=== PATIENT | male | born 1940 | race Caucasian/White ===

== ENCOUNTER 2016-05-06 10:35 | Outpatient (RCR) | payer MEDICARE ==
[~2016-05-06 10:35] MED LIST: AMIO400T5 PO; AMLO5TAB2 PO; ASP81TEC PO; ATOR40TA PO; DCS100C PO; DOXA1TAB PO; FURO40TA4 PO; FURO80TA PO; FURO80TA3 PO; GABA-488 PO; GLIM2TAB PO; HYDR-3456 PO; HYDR118S10 PO; JANUVIA PO; KCL20TCR PO; LINA5TAB PO; LIPO-FLAVONOID PO; LISI20TA PO; LISI40TA PO; LISINOPRIL; METFORMIN; MTF500T PO; MTL2.5T PO; MTP25TSR PO; MULT-1029 PO; NAPR-243 PO; POTA20TA15 PO; SITA100T PO; SMV20T PO; WARF-48 PO; WARF10TA4 PO; WARF4TAB PO; ZLP10T PO
[2016-05-06 11:02] LABS: INR 3.5 (0.8-1.4); PROTHROMBIN TIME PATIENT 35.4 SEC (12.2-14.7)
== END 2016-08-04 | disposition home or self-care (01) ==
LOC: LAB 10:35
PROVIDERS: ATTEND Family Medicine
DX: I48.91 Unspecified atrial fibrillation (principal)
CPT/HCPCS: 36415; 85610

== ENCOUNTER 2016-10-26 08:50 | Outpatient (RCR) | payer MEDICARE ==
[2016-10-23 10:36] LABS: INR 4.8 (0.8-1.4)
[2016-10-23 10:40] LABS: PROTHROMBIN TIME PATIENT 45.3 SEC (12.2-14.7)
[2016-10-26 09:17] LABS: INR 1.8 (0.8-1.4); PROTHROMBIN TIME PATIENT 20.6 SEC (12.2-14.7)
[2016-11-02 11:01] LABS: INR 2.6 (0.8-1.4); PROTHROMBIN TIME PATIENT 27.3 SEC (12.2-14.7)
== END 2017-01-21 | disposition home or self-care (01) ==
LOC: LAB 08:50
PROVIDERS: ATTEND Family Medicine
DX: I48.91 Unspecified atrial fibrillation (principal)
CPT/HCPCS: 36415; 85610

== ENCOUNTER 2017-05-04 07:46 | Outpatient (RCR) | payer MEDICARE ==
[2017-04-21 09:47] LABS: INR 3.9 (0.8-1.4); PROTHROMBIN TIME PATIENT 37.9 SEC (12.2-14.7)
[2017-04-23 08:12] LABS: INR 2.4 (0.8-1.4); PROTHROMBIN TIME PATIENT 25.9 SEC (12.2-14.7)
[2017-04-26 08:06] LABS: INR 1.8 (0.8-1.4); PROTHROMBIN TIME PATIENT 20.5 SEC (12.2-14.7)
[2017-05-04 08:10] LABS: INR 2.6 (0.8-1.4); PROTHROMBIN TIME PATIENT 27.9 SEC (12.2-14.7)
== END 2017-07-20 | disposition home or self-care (01) ==
LOC: LAB 07:46
PROVIDERS: ATTEND Family Medicine
DX: I48.91 Unspecified atrial fibrillation (principal)
CPT/HCPCS: 36415; 85610

== ENCOUNTER 2017-10-07 18:50 | Inpatient (IN) | payer MEDICARE ==
[~2017-10-07] VITALS: Ht 189.2 cm; Wt 93.3 kg
--- OUTSIDE RECORDS SUMMARY | 2017-10-07 18:57 | XMS REPORT | Continuity of Care Document ---
Author Author [facility] Organization [facility] Address Unknown Phone Unavailable Allergies Active Description Code Type Severity Reaction Onset Reported/Identified Relationship to Patient Clinical Status Yes No Known Drug Allergies [id number] Drug Allergy Unknown N/A 11/16/2012 Medications There is no data. Problems Date Dx Coded Attending Type Code Diagnosis Diagnosed By 02/15/2014 JARRED DAVIS DO Ot 427.31 ATRIAL FIBRILLATION 02/15/2014 JARRED DAVIS DO Ot 550.90 UNILAT INGUINAL HERNIA 02/15/2014 JARRED DAVIS DO Ot 553.1 UMBILICAL HERNIA 02/15/2014 JARRED DAVIS DO Ot V58.61 ANTICOAGULANTS,LT,CURRENT USE 05/22/2015 JARRED DAVIS DO Ot 550.90 05/22/2015 JARRED DAVIS DO Ot 553.3 05/22/2015 JARRED DAVIS DO Ot V72.63 05/22/2015 JARRDE DAVIS DO Ot V72.81 05/22/2015 JARRED DAIVS DO Ot V74.8 05/24/2015 ELMER STEEL DO Ot I25.10 06/24/2015 SHERLY PERDOMO, JUAN Willoughby Ot E11.9 TYPE 2 DIABETES MELLITUS WITHOUT COMPLIC 06/24/2015 SHERLY PERDOMO, JUAN Willoughby Ot K22.2 ESOPHAGEAL OBSTRUCTION 06/24/2015 JUAN DUBOIS MD Ot K63.5 POLYP OF COLON 06/24/2015 SHERLY PERDOMO, JUAN Willoughby Ot Z12.11 ENCOUNTER FOR SCREENING FOR MALIGNANT NE 07/02/2015 ELMER STEEL DO Ot I25.10 08/20/2015 ELMER STEEL DO Ot I25.10 ATHSCL HEART DISEASE OF [place] CORONARY 05/06/2016 JARRED DAVIS DO Ot 550.90 UNILAT INGUINAL HERNIA 05/06/2016 JARRED DAVIS DO Ot 553.3 DIAPHRAGMATIC HERNIA 05/06/2016 JARRED DAVIS DO Ot V72.63 PRE-PROCEDURAL LABORATORY EXAMINATION 05/06/2016 JARRED DAVIS DO Ot V72.81 [id number] CARDIOVASCULAR 05/06/2016 JARRED DAVIS DO Ot V74.8 SCREEN-BACTERIAL DIS NEC 05/06/2016 SHERLY PERDOMO, JUAN Willoughby Ot Z01.818 ENCOUNTER FOR OTHER PREPROCEDURAL EXAMIN 05/06/2016 ELMER STEEL DO Ot I25.10 ATHSCL HEART DISEASE OF [place] CORONARY 05/07/2016 DAMIÁN ARAIZA, ELMER Bright Ot I48.91 UNSPECIFIED ATRIAL FIBRILLATION 06/02/2016 [facility] Bright Ot I48.91 UNSPECIFIED ATRIAL FIBRILLATION 06/05/2016 Ot I73.9 PERIPHERAL VASCULAR DISEASE, UNSPECIFIED 06/05/2016 Ot I73.9 PERIPHERAL VASCULAR DISEASE, UNSPECIFIED 06/09/2016 Ot E11.9 TYPE 2 DIABETES MELLITUS WITHOUT COMPLIC 06/09/2016 Ot I99.8 OTHER DISORDER OF CIRCULATORY SYSTEM 06/09/2016 Ot M79.672 PAIN IN LEFT FOOT 06/17/2016 Ot E11.9 TYPE 2 DIABETES MELLITUS WITHOUT COMPLIC 06/17/2016 Ot I99.8 OTHER DISORDER OF CIRCULATORY SYSTEM 06/17/2016 Ot M79.672 PAIN IN LEFT FOOT 08/04/2016 DMAIÁN ARAIZA, ELMER Bright Ot I48.91 UNSPECIFIED ATRIAL FIBRILLATION 10/23/2016 LARRYLENDER DO, ELMER Bright Ot I48.91 UNSPECIFIED ATRIAL FIBRILLATION 10/26/2016 LARRYLENDER DO, ELMER Bright Ot I48.91 UNSPECIFIED ATRIAL FIBRILLATION 10/26/2016 LARRYLENDER DO, ELMER Bright Ot I48.91 UNSPECIFIED ATRIAL FIBRILLATION 12/01/2016 LARRYLENDER DO, ELMER Bright Ot I48.91 UNSPECIFIED ATRIAL FIBRILLATION 01/21/2017 GELLENDER DO, ELMER Bright Ot I48.91 UNSPECIFIED ATRIAL FIBRILLATION 01/22/2017 LARRYLENDER , ELMER Bright Ot I48.91 UNSPECIFIED ATRIAL FIBRILLATION 04/21/2017 JARRED DAVIS DO Ot 550.90 UNILAT INGUINAL HERNIA 04/21/2017 JARRED DAVIS DO Ot 553.3 DIAPHRAGMATIC HERNIA 04/21/2017 JARRED DAVIS DO Ot V72.63 PRE-PROCEDURAL LABORATORY EXAMINATION 04/21/2017 JARRED DAVIS DO Ot V72.81 [id number] CARDIOVASCULAR 04/21/2017 JARRED DAVIS DO Ot V74.8 SCREEN-BACTERIAL DIS NEC 04/21/2017 SHERLY PERDOMO, JUAN Willoughby Ot Z01.818 ENCOUNTER FOR OTHER PREPROCEDURAL EXAMIN 04/21/2017 DAMIÁN ARAIZA ELMER Bright Ot I25.10 ATHSCL HEART DISEASE OF [place] CORONARY 04/21/2017 Ot E11.9 TYPE 2 DIABETES MELLITUS WITHOUT COMPLIC 04/21/2017 Ot I99.8 OTHER DISORDER OF CIRCULATORY SYSTEM 04/21/2017 Ot M79.672 PAIN IN LEFT FOOT 04/21/2017 DAMIÁN ARAIZA ELMER Bright Ot I48.91 UNSPECIFIED ATRIAL FIBRILLATION 06/01/2017 LARRYJUDITHHECTOR ELMER Bright Ot I48.91 UNSPECIFIED ATRIAL FIBRILLATION 07/20/2017 DAMIÁN ARAIZA, ELMER Bright Ot I48.91 UNSPECIFIED ATRIAL FIBRILLATION 07/21/2017 DAMIÁN ARAIZA ELMER Bright Ot I48.91 UNSPECIFIED ATRIAL FIBRILLATION Procedures There is no data. Results Test Result Range PT panel in platelet poor plasma by coagulation assay - 05/06/16 10:42 Prothrombin time (PT) in platelet poor plasma by coagulation assay 35.4 s 12.2-14.7 INR in platelet poor plasma or blood by coagulation assay 3.5 0.8-1.4 PT panel in platelet poor plasma by coagulation assay - 10/23/16 10:14 Prothrombin time (PT) in platelet poor plasma by coagulation assay 45.3 s 12.2-14.7 INR in platelet poor plasma or blood by coagulation assay 4.8 0.8-1.4 PT panel in platelet poor plasma by coagulation assay - 10/26/16 08:56 Prothrombin time (PT) in platelet poor plasma by coagulation assay 20.6 s 12.2-14.7 INR in platelet poor plasma or blood by coagulation assay 1.8 0.8-1.4 PT panel in platelet poor plasma by coagulation assay - 11/02/16 10:41 Prothrombin time (PT) in platelet poor plasma by coagulation assay 27.3 s 12.2-14.7 INR in platelet poor plasma or blood by coagulation assay 2.6 0.8-1.4 PT panel in platelet poor plasma by coagulation assay - 04/21/17 09:23 Prothrombin time (PT) in platelet poor plasma by coagulation assay 37.9 s 12.2-14.7 INR in platelet poor plasma or blood by coagulation assay 3.9 0.8-1.4 PT panel in platelet poor plasma by coagulation assay - 04/23/17 07:55 Prothrombin time (PT) in platelet poor plasma by coagulation assay 25.9 s 12.2-14.7 INR in platelet poor plasma or blood by coagulation assay 2.4 0.8-1.4 PT panel in platelet poor plasma by coagulation assay - 04/26/17 07:45 Prothrombin time (PT) in platelet poor plasma by coagulation assay 20.5 s 12.2-14.7 INR in platelet poor plasma or blood by coagulation assay 1.8 0.8-1.4 PT panel in platelet poor plasma by coagulation assay - 05/04/17 07:50 Prothrombin time (PT) in platelet poor plasma by coagulation assay 27.9 s 12.2-14.7 INR in platelet poor plasma or blood by coagulation assay 2.6 0.8-1.4 Encounters ACCT No. Visit Date/Time Discharge Status Pt. Type Provider Facility Loc./Unit Complaint [id number] 07/21/2017 00:25:00 07/21/2017 23:59:59 CLS Preadmit DAMIÁN ARAIZA ELMER Deangelo [facility] LAB A FIB [id number] 05/04/2017 07:46:00 07/20/2017 00:01:00 DIS Outpatient DAMIÁN ARAIZA ELMER Deangelo [facility] LAB A FIB [id number] 01/22/2017 00:10:00 01/22/2017 23:59:59 CLS Preadmit ELMER STEEL DO [facility] LAB ATRIAL FIBRILLATION [id number] 10/26/2016 08:50:00 01/21/2017 00:01:00 DIS Outpatient ELMER STEEL DO [facility] LAB ATRIAL FIBRILLATION [id number] 05/06/2016 10:35:00 08/04/2016 00:01:00 DIS Outpatient ELMER STEEL DO [facility] LAB ATRIAL FIBRILLATION [id number] 08/21/2015 00:07:00 08/21/2015 23:59:59 CLS Preadmit ELMER STEEL DO [facility] LAB HEART SURGERY [id number] 05/22/2015 10:13:00 08/20/2015 00:01:00 DIS Outpatient ELMER STEEL DO [facility] LAB HEART SURGERY [id number] 06/24/2015 14:38:00 06/24/2015 18:35:00 DIS Outpatient JUAN DUBOIS MD [facility] SCREENING [id number] 06/20/2015 05:44:00 06/20/2015 23:59:59 CLS Outpatient JUAN DUBOIS MD [facility] PREOP SCREENING [id number] 02/15/2014 08:55:00 02/15/2014 17:30:00 DIS Outpatient JARRED DAVIS DO [facility] INGUINAL AND UMBILICAL HERNIAS [id number] 02/12/2014 08:38:00 02/12/2014 23:59:59 CLS Outpatient JARRED DAVIS DO [facility] PREOP RIGHT INGUINAL AND UMBILICAL HERNIAS [id number] 02/03/2014 15:13:00 02/03/2014 15:35:00 DIS Emergency [id number] 10/23/2013 09:47:00 01/16/2014 00:01:00 DIS Outpatient [id number] 01/03/2014 10:08:00 01/03/2014 23:59:59 CLS Outpatient [id number] 12/13/2013 12:54:00 12/13/2013 23:59:59 CLS Outpatient [id number] 12/07/2013 06:03:00 12/07/2013 10:42:00 DIS Outpatient [id number] 11/30/2013 09:20:00 11/30/2013 23:59:59 CLS Outpatient [id number] 04/27/2013 10:08:00 07/20/2013 00:01:00 DIS Outpatient [id number] 04/11/2013 09:54:00 04/21/2013 10:47:00 DIS Outpatient [id number] 04/17/2013 13:16:00 04/17/2013 23:59:59 CLS Outpatient [id number] 04/07/2013 10:13:00 04/07/2013 23:59:59 CLS Outpatient [id number] 04/04/2013 09:47:00 04/04/2013 23:59:59 CLS Outpatient [id number] 12/10/2012 16:30:00 12/16/2012 11:40:00 DIS Inpatient [id number] 11/16/2012 15:02:00 11/19/2012 13:20:00 DIS Inpatient [id number] 11/16/2012 11:02:00 11/16/2012 23:59:59 CLS Outpatient [id number] 06/05/2016 10:11:00 Document Registration
[2017-10-07] MEDS ORDERED: FUROSEMIDE 40 MG/4 ML INJ (LASIX) IV STA (19:04)
--- NOTE | 2017-10-07 19:14 | ED Respiratory ---
General Chief Complaint: Respiratory Problems Stated Complaint: CP,SOB Source: patient (IS VERY VAGUE AND LIMITED HISTORIAN), family (DAUGHTER, SON) History of Present Illness Date Seen by Provider: Oct 07, 2017 Time Seen by Provider: 18:51 Initial Comments PT ARRIVES VIA POV FROM HOME WITH DAUGHTER AND SON C/O SHORTNESS OF BREATH--CANNOT STATE HOW LONG--"COUPLE OF DAYS" BUT FAMILY REPORTS THAT HE HAS BEEN USING HIS 'S OXYGEN FOR THE LAST WEEK-- PT HAS NEVER NEEDED HOME O2. THEY REPORT O2 SATS 76-78% ON ROOM AIR ON HOME PULSE OX PT ALSO C/O GENERALIZED SWELLING--ABDOMEN, LEGS/FEET AND ARMS/HANDS--BEGAN SAME TIME SHORTNESS OF BREATH CHEST FEELS A LITTLE TIGHT TO BREATHE HAS HAD SLIGHT COUGH NO FEVER PT HAS HISTORY OF CHF, CAD/[place] WITH CABG, AND ATRIAL FIBRILLATION PT STATES DR. STEEL DECREASED HIS DOSE OF DIURETIC RECENTLY DUE TO "KIDNEY PROBLEMS" --AGAIN IS NOT SURE HOW LONG AGO THIS WAS DONE. HAD BLOOD IN URINE 3 WEEKS AGO. HAS NOT ATTEMPTED TO SEE OR DR. DEVINE FOR THESE CURRENT PROBLEMS FAMILY STATES THAT LAST NIGHT HE WAS "WEAK AND PALE" WHEN THEY SAW HIM, BUT STATE THEY WERE NOT AWARE OF ANY OF THE ABOVE PROBLEMS UNTIL TONIGHT. 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 DEVINE Allergies and Home Medications Allergies Coded Allergies: No Known Drug Allergies (Unverified , 11/16/12) Home Medications Aspirin 81 Mg Tabec, 81 MG PO DAILY, (Reported) Atorvastatin Calcium 40 Mg Tablet, 40 MG PO HS, (Reported) Furosemide 80 Mg Tablet, 80 MG PO BID, (Reported) Gabapentin 300 Mg Capsule, 300 MG PO HS, (Reported) Glimepiride 2 Mg Tablet, 2 MG PO DAILY, (Reported) Linagliptin 5 Mg Tablet, 5 MG PO DAILY, (Reported) Lisinopril 40 Mg Tablet, 40 MG PO DAILY, (Reported) Metolazone 2.5 Mg Tab, 2.5 MG PO DAILY, (Reported) TAKE 20 MINUTES BEFORE AM LASIX Multivit-Min/FA/Lycopene/Lut 1 Each Tablet, 1 EACH PO DAILY, (Reported) Potassium Chloride 20 Meq Tab.prt.sr, 20 MEQ PO TID, (Reported) Warfarin Sodium 5 Mg Tablet, 10 MG PO HS, (Reported) TAKE 2 (5MG) TABS Patient Home Medication List Home Medication List Reviewed: Yes Review of Systems Constitutional: No chills, No diaphoresis, No dizziness, No fever; malaise, weakness Respiratory: see HPI, cough, dyspnea on exertion, orthopnea, short of breath Cardiovascular: see HPI, chest pain, edema, Hx of Intervention; No syncope; vascular heart diseas Gastrointestinal: see HPI, other (ABDOMEN SWOLLEN) Genitourinary: see HPI Musculoskeletal: see HPI Skin: no symptoms reported Psychiatric/Neurological: No Symptoms Reported; Denies Headache Hematologic/Lymphatic: No Symptoms Reported Immunological/Allergic: no symptoms reported Past Nahtdls-Znajxo-Ehqfxj Hx Patient Social History Alcohol Use: Denies Use Recreational Drug Use: No Smoking Status: Former Smoker Type Used: Cigarettes Former Smoker, Quit: Jun 21, 1977 2nd Hand Smoke Exposure: No Recent Foreign Travel: No Contact w/Someone Who Travel: No Recent Hopitalizations: No Physical Abuse: No Sexual Abuse: No Mistreated: No Fear: No Immunizations Up To Date Tetanus Booster (TDap): Unknown Date of Pneumonia Vaccine: May 11, 2013 Date of Influenza Vaccine: Mar 14, 2015 Past Medical History Surgeries: Yes (BACK FUSION, LEFT LEG FX; CARDIAC CATHS; CABG-4 VESSEL; LESION ON HAND REMOVED; HERNIA REPAIRS-UMBILICAL AND RIGHT INGUINAL; EGD/ COLONOSCOPIES/ POLYPECTOMIES) Abdominal, Cardiac, CABG, Orthopedic Respiratory: No Cardiac: Yes (CABG, CHF) Atrial Fibrillation, Chronic Edema/Swelling, Coronary Artery Disease, Heart Attack, High Cholesterol, Hypertension, Irregular Heartbeat Neurological: No Reproductive Disorders: No Genitourinary: Yes ("kidney issues") Gastrointestinal: Yes Polyps Musculoskeletal: Yes (USE CANE) Arthritis, Chronic Back Pain Endocrine: Yes Diabetes, Non-Insulin dep HEENT: Yes Hearing Impairment: Hard of Hearing Cancer: No Psychosocial: No Nursing Suicide Risk Score: 0 Integumentary: No Blood Disorders: No (TAKES COUMADIN) Physical Exam Vital Signs Vital Signs - First Documented 10/07/17 18:50 Pulse 93 Resp 29 B/P (MAP) 159/94 (115) Pulse Ox 97 O2 Delivery Nasal Cannula O2 Flow Rate 3.00 FiO2 100 Capillary Refill : General Appearance: WD/WN, mild distress (DYSPNEIC) HEENT: other (HARD OF HEARING) Neck: non-tender, full range of motion, supple Respiratory: respiratory distress (MILD), accessory muscle use, rales, wheezing Cardiovascular: JVD (MILD), systolic murmur (4-5/6 AT LOWER LEFT CHEST), irregularly irregular Gastrointestinal: non tender, no organomegaly, distended Extremities: normal range of motion, non-tender, no calf tenderness, normal capillary refill, pedal edema (2-3+ BILATERALLY, CHRONIC VENOUS STASIS CHANGES LEFT >> RIGHT) 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, no motor/sensory deficits, alert, normal mood/affect, oriented x 3 Skin: normal color, warm/dry Progress/Results/Core Measures Suspected Sepsis SIRS Temperature: Pulse: Respiratory Rate: Laboratory Tests 10/07/17 19:10: White Blood Count 14.2H Blood Pressure / Mean: Laboratory Tests 10/07/17 19:10: Creatinine 1.63H, INR Comment 4.4H, Platelet Count 294, Total Bilirubin 1.0 Results/Orders Lab Results Laboratory Tests Test 10/07/17 19:10 10/07/17 19:27 10/07/17 19:58 Range/Units White Blood Count 14.2 H 4.3-11.0 10^3/uL Red Blood Count 4.50 4.35-5.85 10^6/uL Hemoglobin 10.5 L 13.3-17.7 G/DL Hematocrit 33 L 40-54 % Mean Corpuscular Volume 74 L 80-99 FL Mean Corpuscular Hemoglobin 23 L 25-34 PG Mean Corpuscular Hemoglobin Concent 32 32-36 G/DL Red Cell Distribution Width 19.3 H 10.0-14.5 % Platelet Count 294 130-400 10^3/uL Mean Platelet Volume 10.3 7.4-10.4 FL Neutrophils (%) (Auto) 82 H 42-75 % Lymphocytes (%) (Auto) 5 L 12-44 % Monocytes (%) (Auto) 10 0-12 % Eosinophils (%) (Auto) 3 0-10 % Basophils (%) (Auto) 0 0-10 % Neutrophils # (Auto) 11.6 H 1.8-7.8 X 10^3 Lymphocytes # (Auto) 0.8 L 1.0-4.0 X 10^3 Monocytes # (Auto) 1.4 H 0.0-1.0 X 10^3 Eosinophils # (Auto) 0.4 H 0.0-0.3 10^3/uL Basophils # (Auto) 0.1 0.0-0.1 10^3/uL Neutrophils % (Manual) 88 % Lymphocytes % (Manual) 4 % Monocytes % (Manual) 5 % Eosinophils % (Manual) 1 % Basophils % (Manual) 0 % Band Neutrophils 2 % Hypochromasia SLIGHT Poikilocytosis SLIGHT Anisocytosis SLIGHT Microcytosis MODERATE Prothrombin Time 41.4 H 12.2-14.7 SEC INR Comment 4.4 H 0.8-1.4 Activated Partial Thromboplast Time 52 H 24-35 SEC Sodium Level 141 135-145 MMOL/L Potassium Level 4.2 3.6-5.0 MMOL/L Chloride Level 104 98-107 MMOL/L Carbon Dioxide Level 30 21-32 MMOL/L Anion Gap 7 5-14 MMOL/L Blood Urea Nitrogen 36 H 7-18 MG/DL Creatinine 1.63 H 0.60-1.30 MG/DL Estimat Glomerular Filtration Rate 41 BUN/Creatinine Ratio 22 Glucose Level 294 H 70-105 MG/DL Calcium Level 8.6 8.5-10.1 MG/DL Magnesium Level 2.1 1.8-2.4 MG/DL Total Bilirubin 1.0 0.1-1.0 MG/DL Aspartate Amino Transf (AST/SGOT) 20 5-34 U/L Alanine Aminotransferase (ALT/SGPT) 22 0-55 U/L Alkaline Phosphatase 103 40-136 U/L Troponin I < 0.30 <0.30 NG/ML B-Type Natriuretic Peptide 1038.0 H <100.0 PG/ML Total Protein 6.3 L 6.4-8.2 GM/DL Albumin 3.5 3.2-4.5 GM/DL TSH Harrell Testing 0.63 0.35-4.94 UIU/ML Blood Gas Puncture Site LEFT RADIAL Blood Gas Patient Temperature 98.7 Arterial Blood pH 7.40 7.37-7.43 Arterial Blood Partial Pressure CO2 47 H 35-45 MMHG Arterial Blood Partial Pressure O2 80 79-93 MMHG Arterial Blood HCO3 28 H 23-27 MMOL/L Arterial Blood Total CO2 29.7 21.0-31.0 MMOL/L Arterial Blood Oxygen Saturation 97 94-100 % Arterial Blood Base Excess 3.8 H -2.5-2.5 MMOL/L Alex Test POSITIVE Blood Gas Ventilator Setting NO Blood Gas Inspired Oxygen 3L Urine Color YELLOW Urine Clarity CLEAR Urine pH 6 5-9 Urine Specific [place] 1.015 L 1.016-1.022 Urine Protein 3+ H NEGATIVE Urine Glucose (UA) 1+ H NEGATIVE Urine Ketones NEGATIVE NEGATIVE Urine Nitrite NEGATIVE NEGATIVE Urine Bilirubin NEGATIVE NEGATIVE Urine Urobilinogen NORMAL NORMAL MG/DL Urine Leukocyte Esterase NEGATIVE NEGATIVE Urine RBC (Auto) 1+ H NEGATIVE Urine RBC 0-2 /HPF Urine WBC NONE /HPF Urine Crystals NONE /LPF Urine Bacteria NONE /HPF Urine Casts NONE /LPF Urine Mucus NEGATIVE /LPF Urine Culture Indicated NO My Orders Orders - CELINA ROJAS DO Saline Lock/Iv-Start (10/07/17 19:04) Ekg Tracing (10/07/17:) O2 (10/07/17:04) Monitor-Rhythm Ecg Trace Only (10/07/17:04) Arterial Blood Gas (10/07/17:04) BNP (10/07/17:04) Cbc With Automated Diff (10/07/17:) Comprehensive Metabolic Panel (10/07/17:) Magnesium (10/07/17 19:04) Protime With Inr (10/07/17:) Partial Thromboplastin Time (10/07/17:) Thyroid Analyzer (10/07/17:) Troponin I (10/07/17:) Ua Culture If Indicated (10/07/17 19:04) Chest 1 View, Ap/Pa Only (10/07/17 19:04) Furosemide Injection (Lasix Injection) (10/07/17 19:04) Nitroglycerin Ointment (Nitrobid Ointme (10/07/17 19:30) Arterial Blood Gas (10/07/17 19:28) Manual Differential (10/07/17 19:10) Ekg Tracing (10/07/17 20:25) Medications Given in ED Current Medications Medications Dose Ordered Sig/Jenn Route Start Time Stop Time Status Last Admin Dose Admin Nitroglycerin 1 inch ONCE ONCE TOP 10/07/17 19:30 10/07/17 19:31 DC 10/07/17 19:32 1 INCH Vital Signs/I&O 4/19/18 4/19/18 18:50 18:50 Pulse 93 Resp 29 B/P (MAP) 159/94 (115) Pulse Ox 97 97 O2 Delivery Nasal Cannula O2 Flow Rate 3.00 3.00 FiO2 100 Capillary Refill : Progress Note : Progress Note INITIAL O2 SATS 82-83% ON ROOM AIR ON ARRIVAL, QUICKLY UP TO 96% ON 3L/NC PT GIVEN LASIX + NITROPASTE WITH IMPROVEMENT IN DYSPNEA AND BLOOD PRESSURE DOWN , AND PT FEELING MUCH BETTER PT VOIDED X 2 AFTER LASIX ECG Initial ECG Impression Date: Oct 07, 2017 Initial ECG Impression Time: 19:11 Initial ECG Rate: 76 Initial ECG Rhythm: A Fib/Flutter (POSSIBLE ST DEPRESSION LATERALLY, LIMITED STUDY DUE TO PT MOTION/BREATHING) EKG : EKG Time: 20:23 Rate: 74 Rhythm: A Fib/Flutter Diagnostic Imaging Comments CXR--CARDIOMEGALY WITHOUT PULMONARY VASCULAR HTN--PER RADIOLOGIST REPORT @ 1947 Reviewed: Reviewed by Me Departure Communication (Admissions) 2001--SPOKE WITH DR. STEEL, ACCEPTS PT FOR ADMIT. WOULD LIKE CARDIOLOGY CONSULTED 2015--SPOKE WITH DR. RODRIGUEZ, HE ADVISES TO HAVE DR. DEVINE CONSULTED IN AM. Impression Primary Impression: CHF (congestive heart failure) Additional Impressions: Hypoxia Chronic atrial fibrillation HTN (hypertension) HEART MURMUR--NEW DX NIDDM HX OF [place]/CABG Chronic renal insufficiency Disposition: ADMITTED INPATIENT Condition: Improved Admissions Decision to Admit Reason: Admit from ER (General) Decision to Admit/Date: Oct 07, 2017 Time/Decision to Admit Time: 20:00 Departure-Patient Inst. Referrals: ELMER STEEL DO (PCP/Family) Primary Care Physician CELINA ROJAS DO Oct 07, 2017 19:14
[2017-10-07 19:20] LABS: BASOPHILS # (AUTO) 0.1 10^3/uL (0.0-0.1); BASOPHILS % (AUTO) 0 % (0-10); EOSINOPHILS # (AUTO) 0.4 10^3/uL (0.0-0.3); EOSINOPHILS % (AUTO) 3 % (0-10); HEMATOCRIT 33 % (40-54); HEMOGLOBIN 10.5 G/DL (13.3-17.7); LYMPHOCYTES # (AUTO) 0.8 X 10^3 (1.0-4.0); LYMPHOCYTES % (AUTO) 5 % (12-44); MEAN CORPUSCULAR HEMOGLOBIN 23 PG (25-34); MEAN CORPUSCULAR HGB CONC 32 G/DL (32-36); MEAN CORPUSCULAR VOLUME 74 FL (80-99); MEAN PLATELET VOLUME 10.3 FL (7.4-10.4); MONOCYTES # (AUTO) 1.4 X 10^3 (0.0-1.0); MONOCYTES % (AUTO) 10 % (0-12); NEUTROPHILS # (AUTO) 11.6 X 10^3 (1.8-7.8); NEUTROPHILS % (AUTO) 82 % (42-75); PLATELET COUNT 294 10^3/uL (130-400); RED CELL DISTRIBUTION WIDTH 19.3 % (10.0-14.5); WHITE BLOOD COUNT 14.2 10^3/uL (4.3-11.0)
[2017-10-07] MEDS ORDERED: NITROGLYCERIN 2% OINT 1 GM UNIT DOSE PACKET TOP ONE (19:30)
[2017-10-07 19:34] LABS: ABG BASE EXCESS 3.8 MMOL/L (-2.5-2.5); ABG OXYGEN SATURATION 97 % (94-100); ABG PCO2 47 MMHG (35-45); ABG PO2 80 MMHG (79-93); ABG TCO2 29.7 MMOL/L (21.0-31.0)
[2017-10-07 19:36] LABS: INSPIRED O2 3L
[2017-10-07 19:37] LABS: PATIENT TEMP 98.7; VENTILATOR NO
[2017-10-07 19:39] LABS: INR 4.4 (0.8-1.4); PROTHROMBIN TIME PATIENT 41.4 SEC (12.2-14.7)
[2017-10-07 19:41] LABS: ALLENS TEST POSITIVE
[2017-10-07 19:43] LABS: ALANINE AMINOTRANSFERASE 22 U/L (0-55); ALBUMIN 3.5 GM/DL (3.2-4.5); ALKALINE PHOSPHATASE 103 U/L (40-136); BUN/CREATININE RATIO 22; CALCIUM 8.6 MG/DL (8.5-10.1); CARBON DIOXIDE 30 MMOL/L (21-32); CHLORIDE 104 MMOL/L (98-107); CREATININE SERUM 1.63 MG/DL (0.60-1.30); GFR ESTIMATED 41; GLUCOSE 294 MG/DL (70-105); MAGNESIUM 2.1 MG/DL (1.8-2.4); POTASSIUM 4.2 MMOL/L (3.6-5.0); SODIUM 141 MMOL/L (135-145); TOTAL PROTEIN 6.3 GM/DL (6.4-8.2)
--- NOTE | 2017-10-07 19:44 | Diagnostic Imaging Report ---
INDICATION: Chest pain. EXAMINATION: Portable chest at 7:21 p.m. FINDINGS: There are postop changes from CABG surgery. Heart is mildly enlarged. Pulmonary vascularity is normal. Lungs are clear. IMPRESSION: Cardiomegaly without evidence of pulmonary venous hypertension. Dictated by: Dictated on workstation # [id number]
[2017-10-07 19:52] LABS: ANISOCYTOSIS SLIGHT; BAND NEUTROPHILS 2 %; BASOPHILS % (MANUAL) 0 %; EOSINOPHILS % (MANUAL) 1 %; HYPOCHROMASIA SLIGHT; LYMPHOCYTES % (MANUAL) 4 %; MICROCYTOSIS MODERATE; MONOCYTES % (MANUAL) 5 %; NEUTROPHILS % (MANUAL) 88 %; POIKILOCYTOSIS SLIGHT
[2017-10-07 20:02] LABS: TSH (THYROID ANALYZER) 0.63 UIU/ML (0.35-4.94)
[2017-10-07 20:05] LABS: BILIRUBIN,URINE NEGATIVE (NEGATIVE); CLARITY,URINE CLEAR; COLOR,URINE YELLOW; GLUCOSE, URINE (UA) 1+ (NEGATIVE); KETONES,URINE NEGATIVE (NEGATIVE); LEUKOCYTE ESTERASE ,URINE NEGATIVE (NEGATIVE); NITRITE,URINE NEGATIVE (NEGATIVE); PH,URINE 6 (5-9); PROTEIN,URINE 3+ (NEGATIVE); UROBILINOGEN,URINE NORMAL (NORMAL)
[2017-10-07 20:15] LABS: RBC,URINE 0-2 /HPF
--- OUTSIDE RECORDS SUMMARY | 2017-10-07 20:31 | XMS REPORT | Continuity of Care Document ---
Author Author [facility] Organization [facility] Address Unknown Phone Unavailable Allergies Active Description Code Type Severity Reaction Onset Reported/Identified Relationship to Patient Clinical Status Yes No Known Drug Allergies [id number] Drug Allergy Unknown N/A 11/16/2012 Medications There is no data. Problems Date Dx Coded Attending Type Code Diagnosis Diagnosed By 02/15/2014 JARRED DAVIS DO Ot 427.31 ATRIAL FIBRILLATION 02/15/2014 JARRED DAVIS DO Ot 550.90 UNILAT INGUINAL HERNIA 02/15/2014 JARRED DAVIS DO Ot 553.1 UMBILICAL HERNIA 02/15/2014 JARRED DAVIS DO Ot V58.61 ANTICOAGULANTS,LT,CURRENT USE 05/22/2015 JARRED DAVIS DO Ot 550.90 05/22/2015 JARRDE DAVIS DO Ot 553.3 05/22/2015 JARRED DAVIS DO Ot V72.63 05/22/2015 JARRED DAVIS DO Ot V72.81 05/22/2015 JARRED DAVIS DO Ot V74.8 05/24/2015 ELMER STEEL DO [...] DO Ot I25.10 ATHSCL HEART DISEASE [place] CORONARY 05/06/2016 JARRED DAVIS DO Ot 550.90 UNILAT INGUINAL HERNIA 05/06/2016 JARRED DAVIS DO Ot 553.3 DIAPHRAGMATIC HERNIA 05/06/2016 JARRED DAVIS DO Ot V72.63 PRE-PROCEDURAL LABORATORY EXAMINATION 05/06/2016 JARRED DAVIS DO Ot V72.81 CZWM-[id number] CARDIOVASCULAR 05/06/2016 JARRED DAVIS DO Ot V74.8 SCREEN-BACTERIAL DIS NEC 05/06/2016 SHERLY PERDOMO, JUAN Willoughby Ot Z01.818 ENCOUNTER FOR OTHER PREPROCEDURAL EXAMIN 05/06/2016 ELMER STEEL DO Ot I25.10 ATHSCL HEART DISEASE [place] CORONARY 05/07/2016 DAMIÁN ARAIZA, ELMER Bright Ot I48.91 UNSPECIFIED ATRIAL FIBRILLATION 06/02/2016 [facility] EL[facility] Bright Ot I48.91 UNSPECIFIED [...] Ot M79.672 PAIN IN LEFT FOOT 08/04/2016 DAMIÁN ARAIZA, ELMER Bright Ot I48.91 UNSPECIFIED [...] EXAMINATION 04/21/2017 JARRED DAVIS DO Ot V72.81 NABT-[id number] CARDIOVASCULAR 04/21/2017 JARRED DAVIS DO Ot V74.8 SCREEN-BACTERIAL DIS NEC 04/21/2017 SHERLY PERDOMO, JUAN Willoughby Ot Z01.818 ENCOUNTER FOR OTHER PREPROCEDURAL EXAMIN 04/21/2017 DAMIÁN ARAIZA ELMER Bright Ot I25.10 ATHSCL HEART DISEASE OF [place] CORONARY 04/21/2017 Ot E11.9 TYPE 2 DIABETES [...] or blood by coagulation assay 2.6 0.8-1.4 Complete blood count (CBC) with automated white blood cell (WBC) differential - 10/07/17 19:10 Blood leukocytes automated count (number/volume) 14.2 10*3/uL 4.3-11.0 Blood erythrocytes automated count (number/volume) 4.50 10*6/uL 4.35-5.85 Venous blood hemoglobin measurement (mass/volume) 10.5 g/dL 13.3-17.7 Blood hematocrit (volume fraction) 33 % 40-54 Automated erythrocyte mean corpuscular volume 74 [foz_us] 80-99 Automated erythrocyte mean corpuscular hemoglobin (mass per erythrocyte) 23 pg 25-34 Automated erythrocyte mean corpuscular hemoglobin concentration measurement ( mass/volume) 32 g/dL 32-36 Automated erythrocyte distribution width ratio 19.3 % 10.0-14.5 Automated blood platelet count (count/volume) 294 10*3/uL 130-400 Automated blood platelet mean volume measurement 10.3 [foz_us] 7.4-10.4 Automated blood neutrophils/100 leukocytes 82 % 42-75 Automated blood lymphocytes/100 leukocytes 5 % 12-44 Blood monocytes/100 leukocytes 10 % 0-12 Automated blood eosinophils/100 leukocytes 3 % 0-10 Automated blood basophils/100 leukocytes 0 % 0-10 Blood neutrophils automated count (number/volume) 11.6 10*3 1.8-7.8 Blood lymphocytes automated count (number/volume) 0.8 10*3 1.0-4.0 Blood monocytes automated count (number/volume) 1.4 10*3 0.0-1.0 Automated eosinophil count 0.4 10*3/uL 0.0-0.3 Automated blood basophil count (count/volume) 0.1 10*3/uL 0.0-0.1 Comprehensive metabolic panel - 10/07/17 19:10 Serum or plasma sodium measurement (moles/volume) 141 mmol/L 135-145 Serum or plasma potassium measurement (moles/volume) 4.2 mmol/L 3.6-5.0 Serum or plasma chloride measurement (moles/volume) 104 mmol/L 98-107 Carbon dioxide 30 mmol/L 21-32 Serum or plasma anion gap determination (moles/volume) 7 mmol/L 5-14 Serum or plasma urea nitrogen measurement (mass/volume) 36 mg/dL 7-18 Serum or plasma creatinine measurement (mass/volume) 1.63 mg/dL 0.60-1.30 Serum or plasma urea nitrogen/creatinine mass ratio 22 NRG Serum or plasma creatinine measurement with calculation of estimated glomerular filtration rate 41 NRG Serum or plasma glucose measurement (mass/volume) 294 mg/dL 70-105 Serum or plasma calcium measurement (mass/volume) 8.6 mg/dL 8.5-10.1 Serum or plasma total bilirubin measurement (mass/volume) 1.0 mg/dL 0.1-1.0 Serum or plasma alkaline phosphatase measurement (enzymatic activity/volume) 103 U/L 40-136 Serum or plasma aspartate aminotransferase measurement (enzymatic activity/ volume) 20 U/L 5-34 Serum or plasma alanine aminotransferase measurement (enzymatic activity/volume ) 22 U/L 0-55 Serum or plasma protein measurement (mass/volume) 6.3 g/dL 6.4-8.2 Serum or plasma albumin measurement (mass/volume) 3.5 g/dL 3.2-4.5 Magnesium - 10/07/17 19:10 Magnesium 2.1 mg/dL 1.8-2.4 PT panel in platelet poor plasma by coagulation assay - 10/07/17 19:10 Prothrombin time (PT) in platelet poor plasma by coagulation assay 41.4 s 12.2-14.7 INR in platelet poor plasma or blood by coagulation assay 4.4 0.8-1.4 Activated partial thromboplastin time (aPTT) in platelet poor plasma bycoagulation assay - 10/07/17 19:10 Activated partial thromboplastin time (aPTT) in platelet poor plasma bycoagulation assay 52 s 24-35 Serum or plasma lithium measurement (moles/volume) - 10/07/17 19:10 BNP level 1038.0 pg/mL <100.0 Blood manual differential performed detection - 10/07/17 19:10 Blood monocytes/100 leukocytes 5 % NRG Manual blood segmented neutrophils/100 leukocytes 88 % NRG Blood band neutrophils/100 leukocytes 2 % NRG Manual blood lymphocytes/100 leukocytes 4 % NRG Manual eosinophils/100 leukocytes in nose 1 % NRG Manual blood basophils/100 leukocytes 0 % NRG Blood anisocytosis detection by light microscopy SLIGHT NRG Blood poikilocytosis detection by light microscopy SLIGHT NRG Blood hypochromia detection by light microscopy SLIGHT NRG Blood microcytes detection by light microscopy MODERATE NRG Serum or plasma troponin i.cardiac measurement (mass/volume) - 10/07/17 19:10 Serum or plasma troponin i.cardiac measurement (mass/volume) < ng/ mL <0.30 Serum or plasma thyrotropin measurement by detection limit <=0.05 miu/l (units/ volume) - 10/07/17 19:10 Serum or plasma thyrotropin measurement by detection limit <=0.05 miu/l (units/ volume) 0.63 u[iU]/mL 0.35-4.94 Arterial blood gas measurement - 10/07/17 19:27 Blood pCO2 47 mm[Hg] 35-45 Blood pO2 80 mm[Hg] 79-93 Arterial blood bicarbonate measurement (moles/volume) 28 mmol/L 23-27 Arterial blood base excess by calculation 3.8 mmol/L -2.5 -2.5 Arterial blood oxygen saturation measurement 97 % 94-100 * Inhaled oxygen flow rate 3L NRG Arterial blood pH measurement with patient temperature correction 7.40 7.37-7.43 Arterial blood carbon dioxide, total measurement (moles/volume) 29.7 mmol/L 21.0-31.0 Body site LEFT RADIAL NRG Assessment of wrist artery patency prior to arterial puncture POSITIVE NRG Setting of ventilation mode NO NRG Measurement of body temperature 98.7 NRG Complete urinalysis with reflex to culture - 10/07/17 19:58 Urine color determination YELLOW NRG Urine clarity determination CLEAR NRG Urine pH measurement by test strip 6 5-9 Specific gravity of urine by test strip 1.015 1.016- 1.022 Urine protein assay by test strip, semi-quantitative 3+ NEGATIVE Urine glucose detection by automated test strip 1+ NEGATIVE Erythrocytes detection in urine sediment by light microscopy 1+ NEGATIVE Urine ketones detection by automated test strip NEGATIVE NEGATIVE Urine nitrite detection by test strip NEGATIVE NEGATIVE Urine total bilirubin detection by test strip NEGATIVE NEGATIVE Urine urobilinogen measurement by automated test strip (mass/volume) NORMAL NORMAL Urine leukocyte esterase detection by dipstick NEGATIVE NEGATIVE Automated urine sediment erythrocyte count by microscopy (number/high power field) [HPF] NRG Automated urine sediment leukocyte count by microscopy (number/high power field ) NONE NRG Bacteria detection in urine sediment by light microscopy NONE NRG Crystals detection in urine sediment by light microscopy NONE NRG Casts detection in urine sediment by light microscopy NONE NRG Mucus detection in urine sediment by light microscopy NEGATIVE NRG Complete urinalysis with reflex to culture NO NRG Encounters ACCT No. Visit Date/Time Discharge Status Pt. Type Provider Facility Loc./Unit Complaint [id number] 07/21/2017 00:25:00 07/21/2017 23:59:59 CLS Preadmit ELMER STEEL DO [facility] LAB A FIB [id number] 05/04/2017 07:46:00 07/20/2017 00:01:00 DIS Outpatient ELMER STEEL DO [facility] LAB A FIB [id number] 01/22/2017 00:10:00 01/22/2017 23:59:59 CLS Preadmit ELMER STEEL DO [facility] LAB ATRIAL FIBRILLATION [id number] 10/26/2016 08:50:00 01/21/2017 00:01:00 DIS Outpatient ELMER STEEL DO [facility] LAB ATRIAL FIBRILLATION [id number] 05/06/2016 10:35:00 08/04/2016 00:01:00 DIS Outpatient EVERETTJUAQUIN ELMER ARAIZA [facility] LAB ATRIAL FIBRILLATION [id number] 08/21/2015 00:07:00 08/21/2015 23:59:59 CLS Preadmit GELELMER BERG DO [facility] LAB HEART SURGERY [id number] 05/22/2015 10:13:00 08/20/2015 00:01:00 DIS Outpatient ELMER STEEL DO [facility] LAB HEART SURGERY [id number] 06/24/2015 14:38:00 06/24/2015 18:35:00 DIS Outpatient JUAN DUBOIS MD [facility] SCREENING [id number] 06/20/2015 05:44:00 06/20/2015 23:59:59 CLS Outpatient JUAN DUBOIS MD [facility] PREOP SCREENING [id number] 02/15/2014 08:55:00 02/15/2014 17:30:00 DIS Outpatient JARRED DAVIS DO [facility] INGUINAL AND UMBILICAL HERNIAS [id number] 02/12/2014 08:38:00 02/12/2014 23:59:59 CLS Outpatient JARRED DAVIS DO [facility] PREOP RIGHT INGUINAL AND UMBILICAL HERNIAS [id number] 02/03/2014 15:13:00 02/03/2014 15:35:00 DIS Emergency [id number] 10/23/2013 09:47:00 01/16/2014 00:01:00 DIS Outpatient [id number] 01/03/2014 10:08:00 01/03/2014 23:59:59 CLS Outpatient [id number] 12/13/2013 12:54:00 12/13/2013 23:59:59 CLS Outpatient [id number] 12/07/2013 06:03:00 12/07/2013 10:42:00 DIS Outpatient [id number] 11/30/2013 09:20:00 11/30/2013 23:59:59 CLS Outpatient [id number] 04/27/2013 10:08:00 07/20/2013 00:01:00 DIS Outpatient [id number] 04/11/2013 09:54:00 04/21/2013 10:47:00 DIS Outpatient [id number] 04/17/2013 13:16:00 04/17/2013 23:59:59 CLS Outpatient [id number] 04/07/2013 10:13:00 04/07/2013 23:59:59 CLS Outpatient [id number] 04/04/2013 09:47:00 04/04/2013 23:59:59 CLS Outpatient [id number] 12/10/2012 16:30:00 12/16/2012 11:40:00 DIS Inpatient [id number] 11/16/2012 15:02:00 11/19/2012 13:20:00 DIS Inpatient [id number] 11/16/2012 11:02:00 11/16/2012 23:59:59 CLS Outpatient [id number] 10/07/2017 19:30:00 Document Registration [id number] 06/05/2016 10:11:00 Document Registration
[2017-10-07 22:30] VITALS: BP 158/79
[2017-10-07 22:45] VITALS: BP 159/90
[2017-10-07 23:00] VITALS: BP 162/99
[2017-10-07] MEDS ORDERED: morphine INJ 4 MG/ML 1 ML (VIAL/SYRINGE) IV PRN (23:00)
[2017-10-07] MEDS: inSUlin ASPART (NovoLOG) 1 UNIT/0.01 ML (CHARGE PER UNIT) SC SCH (23:08)
[2017-10-08] VITALS (14 sets, daily range): BP systolic 127–162; BP diastolic 8–112
[2017-10-08 04:18] LABS: BASOPHILS # (AUTO) 0.1 10^3/uL (0.0-0.1); BASOPHILS % (AUTO) 1 % (0-10); EOSINOPHILS # (AUTO) 0.5 10^3/uL (0.0-0.3); EOSINOPHILS % (AUTO) 4 % (0-10); HEMATOCRIT 32 % (40-54); HEMOGLOBIN 9.9 G/DL (13.3-17.7); LYMPHOCYTES # (AUTO) 1.4 X 10^3 (1.0-4.0); LYMPHOCYTES % (AUTO) 13 % (12-44); MEAN CORPUSCULAR HEMOGLOBIN 23 PG (25-34); MEAN CORPUSCULAR HGB CONC 31 G/DL (32-36); MEAN CORPUSCULAR VOLUME 77 FL (80-99); MEAN PLATELET VOLUME 11.5 FL (7.4-10.4); MONOCYTES # (AUTO) 1.2 X 10^3 (0.0-1.0); MONOCYTES % (AUTO) 11 % (0-12); NEUTROPHILS # (AUTO) 7.7 X 10^3 (1.8-7.8); NEUTROPHILS % (AUTO) 71 % (42-75); PLATELET COUNT 297 10^3/uL (130-400); RED BLOOD COUNT 4.23 10^6/uL (4.35-5.85); RED CELL DISTRIBUTION WIDTH 19.5 % (10.0-14.5); WHITE BLOOD COUNT 10.8 10^3/uL (4.3-11.0)
[2017-10-08 04:31] LABS: INR 4.5 (0.8-1.4); PROTHROMBIN TIME PATIENT 42.2 SEC (12.2-14.7)
[2017-10-08] MEDS: NITROGLYCERIN 2% OINT 1 GM UNIT DOSE PACKET TOP SCH ×4 (04:38→22:02)
[2017-10-08 04:41] LABS: ALBUMIN 3.3 GM/DL (3.2-4.5); BILIRUBIN,TOTAL 0.9 MG/DL (0.1-1.0); CALCIUM 8.5 MG/DL (8.5-10.1); CREATININE SERUM 1.49 MG/DL (0.60-1.30); POTASSIUM 3.8 MMOL/L (3.6-5.0); TOTAL PROTEIN 5.7 GM/DL (6.4-8.2)
[2017-10-08 04:50] LABS: MYOGLOBIN SERUM 108.1 NG/ML (10.0-92.0)
[2017-10-08] MEDS: inSUlin ASPART (NovoLOG) 1 UNIT/0.01 ML (CHARGE PER UNIT) SC SCH ×4 (05:10→22:02)
[2017-10-08] MEDS ORDERED: FUROSEMIDE 40 MG/4 ML INJ (LASIX) IV SCH (06:00)
--- NOTE | 2017-10-08 07:36 | History & Physicial ---
History of Present Illness History of Present Illness Reason for visit/HPI Patient came out to the emergency room by vehicle. Patient has been short of breath and using 's oxygen at night. Patient pulse ox at home is 75/80. Patient yesterday had tightness in his chest Patient recently swelling of his feet. Patient recently had renal insufficiency had a reduction in his diuretic. Patient has a previous history of congestive heart failure, cardiac disease. Myocardial infarction with CABG, and atrial fibrillation. Previous surgeries back surgery, open heart, legs, both sides for hernia Date of Admission Oct 07, 2017 at 20:27 Time Seen by Provider: 07:20 I consulted on this patient on 10/08/17 07:30 Attending Physician Kenn Steel DO Admitting Physician Kenn Steel DO Consult Allergies and Home Medications Allergies Coded Allergies: No Known Drug Allergies (Unverified , 11/16/12) Home Medications Aspirin 81 Mg Tabec, 81 MG PO DAILY, (Reported) Atorvastatin Calcium 40 Mg Tablet, 40 MG PO HS, (Reported) Furosemide 80 Mg Tablet, 80 MG PO BID, (Reported) Gabapentin 300 Mg Capsule, 300 MG PO HS, (Reported) Glimepiride 2 Mg Tablet, 2 MG PO DAILY, (Reported) Linagliptin 5 Mg Tablet, 5 MG PO DAILY, (Reported) Lisinopril 40 Mg Tablet, 40 MG PO DAILY, (Reported) Metolazone 2.5 Mg Tab, 2.5 MG PO DAILY, (Reported) TAKE 20 MINUTES BEFORE AM LASIX Multivit-Min/FA/Lycopene/Lut 1 Each Tablet, 1 EACH PO DAILY, (Reported) Potassium Chloride 20 Meq Tab.prt.sr, 20 MEQ PO TID, (Reported) Warfarin Sodium 5 Mg Tablet, 10 MG PO HS, (Reported) TAKE 2 (5MG) TABS Patient Home Medication List Home Medication List Reviewed: No Past Dydgmdq-Orejmn-Ckssya Hx Patient Social History Marrital Status: Employed/Student: unemployed Alcohol Use: Denies Use Recreational Drug Use: No Smoking Status: Former Smoker Former Smoker, Quit: Jun 21, 1977 Type Used: Cigarettes 2nd Hand Smoke Exposure: No Physical Abuse Screen: No Sexual Abuse: No Recent Foreign Travel: No Contact w/other who traveled: No Recent Hopitalizations: No Recent Infectious Disease Expo: No Immunizations Up To Date Tetanus Booster (TDap): Unknown Date of Pneumonia Vaccine: May 11, 2015 Date of Influenza Vaccine: Mar 14, 2015 Seasonal Allergies Seasonal Allergies: No Surgeries Yes Abdominal, Cardiac, CABG, Orthopedic Respiratory No Cardiovascular Yes (CABG, CHF) Atrial Fibrillation, Chronic Edema/Swelling, Coronary Artery Disease, Heart Attack, High Cholesterol, Hypertension, Irregular Heartbeat Neurological No Reproductive System Hx Reproductive Disorders: No Genitourinary Yes ("kidney issues") Gastrointestinal Yes Polyps Musculoskeletal Yes (USE CANE) Arthritis, Chronic Back Pain Endocrine History of Endocrine Disorders: Yes Endocrine Disorders: Diabetes, Non-Insulin dep Are Your Blood Sugars Over 250: No HEENT History of HEENT Disorders: Yes Hearing Impairment: Hard of Hearing Cancer No Psychosocial History of Psychiatric Problem: No Integumentary History of Skin or Integumenta: No Blood Transfusions History of Blood Disorders: No (TAKES COUMADIN) Family Medical History Family Hx: Patient reports no known family medical history. Constitutional: no symptoms reported EENTM: no symptoms reported Respiratory: short of breath Cardiovascular: Hx of Intervention, other (Chest tightness) Gastrointestinal: no symptoms reported Genitourinary: no symptoms reported Physical Exam Vital Signs Vital Signs - First Documented 10/07/17 18:50 Pulse 93 Resp 29 B/P (MAP) 159/94 (115) Pulse Ox 97 O2 Delivery Nasal Cannula O2 Flow Rate 3.00 FiO2 100 Capillary Refill : Less Than 3 Seconds General Appearance: No Apparent Distress, WD/WN Eyes: Bilateral Eye Normal Inspection HEENT: Normal ENT Inspection Neck: Full Range of Motion, Normal Inspection Respiratory: No Accessory Muscle Use, No Respiratory Distress, Decreased Breath Sounds Cardiovascular: Irregularly Irregular Gastrointestinal: Non Tender Assessment/Plan Assessment and Plan Congestive heart failure. Hypertension history. Chronic atrial fibrillation. Renal insufficiency. Chest tightness. Diabetes mellitus. Admission Diagnosis Admission Status: Inpatient Order (span 2 midnights) Reason for Inpatient Admission: Congestive heart failure. Hypoxia. BNP over thousand. Short of breath. Chest tightness Clinical Quality Measures DVT/VTE Risk/Contraindication: Risk Factor Score Per Nursin RFS Level Per Nursing on Admit: 4+=Very High KENN STEEL DO Oct 08, 2017 07:36
--- NOTE | 2017-10-08 08:34 | Diagnostic Imaging Report ---
INDICATION: Congestive heart failure. COMPARISON: 10/07/2017. FINDINGS: Stable low lung volumes. Increased in bilateral perihilar and basilar hazy opacities. Central vascular congestion is persistent. Unchanged marked cardiomegaly. No enlarging pleural effusions. No pneumothorax. IMPRESSION: Worsening pulmonary edema. Dictated by: Dictated on workstation # [id number]
--- NOTE | 2017-10-08 09:41 | Consultation-Cardiology ---
HPI-Cardiology Cardiology Consultation: Date of Consultation 10/08/17 Time Seen by Provider: 09:30 Date of Admission 10/07/17 Attending Physician Kenn Luis DO Admitting Physician Kenn Luis DO Consulting Physician DAMON DEVINE MD, MA, FACP, FACC, FSCAI, CCDS HPI: Chief Complaint: CC: Shortness of breath 77 yo man with CAD treated with CABG in 2012, presents with increasing shortness of breath and bilat leg swelling Denies cp or palp or syncope Notes gen malaise and tiredness Review of Systems-Cardiology Review of Systems Constitutional: As described under HPI Eyes: No vision change Ears/Nose/Throat: No ear discharge, No nasal drainage, No recent hearing loss Respiratory: As described under HPI Cardiovascular: As described under HPI Gastrointestinal: No constipation, No diarrhea, No nausea, No vomiting Genitourinary: No dysuria, No hematuria, No urine frequency changes Musculoskeletal: No back pain, No joint pain Skin: No rash, No ulcerations Psychiatric/Neurological: No seizure, No focal weakness, No syncope Hematologic: No bleeding abnormalities FHT-[place] Hx Patient Social History Marrital Status: Employed/Student: unemployed Alcohol Use: Denies Use Recreational Drug Use: No Smoking Status: Former Smoker Type Used: Cigarettes 2nd Hand Smoke Exposure: No Recent Foreign Travel: No Recent Infectious Disease Expo: No Hospitalization with Isolation: Denies Physical Abuse Screen: No Sexual Abuse: No Immunizations Up To Date Tetanus Booster (TDap): Unknown Date of Pneumonia Vaccine: May 11, 2015 Date of Influenza Vaccine: Mar 14, 2015 Past Medical History PMH As described under Assessment. Family Medical History Family History: Patient reports no known family medical history. Allergies and Home Medications Allergies Coded Allergies: No Known Drug Allergies (Unverified , 11/16/12) Home Medications Aspirin 81 Mg Tabec, 81 MG PO DAILY, (Reported) Atorvastatin Calcium 40 Mg Tablet, 40 MG PO HS, (Reported) Furosemide 80 Mg Tablet, 80 MG PO BID, (Reported) Gabapentin 300 Mg Capsule, 300 MG PO HS, (Reported) Glimepiride 2 Mg Tablet, 2 MG PO DAILY, (Reported) Linagliptin 5 Mg Tablet, 5 MG PO DAILY, (Reported) Lisinopril 40 Mg Tablet, 40 MG PO DAILY, (Reported) Metolazone 2.5 Mg Tab, 2.5 MG PO DAILY, (Reported) TAKE 20 MINUTES BEFORE AM LASIX Multivit-Min/FA/Lycopene/Lut 1 Each Tablet, 1 EACH PO DAILY, (Reported) Potassium Chloride 20 Meq Tab.prt.sr, 20 MEQ PO TID, (Reported) Warfarin Sodium 5 Mg Tablet, 10 MG PO HS, (Reported) TAKE 2 (5MG) TABS Patient Home Medication List Home Medication List Reviewed: Yes Physical Exam-Cardiology Physical Exam Vital Signs/I&O 10/07/17 10/07/17 10/07/17 10/07/17 21:40 22:00 22:26 22:30 Pulse 81 68 Resp 20 B/P (MAP) 158/79 (105) Pulse Ox 98 97 O2 Delivery Nasal Cannula Room Air Nasal Cannula O2 Flow Rate 3.00 3.00 3.00 10/07/17 10/07/17 10/07/17 10/08/17 22:34 22:45 23:00 00:00 Pulse 66 76 71 74 Resp 12 13 13 26 B/P (MAP) 169/76 159/90 (113) 162/99 (120) 136/70 (92) Pulse Ox 98 97 98 98 O2 Delivery Nasal Cannula Nasal Cannula Nasal Cannula O2 Flow Rate 3.00 3.00 3.00 10/08/17 10/08/17 10/08/17 10/08/17 00:00 01:00 01:00 02:00 Pulse 71 66 68 Resp 14 24 B/P (MAP) 130/59 (82) 127/65 (85) Pulse Ox 98 95 94 O2 Delivery Nasal Cannula Nasal Cannula Nasal Cannula O2 Flow Rate 3.00 3.00 3.00 10/08/17 10/08/17 10/08/17 10/08/17 03:00 04:00 04:00 04:00 Temp 98.1 Pulse 68 76 Resp 23 20 B/P (MAP) 136/81 (99) 155/78 (103) Pulse Ox 98 96 98 O2 Delivery Nasal Cannula Nasal Cannula Nasal Cannula O2 Flow Rate 3.00 3.00 3.00 10/08/17 10/08/17 10/08/17 10/08/17 05:00 06:00 07:00 07:00 Pulse 72 67 62 62 Resp 18 27 20 B/P (MAP) 139/70 (93) 148/83 (104) 143/84 (103) Pulse Ox 94 95 97 O2 Delivery Nasal Cannula Nasal Cannula Nasal Cannula O2 Flow Rate 3.00 3.00 3.00 10/08/17 10/08/17 10/08/17 08:00 08:06 09:00 Pulse 74 72 Resp 22 18 B/P (MAP) 132/75 (94) 146/112 (123) Pulse Ox 97 97 O2 Delivery Nasal Cannula Nasal Cannula Nasal Cannula O2 Flow Rate 3.00 2.00 3.00 Capillary Refill : Less Than 3 Seconds Constitutional: AAO x 3, well-developed, well-nourished HEENT: EOMI, hearing is well preserved; No xanthelasmas are seen Neck: carotid pulses are 2 + bilaterally, with good upstrokes Respiratory: No accessory muscle use; other (Bilat basal crackles, more the R side) Cardiovascular: irregularly irregular, S1 and S2, gallop/S3, systolic murmur ( soft JAMES at card base) Gastrointestinal: No tender; soft; No guarding, No rebound; audible bowel sounds Extremities: No clubbing, No cyanosis; significant edema (2-3+ bilat leg edema) Neurologic/Psychiatric: oriented x 3, grossly intact, power is 5/5 both on sides Skin: No rash on exposed areas, No ulcerations on exposed areas Data Review Labs Laboratory Tests 10/07/17 19:10: White Blood Count 14.2H, Red Blood Count 4.50, Hemoglobin 10.5L, Hematocrit 33L , Mean Corpuscular Volume 74L, Mean Corpuscular Hemoglobin 23L, Mean Corpuscular Hemoglobin Concent 32, Red Cell Distribution Width 19.3H, Platelet Count 294, Mean Platelet Volume 10.3, Neutrophils (%) (Auto) 82H, Lymphocytes (% ) (Auto) 5L, Monocytes (%) (Auto) 10, Eosinophils (%) (Auto) 3, Basophils (%) ( Auto) 0, Neutrophils # (Auto) 11.6H, Lymphocytes # (Auto) 0.8L, Monocytes # ( Auto) 1.4H, Eosinophils # (Auto) 0.4H, Basophils # (Auto) 0.1, Neutrophils % ( Manual) 88, Lymphocytes % (Manual) 4, Monocytes % (Manual) 5, Eosinophils % ( Manual) 1, Basophils % (Manual) 0, Band Neutrophils 2, Hypochromasia SLIGHT, Poikilocytosis SLIGHT, Anisocytosis SLIGHT, Microcytosis MODERATE, Prothrombin Time 41.4H, INR Comment 4.4H, Activated Partial Thromboplast Time 52H, Sodium Level 141, Potassium Level 4.2, Chloride Level 104, Carbon Dioxide Level 30, Anion Gap 7, Blood Urea Nitrogen 36H, Creatinine 1.63H, Estimat Glomerular Filtration Rate 41, BUN/Creatinine Ratio 22, Glucose Level 294H, Calcium Level 8.6, Magnesium Level 2.1, Total Bilirubin 1.0, Aspartate Amino Transf (AST/SGOT ) 20, Alanine Aminotransferase (ALT/SGPT) 22, Alkaline Phosphatase 103, Troponin I < 0.30, B-Type Natriuretic Peptide 1038.0H, Total Protein 6.3L, Albumin 3.5, TSH [place] Testing 0.63 10/07/17 19:27: Blood Gas Puncture Site LEFT RADIAL, Blood Gas Patient Temperature 98.7, Arterial Blood pH 7.40, Arterial Blood Partial Pressure CO2 47H, Arterial Blood Partial Pressure O2 80, Arterial Blood HCO3 28H, Arterial Blood Total CO2 29.7, Arterial Blood Oxygen Saturation 97, Arterial Blood Base Excess 3.8H, Alex Test POSITIVE, Blood Gas Ventilator Setting NO, Blood Gas Inspired Oxygen 3L 10/07/17 19:58: Urine Color YELLOW, Urine Clarity CLEAR, Urine pH 6, Urine Specific [place] 1.015L, Urine Protein 3+H, Urine Glucose (UA) 1+H, Urine Ketones NEGATIVE, Urine Nitrite NEGATIVE, Urine Bilirubin NEGATIVE, Urine Urobilinogen NORMAL, Urine Leukocyte Esterase NEGATIVE, Urine RBC (Auto) 1+H, Urine RBC 0-2, Urine WBC NONE, Urine Crystals NONE, Urine Bacteria NONE, Urine Casts NONE, Urine Mucus NEGATIVE, Urine Culture Indicated NO 10/07/17 22:41: Glucometer 227H 10/08/17 01:20: Troponin I < 0.30 10/08/17 03:20: White Blood Count 10.8, Red Blood Count 4.23L, Hemoglobin 9.9L, Hematocrit 32L, Mean Corpuscular Volume 77L, Mean Corpuscular Hemoglobin 23L, Mean Corpuscular Hemoglobin Concent 31L, Red Cell Distribution Width 19.5H, Platelet Count 297, Mean Platelet Volume 11.5H, Neutrophils (%) (Auto) 71, Lymphocytes (%) (Auto) 13 , Monocytes (%) (Auto) 11, Eosinophils (%) (Auto) 4, Basophils (%) (Auto) 1, Neutrophils # (Auto) 7.7, Lymphocytes # (Auto) 1.4, Monocytes # (Auto) 1.2H, Eosinophils # (Auto) 0.5H, Basophils # (Auto) 0.1, Prothrombin Time 42.2H, INR Comment 4.5H, Activated Partial Thromboplast Time 61H, Sodium Level 144, Potassium Level 3.8, Chloride Level 106, Carbon Dioxide Level 28, Anion Gap 10, Blood Urea Nitrogen 32H, Creatinine 1.49H, Estimat Glomerular Filtration Rate 46 , BUN/Creatinine Ratio 21, Glucose Level 70, Calcium Level 8.5, Total Bilirubin 0.9, Aspartate Amino Transf (AST/SGOT) 19, Alanine Aminotransferase (ALT/SGPT) 19, Alkaline Phosphatase 94, Myoglobin 108.1H, B-Type Natriuretic Peptide 978.7H , Total Protein 5.7L, Albumin 3.3, Triglycerides Level 67, Cholesterol Level 91 , LDL Cholesterol Direct 50, VLDL Cholesterol 13, HDL Cholesterol 31L 10/08/17 07:23: Troponin I < 0.30 Laboratory Tests 10/07/17 19:10 10/08/17 03:20 A/P-Cardiology Assessment/Admission Diagnosis Acute on chronic diastolic congestive heart failure Hypertension, not well controlled Coronary artery disease with a history of coronary artery bypass surgery consisting of left internal mammary arterial graft to the left interior descending and saphenous vein graft to ramus intermedius, diagonal and posterior descending on 11/22/[address] Almonte at [facility] in [place], [place]. 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 History of mild to moderate elevation left ventricular end-diastolic pressure at the time of cardiac catheterization of November 2012, prior to coronary artery bypass surgery. Moderate pulmonary hypertension on echocardiography of 11/17/2012. This was probably related to diastolic dysfunction of the left ventricle due to coronary artery disease. Chronic obstructive pulmonary disease, likely due to prior tobacco use. He quit smoking in 1977. Hypertension. Chronic persistent atrial fibrillation Chronic warfarin anticoagulation for stroke prophylaxis (being managed by Dr. Luis), currently INR is supra-therapeutic Chronic paresthesias, mild, of feet likely due to diabetic neuropathy. Discussion and Recomendations * Treat decomp CHF with diuretics * Treat bp with amlodipine for now * Vent rate is self-controlled, indicating AV federico disease. Doesn't appear to be a good candidate for beta-itzel * Aspirin because of CAD * Continue warfarin as directed by INR (currently need to hold because of supratherapeutic INR) * Echo to eval LV function and valve status * If LV systolic function impaired, then consider ENEDINA-inhib/ARB * Monitor labs closely * Dr Carlisle covering card svce over the weekend Clinical Quality Measures DVT/VTE Risk/Contraindication: Risk Factor Score Per Nursin RFS Level Per Nursing on Admit: 4+=Very High Contraindications-Pharm: Other *list below* DAMON DEVINE MD FACP FAC CCDS Oct 08, 2017 09:41
[2017-10-08] MEDS ORDERED: METO2.5T PO (09:44)
[2017-10-08] MEDS ORDERED: POTA20TA15 PO (09:44)
[2017-10-08] MEDS ORDERED: ATOR40TA70 PO (09:44)
[2017-10-08] MEDS ORDERED: FURO80TA3 PO (09:44)
[2017-10-08] MEDS ORDERED: ASPI-983 PO (09:44)
[2017-10-08] MEDS: ASPIRIN E.C. 325 MG (ECOTRIN) TABLET PO SCH (09:53)
[2017-10-08] MEDS ORDERED: amLODIPine 5 MG (NORVASC) TAB PO NR (10:15)
[2017-10-08] MEDS: FUROSEMIDE 40 MG/4 ML INJ (LASIX) IVP SCH ×2 (11:17→16:24)
[2017-10-08] MEDS: KCL 20 MEQ TAB (K-DUR) PO SCH ×2 (11:24→16:29)
--- NOTE | 2017-10-08 13:15 | Physician Query Clarification ---
PQ-Intro New Diagnosis Admission/Discharge Admission Date: Oct 07, 2017 at 20:27 Discharge Date: The medical record reflects the following clinical scenario: History/Risk Factors: Acute on chronic diastolic congestive heart failure COPD Clinical Findings: ED/Triage:Hypoxia, Shortness of air at rest, shortness of air with exertion, Labored breathing, Tachypnea, Resp 29, Pulse 93, 02 sats 82% on room air on admission. Blood gases: PH 7.40, pC02 47, P02 80, HC03 28, base excess 3.8 . Treatment: 3L O2 nasal cannula, IV Lasix and Nitropaste. Question: What condition best reflects the above clinical scenario? Please document below. 1. Acute Respiratory Failure. 2. Hypoxia with respiratory distress. 3. Other, with explanation of the clinical findings. 4. Clinically undetermined, no explanation for the clinical findings. PHYSICIAN RESPONSE What condition reflects above: 2 In responding to this query, please exercise your independent professional judgment. The purpose of this communication is to more accurately reflect the complexity of your patients condition. The fact that a question is asked does not imply that any particular answer is desired or expected. Thank you for your timely response to this clarification. Requestors name: Ansley Blank [facility] Phone # ext [phone] or [phone] THIS PHYSICIAN QUERY FORM IS A PERMANENT PART OF THE MEDICAL RECORD ANSLEY BLANK Oct 08, 2017 13:15 ELMER STEEL DO Oct 11, 2017 07:11
[2017-10-09] VITALS: BP 166/78
[2017-10-09 03:38] LABS: BASOPHILS # (AUTO) 0.1 10^3/uL (0.0-0.1); BASOPHILS % (AUTO) 0 % (0-10); EOSINOPHILS # (AUTO) 0.4 10^3/uL (0.0-0.3); EOSINOPHILS % (AUTO) 4 % (0-10); HEMATOCRIT 33 % (40-54); HEMOGLOBIN 10.2 G/DL (13.3-17.7); LYMPHOCYTES # (AUTO) 0.8 X 10^3 (1.0-4.0); LYMPHOCYTES % (AUTO) 7 % (12-44); MEAN CORPUSCULAR HEMOGLOBIN 23 PG (25-34); MEAN CORPUSCULAR HGB CONC 31 G/DL (32-36); MEAN CORPUSCULAR VOLUME 75 FL (80-99); MEAN PLATELET VOLUME 11.2 FL (7.4-10.4); MONOCYTES # (AUTO) 1.3 X 10^3 (0.0-1.0); MONOCYTES % (AUTO) 12 % (0-12); NEUTROPHILS # (AUTO) 8.7 X 10^3 (1.8-7.8); NEUTROPHILS % (AUTO) 77 % (42-75); PLATELET COUNT 307 10^3/uL (130-400); RED CELL DISTRIBUTION WIDTH 19.1 % (10.0-14.5); WHITE BLOOD COUNT 11.3 10^3/uL (4.3-11.0)
[2017-10-09 03:49] LABS: INR 2.8 (0.8-1.4); PROTHROMBIN TIME PATIENT 29.4 SEC (12.2-14.7)
[2017-10-09 03:59] LABS: CALCIUM 8.8 MG/DL (8.5-10.1); CREATININE SERUM 1.3 MG/DL (0.60-1.30); MAGNESIUM 2.2 MG/DL (1.8-2.4); POTASSIUM 3.4 MMOL/L (3.6-5.0)
[2017-10-09 04:00] VITALS: BP 165/69
[2017-10-09] MEDS: NITROGLYCERIN 2% OINT 1 GM UNIT DOSE PACKET TOP SCH ×4 (04:28→22:21)
[2017-10-09] MEDS: inSUlin ASPART (NovoLOG) 1 UNIT/0.01 ML (CHARGE PER UNIT) SC SCH ×4 (05:29→21:01)
[2017-10-09] MEDS: FUROSEMIDE 40 MG/4 ML INJ (LASIX) IVP SCH ×2 (06:11→17:13)
[2017-10-09] MEDS: KCL 20 MEQ TAB (K-DUR) PO SCH ×2 (06:11→17:13)
[2017-10-09 08:10] VITALS: BP 167/89
[2017-10-09] MEDS: ASPIRIN E.C. 325 MG (ECOTRIN) TABLET PO SCH (08:28)
[2017-10-09] MEDS: amLODIPine 5 MG (NORVASC) TAB PO SCH (08:28)
[2017-10-09 12:00] VITALS: BP 170/70
--- NOTE | 2017-10-09 12:21 | Progress Note-Hospitalist ---
Subjective HPI/CC On Admission Date Seen by Provider: Oct 09, 2017 Time Seen by Provider: 11:30 Subjective/Events-last exam Patient is feeling much better and wants to be transferred to the floor or go home Considering he still has lower extremity edema and crackles in his lung exam I have told him that today discharged to home is not an option Cardiology will be following him Reviewed cardiology note and noted that the severe aortic valve regurgitation will be managed likely with the replacement Will place patient on telemetry and told him to ambulate in the halls The only pain he has is neuropathy type pain in his lower leg and feet Check meds and labs Check echocardiogram revealing ejection fraction of 50% Wants a hot shower Review of Systems General: Malaise Pulmonary: Dyspnea Cardiovascular: Edema Neurological: Weakness, Numbness Objective Exam Vital Signs Vital Signs Date Time Temp Pulse Resp B/P (MAP) Pulse Ox O2 Delivery O2 Flow Rate FiO2 10/09/17 12:00 93 Nasal Cannula 2.00 10/09/17 12:00 99.4 71 20 170/70 (103) 10/07/17 18:50 100 Capillary Refill : Less Than 3 Seconds General Appearance: No Apparent Distress, WD/WN Respiratory: Crackles, Decreased Breath Sounds Cardiovascular: Irregularly Irregular Neurologic/Psychiatric: Alert, Oriented x3 Results/Procedures Lab Laboratory Tests 10/09/17 03:00 Patient resulted labs reviewed. Assessment/Plan Assessment and Plan Assess & Plan/Chief Complaint Assessment: Acute on chronic diastolic heart failure Severe aortic valve regurgitation in need of replacement Severe lower extremity edema improved on Lasix Chronic atrial fibrillation Neuropathic foot pain Plan: Lasix Move to 4th floor Telemetry Home meds Clinical Quality Measures DVT/VTE Risk/Contraindication: Risk Factor Score Per Nursin RFS Level Per Nursing on Admit: 4+=Very High Contraindications-Pharm: Other *list below* ARCENIO FUENTES DO Oct 09, 2017 12:21
--- NOTE | 2017-10-09 13:55 | Cardiology Progress Note ---
Cardiology SOAP Progress Note Subjective: Improved shortness of breath. Objective: I&O/Vital Signs 10/09/17 10/09/17 10/09/17 10/09/17 03:00 04:00 04:00 06:00 Temp 98.6 98.5 Pulse 88 78 Resp 18 18 B/P (MAP) 165/69 (101) Pulse Ox 87 94 94 O2 Delivery Room Air Nasal Cannula Nasal Cannula Nasal Cannula O2 Flow Rate 2.00 2.00 2.00 10/09/17 10/09/17 10/09/17 10/09/17 07:00 08:10 08:10 08:10 Temp 98.6 Pulse 92 71 Resp 16 B/P (MAP) 167/89 (115) Pulse Ox 93 93 93 O2 Delivery Nasal Cannula Nasal Cannula Nasal Cannula O2 Flow Rate 2.00 2.00 2.00 10/09/17 10/09/17 12:00 12:00 Temp 99.4 Pulse 71 Resp 20 B/P (MAP) 170/70 (103) Pulse Ox 95 93 O2 Delivery Nasal Cannula Nasal Cannula O2 Flow Rate 2.00 2.00 10/09/17 00:00 Intake Total 1220 ml Output Total 3150 ml Balance -1930 ml Weight (Pounds): 216 Weight (Ounces): 1.0 Weight (Calculated Kilograms): [id number] Constitutional: AAO x 3, well-developed, well-nourished Respiratory: No accessory muscle use, No respiratory distress, No chest tender , No chest expansion is symmetric; chest is bilaterally symmetric; No lungs clear to percussion; lungs clear to auscultation; No crackles, No rhonchi, No rales, No stridor, No wheezing, No pleural rub; other (Bilat basal crackles, more the R side) Cardiovascular: No regular rate-rhythm; irregularly irregular; No extra beats, No parasternal heave is noted, No JVD, No edema, No bradycardia, No tachycardia , No point of maximal impulse, No cardiac thrills are palpable; S1 and S2, gallop/S3; No gallop/S4, No diastolic murmur; systolic murmur (soft JAMES at card base); No friction rub, No click, No other Gastrointestional: No tender; soft; No round, No distended, No pulsatile mass, No organomegaly, No guarding, No rebound, No tenderness, No hernia, No mass; audible bowel sounds; No abnormal bowel sounds, No abdominal bruits, No spleenomegaly, No other Extremities: No normal range of motion, No non-tender, No normal inspection, No pedal edema, No calf tenderness, No normal capillary refill, No pelvis stable , No calf tenderness, No inflammation, No pedal edema, No slow capillary refill , No swelling, No other, No abrasion, No clubbing, No cyanosis, No ecchymosis, No laceration, No no lower extremity edema bilateral; significant edema (2-3+ bilat leg edema); No tenderness, No wound Neurologic/Psychiatric: no motor/sensory deficits, alert, normal mood/affect, oriented x 3, grossly intact, power is 5/5 both on sides Skin: No normal color, No warm/dry, No cyanosis, No cool, No diaphoresis, No damp, No ecchymosis, No jaundice, No mottled, No pallor, No rash, No tattoos/ piercings, No ulcerations, No rash on exposed areas, No ulcerations on exposed areas, No other Results/Procedures: Labs Laboratory Tests 10/08/17 15:11: Glucometer 151H 10/08/17 21:27: Glucometer 297H 10/09/17 03:00: White Blood Count 11.3H, Red Blood Count 4.40, Hemoglobin 10.2L, Hematocrit 33L , Mean Corpuscular Volume 75L, Mean Corpuscular Hemoglobin 23L, Mean Corpuscular Hemoglobin Concent 31L, Red Cell Distribution Width 19.1H, Platelet Count 307, Mean Platelet Volume 11.2H, Neutrophils (%) (Auto) 77H, Lymphocytes ( %) (Auto) 7L, Monocytes (%) (Auto) 12, Eosinophils (%) (Auto) 4, Basophils (%) ( Auto) 0, Neutrophils # (Auto) 8.7H, Lymphocytes # (Auto) 0.8L, Monocytes # (Auto ) 1.3H, Eosinophils # (Auto) 0.4H, Basophils # (Auto) 0.1, Prothrombin Time 29.4H, INR Comment 2.8H, Sodium Level 146H, Potassium Level 3.4L, Chloride Level 104, Carbon Dioxide Level 31, Anion Gap 11, Blood Urea Nitrogen 28H, Creatinine 1.30, Estimat Glomerular Filtration Rate 54, BUN/Creatinine Ratio 22 , Glucose Level 98, Calcium Level 8.8, Magnesium Level 2.2 10/09/17 10:59: Glucometer 213H A/P: Assessment/Dx: Acute on chronic diastolic congestive heart failure, hypertension, CAD, severe mitral regurgitation, moderate to severe aortic regurgitation, persistent atrial fibrillation Plan: Acute on chronic systolic/diastolic congestive heart failure : Most recent ejection fraction 45-50 percent. Improving with Lasix. Hypertension, better controlled today. Coronary artery disease with a history of coronary artery bypass surgery consisting of left internal mammary arterial graft to the left interior descending and saphenous vein graft to ramus intermedius, diagonal and posterior descending on 11/22/[address] Almonte at [facility] in [place], [place]. 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 History of mild to moderate elevation left ventricular end-diastolic pressure at the time of cardiac catheterization of November 2012, prior to coronary artery bypass surgery. Moderate pulmonary hypertension on echocardiography of 11/17/2012. This was probably related to diastolic dysfunction of the left ventricle due to coronary artery disease. Chronic obstructive pulmonary disease, likely due to prior tobacco use. He quit smoking in 1977. Hypertension. Chronic persistent atrial fibrillation Chronic warfarin anticoagulation for stroke prophylaxis (being managed by Dr. Luis), currently INR is supra-therapeutic Chronic paresthesias, mild, of feet likely due to diabetic neuropathy. Echocardiogram showed mildly reduce LV systolic function with severe mitral regurgitation and moderate to severe aortic regurgitation. I discussed at length with the patient about his wishes since he may require redo surgery. The patient is very hesitant. He also may be higher risk for redo surgery considering that he has previous bypass as well. He may be a candidate for percutaneous mitral valve replacement. If we are able to get him off oxygen or to reduce his oxygen requirements significantly so that he can go home, the discussion for percutaneous versus redo surgery can be done as an outpatient with Dr. Daniel. However if the patient continues to be in significant refractory congestive heart failure then the decision may need to be made during this hospitalization. Thank you for your consultation. Please call me if you have any questions. Amy Carlisle MD, FACP, FACC, FSCAI, FHRS, CCDS Interventional Cardiology Cardiac Electrophysiology Vascular Medicine and Endovascular Interventions Case CARLISLE MD Oct 09, 2017 1:55 pm
[2017-10-09 16:28] VITALS: BP 158/78
[2017-10-09] MEDS: GABAPENTIN 300 MG (NEURONTIN) CAP PO SCH (19:57)
[2017-10-09 20:00] VITALS: BP 149/81
[2017-10-10] VITALS: BP 136/68
[2017-10-10 04:00] VITALS: BP 136/63
[2017-10-10] MEDS: NITROGLYCERIN 2% OINT 1 GM UNIT DOSE PACKET TOP SCH ×4 (04:40→22:18)
[2017-10-10 04:49] LABS: BASOPHILS % (AUTO) 0 % (0-10); EOSINOPHILS # (AUTO) 0.4 10^3/uL (0.0-0.3); EOSINOPHILS % (AUTO) 3 % (0-10); HEMATOCRIT 30 % (40-54); HEMOGLOBIN 9.4 G/DL (13.3-17.7); LYMPHOCYTES # (AUTO) 0.9 X 10^3 (1.0-4.0); LYMPHOCYTES % (AUTO) 8 % (12-44); MEAN CORPUSCULAR HEMOGLOBIN 23 PG (25-34); MEAN CORPUSCULAR HGB CONC 31 G/DL (32-36); MEAN CORPUSCULAR VOLUME 75 FL (80-99); MONOCYTES # (AUTO) 1.4 X 10^3 (0.0-1.0); MONOCYTES % (AUTO) 13 % (0-12); NEUTROPHILS % (AUTO) 75 % (42-75); PLATELET COUNT 287 10^3/uL (130-400); RED BLOOD COUNT 4.06 10^6/uL (4.35-5.85); WHITE BLOOD COUNT 10.7 10^3/uL (4.3-11.0)
[2017-10-10 05:06] LABS: INR 1.8 (0.8-1.4); PROTHROMBIN TIME PATIENT 21.2 SEC (12.2-14.7)
[2017-10-10 05:13] LABS: CALCIUM 8.6 MG/DL (8.5-10.1); CREATININE SERUM 1.28 MG/DL (0.60-1.30); MAGNESIUM 2.2 MG/DL (1.8-2.4); POTASSIUM 3.6 MMOL/L (3.6-5.0)
[2017-10-10] MEDS: inSUlin ASPART (NovoLOG) 1 UNIT/0.01 ML (CHARGE PER UNIT) SC SCH ×4 (05:22→20:45)
[2017-10-10] MEDS: FUROSEMIDE 40 MG/4 ML INJ (LASIX) IVP SCH ×2 (06:30→17:49)
[2017-10-10] MEDS: KCL 20 MEQ TAB (K-DUR) PO SCH ×2 (06:30→17:51)
[2017-10-10 08:00] VITALS: BP 130/70
[2017-10-10] MEDS: ASPIRIN E.C. 81 MG (ECOTRIN) TAB PO SCH (08:28)
[2017-10-10] MEDS: amLODIPine 5 MG (NORVASC) TAB PO SCH (08:28)
[2017-10-10] MEDS ORDERED: LACTULOSE SYRUP 10GM/15ML (ENULOSE) 30ML UDC PO PRN (11:15)
[2017-10-10] MEDS: DOCUSATE SODIUM 100 MG (COLACE) CAP PO SCH ×2 (11:41→19:47)
[2017-10-10] MEDS ORDERED: AMLO5TAB2 PO (11:49)
--- NOTE | 2017-10-10 11:52 | Discharge Summary-Hospitalist ---
Diagnosis/Chief Complaint Date of Admission Oct 07, 2017 at 20:27 Date of Discharge Discharge Date: Oct 10, 2017 Discharge Diagnosis Assessment: Acute on chronic diastolic heart failure Severe aortic valve regurgitation in need of replacement Severe lower extremity edema improved on Lasix Chronic atrial fibrillation Neuropathic foot pain Plan: Lasix Move to 4th floor Telemetry Home meds (1) CHF (congestive heart failure) Status: Acute (2) Chronic atrial fibrillation Status: Chronic (3) HTN (hypertension) Status: Chronic (4) Chronic renal insufficiency Status: Chronic (5) Hypoxia Status: Resolved Discharge Summary Discharge Physical Exam Allergies: Coded Allergies: No Known Drug Allergies (Unverified , 11/16/12) Vitals & I&Os Vital Signs Date Time Temp Pulse Resp B/P (MAP) Pulse Ox O2 Delivery O2 Flow Rate FiO2 10/10/17 08:00 98.7 83 16 130/70 (90) 92 Nasal Cannula 2.00 10/07/17 18:50 100 General Appearance: Alert, Oriented X3, Cooperative Respiratory: Clear to Auscultation, Normal Air Movement Cardiovascular: Normal S1, Normal S2, Other (Irr Irr) Neuro: Normal Gait, Normal Speech, Strength at 5/5 X4 Ext Psych/Mental Status: Mental Status NL, Mood NL Hospital Course Hospital course: Patient had an uneventful hospital course he was admitted for acute congestive heart failure that was evaluated by cardiology be acute on chronic diastolic heart failure so Lasix was given which had good results with diuresis and resolution of hypoxia. He does use oxygen at home at night and when necessary already. Overall he improved he really wanted to go home cardiology was updated all medications were reviewed creatinine was stable at 1.2 so amlodipine was added of 5 mg daily to treat the hypertension that was the cause of the diastolic heart failure and patient overall improved and was agreeable for discharge as long as approved by cardiology. He will have close follow-up with primary care provider and cardiology. Labs (last 24 hrs) Laboratory Tests 10/09/17 16:07: Glucometer 194H 10/09/17 20:51: Glucometer 178H 10/10/17 04:35: White Blood Count 10.7, Red Blood Count 4.06L, Hemoglobin 9.4L, Hematocrit 30L, Mean Corpuscular Volume 75L, Mean Corpuscular Hemoglobin 23L, Mean Corpuscular Hemoglobin Concent 31L, Red Cell Distribution Width 19.0H, Platelet Count 287, Mean Platelet Volume 11.0H, Neutrophils (%) (Auto) 75, Lymphocytes (%) (Auto) 8L , Monocytes (%) (Auto) 13H, Eosinophils (%) (Auto) 3, Basophils (%) (Auto) 0, Neutrophils # (Auto) 8.0H, Lymphocytes # (Auto) 0.9L, Monocytes # (Auto) 1.4H, Eosinophils # (Auto) 0.4H, Basophils # (Auto) 0.0, Prothrombin Time 21.2H, INR Comment 1.8H, Sodium Level 141, Potassium Level 3.6, Chloride Level 102, Carbon Dioxide Level 29, Anion Gap 10, Blood Urea Nitrogen 23H, Creatinine 1.28, Estimat Glomerular Filtration Rate 55, BUN/Creatinine Ratio 18, Glucose Level 153H, Calcium Level 8.6, Magnesium Level 2.2 10/10/17 10:42: Glucometer 197H Patient resulted labs reviewed. Pending Labs Laboratory Tests 10/10/17 04:35: White Blood Count 10.7, Red Blood Count 4.06, Hemoglobin 9.4, Hematocrit 30, Mean Corpuscular Volume 75, Mean Corpuscular Hemoglobin 23, Mean Corpuscular Hemoglobin Concent 31, Red Cell Distribution Width 19.0, Platelet Count 287, Mean Platelet Volume 11.0, Neutrophils (%) (Auto) 75, Lymphocytes (%) (Auto) 8, Monocytes (%) (Auto) 13, Eosinophils (%) (Auto) 3, Basophils (%) (Auto) 0, Neutrophils # (Auto) 8.0, Lymphocytes # (Auto) 0.9, Monocytes # (Auto) 1.4, Eosinophils # (Auto) 0.4, Basophils # (Auto) 0.0, Prothrombin Time 21.2, INR Comment 1.8, Sodium Level 141, Potassium Level 3.6, Chloride Level 102, Carbon Dioxide Level 29, Anion Gap 10, Blood Urea Nitrogen 23, Creatinine 1.28, Estimat Glomerular Filtration Rate 55, BUN/Creatinine Ratio 18, Glucose Level 153, Calcium Level 8.6, Magnesium Level 2.2 10/10/17 10:42: Glucometer 197 Discussion & Recommendations Discharge Planning: <30 minutes discharge planning Discharge Home Medications: Active Scripts Active Amlodipine Besylate 5 Mg Tablet 5 Mg PO DAILY Reported Atorvastatin Calcium 40 Mg Tablet 40 Mg PO DAILY Furosemide 80 Mg Tablet 80 Mg PO BID Potassium Chloride 20 Meq Tab.er.prt 20 Meq PO BID Aspirin EC (Aspirin) 81 Mg Tablet.dr 81 Mg PO DAILY Glimepiride 2 Mg Tablet 2 Mg PO DAILY Gabapentin 300 Mg Capsule 300 Mg PO HS Centrum Silver Tablet (Multivit-Min/FA/Lycopene/Lut) 1 Each Tablet 1 Tab PO DAILY Lisinopril 40 Mg Tablet 20 Mg PO DAILY TAKES 1/2 (40MG) TABLET Warfarin Sodium 5 Mg Tablet 10 Mg PO HS TAKE 2 (5MG) TABS Instructions to patient/family Please see electronic discharge instructions given to patient. Clinical Quality Measures DVT/VTE Risk/Contraindication: Risk Factor Score Per Nursin RFS Level Per Nursing on Admit: 4+=Very High Contraindications-Pharm: Other *list below* Problem Qualifiers (1) CHF (congestive heart failure): Heart failure type: diastolic Heart failure chronicity: acute on chronic Qualified Codes: I50.33 - Acute on chronic diastolic (congestive) heart failure (2) HTN (hypertension): Hypertension type: essential hypertension Qualified Codes: I10 - Essential ( primary) hypertension (3) Chronic renal insufficiency: Chronic kidney disease stage: stage 3 (moderate) Qualified Codes: N18.3 - Chronic kidney disease, stage 3 (moderate) ARCENIO FUENTES DO Oct 10, 2017 11:52
[2017-10-10 12:00] VITALS: BP 152/72
[2017-10-10] MEDS ORDERED: FUROSEMIDE 40 MG/4 ML INJ (LASIX) IVP NR (14:19)
--- NOTE | 2017-10-10 14:49 | Cardiology Progress Note ---
Cardiology SOAP Progress Note Subjective: Mild shortness of breath. Still on 2-3 L of oxygen. Objective: I&O/Vital Signs 10/10/17 10/10/17 10/10/17 10/10/17 04:00 07:00 08:00 09:00 Temp 97.6 98.7 Pulse 73 73 83 Resp 22 16 B/P (MAP) 136/63 (87) 130/70 (90) Pulse Ox 93 92 O2 Delivery Nasal Cannula Nasal Cannula Nasal Cannula O2 Flow Rate 2.00 2.00 2.00 10/10/17 10/10/17 12:00 13:00 Temp 98.2 Pulse 72 66 Resp 16 B/P (MAP) 152/72 (98) Pulse Ox 100 O2 Delivery Nasal Cannula O2 Flow Rate 2.00 10/10/17 00:00 Intake Total 680 ml Output Total 2075 ml Balance -1395 ml Weight (Pounds): 213 Weight (Ounces): 2.3 Weight (Calculated Kilograms): 96.789767 Constitutional: AAO x 3, well-developed, well-nourished Respiratory: No accessory muscle use, No respiratory distress, No chest tender , No chest expansion is symmetric; chest is bilaterally symmetric; No lungs clear to percussion; lungs clear to auscultation; No crackles, No rhonchi, No rales, No stridor, No wheezing, No pleural rub; other (Bilat basal crackles, more the R side) Cardiovascular: No regular rate-rhythm; irregularly irregular; No extra beats, No parasternal heave is noted, No JVD, No edema, No bradycardia, No tachycardia , No point of maximal impulse, No cardiac thrills are palpable; S1 and S2, gallop/S3; No gallop/S4, No diastolic murmur; systolic murmur (soft JAMES at card base); No friction rub, No click, No other Gastrointestional: No tender; soft; No round, No distended, No pulsatile mass, No organomegaly, No guarding, No rebound, No tenderness, No hernia, No mass; audible bowel sounds; No abnormal bowel sounds, No abdominal bruits, No spleenomegaly, No other Extremities: No normal range of motion, No non-tender, No normal inspection, No pedal edema, No calf tenderness, No normal capillary refill, No pelvis stable , No calf tenderness, No inflammation, No pedal edema, No slow capillary refill , No swelling, No other, No abrasion, No clubbing, No cyanosis, No ecchymosis, No laceration, No no lower extremity edema bilateral; significant edema (2-3+ bilat leg edema); No tenderness, No wound Neurologic/Psychiatric: no motor/sensory deficits, alert, normal mood/affect, oriented x 3, grossly intact, power is 5/5 both on sides Skin: No normal color, No warm/dry, No cyanosis, No cool, No diaphoresis, No damp, No ecchymosis, No jaundice, No mottled, No pallor, No rash, No tattoos/ piercings, No ulcerations, No rash on exposed areas, No ulcerations on exposed areas, No other Results/Procedures: Labs Laboratory Tests 10/09/17 16:07: Glucometer 194H 10/09/17 20:51: Glucometer 178H 10/10/17 04:35: White Blood Count 10.7, Red Blood Count 4.06L, Hemoglobin 9.4L, Hematocrit 30L, Mean Corpuscular Volume 75L, Mean Corpuscular Hemoglobin 23L, Mean Corpuscular Hemoglobin Concent 31L, Red Cell Distribution Width 19.0H, Platelet Count 287, Mean Platelet Volume 11.0H, Neutrophils (%) (Auto) 75, Lymphocytes (%) (Auto) 8L , Monocytes (%) (Auto) 13H, Eosinophils (%) (Auto) 3, Basophils (%) (Auto) 0, Neutrophils # (Auto) 8.0H, Lymphocytes # (Auto) 0.9L, Monocytes # (Auto) 1.4H, Eosinophils # (Auto) 0.4H, Basophils # (Auto) 0.0, Prothrombin Time 21.2H, INR Comment 1.8H, Sodium Level 141, Potassium Level 3.6, Chloride Level 102, Carbon Dioxide Level 29, Anion Gap 10, Blood Urea Nitrogen 23H, Creatinine 1.28, Estimat Glomerular Filtration Rate 55, BUN/Creatinine Ratio 18, Glucose Level 153H, Calcium Level 8.6, Magnesium Level 2.2 10/10/17 10:42: Glucometer 197H A/P: Assessment/Dx: Acute on chronic systolic/diastolic congestive heart failure, hypertension, CAD, severe mitral regurgitation, moderate to severe aortic regurgitation, persistent atrial fibrillation Plan: Acute on chronic systolic/diastolic congestive heart failure : Most recent ejection fraction 45-50 percent. Improving with Lasix. Still on oxygen. Still complaining of mild shortness of breath. We will give an extra dose of Lasix 80 mg IV. Echocardiogram showed mildly reduce LV systolic function with severe mitral regurgitation and moderate to severe aortic regurgitation. I discussed at length with the patient and family about his wishes since he may require redo surgery. The patient is very hesitant. He also may be higher risk for redo surgery considering that he has previous bypass as well. He may be a candidate for percutaneous mitral valve replacement. If we are able to get him off oxygen or to reduce his oxygen requirements significantly so that he can go home , the discussion for percutaneous versus redo surgery can be done as an outpatient with Dr. Daniel. However if the patient continues to be in significant refractory congestive heart failure then the decision may need to be made during this hospitalization. Hypertension, better controlled today. Coronary artery disease with a history of coronary artery bypass surgery consisting of left internal mammary arterial graft to the left interior descending and saphenous vein graft to ramus intermedius, diagonal and posterior descending on 11/22/[address] Almonte at [facility] in [place], [place]. 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 History of mild to moderate elevation left ventricular end-diastolic pressure at the time of cardiac catheterization of November 2012, prior to coronary artery bypass surgery. Moderate pulmonary hypertension on echocardiography of 11/17/2012. This was probably related to diastolic dysfunction of the left ventricle due to coronary artery disease. Chronic obstructive pulmonary disease, likely due to prior tobacco use. He quit smoking in 1977. Hypertension. Chronic persistent atrial fibrillation Chronic warfarin anticoagulation for stroke prophylaxis (being managed by Dr. Luis), currently INR is supra-therapeutic Chronic paresthesias, mild, of feet likely due to diabetic neuropathy. Thank you for your consultation. Please call me if you have any questions. Amy Carlisle MD, FACP, FACC, FSCAI, FHRS, CCDS Interventional Cardiology Cardiac Electrophysiology Vascular Medicine and Endovascular Interventions Case CARLISLE MD Oct 10, 2017 2:49 pm
[2017-10-10 15:51] VITALS: BP 138/69
[2017-10-10 19:38] VITALS: BP 126/66
[2017-10-10] MEDS: GABAPENTIN 300 MG (NEURONTIN) CAP PO SCH (19:47)
[2017-10-11] VITALS: BP 128/77
[2017-10-11 04:00] VITALS: BP 127/64
[2017-10-11] MEDS: NITROGLYCERIN 2% OINT 1 GM UNIT DOSE PACKET TOP SCH ×4 (04:13→21:00)
[2017-10-11] MEDS: inSUlin ASPART (NovoLOG) 1 UNIT/0.01 ML (CHARGE PER UNIT) SC SCH ×4 (05:34→20:48)
[2017-10-11 06:02] LABS: BASOPHILS # (AUTO) 0.1 10^3/uL (0.0-0.1); BASOPHILS % (AUTO) 1 % (0-10); EOSINOPHILS # (AUTO) 0.6 10^3/uL (0.0-0.3); EOSINOPHILS % (AUTO) 6 % (0-10); HEMATOCRIT 31 % (40-54); HEMOGLOBIN 9.2 G/DL (13.3-17.7); LYMPHOCYTES # (AUTO) 1.1 X 10^3 (1.0-4.0); LYMPHOCYTES % (AUTO) 11 % (12-44); MEAN CORPUSCULAR HEMOGLOBIN 23 PG (25-34); MEAN CORPUSCULAR HGB CONC 30 G/DL (32-36); MEAN CORPUSCULAR VOLUME 76 FL (80-99); MEAN PLATELET VOLUME 11.2 FL (7.4-10.4); MONOCYTES # (AUTO) 1.3 X 10^3 (0.0-1.0); MONOCYTES % (AUTO) 13 % (0-12); NEUTROPHILS # (AUTO) 6.6 X 10^3 (1.8-7.8); NEUTROPHILS % (AUTO) 69 % (42-75); PLATELET COUNT 266 10^3/uL (130-400); RED BLOOD COUNT 4.05 10^6/uL (4.35-5.85); RED CELL DISTRIBUTION WIDTH 18.8 % (10.0-14.5); WHITE BLOOD COUNT 9.6 10^3/uL (4.3-11.0)
[2017-10-11 06:11] LABS: INR 1.5 (0.8-1.4); PROTHROMBIN TIME PATIENT 17.9 SEC (12.2-14.7)
[2017-10-11] MEDS: FUROSEMIDE 40 MG/4 ML INJ (LASIX) IVP SCH ×2 (06:20→17:00)
[2017-10-11] MEDS: KCL 20 MEQ TAB (K-DUR) PO SCH ×2 (06:20→17:00)
[2017-10-11 06:22] LABS: CALCIUM 8.5 MG/DL (8.5-10.1); CREATININE SERUM 1.34 MG/DL (0.60-1.30); MAGNESIUM 2.3 MG/DL (1.8-2.4); POTASSIUM 3.7 MMOL/L (3.6-5.0)
--- NOTE | 2017-10-11 07:59 | Progress Note-Cardiology ---
Cardiology SOAP Progress Note Subjective: Shortness of breath and swelling improved, but not resolved No cp or palp or syncope Objective: I&O/Vital Signs 10/10/17 10/11/17 10/11/17 10/11/17 20:00 00:00 01:00 04:00 Temp 99.0 98.2 Pulse 66 74 77 Resp 18 20 B/P (MAP) 128/77 (94) 127/64 (85) Pulse Ox 97 95 O2 Delivery Nasal Cannula Nasal Cannula Nasal Cannula O2 Flow Rate 2.00 2.00 2.00 10/11/17 07:00 Pulse 82 10/11/17 00:00 Intake Total 1440 ml Output Total 2000 ml Balance -560 ml Weight (Pounds): 212 Weight (Ounces): 0.0 Weight (Calculated Kilograms): 96.529066 Constitutional: AAO x 3, well-developed, well-nourished Respiratory: No accessory muscle use; chest is bilaterally symmetric, other ( Bilat basal crackles, more the R side) Cardiovascular: irregularly irregular, S1 and S2, gallop/S3, systolic murmur (2 -3/6 MSM over precordium) Gastrointestional: soft; No guarding, No rebound; audible bowel sounds Extremities: significant edema (1+ bilat leg edema) Neurologic/Psychiatric: no motor/sensory deficits, alert, normal mood/affect, oriented x 3, grossly intact, power is 5/5 both on sides Skin: No rash on exposed areas, No ulcerations on exposed areas Results/Procedures: Labs Laboratory Tests 10/10/17 10:42: Glucometer 197H 10/10/17 16:35: Glucometer 186H 10/10/17 20:40: Glucometer 233H 10/11/17 05:30: White Blood Count 9.6, Red Blood Count 4.05L, Hemoglobin 9.2L, Hematocrit 31L, Mean Corpuscular Volume 76L, Mean Corpuscular Hemoglobin 23L, Mean Corpuscular Hemoglobin Concent 30L, Red Cell Distribution Width 18.8H, Platelet Count 266, Mean Platelet Volume 11.2H, Neutrophils (%) (Auto) 69, Lymphocytes (%) (Auto) 11L, Monocytes (%) (Auto) 13H, Eosinophils (%) (Auto) 6, Basophils (%) (Auto) 1 , Neutrophils # (Auto) 6.6, Lymphocytes # (Auto) 1.1, Monocytes # (Auto) 1.3H, Eosinophils # (Auto) 0.6H, Basophils # (Auto) 0.1, Prothrombin Time 17.9H, INR Comment 1.5H, Sodium Level 142, Potassium Level 3.7, Chloride Level 102, Carbon Dioxide Level 31, Anion Gap 9, Blood Urea Nitrogen 25H, Creatinine 1.34H, Estimat Glomerular Filtration Rate 52, BUN/Creatinine Ratio 19, Glucose Level 107H, Calcium Level 8.5, Magnesium Level 2.3 10/11/17 05:33: Glucometer 107 Laboratory Tests 10/10/17 04:35 10/11/17 05:30 A/P: Assessment: Acute systolic and diastolic congestive heart failure (LVEF 45-50%; PASP 65 mmHg , on echo of 10/08/17)) Valvular heart disease consisting of severe MR and mod to severe AI on echo of Hypertension Coronary artery disease with a history of coronary artery bypass surgery consisting of left internal mammary arterial graft to the left interior descending and saphenous vein graft to ramus intermedius, diagonal and posterior descending on 11/22/[address] Almonte at [facility] in [place], [place]. 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 History of mild to moderate elevation left ventricular end-diastolic pressure at the time of cardiac catheterization of November 2012, prior to coronary artery bypass surgery. Moderate pulmonary hypertension on echocardiography of 11/17/2012. This was probably related to diastolic dysfunction of the left ventricle due to coronary artery disease. Chronic obstructive pulmonary disease, likely due to prior tobacco use. He quit smoking in 1977. Hypertension. Chronic persistent atrial fibrillation with self-controlled vent response Chronic warfarin anticoagulation for stroke prophylaxis (being managed by Dr. Luis), currently INR is sub-therapeutic Chronic paresthesias, mild, of feet likely due to diabetic neuropathy. Plan: * Treat decomp CHF with diuretics * Vent rate is self-controlled, indicating AV federico disease. 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 PCI to mitral valve can be considered if heart failure is stabilized. I discussed this issue with him today. He wishes to stay with conservative therapy only for now * Monitor labs closely DAMON DEVINE MD FACP FAC CCDS Oct 11, 2017 07:59
--- NOTE | 2017-10-11 08:08 | Progress Note (SOAP) ---
Subjective Time Seen by Provider: 08:05 Subjective/Events-last exam Patient on oxygen mouth. Patient was not on oxygen before at home. Patient feeling better. Patient has severe aortic stenosis. Patient may need surgery. Patient still has swelling of feet. CHF. Chronic atrial fibrillation. Hypertension. Chronic renal insufficiency better. Hypoxia. Patient put back on Coumadin Objective Exam Vital Signs Date Time Temp Pulse Resp B/P (MAP) Pulse Ox O2 Delivery O2 Flow Rate FiO2 10/11/17 07:00 82 10/11/17 04:00 98.2 77 20 127/64 (85) 95 Nasal Cannula 2.00 10/11/17 01:00 74 10/11/17 00:00 99.0 66 18 128/77 (94) 97 Nasal Cannula 2.00 10/10/17 20:00 Nasal Cannula 2.00 10/10/17 19:38 98.3 70 16 126/66 (86) 98 Nasal Cannula 2.00 10/10/17 19:00 65 10/10/17 15:51 99.1 76 16 138/69 (92) 97 Nasal Cannula 2.00 10/10/17 13:00 66 10/10/17 12:00 98.2 72 16 152/72 (98) 100 Nasal Cannula 2.00 10/10/17 09:00 Nasal Cannula 2.00 I & O 10/11/17 07:00 Intake Total 1840 ml Output Total 2500 ml Balance -660 ml Capillary Refill : Less Than 3 SecondsLess Than 3 Seconds General Appearance: No Apparent Distress, WD/WN HEENT: Normal ENT Inspection Neck: Full Range of Motion, Normal Inspection Respiratory: No Accessory Muscle Use, No Respiratory Distress Cardiovascular: No Murmur Gastrointestinal: non tender, soft Results Lab Laboratory Tests 10/10/17 10:42: Glucometer 197H 10/10/17 16:35: Glucometer 186H 10/10/17 20:40: Glucometer 233H 10/11/17 05:30: White Blood Count 9.6, Red Blood Count 4.05L, Hemoglobin 9.2L, Hematocrit 31L, Mean Corpuscular Volume 76L, Mean Corpuscular Hemoglobin 23L, Mean Corpuscular Hemoglobin Concent 30L, Red Cell Distribution Width 18.8H, Platelet Count 266, Mean Platelet Volume 11.2H, Neutrophils (%) (Auto) 69, Lymphocytes (%) (Auto) 11L, Monocytes (%) (Auto) 13H, Eosinophils (%) (Auto) 6, Basophils (%) (Auto) 1 , Neutrophils # (Auto) 6.6, Lymphocytes # (Auto) 1.1, Monocytes # (Auto) 1.3H, Eosinophils # (Auto) 0.6H, Basophils # (Auto) 0.1, Prothrombin Time 17.9H, INR Comment 1.5H, Sodium Level 142, Potassium Level 3.7, Chloride Level 102, Carbon Dioxide Level 31, Anion Gap 9, Blood Urea Nitrogen 25H, Creatinine 1.34H, Estimat Glomerular Filtration Rate 52, BUN/Creatinine Ratio 19, Glucose Level 107H, Calcium Level 8.5, Magnesium Level 2.3 10/11/17 05:33: Glucometer 107 Assessment/Plan Assessment/Plan Assess & Plan/Chief Complaint Congestive heart failure. Chronic atrial fibrillation. Hypertension. Renal insufficiency improved. Hypoxia. Severe aortic stenosis Clinical Quality Measures Admission Status Admission Dx Congestive heart failure. Hypertension history. Chronic atrial fibrillation. Renal insufficiency. Chest tightness. Diabetes mellitus. DVT/VTE Risk/Contraindication: Risk Factor Score Per Nursin RFS Level Per Nursing on Admit: 4+=Very High Contraindications-Pharm: Other *list below* ELMER STEEL DO Oct 11, 2017 08:08
[2017-10-11 08:30] VITALS: BP 163/75
[2017-10-11] MEDS: DOCUSATE SODIUM 100 MG (COLACE) CAP PO SCH ×2 (08:33→20:47)
[2017-10-11] MEDS: ASPIRIN E.C. 81 MG (ECOTRIN) TAB PO SCH (08:33)
[2017-10-11] MEDS: amLODIPine 5 MG (NORVASC) TAB PO SCH (08:33)
--- NOTE | 2017-10-11 09:23 | Physical Therapy Evaluation ---
PT Evaluation-General Medical Diagnosis Admission Date Oct 07, 2017 at 20:27 Medical Diagnosis: CHF, HTN, chronic A-fib Onset Date: Oct 07, 2017 Therapy Diagnosis Therapy Diagnosis: debility Height/Weight Height (Feet): 6 Height (Inches): 2.50 Weight (Pounds): 212 Weight (Ounces): 0.0 Precautions Precautions/Isolations: Fall Prevention, Standard Precautions Weight Bear Status Right Lower Extremity: Right Full Weight Bearing Left Lower Extremity: Left Full Weight Bearing Referral Physician: Fredy Reason for Referral: Evaluation/Treatment Medical History Pertinent Medical History: CABG, CAD, DM, Heart Failure, HTN, ND Current History ED secondary to CP and SOB and total body edema Reviewed History: Yes Social History Home: Single Level Current Living Status: Spouse Prior/Core FIM Prior Level of Function Functional Bent[place] Measure 0=Not Assessed/NA 4=Minimal Assistance 1=Total Assistance 5=Supervision or Setup 2=Maximal Assistance 6=Modified Bent[place] 3=Moderate Assistance 7=Complete [place] Bed Mobility: 6 Transfers (B,C,W/C) (FIM): 6 Gait: 6 uses cane for mobility PT Evaluation-Current Subjective Patient agrees to PT. Pain Numeric Pain Scale: 0-No Pain Location: No Pain Reported Objective Patient Orientation: Normal For Age Problem Solving: Fair Attachments: Oxygen (2-3L) ROM/Strength ROM Lower Extremities bilateral Le WNL Strength Lower Extremities 4+/5 grossly bilaterally Integumentary/Posture Integumentary refer to nursing notes Bowel Incontinence: No Bladder Incontinence: No Posture slight trunk flexed posture Neuromuscular (Tone, Coordination, Reflexes) grossly intact with all Sensory Vision: Wears Glasses Hearing: Impaired Sensation Right Lower Extremit: Impaired Sensation Left Lower Extremity: Impaired Transfers Functional Bent[place] Measure 0=Not Assessed/NA 4=Minimal Assistance 1=Total Assistance 5=Supervision or Setup 2=Maximal Assistance 6=Modified [place] 3=Moderate Assistance 7=Complete [place] Transfers (B, C, W/C) (FIM): 6 Scootin Rollin Supine to/from Sit: 6 Sit to/from Stand: 6 Gait Mode of Locomotion: Walk Anticipated Mode of Locomotion: Walk Gait (FIM): 6 Distance (FIM): 3=150 ft Distance: >550' Gait Level of Assist: 6 Gait Assistive Device: FWW Comments/Gait Description FWW for distances with steady gait sequence Balance Sitting Static: Normal Sitting Dynamic: Normal Standing Static: Normal Standing Dynamic: Normal Assessment/Needs 77 y.o. male, will benefit from short term skilled PT to address functional strength and mobility to improve current LOF and to safely return to home at maximum LOF. Rehab Potential: Fair PT Short Term Goals Short Term Goals Time Frame: Oct 15, 2017 Transfers (B,C,W/C) (FIM): 6 Gait (FIM): 6 Distance (FIM): 3=150 ft Gait Assistive Device: FWW, Cane Single Point PT Plan Treatment/Plan Treatment Plan: Continue Plan of Care Treatment Plan: Education, Functional Activity Bibi, Functional Strength, Gait , Safety, Therapeutic Exercise Treatment Duration: Oct 15, 2017 Frequency: 5 times per week Estimated Hrs Per Day: .25 hour per day Patient and/or Family Agrees t: Yes Time/GCodes Time In: 855 Time Out: 912 Total Billed Treatment Time: 17 Total Billed Treatment 1 visit EVModC 17 min G Codes Necessary: No ANJANA DUGGAN PT Oct 11, 2017 09:23
[2017-10-11 12:41] VITALS: BP 117/65
[2017-10-11 15:25] VITALS: BP 120/58
[2017-10-11 20:15] VITALS: BP 167/74
[2017-10-11] MEDS: warFARin 10 MG (COUMADIN) TAB PO SCH (20:47)
[2017-10-11] MEDS: GABAPENTIN 300 MG (NEURONTIN) CAP PO SCH (20:47)
[2017-10-12] VITALS: BP 170/76
[2017-10-12 04:00] VITALS: BP 143/69
[2017-10-12] MEDS: NITROGLYCERIN 2% OINT 1 GM UNIT DOSE PACKET TOP SCH (04:14)
[2017-10-12 05:57] LABS: BASOPHILS % (AUTO) 1 % (0-10); EOSINOPHILS # (AUTO) 0.6 10^3/uL (0.0-0.3); EOSINOPHILS % (AUTO) 8 % (0-10); HEMATOCRIT 31 % (40-54); HEMOGLOBIN 9.1 G/DL (13.3-17.7); LYMPHOCYTES # (AUTO) 0.9 X 10^3 (1.0-4.0); LYMPHOCYTES % (AUTO) 11 % (12-44); MEAN CORPUSCULAR HEMOGLOBIN 23 PG (25-34); MEAN CORPUSCULAR HGB CONC 30 G/DL (32-36); MEAN CORPUSCULAR VOLUME 77 FL (80-99); MEAN PLATELET VOLUME 11.4 FL (7.4-10.4); MONOCYTES # (AUTO) 0.9 X 10^3 (0.0-1.0); MONOCYTES % (AUTO) 11 % (0-12); NEUTROPHILS # (AUTO) 5.7 X 10^3 (1.8-7.8); NEUTROPHILS % (AUTO) 69 % (42-75); PLATELET COUNT 274 10^3/uL (130-400); RED BLOOD COUNT 3.96 10^6/uL (4.35-5.85); RED CELL DISTRIBUTION WIDTH 18.7 % (10.0-14.5); WHITE BLOOD COUNT 8.1 10^3/uL (4.3-11.0)
[2017-10-12 06:08] LABS: INR 1.4 (0.8-1.4); PROTHROMBIN TIME PATIENT 16.7 SEC (12.2-14.7)
[2017-10-12] MEDS: inSUlin ASPART (NovoLOG) 1 UNIT/0.01 ML (CHARGE PER UNIT) SC SCH ×4 (06:09→21:51)
[2017-10-12 06:16] LABS: CALCIUM 8.7 MG/DL (8.5-10.1); CREATININE SERUM 1.26 MG/DL (0.60-1.30); MAGNESIUM 2.3 MG/DL (1.8-2.4); POTASSIUM 3.7 MMOL/L (3.6-5.0)
[2017-10-12] MEDS: FUROSEMIDE 40 MG/4 ML INJ (LASIX) IVP SCH (06:19)
[2017-10-12] MEDS: KCL 20 MEQ TAB (K-DUR) PO SCH (06:19)
--- NOTE | 2017-10-12 07:40 | Progress Note (SOAP) ---
Subjective Time Seen by Provider: 07:25 Subjective/Events-last exam Patient states she's feeling better. Right leg is more swollen and left leg and by the ankle has some redness. She states he's breathing better Objective Exam Vital Signs Date Time Temp Pulse Resp B/P (MAP) Pulse Ox O2 Delivery O2 Flow Rate FiO2 10/12/17 04:00 99.0 65 20 143/69 (93) 94 Nasal Cannula 4.00 10/12/17 01:00 62 10/12/17 00:00 98.1 64 21 170/76 (107) 97 Nasal Cannula 4.00 10/11/17 21:00 Nasal Cannula 3.00 10/11/17 20:15 98.1 67 18 167/74 (105) 98 Nasal Cannula 4.00 10/11/17 19:00 71 10/11/17 15:25 97.4 63 18 120/58 (78) 99 Nasal Cannula 4.00 10/11/17 13:00 72 10/11/17 12:41 97.9 68 18 117/65 (82) 94 Nasal Cannula 4.00 10/11/17 09:16 90 Nasal Cannula 3.00 10/11/17 08:30 96.8 82 20 163/75 (104) 96 Nasal Cannula 2.50 10/11/17 08:00 Nasal Cannula 2.00 I & O 10/12/17 07:00 Intake Total 1420 ml Output Total 2125 ml Balance -705 ml Capillary Refill : Less Than 3 SecondsLess Than 3 Seconds General Appearance: No Apparent Distress, WD/WN HEENT: Normal ENT Inspection Neck: Full Range of Motion, Normal Inspection Respiratory: Chest Non Tender, No Accessory Muscle Use, No Respiratory Distress Cardiovascular: Regular Rate, Rhythm Extremity: Swelling, Other (Swelling of right leg and some redness around ankle medial) Results Lab Laboratory Tests 10/11/17 11:08: Glucometer 186H 10/11/17 15:37: Glucometer 266H 10/11/17 20:17: Glucometer 233H 10/12/17 05:11: Glucometer 110 10/12/17 05:20: White Blood Count 8.1, Red Blood Count 3.96L, Hemoglobin 9.1L, Hematocrit 31L, Mean Corpuscular Volume 77L, Mean Corpuscular Hemoglobin 23L, Mean Corpuscular Hemoglobin Concent 30L, Red Cell Distribution Width 18.7H, Platelet Count 274, Mean Platelet Volume 11.4H, Neutrophils (%) (Auto) 69, Lymphocytes (%) (Auto) 11L, Monocytes (%) (Auto) 11, Eosinophils (%) (Auto) 8, Basophils (%) (Auto) 1, Neutrophils # (Auto) 5.7, Lymphocytes # (Auto) 0.9L, Monocytes # (Auto) 0.9, Eosinophils # (Auto) 0.6H, Basophils # (Auto) 0.0, Prothrombin Time 16.7H, INR Comment 1.4, Sodium Level 143, Potassium Level 3.7, Chloride Level 102, Carbon Dioxide Level 29, Anion Gap 12, Blood Urea Nitrogen 25H, Creatinine 1.26, Estimat Glomerular Filtration Rate 56, BUN/Creatinine Ratio 20, Glucose Level 110H, Calcium Level 8.7, Magnesium Level 2.3 Assessment/Plan Assessment/Plan Assess & Plan/Chief Complaint Congestive heart failure. Chronic atrial fibrillation. Hypertension. Renal insufficiency improved. Hypoxia. . . 10/12/17. Swelling of the right leg more than the left leg. Congestive heart failure. Chronic atrial fibrillation. Renal insufficiency better. Has some redness to right ankle Clinical Quality Measures Admission Status Admission Dx Congestive heart failure. Hypertension history. Chronic atrial fibrillation. Renal insufficiency. Chest tightness. Diabetes mellitus. DVT/VTE Risk/Contraindication: Risk Factor Score Per Nursin RFS Level Per Nursing on Admit: 4+=Very High Contraindications-Pharm: Other *list below* ELMER STEEL DO Oct 12, 2017 07:40
[2017-10-12 08:00] VITALS: BP 163/76
[2017-10-12] MEDS: amLODIPine 5 MG (NORVASC) TAB PO SCH (08:39)
[2017-10-12] MEDS: DOCUSATE SODIUM 100 MG (COLACE) CAP PO SCH ×2 (08:39→20:22)
[2017-10-12] MEDS: ASPIRIN E.C. 81 MG (ECOTRIN) TAB PO SCH (08:40)
--- NOTE | 2017-10-12 08:41 | Diagnostic Imaging Report ---
Indication: Congestive heart failure. Comparison: 10/08/2017. Findings: Cardiomegaly is unchanged in magnitude and configuration. However there has been marked improvements in pulmonary edema and central vascular congestion with no evidence for pleural fluid on followup and no pneumothorax or adverse change. Sternal wires midline. Impression: 1. Redemonstration of cardiomegaly however remaining sequelae of failure showed a substantial improvement from the study of 10/08 with no pleural fluid, pneumothorax or adverse change. Dictated by: Dictated on workstation # [id number]
[2017-10-12] MEDS ORDERED: cefTRIAXone INJECTION 1,000 MG in NS (IVPB) 100 ML IV SCH (09:00)
--- NOTE | 2017-10-12 09:06 | Diagnostic Imaging Report ---
PROCEDURE: US right lower extremity venous. TECHNIQUE: Multiple real-time grayscale images were obtained over the right lower extremity in various projections. Additional duplex Doppler and color Doppler images were also obtained. INDICATION: Right foot swelling. FINDINGS: The right common femoral, superficial femoral and popliteal veins demonstrate normal response to compression, augmentation, and Valsalva. There are no right lower extremity fluid collections or masses. IMPRESSION: No evidence of deep vein thrombosis in the right lower extremity. Dictated by: Dictated on workstation # [id number]
[2017-10-12] MEDS: ENOXAPARIN 100 MG/1 ML (LOVENOX) SYR SC SCH ×2 (09:37→20:23)
--- NOTE | 2017-10-12 10:26 | Progress Note-Cardiology ---
Cardiology SOAP Progress Note Subjective: Sitting up in a chair at the bedside. C/O right leg swelling. No c/o CP. Feels SOB is better. No c/o palpitations, syncope or near syncope. Objective: I&O/Vital Signs 10/12/17 10/12/17 10/12/17 10/12/17 00:00 01:00 04:00 07:00 Temp 98.1 99.0 Pulse 64 62 65 77 Resp 21 20 B/P (MAP) 170/76 (107) 143/69 (93) Pulse Ox 97 94 O2 Delivery Nasal Cannula Nasal Cannula O2 Flow Rate 4.00 4.00 10/12/17 10/12/17 08:00 08:15 Temp 97.5 Pulse 76 Resp 18 B/P (MAP) 163/76 (105) Pulse Ox 100 O2 Delivery Nasal Cannula Nasal Cannula O2 Flow Rate 2.50 3.00 10/12/17 00:00 Intake Total 1200 ml Output Total 1825 ml Balance -625 ml Weight (Pounds): 210 Weight (Ounces): 0.0 Weight (Calculated Kilograms): 95.903981 Constitutional: AAO x 3, well-developed, well-nourished Respiratory: No accessory muscle use; chest is bilaterally symmetric, other ( Bilat basal crackles, more the R side) Cardiovascular: irregularly irregular, S1 and S2, gallop/S3, systolic murmur (2 -3/6 MSM over precordium) Gastrointestional: soft, audible bowel sounds Extremities: significant edema (Pitting RLE edema with redness and warmth; LLE edema mild ) Neurologic/Psychiatric: grossly intact Skin: No rash on exposed areas, No ulcerations on exposed areas Results/Procedures: Labs Laboratory Tests 10/11/17 15:37: Glucometer 266H 10/11/17 20:17: Glucometer 233H 10/12/17 05:11: Glucometer 110 10/12/17 05:20: White Blood Count 8.1, Red Blood Count 3.96L, Hemoglobin 9.1L, Hematocrit 31L, Mean Corpuscular Volume 77L, Mean Corpuscular Hemoglobin 23L, Mean Corpuscular Hemoglobin Concent 30L, Red Cell Distribution Width 18.7H, Platelet Count 274, Mean Platelet Volume 11.4H, Neutrophils (%) (Auto) 69, Lymphocytes (%) (Auto) 11L, Monocytes (%) (Auto) 11, Eosinophils (%) (Auto) 8, Basophils (%) (Auto) 1, Neutrophils # (Auto) 5.7, Lymphocytes # (Auto) 0.9L, Monocytes # (Auto) 0.9, Eosinophils # (Auto) 0.6H, Basophils # (Auto) 0.0, Prothrombin Time 16.7H, INR Comment 1.4, Sodium Level 143, Potassium Level 3.7, Chloride Level 102, Carbon Dioxide Level 29, Anion Gap 12, Blood Urea Nitrogen 25H, Creatinine 1.26, Estimat Glomerular Filtration Rate 56, BUN/Creatinine Ratio 20, Glucose Level 110H, Uric Acid 10.2H, Calcium Level 8.7, Magnesium Level 2.3 10/12/17 10:46: Glucometer 209H Procedures NAME: [facility]EL[facility] REC#: [id number] PT STATUS: ADM IN : 1940 PHYSICIAN: ELMER STEEL DO ADMIT DATE: 10/07/17 Signed Date of Exam: 10/12/17 US VENOUS LOWER EXT RT PROCEDURE: US right lower extremity venous. TECHNIQUE: Multiple real-time grayscale images were obtained over the right lower extremity in various projections. Additional duplex Doppler and color Doppler images were also obtained. INDICATION: Right foot swelling. FINDINGS: The right common femoral, superficial femoral and popliteal veins demonstrate normal response to compression, augmentation, and Valsalva. There are no right lower extremity fluid collections or masses. IMPRESSION: No evidence of deep vein thrombosis in the right lower extremity. 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 Almonte at [facility] in [place], [place]. 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 History of mild to moderate elevation left ventricular end-diastolic pressure at the time of cardiac catheterization of November 2012, prior to coronary artery bypass surgery. Moderate pulmonary hypertension on echocardiography of 11/17/2012. This was probably related to diastolic dysfunction of the left ventricle due to coronary artery disease. Chronic obstructive pulmonary disease, likely due to prior tobacco use. He quit smoking in 1977. Hypertension. Chronic persistent atrial fibrillation with self-controlled vent response Chronic warfarin anticoagulation for stroke prophylaxis (being managed by Dr. Steel), currently INR is sub-therapeutic Chronic paresthesias, mild, of feet likely due to diabetic neuropathy. Swelling to right leg with redness - suspected cellulitis - management per medical services Plan: * Treat decomp CHF with diuretics * Vent rate is self-controlled, indicating AV federico disease. Doesn't appear to be a good candidate for beta-itzel * Aspirin because of CAD * Resume warfarin because INR is subtherapeutic now - INR 1.4 today - cover with Lovenox injections until INR therapeutic * Management of valvular heart disease is complex because of dual valvular heart disease and previous cardiac surgery. PCI to mitral valve can be considered if heart failure is stabilized. I discussed this issue with him today. He wishes to stay with conservative therapy only for now * RLE with swelling and redness (no evidence of DVT per venous doppler today) - suspected cellulitis - management per medical services Physician Assessment Physician Assessment Shortness of breath better, but not resolved. R leg swelling worse. Wishes to go home. Denies cp or palp or syncope Lungs: basal crackles Cor: irreg Legs 3-4+ R leg edema with some redness; 1+ L leg edema A&R * As documented in our note above * Complex management due to multiple complex comorbidities * I discussed his valvular disease with him again. He wishes to be managed conservatively only * We will try to switch to oral diuretics and observe response (furosemide and metolazone and spironolactone) * BP is not well controlled and there considerable leg swelling to which amlodipine may be contributing. We are stopping amlodipine and replacing with Cozaar * Given that he is on Cozaar and spironolactone, we have held off on supplemental K * Monitor labs closely * [facility] prognosis is guarded [facility] Oct 12, 2017 10:26 DAMON DEVINE MD FACP [facility] Oct 12, 2017 12:03
--- NOTE | 2017-10-12 10:52 | Physical Therapy Daily Note ---
PT Daily Note-Current Subjective Patient agrees to PT. Pain Numeric Pain Scale: 0-No Pain Location: No Pain Reported Mental Status Patient Orientation: Normal For Age Attachments: Oxygen Transfers Functional [place] Measure 0=Not Assessed/NA 4=Minimal Assistance 1=Total Assistance 5=Supervision or Setup 2=Maximal Assistance 6=Modified [place] 3=Moderate Assistance 7=Complete IndependenceIRFPAI Quality Coding Scale 6 Independent with activity with or without an assistive device 5 Patient requires set up or clean up by helper. Patient completes activity by themselves 4 Supervision or touching assist (CGA). [place] provide cues , steadying assist 3 The helper provides less than half the effort to complete the activity 2 The helper provides more than half the effort to complete the activity 1 Dependent. The helper does all the effort to complete an activity 7 Patient refused to complete or attempt activity 9 The patient did not perform the activity before the current illness or injury 88 Not attempted due to Medical conditions or safety concerns Transfers (B, C, W/C) (FIM): 7 Scootin Sit to/from Stand: 7 Weight Bearing Right Lower Extremity: Right Full Weight Bearing Left Lower Extremity: Left Full Weight Bearing Gait Training Gait (FIM): 6 Distance (FIM): 3=150 ft Distance: 500' Gait Level of Assist: 5 Gait Assistive Device: FWW safe and functional Assessment Patient tolerated treatment well and is up ad jessie in room without difficulty. PT to dismiss from services due to patient is at PLOF with all gross motor skills safely. Nursing to continue with ambulating with patient PRN. PT Short Term Goals Short Term Goals Time Frame: Oct 15, 2017 Transfers (B,C,W/C) (FIM): 6 Gait (FIM): 6 Distance (FIM): 3=150 ft Gait Assistive Device: FWW, Cane Single Point PT Plan Treatment/Plan Treatment Plan: Discontinue PT, goals met Treatment Plan: Education, Functional Activity Bibi, Functional Strength, Gait , Safety, Therapeutic Exercise Treatment Duration: Oct 15, 2017 Frequency: 5 times per week Estimated Hrs Per Day: .25 hour per day Patient and/or Family Agrees t: Yes Time/GCodes Time In: 1035 Time Out: 1044 Total Billed Treatment Time: 9 Total Billed Treatment 1 visit FA 9 min ANJANA DUGGAN PT Oct 12, 2017 10:52
[2017-10-12 12:00] VITALS: BP 169/78
[2017-10-12] MEDS ORDERED: LOSARTAN 100 MG (COZAAR) TABLET PO NR (12:00)
[2017-10-12] MEDS ORDERED: SPIRONOLACTONE 25 MG (ALDACTONE) TAB PO NR (12:00)
[2017-10-12] MEDS ORDERED: FUROSEMIDE 40 MG (LASIX) TAB PO NR (12:00)
[2017-10-12] MEDS ORDERED: ENOXAPARIN 80 MG/0.8 ML (LOVENOX) SYR SC NR (12:00)
[2017-10-12] MEDS ORDERED: METOLAZONE 5 MG (ZAROXOLYN) TAB PO NR (12:00)
[2017-10-12] MEDS: COLCHICINE 0.6 MG (COLCRYS) TABLET PO SCH ×2 (12:44→20:22)
[2017-10-12 17:27] VITALS: BP 148/68
[2017-10-12 19:15] VITALS: BP 134/61
[2017-10-12] MEDS: GABAPENTIN 300 MG (NEURONTIN) CAP PO SCH (20:22)
[2017-10-12] MEDS: warFARin 10 MG (COUMADIN) TAB PO SCH (20:22)
[2017-10-13] VITALS: BP 164/71
[2017-10-13 05:00] VITALS: BP 147/76
[2017-10-13] MEDS: inSUlin ASPART (NovoLOG) 1 UNIT/0.01 ML (CHARGE PER UNIT) SC SCH ×4 (05:45→21:54)
[2017-10-13 07:13] LABS: BASOPHILS # (AUTO) 0.1 10^3/uL (0.0-0.1); BASOPHILS % (AUTO) 1 % (0-10); EOSINOPHILS # (AUTO) 0.6 10^3/uL (0.0-0.3); EOSINOPHILS % (AUTO) 7 % (0-10); HEMATOCRIT 34 % (40-54); HEMOGLOBIN 10.1 G/DL (13.3-17.7); LYMPHOCYTES # (AUTO) 1.1 X 10^3 (1.0-4.0); LYMPHOCYTES % (AUTO) 13 % (12-44); MEAN CORPUSCULAR HEMOGLOBIN 23 PG (25-34); MEAN CORPUSCULAR HGB CONC 30 G/DL (32-36); MEAN CORPUSCULAR VOLUME 76 FL (80-99); MEAN PLATELET VOLUME 11.7 FL (7.4-10.4); MONOCYTES # (AUTO) 0.8 X 10^3 (0.0-1.0); MONOCYTES % (AUTO) 10 % (0-12); NEUTROPHILS # (AUTO) 5.9 X 10^3 (1.8-7.8); NEUTROPHILS % (AUTO) 69 % (42-75); PLATELET COUNT 303 10^3/uL (130-400); RED BLOOD COUNT 4.43 10^6/uL (4.35-5.85); RED CELL DISTRIBUTION WIDTH 18.7 % (10.0-14.5); WHITE BLOOD COUNT 8.5 10^3/uL (4.3-11.0)
[2017-10-13 07:33] LABS: INR 1.3 (0.8-1.4); PROTHROMBIN TIME PATIENT 16.5 SEC (12.2-14.7)
[2017-10-13 07:39] LABS: CALCIUM 8.9 MG/DL (8.5-10.1); CREATININE SERUM 1.35 MG/DL (0.60-1.30); MAGNESIUM 2.2 MG/DL (1.8-2.4); POTASSIUM 3.4 MMOL/L (3.6-5.0)
[2017-10-13 08:00] VITALS: BP 149/70
--- NOTE | 2017-10-13 08:03 | Progress Note (SOAP) ---
Subjective Time Seen by Provider: 08:00 Subjective/Events-last exam Patient feeling better. Gout right ankle better Objective Exam Vital Signs Date Time Temp Pulse Resp B/P (MAP) Pulse Ox O2 Delivery O2 Flow Rate FiO2 10/13/17 05:00 97.4 68 19 147/76 (99) 93 Nasal Cannula 2.50 10/13/17 01:00 81 10/13/17 00:00 98.9 69 17 164/71 (102) 96 Nasal Cannula 2.50 10/12/17 21:00 Nasal Cannula 2.00 10/12/17 19:15 97.0 65 20 134/61 (85) 100 Nasal Cannula 2.50 10/12/17 19:00 67 10/12/17 17:27 96.4 63 18 148/68 (94) 97 Nasal Cannula 10/12/17 13:34 Nasal Cannula 4.00 10/12/17 13:00 77 10/12/17 12:00 96.6 71 18 169/78 (108) 99 Nasal Cannula 2.50 10/12/17 08:15 Nasal Cannula 3.00 10/12/17 08:00 97.5 76 18 163/76 (105) 100 Nasal Cannula 2.50 I & O 10/13/17 07:00 Intake Total 1840 ml Output Total 2900 ml Balance -1060 ml Capillary Refill : Less Than 3 SecondsLess Than 3 Seconds General Appearance: No Apparent Distress, WD/WN HEENT: Normal ENT Inspection Neck: Full Range of Motion Respiratory: Normal Breath Sounds, No Accessory Muscle Use, No Respiratory Distress Cardiovascular: Regular Rate, Rhythm Gastrointestinal: non tender, soft Results Lab Laboratory Tests 10/12/17 10:46: Glucometer 209H 10/12/17 16:58: Glucometer 263H 10/12/17 20:32: Glucometer 145H 10/13/17 05:10: Glucometer 138H 10/13/17 05:53: White Blood Count 8.5, Red Blood Count 4.43, Hemoglobin 10.1L, Hematocrit 34L, Mean Corpuscular Volume 76L, Mean Corpuscular Hemoglobin 23L, Mean Corpuscular Hemoglobin Concent 30L, Red Cell Distribution Width 18.7H, Platelet Count 303, Mean Platelet Volume 11.7H, Neutrophils (%) (Auto) 69, Lymphocytes (%) (Auto) 13 , Monocytes (%) (Auto) 10, Eosinophils (%) (Auto) 7, Basophils (%) (Auto) 1, Neutrophils # (Auto) 5.9, Lymphocytes # (Auto) 1.1, Monocytes # (Auto) 0.8, Eosinophils # (Auto) 0.6H, Basophils # (Auto) 0.1, Prothrombin Time 16.5H, INR Comment 1.3, Sodium Level 143, Potassium Level 3.4L, Chloride Level 98, Carbon Dioxide Level 36H, Anion Gap 9, Blood Urea Nitrogen 26H, Creatinine 1.35H, Estimat Glomerular Filtration Rate 52, BUN/Creatinine Ratio 19, Glucose Level 127H, Calcium Level 8.9, Magnesium Level 2.2 Assessment/Plan Assessment/Plan Assess & Plan/Chief Complaint Congestive heart failure. Chronic atrial fibrillation. Hypertension. Renal insufficiency improved. Hypoxia. . . 10/12/17. Swelling of the right leg more than the left leg. Congestive heart failure. Chronic atrial fibrillation. Renal insufficiency better. Has some redness to right ankle 10/13/17 CHF gout renal insufficiency Clinical Quality Measures Admission Status Admission Dx Congestive heart failure. Hypertension history. Chronic atrial fibrillation. Renal insufficiency. Chest tightness. Diabetes mellitus. DVT/VTE Risk/Contraindication: Risk Factor Score Per Nursin RFS Level Per Nursing on Admit: 4+=Very High Contraindications-Pharm: Other *list below* ELMER STEEL DO Oct 13, 2017 08:03
[2017-10-13] MEDS ORDERED: KCL 20 MEQ TAB (K-DUR) PO NR (08:30)
[2017-10-13] MEDS ORDERED: LOSA100T28 PO (08:35)
[2017-10-13] MEDS ORDERED: METO5TAB6 PO (08:35)
[2017-10-13] MEDS ORDERED: FURO80TA83 PO (08:35)
[2017-10-13] MEDS ORDERED: SPIR25TA3 PO (08:35)
--- NOTE | 2017-10-13 08:37 | Progress Note-Cardiology ---
Cardiology SOAP Progress Note Subjective: Shortness of breath better No cp or palp or syncope Leg swelling as before Wishes to go home Objective: I&O/Vital Signs 10/12/17 10/13/17 10/13/17 10/13/17 21:00 00:00 01:00 05:00 Temp 98.9 97.4 Pulse 69 81 68 Resp 17 19 B/P (MAP) 164/71 (102) 147/76 (99) Pulse Ox 96 93 O2 Delivery Nasal Cannula Nasal Cannula Nasal Cannula O2 Flow Rate 2.00 2.50 2.50 10/13/17 10/13/17 07:00 08:05 Pulse 63 O2 Delivery Nasal Cannula O2 Flow Rate 2.00 10/13/17 00:00 Intake Total 1540 ml Output Total 2000 ml Balance -460 ml Weight (Pounds): 210 Weight (Ounces): 0.0 Weight (Calculated Kilograms): 95.310172 Constitutional: AAO x 3, well-developed, well-nourished Respiratory: No accessory muscle use; chest is bilaterally symmetric, other ( Bilat basal crackles, more the R side) Cardiovascular: irregularly irregular, S1 and S2, gallop/S3, systolic murmur (2 -3/6 MSM over precordium) Gastrointestional: soft, audible bowel sounds Extremities: significant edema (Pitting RLE edema with redness and warmth; LLE edema mild ) Neurologic/Psychiatric: grossly intact Skin: No rash on exposed areas, No ulcerations on exposed areas Results/Procedures: Labs Laboratory Tests 10/12/17 10:46: Glucometer 209H 10/12/17 16:58: Glucometer 263H 10/12/17 20:32: Glucometer 145H 10/13/17 05:10: Glucometer 138H 10/13/17 05:53: White Blood Count 8.5, Red Blood Count 4.43, Hemoglobin 10.1L, Hematocrit 34L, Mean Corpuscular Volume 76L, Mean Corpuscular Hemoglobin 23L, Mean Corpuscular Hemoglobin Concent 30L, Red Cell Distribution Width 18.7H, Platelet Count 303, Mean Platelet Volume 11.7H, Neutrophils (%) (Auto) 69, Lymphocytes (%) (Auto) 13 , Monocytes (%) (Auto) 10, Eosinophils (%) (Auto) 7, Basophils (%) (Auto) 1, Neutrophils # (Auto) 5.9, Lymphocytes # (Auto) 1.1, Monocytes # (Auto) 0.8, Eosinophils # (Auto) 0.6H, Basophils # (Auto) 0.1, Prothrombin Time 16.5H, INR Comment 1.3, Sodium Level 143, Potassium Level 3.4L, Chloride Level 98, Carbon Dioxide Level 36H, Anion Gap 9, Blood Urea Nitrogen 26H, Creatinine 1.35H, Estimat Glomerular Filtration Rate 52, BUN/Creatinine Ratio 19, Glucose Level 127H, Calcium Level 8.9, Magnesium Level 2.2 Laboratory Tests 10/12/17 05:20 10/13/17 05:53 A/P: Assessment: Acute systolic and diastolic congestive heart failure (LVEF 45-50%; PASP 65 mmHg , on echo of 10/08/17)) 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 Almonte at [facility] in [place], [place]. 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 History of mild to moderate elevation left ventricular end-diastolic pressure at the time of cardiac catheterization of November 2012, prior to coronary artery bypass surgery. Moderate pulmonary hypertension on echocardiography of 11/17/2012. This was probably related to diastolic dysfunction of the left ventricle due to coronary artery disease. Chronic obstructive pulmonary disease, likely due to prior tobacco use. He quit smoking in 1977. Hypertension. Chronic persistent atrial fibrillation with self-controlled vent response Chronic warfarin anticoagulation for stroke prophylaxis (being managed by Dr. Luis), currently INR is sub-therapeutic Chronic paresthesias, mild, of feet likely due to diabetic neuropathy. Plan: * Treat decomp CHF with diuretics. Replace K * Vent rate is self-controlled, indicating AV federico disease. Doesn't appear to be a good candidate for beta-itzel * Aspirin because of CAD * Continue warfarin; INR followed by Dr Luis * Management of valvular heart disease is complex because of dual valvular heart disease and previous cardiac surgery. PCI to mitral valve can be considered if heart failure is stabilized. I discussed this issue with him today. He wishes to stay with conservative therapy only for now * Close outpatient f/u DAMON DEVINE MD [facility] Oct 13, 2017 08:37
--- NOTE | 2017-10-13 08:46 | Diagnostic Imaging Report ---
Indication: CHF. Time of exam: 6:03 AM Correlation is made with prior study from one day earlier. Findings: The heart is enlarged but stable. There are changes of median sternotomy and CABG. No overt congestive failure seen on today's study. There is some residual scarring or atelectasis in the left base. Right lung is clear. No pleural fluid is seen. No pneumothorax is detected. Impression: Stable chest since examination one day earlier. Dictated by: Dictated on workstation # [id number]
[2017-10-13] MEDS ORDERED: ENOXAPARIN 80 MG/0.8 ML (LOVENOX) SYR SC SCH (09:00)
[2017-10-13] MEDS: ENOXAPARIN 100 MG/1 ML (LOVENOX) SYR SC SCH ×2 (09:36→21:55)
[2017-10-13] MEDS: METOLAZONE 5 MG (ZAROXOLYN) TAB PO SCH (09:37)
[2017-10-13] MEDS: COLCHICINE 0.6 MG (COLCRYS) TABLET PO SCH ×2 (09:37→21:53)
[2017-10-13] MEDS: ASPIRIN E.C. 81 MG (ECOTRIN) TAB PO SCH (09:38)
[2017-10-13] MEDS: DOCUSATE SODIUM 100 MG (COLACE) CAP PO SCH ×2 (09:38→21:53)
[2017-10-13] MEDS: LOSARTAN 100 MG (COZAAR) TABLET PO SCH (09:38)
[2017-10-13] MEDS: SPIRONOLACTONE 25 MG (ALDACTONE) TAB PO SCH (09:38)
[2017-10-13] MEDS: FUROSEMIDE 40 MG (LASIX) TAB PO SCH (09:38)
[2017-10-13 12:00] VITALS: BP 163/71
[2017-10-13 14:10] LABS: CALCIUM 8.8 MG/DL (8.5-10.1); CREATININE SERUM 1.32 MG/DL (0.60-1.30); POTASSIUM 3.6 MMOL/L (3.6-5.0)
[2017-10-13 16:30] VITALS: BP 136/67
[2017-10-13 20:20] VITALS: BP 153/70
[2017-10-13] MEDS: warFARin 10 MG (COUMADIN) TAB PO SCH (21:53)
[2017-10-13] MEDS: GABAPENTIN 300 MG (NEURONTIN) CAP PO SCH (21:53)
[2017-10-14] VITALS: BP 138/63
[2017-10-14 04:26] VITALS: BP 150/67
[2017-10-14] MEDS: inSUlin ASPART (NovoLOG) 1 UNIT/0.01 ML (CHARGE PER UNIT) SC SCH ×2 (05:25→12:37)
[2017-10-14 05:54] LABS: HEMOGLOBIN 9.6 G/DL (13.3-17.7); MEAN PLATELET VOLUME 11.2 FL (7.4-10.4); RED BLOOD COUNT 4.25 10^6/uL (4.35-5.85); RED CELL DISTRIBUTION WIDTH 18.7 % (10.0-14.5); WHITE BLOOD COUNT 7.6 10^3/uL (4.3-11.0)
[2017-10-14 06:08] LABS: CALCIUM 8.9 MG/DL (8.5-10.1); CREATININE SERUM 1.18 MG/DL (0.60-1.30); POTASSIUM 3.6 MMOL/L (3.6-5.0)
[2017-10-14 06:09] LABS: PROTHROMBIN TIME PATIENT 17.7 SEC (12.2-14.7)
[2017-10-14 06:10] LABS: INR 1.5 (0.8-1.4)
[2017-10-14] MEDS: LOSARTAN 100 MG (COZAAR) TABLET PO SCH (08:06)
[2017-10-14] MEDS: FUROSEMIDE 40 MG (LASIX) TAB PO SCH (08:06)
[2017-10-14] MEDS: METOLAZONE 5 MG (ZAROXOLYN) TAB PO SCH (08:06)
[2017-10-14] MEDS: SPIRONOLACTONE 25 MG (ALDACTONE) TAB PO SCH (08:06)
[2017-10-14] MEDS: ENOXAPARIN 100 MG/1 ML (LOVENOX) SYR SC SCH (08:07)
[2017-10-14] MEDS: ASPIRIN E.C. 81 MG (ECOTRIN) TAB PO SCH (08:07)
[2017-10-14] MEDS: DOCUSATE SODIUM 100 MG (COLACE) CAP PO SCH (08:07)
[2017-10-14] MEDS: COLCHICINE 0.6 MG (COLCRYS) TABLET PO SCH (08:09)
--- NOTE | 2017-10-14 08:11 | Progress Note (SOAP) ---
Subjective Time Seen by Provider: 08:05 Subjective/Events-last exam Patient feeling better today. Patient wanting to go home. 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 Patient at this time wants conservative treatment. Objective Exam Vital Signs Date Time Temp Pulse Resp B/P (MAP) Pulse Ox O2 Delivery O2 Flow Rate FiO2 10/14/17 07:00 74 10/14/17 04:26 99.3 69 18 150/67 (94) 92 Nasal Cannula 3.00 10/14/17 01:00 67 10/14/17 00:00 97.0 70 18 138/63 (88) 100 Nasal Cannula 3.00 10/13/17 21:00 Nasal Cannula 2.00 10/13/17 20:20 97.9 60 18 153/70 (97) 99 Nasal Cannula 2.00 10/13/17 19:00 57 10/13/17 16:30 97.9 56 18 136/67 (90) 100 Nasal Cannula 2.00 10/13/17 15:00 4.00 10/13/17 13:00 63 10/13/17 12:00 98.6 69 20 163/71 (101) 96 Nasal Cannula 2.00 10/13/17 09:47 Nasal Cannula 3.50 I & O 10/14/17 07:00 Intake Total 2370 ml Output Total 2600 ml Balance -230 ml Capillary Refill : Less Than 3 SecondsLess Than 3 Seconds General Appearance: No Apparent Distress, WD/WN Neck: Normal Inspection Respiratory: No Accessory Muscle Use, Decreased Breath Sounds Cardiovascular: Irregularly Irregular Gastrointestinal: non tender Results Lab Laboratory Tests 10/13/17 13:35 10/14/17 05:26 Laboratory Tests 10/13/17 11:15: Glucometer 222H 10/13/17 13:35: Sodium Level 141, Potassium Level 3.6, Chloride Level 97L, Carbon Dioxide Level 36H, Anion Gap 8, Blood Urea Nitrogen 26H, Creatinine 1.32H, Estimat Glomerular Filtration Rate 53, BUN/Creatinine Ratio 20, Glucose Level 196H, Calcium Level 8.8 10/13/17 16:31: Glucometer 157H 10/13/17 20:35: Glucometer 245H 10/14/17 05:23: Glucometer 126H 10/14/17 05:26: White Blood Count 7.6, Red Blood Count 4.25L, Hemoglobin 9.6L, Hematocrit 32L, Mean Corpuscular Volume 76L, Mean Corpuscular Hemoglobin 23L, Mean Corpuscular Hemoglobin Concent 30L, Red Cell Distribution Width 18.7H, Platelet Count 290, Mean Platelet Volume 11.2H, Prothrombin Time 17.7H, INR Comment 1.5H, Sodium Level 141, Potassium Level 3.6, Chloride Level 97L, Carbon Dioxide Level 33H, Anion Gap 11, Blood Urea Nitrogen 26H, Creatinine 1.18, Estimat Glomerular Filtration Rate 60, BUN/Creatinine Ratio 22, Glucose Level 118H, Calcium Level 8.9 Assessment/Plan Assessment/Plan Assess & Plan/Chief Complaint Congestive heart failure. Chronic atrial fibrillation. Hypertension. Renal insufficiency improved. Hypoxia. . . 10/12/17. Swelling of the right leg more than the left leg. Congestive heart failure. Chronic atrial fibrillation. Renal insufficiency better. Has some redness to right ankle 10/13/17 CHF gout renal insufficiency. . 10/14/17. Congestive heart failure better. Chronic atrial fibrillation. Renal insufficiency better. Gout better. Patient to speak to vehicle maintenance supervisor today with family Clinical Quality Measures Admission Status Admission Dx Congestive heart failure. Hypertension history. Chronic atrial fibrillation. Renal insufficiency. Chest tightness. Diabetes mellitus. DVT/VTE Risk/Contraindication: Risk Factor Score Per Nursin RFS Level Per Nursing on Admit: 4+=Very High Contraindications-Pharm: Other *list below* ELMER STEEL DO Oct 14, 2017 08:11
[2017-10-14] MEDS ORDERED: ALLOPURINOL 100 MG (ZYLOPRIM) TAB PO SCH (08:15)
[2017-10-14 08:30] VITALS: BP 134/61
--- NOTE | 2017-10-14 10:21 | Progress Note-Cardiology ---
Cardiology SOAP Progress Note Subjective: Shortness of breath Wishes to go home Does not wish to consider valvular surgery or percutaneous intervention Wishes to be treated conservatively only Objective: I&O/Vital Signs 10/14/17 10/14/17 10/14/17 10/14/17 00:00 01:00 04:26 07:00 Temp 97.0 99.3 Pulse 70 67 69 74 Resp 18 18 B/P (MAP) 138/63 (88) 150/67 (94) Pulse Ox 100 92 O2 Delivery Nasal Cannula Nasal Cannula O2 Flow Rate 3.00 3.00 10/14/17 10/14/17 08:22 08:30 Temp 97.2 Pulse 68 Resp 20 B/P (MAP) 134/61 (85) Pulse Ox 96 O2 Delivery Nasal Cannula Nasal Cannula O2 Flow Rate 3.00 3.00 10/14/17 00:00 Intake Total 1970 ml Output Total 2100 ml Balance -130 ml Weight (Pounds): 205 Weight (Ounces): 9.6 Weight (Calculated Kilograms): 93.477984 Constitutional: AAO x 3, well-developed, well-nourished Respiratory: No accessory muscle use; chest is bilaterally symmetric, other ( Bilat basal crackles, more the R side) Cardiovascular: irregularly irregular, S1 and S2, gallop/S3, systolic murmur (2 -3/6 MSM over precordium) Gastrointestional: soft, audible bowel sounds Extremities: significant edema (Pitting RLE edema with redness and warmth; LLE edema mild ) Neurologic/Psychiatric: grossly intact Skin: No rash on exposed areas, No ulcerations on exposed areas Results/Procedures: Labs Laboratory Tests 10/13/17 11:15: Glucometer 222H 10/13/17 13:35: Sodium Level 141, Potassium Level 3.6, Chloride Level 97L, Carbon Dioxide Level 36H, Anion Gap 8, Blood Urea Nitrogen 26H, Creatinine 1.32H, Estimat Glomerular Filtration Rate 53, BUN/Creatinine Ratio 20, Glucose Level 196H, Calcium Level 8.8 10/13/17 16:31: Glucometer 157H 10/13/17 20:35: Glucometer 245H 10/14/17 05:23: Glucometer 126H 10/14/17 05:26: White Blood Count 7.6, Red Blood Count 4.25L, Hemoglobin 9.6L, Hematocrit 32L, Mean Corpuscular Volume 76L, Mean Corpuscular Hemoglobin 23L, Mean Corpuscular Hemoglobin Concent 30L, Red Cell Distribution Width 18.7H, Platelet Count 290, Mean Platelet Volume 11.2H, Prothrombin Time 17.7H, INR Comment 1.5H, Sodium Level 141, Potassium Level 3.6, Chloride Level 97L, Carbon Dioxide Level 33H, Anion Gap 11, Blood Urea Nitrogen 26H, Creatinine 1.18, Estimat Glomerular Filtration Rate 60, BUN/Creatinine Ratio 22, Glucose Level 118H, Calcium Level 8.9, Magnesium Level 2.2 Laboratory Tests 10/13/17 05:53 10/13/17 13:35 10/14/17 05:26 A/P: Assessment: Acute systolic and diastolic congestive heart failure (LVEF 45-50%; PASP 65 mmHg , on echo of 10/08/17)) 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 Almonte at [facility] in [place], [place]. 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 History of mild to moderate elevation left ventricular end-diastolic pressure at the time of cardiac catheterization of November 2012, prior to coronary artery bypass surgery. Pulmonary hypertension on echocardiography of 10/08/17, likely due to left heart failure Chronic obstructive pulmonary disease, likely due to prior tobacco use. He quit smoking in 1977. Hypertension. Chronic persistent atrial fibrillation with self-controlled vent response Chronic warfarin anticoagulation for stroke prophylaxis (being managed by Dr. Luis), currently INR is sub-therapeutic Chronic paresthesias, mild, of feet likely due to diabetic neuropathy. Plan: * Treat decomp CHF with diuretics. Replace K * Vent rate is self-controlled, indicating AV federico disease. Doesn't appear to be a good candidate for beta-itzel * Aspirin because of CAD * Continue warfarin; INR followed by Dr Luis * Management of valvular heart disease is complex because of dual valvular heart disease and previous cardiac surgery * I have discussed treatment option with him on multiple occasions. I also had a conversation with his daughter on 10/13/16 on the phone. Pt wishes conservative therapy only. Daughter agrees with that * I discussed his case with Dr Luis on the phone today. He concurs with conservative therapy * Prognosis is guarded, given advanced cardiovascular disease DAMON DEVINE MD FACP FAC CCDS Oct 14, 2017 10:21
[2017-10-14] MEDS ORDERED: POTA-53 PO (10:31)
[2017-10-14] MEDS ORDERED: ALLO100T PO (12:01)
[2017-10-14 12:30] VITALS: BP 162/67
[2017-10-14 14:30] VITALS: BP 162/67
== END 2017-10-14 14:30 | disposition home or self-care (01) | DRG 291 ==
LOC: EDUNIT# 18:50 → ER 18:52 → ICU 20:27 → 4TH 10-09 13:38
PROVIDERS: ADMIT Family Medicine; ATTEND Family Medicine
DX: I13.0 Hypertensive heart and chronic kidney disease with heart failure and stage 1 through stage 4 chronic kidney disease, or unspecified chronic kidney disease (principal); I50.33 Acute on chronic diastolic (congestive) heart failure; I48.1 Persistent atrial fibrillation; R07.89 Other chest pain; E11.21 Type 2 diabetes mellitus with diabetic nephropathy; N18.3 Chronic kidney disease, stage 3 (moderate); E11.42 Type 2 diabetes mellitus with diabetic polyneuropathy; I25.10 Atherosclerotic heart disease of native coronary artery without angina pectoris; I27.29 Other secondary pulmonary hypertension; R06.03 Acute respiratory distress; R09.02 Hypoxemia; I35.1 Nonrheumatic aortic (valve) insufficiency; I25.2 Old myocardial infarction; J44.9 Chronic obstructive pulmonary disease, unspecified; D64.9 Anemia, unspecified; E78.00 Pure hypercholesterolemia, unspecified; M19.91 Primary osteoarthritis, unspecified site; M54.9 Dorsalgia, unspecified; H91.90 Unspecified hearing loss, unspecified ear; I87.8 Other specified disorders of veins; R01.1 Cardiac murmur, unspecified; M10.9 Gout, unspecified; Z95.1 Presence of aortocoronary bypass graft; Z87.891 Personal history of nicotine dependence; Z79.01 Long term (current) use of anticoagulants; Z86.010 Personal history of colon polyps; Z79.84 Long term (current) use of oral hypoglycemic drugs
CPT/HCPCS: 36415; 71045; 71046; 80048; 80053; 80061; 81000; 82805; 82962; 83735; 83874; 83880; 84443; 84484; 84550; 85007; 85025; 85027; 85610; 85730; 93005; 93041; 93306; 94760; 94761; 96365

== ENCOUNTER → 2017-10-18 | Outpatient (CLI) | payer MEDICARE ==
[~2017-10-18] MED LIST changes: +ALLO100T PO; +ASPI-983 PO; +ATOR40TA70 PO; +FURO80TA83 PO; +LOSA100T28 PO; +METO2.5T PO; +METO5TAB6 PO; +POTA-53 PO; +SPIR25TA3 PO
[2017-10-18 12:13] LABS: CREATININE SERUM 1.36 MG/DL (0.60-1.30)
== END ==
LOC: LAB 11:37
PROVIDERS: ATTEND Family Medicine
DX: N28.9 Disorder of kidney and ureter, unspecified (principal); E11.9 Type 2 diabetes mellitus without complications
CPT/HCPCS: 36415; 80048

== ENCOUNTER 2018-04-15 10:49 | Outpatient (RCR) | payer MEDICARE ==
[~2018-04-15 10:49] MED LIST changes: +AMLO5TAB7 PO; -LOSA100T28 PO; +LOSA100T8 PO; -SPIR25TA3 PO; +SPIR25TA5 PO
== END 2018-04-17 | disposition home or self-care (01) ==
LOC: CR 10:49
PROVIDERS: ATTEND Internal Medicine Cardiovascular Disease
DX: Z48.812 Encounter for surgical aftercare following surgery on the circulatory system (principal); Z95.2 Presence of prosthetic heart valve
CPT/HCPCS: 93798

== ENCOUNTER 2018-05-20 13:13 | Outpatient (RCR) | payer MEDICARE | END 2018-05-22 | disposition home or self-care (01) | LOC: CR3 13:13 | PROVIDERS: ATTEND Internal Medicine Cardiovascular Disease | DX: Z29.8 Encounter for other specified prophylactic measures (principal) ==

== ENCOUNTER → 2018-06-22 | Outpatient (RCR) | payer MEDICARE | END | disposition home or self-care (01) | LOC: CR3 05-23 13:00 | PROVIDERS: ATTEND Internal Medicine Cardiovascular Disease | DX: Z29.8 Encounter for other specified prophylactic measures (principal) ==

== ENCOUNTER 2018-07-22 13:41 | Outpatient (RCR) | payer MEDICARE ==
[~2018-07-22 13:41] MED LIST changes: -AMLO5TAB7 PO; +AMLO5TAB9 PO; +LOSA100T57 PO; -LOSA100T8 PO
== END 2018-07-24 | disposition home or self-care (01) ==
LOC: CR3 13:41
PROVIDERS: ATTEND Internal Medicine Cardiovascular Disease
DX: Z29.8 Encounter for other specified prophylactic measures (principal)

== ENCOUNTER → 2018-08-26 | Outpatient (RCR) | payer MEDICARE | END | disposition home or self-care (01) | LOC: CR3 07-27 13:00 | PROVIDERS: ATTEND Internal Medicine Cardiovascular Disease | DX: Z29.8 Encounter for other specified prophylactic measures (principal) ==

== ENCOUNTER → 2018-09-28 | Outpatient (RCR) | payer MEDICARE | END | disposition home or self-care (01) | LOC: CR3 08-29 14:00 | PROVIDERS: ATTEND Internal Medicine Cardiovascular Disease | DX: Z29.8 Encounter for other specified prophylactic measures (principal) ==

== ENCOUNTER 2018-10-28 14:04 | Outpatient (RCR) | payer MEDICARE | END 2018-10-30 | disposition home or self-care (01) | LOC: CR3 14:04 | PROVIDERS: ATTEND Internal Medicine Cardiovascular Disease | DX: Z29.8 Encounter for other specified prophylactic measures (principal) ==

== ENCOUNTER → 2018-11-30 | Outpatient (RCR) | payer MEDICARE | END | disposition home or self-care (01) | LOC: CR3 10-31 13:00 | PROVIDERS: ATTEND Internal Medicine Cardiovascular Disease | DX: Z29.8 Encounter for other specified prophylactic measures (principal) ==

== ENCOUNTER 2018-12-30 14:33 | Outpatient (RCR) | payer MEDICARE | END 2019-01-01 | disposition home or self-care (01) | LOC: CR3 14:33 | PROVIDERS: ATTEND Internal Medicine Cardiovascular Disease | DX: Z29.8 Encounter for other specified prophylactic measures (principal) ==

== ENCOUNTER → 2019-02-01 | Outpatient (RCR) | payer MEDICARE | END | disposition home or self-care (01) | LOC: CR3 01-02 13:12 | PROVIDERS: ATTEND Internal Medicine Cardiovascular Disease | DX: Z29.8 Encounter for other specified prophylactic measures (principal) ==

== ENCOUNTER 2019-02-08 13:06 | Outpatient (RCR) | payer MEDICARE | END 2019-05-04 | disposition home or self-care (01) | LOC: CR 13:06 | PROVIDERS: ATTEND Internal Medicine Cardiovascular Disease | DX: Z48.812 Encounter for surgical aftercare following surgery on the circulatory system (principal); Z95.2 Presence of prosthetic heart valve ==

== ENCOUNTER 2019-03-10 13:29 | Outpatient (RCR) | payer MEDICARE | END 2019-03-12 | disposition home or self-care (01) | LOC: CR3 13:29 | PROVIDERS: ATTEND Internal Medicine Cardiovascular Disease | DX: Z48.812 Encounter for surgical aftercare following surgery on the circulatory system (principal); Z95.2 Presence of prosthetic heart valve; Z29.8 Encounter for other specified prophylactic measures ==

== ENCOUNTER 2019-05-05 13:33 | Outpatient (RCR) | payer MEDICARE | END 2019-05-07 | disposition home or self-care (01) | LOC: CR3 13:33 | PROVIDERS: ATTEND Internal Medicine Cardiovascular Disease | DX: Z48.812 Encounter for surgical aftercare following surgery on the circulatory system (principal); Z95.2 Presence of prosthetic heart valve; Z29.8 Encounter for other specified prophylactic measures ==

== ENCOUNTER → 2019-06-07 | Outpatient (RCR) | payer MEDICARE | END | disposition home or self-care (01) | LOC: CR3 05-08 13:00 | PROVIDERS: ATTEND Internal Medicine Cardiovascular Disease | DX: Z48.812 Encounter for surgical aftercare following surgery on the circulatory system (principal); Z95.2 Presence of prosthetic heart valve ==

== ENCOUNTER 2019-07-07 13:19 | Outpatient (RCR) | payer MEDICARE ==
[~2019-07-07 13:19] MED LIST changes: -GLIM2TAB PO; +GLIM2TAB2 PO
== END 2019-07-09 | disposition home or self-care (01) ==
LOC: CR3 13:19
PROVIDERS: ATTEND Internal Medicine Cardiovascular Disease
DX: Z48.812 Encounter for surgical aftercare following surgery on the circulatory system (principal); Z95.2 Presence of prosthetic heart valve

== ENCOUNTER 2019-08-07 13:13 | Outpatient (RCR) | payer MEDICARE | END 2019-08-09 | disposition home or self-care (01) | LOC: CR3 13:13 | PROVIDERS: ATTEND Internal Medicine Cardiovascular Disease | DX: Z48.812 Encounter for surgical aftercare following surgery on the circulatory system (principal); Z95.2 Presence of prosthetic heart valve; Z29.8 Encounter for other specified prophylactic measures ==

== ENCOUNTER 2019-09-01 13:15 | Outpatient (RCR) | payer MEDICARE ==
[~2019-09-01 13:15] MED LIST changes: -GLIM2TAB2 PO; +GLIM2TAB4 PO
== END 2019-09-10 | disposition home or self-care (01) ==
LOC: CR3 13:15
PROVIDERS: ATTEND Internal Medicine Cardiovascular Disease
DX: Z48.812 Encounter for surgical aftercare following surgery on the circulatory system (principal); Z95.2 Presence of prosthetic heart valve

== ENCOUNTER 2019-09-11 08:00 | Outpatient (RCR) | payer MEDICARE | END 2020-02-13 | disposition home or self-care (01) | LOC: CR3 08:00 | PROVIDERS: ATTEND Internal Medicine Cardiovascular Disease | DX: Z48.812 Encounter for surgical aftercare following surgery on the circulatory system (principal); Z95.2 Presence of prosthetic heart valve | CPT/HCPCS: 97110; 97140 ×2; 97163; G0283 ==

== ENCOUNTER → 2020-10-02 | Outpatient (RCR) | payer MEDICARE ==
[~2020-10-02] MED LIST changes: +AMLO-250 PO; -AMLO5TAB9 PO; +ASPI-1238 PO; -ASPI-983 PO; +LISI40TA9 PO
== END | disposition home or self-care (01) ==
LOC: CR3 09-02 13:16
PROVIDERS: ATTEND Internal Medicine Cardiovascular Disease
DX: Z48.812 Encounter for surgical aftercare following surgery on the circulatory system (principal); Z95.2 Presence of prosthetic heart valve; Z29.8 Encounter for other specified prophylactic measures

== ENCOUNTER 2020-11-01 13:11 | Outpatient (RCR) | payer MEDICARE | END 2020-11-03 | disposition home or self-care (01) | LOC: CR3 13:11 | PROVIDERS: ATTEND Internal Medicine Cardiovascular Disease | DX: Z48.812 Encounter for surgical aftercare following surgery on the circulatory system (principal); Z95.2 Presence of prosthetic heart valve; Z29.8 Encounter for other specified prophylactic measures ==

== ENCOUNTER 2020-12-02 13:15 | Outpatient (RCR) | payer MEDICARE | END 2020-12-04 | disposition home or self-care (01) | LOC: CR3 13:15 | PROVIDERS: ATTEND Internal Medicine Cardiovascular Disease | DX: Z48.812 Encounter for surgical aftercare following surgery on the circulatory system (principal); Z95.2 Presence of prosthetic heart valve; Z29.8 Encounter for other specified prophylactic measures ==

== ENCOUNTER 2021-01-03 13:43 | Outpatient (RCR) | payer MEDICARE | END 2021-01-05 | disposition home or self-care (01) | LOC: CR3 13:43 | PROVIDERS: ATTEND Internal Medicine Cardiovascular Disease | DX: Z48.812 Encounter for surgical aftercare following surgery on the circulatory system (principal); Z95.2 Presence of prosthetic heart valve; Z29.8 Encounter for other specified prophylactic measures ==

== ENCOUNTER 2021-02-03 13:58 | Outpatient (RCR) | payer MEDICARE | END 2021-02-05 | disposition home or self-care (01) | LOC: CR3 13:58 | PROVIDERS: ATTEND Internal Medicine Cardiovascular Disease | DX: Z48.812 Encounter for surgical aftercare following surgery on the circulatory system (principal); Z95.2 Presence of prosthetic heart valve; Z29.8 Encounter for other specified prophylactic measures ==

== ENCOUNTER 2021-03-14 13:58 | Outpatient (RCR) | payer MEDICARE | END 2021-03-16 | LOC: CR3 13:58 | PROVIDERS: ATTEND Internal Medicine Cardiovascular Disease | DX: Z29.8 Encounter for other specified prophylactic measures (principal) ==

== ENCOUNTER → 2021-04-16 | Outpatient (RCR) | payer MEDICARE | END | disposition home or self-care (01) | LOC: CR3 03-17 13:43 | PROVIDERS: ATTEND Internal Medicine Cardiovascular Disease | DX: Z48.812 Encounter for surgical aftercare following surgery on the circulatory system (principal); Z95.2 Presence of prosthetic heart valve; Z29.8 Encounter for other specified prophylactic measures ==

== ENCOUNTER 2021-05-09 13:04 | Outpatient (RCR) | payer MEDICARE ==
[~2021-05-09 13:04] MED LIST changes: +POTA-179 PO
== END 2021-05-21 | disposition home or self-care (01) ==
LOC: CR3 13:04
PROVIDERS: ATTEND Internal Medicine Cardiovascular Disease
DX: Z29.8 Encounter for other specified prophylactic measures (principal)

== ENCOUNTER → 2021-06-03 | Outpatient (CLI) | payer MEDICARE ==
[~2021-06-03] VITALS: Ht 190 cm; Wt 84.0 kg
[~2021-06-03] MED LIST changes: +REGADENOSON 0.4 MG/5 ML SYR (LEXISCAN) IV ONE
[2021-06-03] MEDS: CATHETER FLUSH 10 ML SYR IV PRN ×2 (12:04→13:24)
[2021-06-03 13:22] VITALS: BP 205/71
--- NOTE | 2021-06-04 12:33 | STRESS TEST ---
DATE OF SERVICE: 06/03/2021 RESTING AND POST REGADENOSON TECHNETIUM-99M TETROFOSMIN SPECT CT IMAGING ORDERING PHYSICIAN: Paola Daniel MD, NIURKA, FACP, FACC. PRIMARY PHYSICIAN: Kenn Luis DO. CLINICAL DIAGNOSIS: Coronary artery disease. Baseline images were carried out after injection of 10.69 mCi of technetium-99m Tetrofosmin. This was followed by 0.4 mg regadenoson and 30.9 mCi of technetium-99m Tetrofosmin for stress imaging. The electrocardiogram showed sinus rhythm. There is left anterior fascicular block. There is nonspecific T-wave abnormality. The electrocardiogram did not change significantly with regadenoson infusion. The patient tolerated the procedure well. Review of images at rest and following stress indicates a moderate, partially transient inferolateral perfusion defect. Gated images show inferolateral hypokinesis. Left ventricular ejection fraction is calculated to be 46%. Left ventricular end-diastolic volume 153 mL. TID is absent (1.11). CONCLUSIONS: 1. This study is indicative of an inferolateral infarction with a moderate amount of goldie-infarct ischemia. 2. Inferolateral hypokinesis. 3. Left ventricular ejection fraction is calculated to be 46%. Job ID: [id number] DocumentID: [id number] Dictated Date: 06/04/2021 08:50:09 Commercial Collector Date: 06/04/2021 12:33:43 Dictated By: PAOLA DANIEL MD, NIURKA, FACP, FACC,
== END ==
LOC: CARD 10:35
PROVIDERS: ATTEND Internal Medicine Cardiovascular Disease
DX: I08.3 Combined rheumatic disorders of mitral, aortic and tricuspid valves (principal); I15.9 Secondary hypertension, unspecified; I25.10 Atherosclerotic heart disease of native coronary artery without angina pectoris; I11.9 Hypertensive heart disease without heart failure
CPT/HCPCS: 78452; 93017; 93306; A9502

== ENCOUNTER 2021-06-11 13:22 | Outpatient (RCR) | payer MEDICARE ==
[~2021-06-11 13:22] MED LIST changes: -REGADENOSON 0.4 MG/5 ML SYR (LEXISCAN) IV ONE
[2021-06-15] MEDS ORDERED: MTP25TSR PO (04:30)
[2021-06-15] MEDS ORDERED: SPIR25TA5 PO (04:31)
[2021-06-15] MEDS ORDERED: TRZ50T PO (04:33)
[2021-06-15] MEDS ORDERED: ALLO100T PO (04:35)
[2021-06-16] MEDS ORDERED: GLIM1TAB4 PO (11:57)
[2021-06-16] MEDS ORDERED: APIX2.5T PO (12:33)
[2021-06-19] MEDS ORDERED: APIX2.5T PO (16:06)
[2021-06-19] MEDS ORDERED: POTA-179 PO (16:06)
[2021-06-19] MEDS ORDERED: FERR324T22 PO (16:06)
[2021-06-19] MEDS ORDERED: FURO80TA3 PO (16:06)
[2021-06-19] MEDS ORDERED: MTP25TSR PO (16:06)
[2021-06-19] MEDS ORDERED: GLIM1TAB4 PO (16:06)
[2021-06-19] MEDS ORDERED: GABA300S2 PO (22:16)
== END 2021-06-30 | disposition home or self-care (01) ==
LOC: CR3 13:22
PROVIDERS: ATTEND Internal Medicine Cardiovascular Disease
DX: Z48.812 Encounter for surgical aftercare following surgery on the circulatory system (principal); Z95.2 Presence of prosthetic heart valve; Z29.8 Encounter for other specified prophylactic measures

== ENCOUNTER 2021-06-14 18:45 | Inpatient (IN) | payer MEDICARE ==
[~2021-06-14] VITALS: Ht 190 cm; Wt 85.4 kg
[2021-06-14] MEDS ORDERED: DEXTROSE 50% 50 ML (IMS) SYR ONE (19:05)
[2021-06-14 19:14] LABS: BASOPHILS % (AUTO) 1 % (0-10); EOSINOPHILS # (AUTO) 0.4 10^3/uL (0.0-0.3); EOSINOPHILS % (AUTO) 5 % (0-10); HEMATOCRIT 45 % (40-54); HEMOGLOBIN 14.2 g/dL (13.3-17.7); LYMPHOCYTES # (AUTO) 1.1 10^3/uL (1.0-4.0); LYMPHOCYTES % (AUTO) 15 % (12-44); MEAN CORPUSCULAR HEMOGLOBIN 30 pg (25-34); MEAN CORPUSCULAR HGB CONC 32 g/dL (32-36); MEAN CORPUSCULAR VOLUME 94 fL (80-99); MEAN PLATELET VOLUME 10.9 fL (9.0-12.2); MONOCYTES # (AUTO) 1.2 10^3/uL (0.0-1.0); MONOCYTES % (AUTO) 15 % (0-12); NEUTROPHILS # (AUTO) 4.8 10^3/uL (1.8-7.8); NEUTROPHILS % (AUTO) 64 % (42-75); PLATELET COUNT 198 10^3/uL (130-400); WHITE BLOOD COUNT 7.6 10^3/uL (4.3-11.0)
[2021-06-14] MEDS ORDERED: DEXTROSE 50% 50 ML (IMS) SYR IV ONE (19:15)
[2021-06-14 19:35] LABS: ALBUMIN 3.8 GM/DL (3.2-4.5); BILIRUBIN,TOTAL 0.4 MG/DL (0.1-1.0); CALCIUM 8.6 MG/DL (8.5-10.1); CREATININE SERUM 2.37 MG/DL (0.60-1.30); POTASSIUM 4.6 MMOL/L (3.6-5.0)
--- NOTE | 2021-06-14 20:20 | Diagnostic Imaging Report ---
EXAMINATION: Chest radiograph, portable AP view. DATE: 06/14/2021 8:17 PM INDICATION: 81-year-old male, cough, shortness breath, fever. Covid positive. COMPARISON: October 08, 2017. FINDINGS: Heart size and mediastinal contours are unchanged. There are median sternotomy wires. There is no identified pneumothorax. There is no large pleural effusion. There is no identified focal airspace consolidation. IMPRESSION: 1. No radiographically apparent acute cardiopulmonary abnormality. Dictated by: Dictated on workstation # [id number]
[2021-06-14 20:36] LABS: BILIRUBIN,URINE NEGATIVE (NEGATIVE); CLARITY,URINE CLEAR; COLOR,URINE YELLOW; GLUCOSE, URINE (UA) NEGATIVE (NEGATIVE); KETONES,URINE NEGATIVE (NEGATIVE); LEUKOCYTE ESTERASE ,URINE NEGATIVE (NEGATIVE); NITRITE,URINE NEGATIVE (NEGATIVE); PROTEIN,URINE 2+ (NEGATIVE)
[2021-06-14 20:41] LABS: BACTERIA,URINE NEGATIVE /HPF; HYALINE CASTS, URINE 0-2 /LPF; SQUAMOUS EPITHELIAL CELL,UR RARE /HPF
[2021-06-14] MEDS ORDERED: NS IV 1000 ML 1,000 ML IV ONE (20:45)
[2021-06-14 20:49] LABS: INR 1.2 (0.8-1.4); PROTHROMBIN TIME PATIENT 15.7 SEC (12.2-14.7)
--- NOTE | 2021-06-14 20:58 | ED General ---
General Chief Complaint: COVID19 Suspect/Confirmed Stated Complaint: LOW BLOOD SUGAR FEVER/CHILLS/COUGH/SOA Nursing Triage Note: PT AMB TO ER WITH C/O COUGH, SOB, POSS FEVER AND LOW BLOOD SUGAR. PT HAD BOOSTER FOR COVID 10 DAYS AGO Source of Information: Patient Exam Limitations: No Limitations History of Present Illness Date Seen by Provider: Jun 14, 2021 Time Seen by Provider: 19:00 Initial Comments Zyqw-fmih-avd gentleman presents to the emergency room with primary concern of weakness and hypoglycemia. Blood sugar was as low as the 40s at home earlier. It is 22 during evaluation here. He is still conversational and alert. Patient's family also reports that he has had fever earlier today and some shortness of breath. Patient also admits to diarrhea. His daughter and son-in-law were recently diagnosed with COVID-19 and were around him before they were aware of their illness. He is a diabetic and is on Trulicity. He also recently failed a stress test and is to have a heart cath in the near future. He does not report any pain. He lives alone but does have supportive family in town. He has atrial fibrillation and states he has taken his evening medications. Oxygen saturations during evaluation are in the 90 to 94% range on room air. Allergies and Home Medications Allergies Coded Allergies: No Known Drug Allergies (Unverified , 11/16/12) Patient Home Medication List Home Medication List Reviewed: Yes Allopurinol (Allopurinol) 100 Mg Tablet, 100 MG PO DAILY, (Reported) Entered as Reported by: CHAUNCEY SUE on 06/15/21 0435 Last Action: Reviewed Aspirin (Aspirin EC) 81 Mg Tablet.dr, 81 MG PO DAILY, (Reported) Entered as Reported by: JAZZY TOSCANO on 10/08/17943 Last Action: Reviewed Atorvastatin Calcium (Atorvastatin Calcium) 40 Mg Tablet, 40 MG PO DAILY, (Reported) Entered as Reported by: JAZZY TOSCANO on 10/08/17943 Last Action: Reviewed Furosemide (Lasix) 80 Mg Tablet, 80 MG PO DAILY Prescribed by: SHELBY PINEDA on 10/13/17 4493 Last Action: Reviewed Gabapentin (Gabapentin) 300 Mg Capsule, 300 MG PO HS, (Reported) Entered as Reported by: BELKIS BELLA on 06/20/15 1241 Last Action: Reviewed Glimepiride (Glimepiride) 2 Mg Tablet, 2 MG PO DAILY, (Reported) Entered as Reported by: BELKIS BELLA on 06/20/15 124 Last Action: Reviewed Metoprolol Succinate (Metoprolol Succinate) 25 Mg Tab.er.24h, 12.5 MG PO DAILY, (Reported) Entered as Reported by: CHAUNCEY SUE on 06/15/21 0430 Last Action: Reviewed Potassium Chloride (K-Tab ER) 20 Meq Tablet.er, 20 MEQ PO DAILY Prescribed by: SHELBY PINEDA on 10/14/17 103 Last Action: Reviewed Spironolactone (Spironolactone) 25 Mg Tablet, 25 MG PO BID, (Reported) Entered as Reported by: CHAUNCEY SUE on 06/15/21430 Last Action: Reviewed Trazodone HCl (Trazodone HCl) 50 Mg Tablet, 50 MG PO HS, (Reported) Entered as Reported by: CHAUNCEY SUE on 06/15/21432 Last Action: Reviewed Warfarin Sodium (Warfarin Sodium) 5 Mg Tablet, 10 MG PO HS, (Reported) Entered as Reported by: BELKIS BELLA on 06/20/15 124 Discontinued Medications Allopurinol (Allopurinol) 100 Mg Tablet, 100 MG PO BID Discontinued Reason: No Longer Taking Prescribed by: NIR MICHELE on 10/14/17 1201 Last Action: Discontinued Losartan Potassium (Losartan Potassium) 100 Mg Tablet, 100 MG PO DAILY Discontinued Reason: No Longer Taking Prescribed by: SHELBY PINDEA on 10/13/17834 Last Action: Discontinued Metolazone (Metolazone) 5 Mg Tablet, 5 MG PO DAILY Discontinued Reason: No Longer Taking Prescribed by: SHELBY PINEDA on 10/13/17834 Last Action: Discontinued Spironolactone (Spironolactone) 25 Mg Tablet, 25 MG PO DAILY Discontinued Reason: Duplicate Order Prescribed by: SHELBY PINEDA on 10/13/17834 Last Action: Discontinued Review of Systems Review of Systems Constitutional: see HPI, weakness EENTM: no symptoms reported Respiratory: see HPI, short of breath Cardiovascular: no symptoms reported Gastrointestinal: no symptoms reported Genitourinary: no symptoms reported Musculoskeletal: no symptoms reported Skin: no symptoms reported Psychiatric/Neurological: No Symptoms Reported Hematologic/Lymphatic: No Symptoms Reported Immunological/Allergic: no symptoms reported Past Omxbikq-Bnnvld-Gyallu Hx Patient Social History Tobacco Use?: No Substance use?: No Alcohol Use?: No Pt feels they are or have been: No Immunizations Up To Date Tetanus Booster (TDap): Unknown First/Initial COVID19 Vaccinat: 2020 Second COVID19 Vaccination Donte: 2020 COVID19 Vaccine 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: [employer] Seasonal Allergies Seasonal Allergies: No Past Medical History Surgeries: Yes Abdominal, Cardiac, CABG, Orthopedic Respiratory: No Cardiac: Yes (CABG, CHF) Atrial Fibrillation, Chronic Edema/Swelling, Coronary Artery Disease, Heart Attack, High Cholesterol, Hypertension, Irregular Heartbeat Neurological: No Reproductive Disorders: No Genitourinary: Yes ("kidney issues") Gastrointestinal: Yes Polyps Musculoskeletal: Yes (USE CANE) Arthritis, Chronic Back Pain Endocrine: Yes Diabetes, Non-Insulin dep HEENT: Yes Hearing Impairment: Hard of Hearing Cancer: No Psychosocial: No Integumentary: No Blood Disorders: No (TAKES COUMADIN) Family Medical History Patient reports no known family medical history. Physical Exam Vital Signs Vital Signs - First Documented 06/14/21 18:59 Temp 37.7 Pulse 62 Resp 30 B/P (MAP) 198/83 (121) Pulse Ox 94 O2 Delivery Room Air Capillary Refill : Less Than 3 Seconds Height, Weight, BMI Height: 6'2.50" Weight: 205lbs. 9.6oz. 93.252860zn; 23.00 BMI Method:Estimated General Appearance: No Apparent Distress, WD/WN HEENT: PERRL/EOMI, Normal ENT Inspection, Other (Oropharynx somewhat dry) Neck: Normal Inspection; No JVD Respiratory: Lungs Clear, Normal Breath Sounds, No Accessory Muscle Use, Other (Mild tachypnea with slight increased work of breathing) Cardiovascular: Regular Rate, Rhythm, No Edema, No Murmur Gastrointestinal: Normal Bowel Sounds, Non Tender, Soft Extremity: Normal Inspection, Non Tender, No Calf Tenderness, No Pedal Edema Neurologic/Psychiatric: Alert, Oriented x3, No Motor/Sensory Deficits, Normal Mood/Affect, intellectual property paralegal II-XII Norm as Tested Skin: Normal Color, Warm/Dry Progress/Results/Core Measures Suspected Sepsis SIRS Temperature: Pulse: 62 Respiratory Rate: 30 Laboratory Tests 06/14/21 19:11: White Blood Count 7.6 Blood Pressure 198 /83 Mean: 121 Laboratory Tests 06/14/21 19:09: INR Comment 1.2 06/14/21 19:11: Creatinine 2.37H, Platelet Count 198, Total Bilirubin 0.4 Results/Orders Lab Results Laboratory Tests Test 06/14/21 19:04 06/14/21 19:09 06/14/21 19:11 06/14/21 19:24 Range/Units Glucometer 22 *L 176 H 70-110 MG/DL Prothrombin Time 15.7 H 12.2-14.7 SEC INR Comment 1.2 0.8-1.4 White Blood Count 7.6 4.3-11.0 10^3/uL Red Blood Count 4.79 4.30-5.52 10^6/uL Hemoglobin 14.2 13.3-17.7 g/dL Hematocrit 45 40-54 % Mean Corpuscular Volume 94 80-99 fL Mean Corpuscular Hemoglobin 30 25-34 pg Mean Corpuscular Hemoglobin Concent 32 32-36 g/dL Red Cell Distribution Width 15.1 H 10.0-14.5 % Platelet Count 198 130-400 10^3/uL Mean Platelet Volume 10.9 9.0-12.2 fL Immature Granulocyte % (Auto) 1 % Neutrophils (%) (Auto) 64 42-75 % Lymphocytes (%) (Auto) 15 12-44 % Monocytes (%) (Auto) 15 H 0-12 % Eosinophils (%) (Auto) 5 0-10 % Basophils (%) (Auto) 1 0-10 % Neutrophils # (Auto) 4.8 1.8-7.8 10^3/uL Lymphocytes # (Auto) 1.1 1.0-4.0 10^3/uL Monocytes # (Auto) 1.2 H 0.0-1.0 10^3/uL Eosinophils # (Auto) 0.4 H 0.0-0.3 10^3/uL Basophils # (Auto) 0.0 0.0-0.1 10^3/uL Immature Granulocyte # (Auto) 0.0 0.0-0.1 10^3/uL Sodium Level 137 135-145 MMOL/L Potassium Level 4.6 3.6-5.0 MMOL/L Chloride Level 101 98-107 MMOL/L Carbon Dioxide Level 24 21-32 MMOL/L Anion Gap 12 5-14 MMOL/L Blood Urea Nitrogen 41 H 7-18 MG/DL Creatinine 2.37 H 0.60-1.30 MG/DL Estimat Glomerular Filtration Rate 27 BUN/Creatinine Ratio 17 Glucose Level 70 70-105 MG/DL Calcium Level 8.6 8.5-10.1 MG/DL Corrected Calcium 8.8 8.5-10.1 MG/DL Total Bilirubin 0.4 0.1-1.0 MG/DL Aspartate Amino Transf (AST/SGOT) 29 5-34 U/L Alanine Aminotransferase (ALT/SGPT) 18 0-55 U/L Alkaline Phosphatase 98 40-136 U/L C-Reactive Protein High Sensitivity 2.16 H 0.00-0.50 MG/DL B-Type Natriuretic Peptide 196.2 H <100.0 PG/ML Total Protein 7.0 6.4-8.2 GM/DL Albumin 3.8 3.2-4.5 GM/DL Procalcitonin 0.26 H <0.10 NG/ML Influenza Type A (RT-PCR) Not Detected Not Detecte Influenza Type B (RT-PCR) Not Detected Not Detecte SARS-CoV-2 RNA (RT-PCR) Detected H Not Detecte Test 06/14/21 20:30 Range/Units Urine Color YELLOW Urine Clarity CLEAR Urine pH 6.0 5-9 Urine Specific [place] 1.015 L 1.016-1.022 Urine Protein 2+ H NEGATIVE Urine Glucose (UA) NEGATIVE NEGATIVE Urine Ketones NEGATIVE NEGATIVE Urine Nitrite NEGATIVE NEGATIVE Urine Bilirubin NEGATIVE NEGATIVE Urine Urobilinogen 0.2 < = 1.0 MG/DL Urine Leukocyte Esterase NEGATIVE NEGATIVE Urine RBC (Auto) TRACE-I H NEGATIVE Urine RBC NONE /HPF Urine WBC NONE /HPF Urine Squamous Epithelial Cells RARE /HPF Urine Crystals NONE /LPF Urine Bacteria NEGATIVE /HPF Urine Casts PRESENT /LPF Urine Hyaline Casts 0-2 H /LPF Urine Mucus NEGATIVE /LPF Urine Culture Indicated NO My Orders Orders - OZ WOOD MD Procalcitonin (Pct) (06/14/21 19:00) Hs C Reactive Protein (06/14/21 19:00) Covid 19 Inhouse Test (06/14/21 19:00) Influenza A And B By Pcr (06/14/21 19:00) Ed Iv/Invasive Line Start (06/14/21 19:00) Cbc With Automated Diff (06/14/21 19:03) Comprehensive Metabolic Panel (06/14/21 19:03) Ua Culture If Indicated (06/14/21 19:03) Accucheck Stat ONCE (06/14/21 19:03) Chest 1 View, Ap/Pa Only (06/14/21 19:04) D50w (Emergency) Syringe (Dextrose 50% 5 (06/14/21 19:15) Bnp Pito (06/14/21 19:04) D50w (Emergency) Syringe (Dextrose 50% 5 (06/14/21 19:05) Protime With Inr (06/14/21 20:38) Dexamethasone Injection (Decadron Inje (06/14/21 20:45) Ns Iv 1000 Ml (Sodium Chloride 0.9%) (06/14/21 20:45) Medications Given in ED Current Medications Medications Dose Ordered Sig/Jenn Route Start Time Stop Time Status Last Admin Dose Admin Dexamethasone Sodium Phosphate 6 mg ONCE ONCE IV 06/14/21 20:45 06/14/21 20:46 DC 06/14/21 20:53 6 MG Dextrose 50 ml ONCE ONCE IV 06/14/21 19:15 06/14/21 19:16 DC 06/14/21 19:06 50 ML Sodium Chloride 1,000 ml @ 100 mls/hr Q10H ONCE IV 06/14/21 20:45 06/15/21 06:44 06/14/21 20:53 100 MLS/HR Vital Signs/I&O 06/14/21 06/14/21 18:59 19:30 Temp 37.7 Pulse 62 Resp 30 B/P (MAP) 198/83 (121) Pulse Ox 94 O2 Delivery Room Air Room Air Capillary Refill : Less Than 3 Seconds Blood Pressure Mean: 121 Point of Care Testing Finger Stick Blood Glucose: 176 Blood Glucose Action Taken: DOC AND RN NOTIFIED Progress Note : Time: 21:04 Progress Note Patient was found to have COVID-19. He was settling out around 91% on oxygen saturations. Nasal cannula oxygen was applied at 2 L/min. Dexamethasone was also ordered. I discussed CODE STATUS with the patient and his daughter. He wishes to remain full code at this time. Patient does take warfarin for stroke prophylaxis with his atrial fibrillation. INR was subtherapeutic at 1.2. After discussion with Dr. Gayle, we will administer Lovenox for prophylaxis at this time. Patient states he did already take his evening medications so we will not give any additional warfarin. Patient is comfortably sitting in a chair at this time. He denies having had any chest pain. Diagnostic Imaging Diagonstic Imaging: Xray Plain Films/CT/US/NM/MRI: chest Comments NAME: CHANTELLE MOTA MED REC#: [id number] PT STATUS: REG ER : 1940 PHYSICIAN: OZ WOOD MD ADMIT DATE: 06/14/21/ER Signed Date of Exam:06/14/21 CHEST 1 VIEW, AP/PA ONLY EXAMINATION: Chest radiograph, portable AP view. DATE: 06/14/2021 8:17 PM INDICATION: 81-year-old male, cough, shortness breath, fever. Covid positive. COMPARISON: October 08, 2017. FINDINGS: Heart size and mediastinal contours are unchanged. There are median sternotomy wires. There is no identified pneumothorax. There is no large pleural effusion. There is no identified focal airspace consolidation. IMPRESSION: 1. No radiographically apparent acute cardiopulmonary abnormality. Dictated by: Dictated on workstation # [id number] Dict: 06/14/212017 Trans: 06/14/212018 [facility] [id number] Interpreted by: IVÁN GARCIA MD Electronically signed by: IVÁN GARCIA MD 06/14/212018 Departure Communication (Admissions) Time/Spoke to Admitting Phy: 20:35 Dr. Gayle Impression Primary Impression: COVID-19 Additional Impressions: Hypoglycemia Hypoxia Acute kidney injury Subtherapeutic international normalized ratio (INR) Coronary artery disease Qualified Codes: I25.10 - Atherosclerotic heart disease of [place] coronary artery without angina pectoris Atrial fibrillation Qualified Codes: I48.91 - Unspecified atrial fibrillation Disposition: ADMITTED INPATIENT Condition: Improved Admissions Decision to Admit Reason: Admit from ER (General) Decision to Admit/Date: Jun 14, 2021 Time/Decision to Admit Time: 20:20 Departure-Patient Inst. Referrals: ELMER STEEL DO (PCP/Family) Primary Care Physician OZ WOOD MD Jun 14, 2021 20:58
[2021-06-14] MEDS ORDERED: ENOXAPARIN 80 MG/0.8 ML (LOVENOX) SYR SC ONE (21:15)
[2021-06-14 21:50] VITALS: BP 183/78
[2021-06-14] MEDS ORDERED: NS IV 1000 ML 1,000 ML IV SCH (22:15)
[2021-06-14] MEDS ORDERED: ACETAMINOPHEN 325 MG TABLET PO PRN (22:15)
[2021-06-14] MEDS ORDERED: guaiFENesin SYRUP 100 MG/5 ML 10 ML (ROBITUSSIN SF) PO PRN (22:15)
[2021-06-14] MEDS ORDERED: ACETAMINOPHEN 650 MG SUPP (TYLENOL) PR PRN (22:15)
[2021-06-14] MEDS ORDERED: ONDANSETRON 4 MG/2 ML (SDV) Z0FRAN IV PRN (22:15)
[2021-06-14] MEDS ORDERED: RT-ALBUTEROL HFA 8.5 GM INHALER IH PRN ×2 (22:15→23:15)
[2021-06-14 22:45] VITALS: BP 183/66
[2021-06-14 22:54] VITALS: BP 183/78
[2021-06-15] VITALS (8 sets, daily range): BP systolic 131–197; BP diastolic 65–80
[2021-06-15] MEDS: D5W 1000 ML IV SOLUTION 1,000 ML IV SCH ×2 (00:33→11:15)
[2021-06-15] MEDS: hydrALAZINE (APESOLINE) 20 MG/ML VIAL IV PRN (00:33)
[2021-06-15] MEDS ORDERED: MTP25TSR PO (04:30)
[2021-06-15] MEDS ORDERED: SPIR25TA5 PO (04:31)
[2021-06-15] MEDS ORDERED: TRZ50T PO (04:33)
[2021-06-15] MEDS ORDERED: ALLO100T PO (04:35)
[2021-06-15] MEDS ORDERED: ENOXAPARIN 80 MG/0.8 ML (LOVENOX) SYR SC SCH (09:00)
[2021-06-15 09:01] LABS: BASOPHILS % (AUTO) 0 % (0-10); EOSINOPHILS % (AUTO) 0 % (0-10); HEMATOCRIT 44 % (40-54); LYMPHOCYTES # (AUTO) 0.6 10^3/uL (1.0-4.0); LYMPHOCYTES % (AUTO) 10 % (12-44); MEAN CORPUSCULAR HEMOGLOBIN 29 pg (25-34); MEAN CORPUSCULAR HGB CONC 32 g/dL (32-36); MEAN CORPUSCULAR VOLUME 91 fL (80-99); MEAN PLATELET VOLUME 11.4 fL (9.0-12.2); MONOCYTES # (AUTO) 0.4 10^3/uL (0.0-1.0); MONOCYTES % (AUTO) 6 % (0-12); NEUTROPHILS # (AUTO) 4.8 10^3/uL (1.8-7.8); NEUTROPHILS % (AUTO) 83 % (42-75); PLATELET COUNT 216 10^3/uL (130-400); WHITE BLOOD COUNT 5.8 10^3/uL (4.3-11.0)
[2021-06-15 09:10] LABS: POTASSIUM 5.4 MMOL/L (3.6-5.0)
[2021-06-15 09:11] LABS: CALCIUM 8.5 MG/DL (8.5-10.1)
[2021-06-15 09:16] LABS: CREATININE SERUM 2.08 MG/DL (0.60-1.30)
[2021-06-15] MEDS ORDERED: inSUlin ASPART (NovoLOG) 1 UNIT/0.01 ML (CHARGE PER UNIT) ONE (16:56)
[2021-06-15] MEDS: inSUlin ASPART (NovoLOG) 1 UNIT/0.01 ML (CHARGE PER UNIT) SC SCH ×2 (17:10→20:48)
[2021-06-15] MEDS ORDERED: inSUlin ASPART (NovoLOG) 1 UNIT/0.01 ML (CHARGE PER UNIT) SC SCH (20:00)
[2021-06-15] MEDS: APIXABAN 2.5 MG (ELIQUIS) TABLET PO SCH (20:47)
--- NOTE | 2021-06-15 23:17 | History & Physical-Hospitalist ---
History of Present Illness HPI/Chief Complaint Tito Linn is a 81 year old male with PMH T2DM, atrial fibrillation on coumadin, CAD, who presented with weakness. He has been hypoglycemic at home. He was found to be severely hypoglycemic in the ER. He is not on insulin. He is on a sulfonylurea. He has also had a fever. He has been short of breath and cough. He has also had diarrhea. He denies chest pain. He reports taking his medications as prescribed. He is vaccinated and boosted against COVID. Source: patient Exam Limitations: no limitations Date Seen 06/15/21 Time Seen by a Provider: 11:15 Attending Physician Ochoa Humphrey MD PCP Kenn Luis DO Referring Physician Date of Admission Jun 14, 2021 at 20:56 Home Medications & Allergies Home Medications Reviewed patient Home Medication Reconciliation performed by pharmacy medication reconciliations soils technician and/or nursing. Patients Allergies have been reviewed. Allergies Allergies Coded Allergies No Known Drug Allergies (Unverified11/16/12) Past Vkcretq-Nlpwzq-Xsbqck Hx Patient Social History Tobacco Use?: Yes Smoking Status: Former Smoker Smokeless type used: Chew Smokeless Tobacco Frequency: Current Everyday User Use of E-Cig and/or Vaping dev: No Substance use?: No Alcohol Use?: No Pt feels they are or have been: No Immunizations Up To Date Date of Influenza Vaccine: Mar 21, 2021 First/Initial COVID19 Vaccinat: 2020 Second COVID19 Vaccination Donte: 2020 Tetanus Booster (TDap): Unknown Hepatitis A: No Hepatitis B: No Date of Pneumonia Vaccine: May 11, 2015 Seasonal Allergies Seasonal Allergies: No Current Status Advance Directives: No Communicates: Verbally Primary Language: [place] Preferred Spoken Language: [place] Is interpretation needed?: No Sensory deficits: Vision impairment, Hearing impairment Implanted or Applied Medical D: Stents Past Medical History Surgeries: Abdominal, Cardiac, CABG, Orthopedic Atrial Fibrillation, Chronic Edema/Swelling, Coronary Artery Disease, Heart Attack, High Cholesterol, Hypertension, Irregular Heartbeat Polyps Arthritis, Chronic Back Pain Diabetes, Non-Insulin dep Hearing Impairment: Hard of Hearing Blood Disorders: No (TAKES COUMADIN) Family Medical History Patient reports no known family medical history. No Pertinent Family Hx Review of Systems Constitutional: fever, weakness EENTM: no symptoms reported Respiratory: cough, short of breath Cardiovascular: no symptoms reported Gastrointestinal: diarrhea Genitourinary: no symptoms reported Musculoskeletal: no symptoms reported Skin: no symptoms reported Psychiatric/Neurological: No Symptoms Reported Physical Exam Physical Exam Vital Signs Vital Signs - First Documented 06/14/21 06/14/21 18:59 21:40 Temp 37.7 Pulse 62 Resp 30 B/P (MAP) 198/83 (121) Pulse Ox 94 O2 Delivery Room Air O2 Flow Rate 2.00 Capillary Refill : Less Than 3 Seconds Height, Weight, BMI Height: 6'2.50" Weight: 205lbs. 9.6oz. 93.026568dv; 24.12 BMI Method:Estimated General Appearance: No Apparent Distress, WD/WN HEENT: PERRL/EOMI, Pharynx Normal Neck: Normal Inspection, Supple Respiratory: Lungs Clear, Normal Breath Sounds, No Respiratory Distress Cardiovascular: Regular Rate, Rhythm, No Edema, No Murmur Gastrointestinal: Normal Bowel Sounds, Non Tender, Soft Extremity: Normal Inspection, Non Tender, No Pedal Edema Neurologic/Psychiatric: Alert, Oriented x3, No Motor/Sensory Deficits, Normal Mood/Affect Skin: Normal Color, Warm/Dry Results Results/Procedures Labs Laboratory Tests 06/14/21 19:11 06/15/21 08:50 Patient resulted labs reviewed. Imaging: Reviewed Imaging Report Assessment/Plan Admission Diagnosis T2DM with hypoglycemia Admission Status: Inpatient Order (span 2 midnights) Reason for Inpatient Admission: Hypoglycemia Assessment and Plan T2DM with hypoglycemia Improved Sliding scale insulin Accuchecks COVID-19 Received vaccine and booster No hypoxia Monitor AFib on coumadin Subtherapeutic INR Transition to Eliquis Metoprolol HTN Gout Continue home meds DVT prophylaxis: already receiving therapeutic anticoagulation Diagnosis/Problems Diagnosis/Problems (1) T2DM (type 2 diabetes mellitus) Status: Acute Qualifiers: Diabetes mellitus watermelon harvesting supervisor insulin use: without watermelon harvesting supervisor use Diabetes mellitus complication status: with hypoglycemia Diabetes mellitus complication detail: without coma Qualified Codes: E11.649 - Type 2 diabetes mellitus with hypoglycemia without coma (2) COVID-19 Status: Acute (3) Atrial fibrillation Status: Acute Qualifiers: Atrial fibrillation type: unspecified Qualified Codes: I48.91 - Unspecified atrial fibrillation (4) Subtherapeutic international normalized ratio (INR) Status: Acute OCHOA HUMPHREY MD Jun 15, 2021 23:16
[2021-06-16 00:04] VITALS: BP 198/82
[2021-06-16] MEDS: hydrALAZINE (APESOLINE) 20 MG/ML VIAL IV PRN ×2 (00:20→09:13)
[2021-06-16 04:57] VITALS: BP 160/73
[2021-06-16] MEDS: inSUlin ASPART (NovoLOG) 1 UNIT/0.01 ML (CHARGE PER UNIT) SC SCH ×2 (06:38→11:58)
[2021-06-16] MEDS ORDERED: FUROSEMIDE 40 MG (LASIX) TAB PO SCH (07:00)
[2021-06-16 08:00] VITALS: BP 189/79
[2021-06-16] MEDS: APIXABAN 2.5 MG (ELIQUIS) TABLET PO SCH (08:52)
[2021-06-16] MEDS ORDERED: ASPIRIN E.C. 81 MG (ECOTRIN) TAB PO SCH (09:00)
[2021-06-16] MEDS ORDERED: ALLOPURINOL 100 MG (ZYLOPRIM) TAB PO SCH (09:00)
[2021-06-16] MEDS ORDERED: SPIRONOLACTONE 25 MG (ALDACTONE) TAB PO SCH (09:00)
[2021-06-16 10:43] LABS: CALCIUM 8.9 MG/DL (8.5-10.1); CREATININE SERUM 2.1 MG/DL (0.60-1.30); POTASSIUM 4.6 MMOL/L (3.6-5.0)
[2021-06-16] MEDS ORDERED: GLIM1TAB4 PO (11:57)
[2021-06-16 12:00] VITALS: BP 167/81
[2021-06-16] MEDS ORDERED: APIX2.5T PO (12:33)
[2021-06-16] MEDS ORDERED: GABAPENTIN 300 MG (NEURONTIN) CAP PO SCH (21:00)
[2021-06-16] MEDS ORDERED: traZODone 50 MG (DESYREL) TAB PO SCH (21:00)
--- NOTE | 2021-06-16 22:57 | Discharge Summary ---
Discharge Summary Hospital Course Problems/Dx: (1) T2DM (type 2 diabetes mellitus) Status: Acute Qualifiers: Qualified Codes: E11.649 - Type 2 diabetes mellitus with hypoglycemia without coma (2) COVID-19 Status: Acute (3) Atrial fibrillation Status: Acute Qualifiers: Qualified Codes: I48.91 - Unspecified atrial fibrillation (4) Subtherapeutic international normalized ratio (INR) Status: Acute Hospital Course Date of Admission: Jun 14, 2021 at 20:56 Admission Diagnosis : Family Physician/Provider: Kenn Luis DO Date of Discharge: 06/16/21 Discharge Diagnosis: [ ] Hospital Course: [ ] Labs and Pending Lab Test: Laboratory Tests 06/16/21 00:07: Glucometer 185H 06/16/21 04:56: Glucometer 158H 06/16/21 10:16: Sodium Level 135, Potassium Level 4.6, Chloride Level 104, Carbon Dioxide Level 19L, Anion Gap 12, Blood Urea Nitrogen 45H, Creatinine 2.10H, Estimat Glomerular Filtration Rate 31, BUN/Creatinine Ratio 21, Glucose Level 255H, Calcium Level 8.9 06/16/21 11:01: Glucometer 255H Home Meds Active Eliquis (Apixaban) 2.5 Mg Tablet 2.5 Mg PO BID 30 Days Glimepiride 1 Mg Tablet 1 Mg PO DAILY 30 Days K-Tab ER (Potassium Chloride) 20 Meq Tablet.er 20 Meq PO DAILY Lasix (Furosemide) 80 Mg Tablet 80 Mg PO DAILY Reported Allopurinol 100 Mg Tablet 100 Mg PO DAILY Trazodone HCl 50 Mg Tablet 50 Mg PO HS Spironolactone 25 Mg Tablet 25 Mg PO BID Metoprolol Succinate 25 Mg Tab.er.24h 12.5 Mg PO DAILY Atorvastatin Calcium 40 Mg Tablet 40 Mg PO DAILY Aspirin EC (Aspirin) 81 Mg Tablet.dr 81 Mg PO DAILY Gabapentin 300 Mg Capsule 300 Mg PO HS Discharge Physical Examination Vital Signs Vital Signs Date Time Temp Pulse Resp B/P (MAP) Pulse Ox O2 Delivery O2 Flow Rate FiO2 06/16/21 15:00 06/16/21 12:00 36.2 75 20 94 Room Air 06/16/21 08:00 0.00 Allergies: Coded Allergies: No Known Drug Allergies (Unverified , 11/16/12) Discharge Summary Date of Admission Jun 14, 2021 at 20:56 Date of Discharge Jun 16, 2021 at 15:00 Discharge Date: Jun 16, 2021 Admission Diagnosis T2DM with hypoglycemia Discharge Diagnosis T2DM with hypoglycemia Improved Sliding scale insulin Accuchecks COVID-19 Received vaccine and booster No hypoxia Monitor AFib on coumadin Subtherapeutic INR Transition to Eliquis Metoprolol HTN Gout Continue home meds DVT prophylaxis: already receiving therapeutic anticoagulation (1) T2DM (type 2 diabetes mellitus) Status: Acute Qualifiers: Qualified Codes: E11.649 - Type 2 diabetes mellitus with hypoglycemia without coma (2) COVID-19 Status: Acute (3) Atrial fibrillation Status: Acute Qualifiers: Qualified Codes: I48.91 - Unspecified atrial fibrillation (4) Subtherapeutic international normalized ratio (INR) Status: Acute OCHOA HUMPHREY MD Jun 16, 2021 22:56
== END 2021-06-16 15:00 | disposition home or self-care (01) | DRG 637 ==
LOC: EDUNIT# 18:45 → ER 18:48 → 4TH 20:56
PROVIDERS: ADMIT Internal Medicine; ATTEND Internal Medicine
DX: E11.649 Type 2 diabetes mellitus with hypoglycemia without coma (principal); U07.1 COVID-19; I48.91 Unspecified atrial fibrillation; Z79.01 Long term (current) use of anticoagulants; R79.1 Abnormal coagulation profile; I10 Essential (primary) hypertension; M10.9 Gout, unspecified; Z95.1 Presence of aortocoronary bypass graft; I25.10 Atherosclerotic heart disease of native coronary artery without angina pectoris; M19.90 Unspecified osteoarthritis, unspecified site; G89.29 Other chronic pain; M54.9 Dorsalgia, unspecified; I25.2 Old myocardial infarction; E78.00 Pure hypercholesterolemia, unspecified; Z87.891 Personal history of nicotine dependence; Z79.899 Other long term (current) drug therapy; N17.9 Acute kidney failure, unspecified; R09.02 Hypoxemia; Z79.82 Long term (current) use of aspirin
CPT/HCPCS: 36415; 71045; 80048; 80053; 81000; 82947; 83880; 84145; 85025; 85610; 86141; 87636; 94664; 94760

== ENCOUNTER 2021-06-18 13:45 | Inpatient (IN) | payer MEDICARE ==
[~2021-06-18] VITALS: Ht 185 cm; Wt 83.0 kg
[~2021-06-18 13:45] MED LIST changes: +APIX2.5T PO; +GLIM1TAB4 PO; +TRZ50T PO
--- NOTE | 2021-06-18 14:08 | ED Respiratory ---
General Chief Complaint: Glucose Problems Stated Complaint: LOW BLOOD SUGAR,COVID Nursing Triage Note: ARIVED VIA EMS FROM HOME WITH COMPLAINTS OF LOW BLOOD SUGAR AND FALLING AND HITTING HIS HEAD. PT IS ON BLOOD THINNERS. EMS REPORTS A BLOOD SUGAR OF 55 ET THEY GAVE PT A TUBE OF ORAL GLUCOSE. Source: patient Exam Limitations: no limitations History of Present Illness Date Seen by Provider: Jun 18, 2021 Time Seen by Provider: 13:50 Initial Comments Patient is a 81-year-old male who presents to the emergency department today with a chief complaint of a syncopal episode while at home. Patient states that he was diagnosed with Covid on Wednesday, the . He started having symptoms the Wednesday before. He cannot recall whether or not he is Covid vaccinated. He has a history of coronary artery disease and is on Eliquis. His training director is Dr. Daniel. Patient states that he was getting up, walking in his living room when he felt weak all over and went down, had a syncopal episode. Did hit his head. Has a rather large abrasion to the left of his forehead, lateral to his left eye and on his forearm. He states he has some generalized weakness. He denies runny nose, congestion. He has had a cough. Denies chest pain. No abdominal pain, no vomiting or diarrhea but he has had decreased appetite. He has some body aches. He states he had a little back pain from coughing prior to his syncopal episode. No swelling in his legs or cramping in his calves. He is not normally on oxygen and was noted to have oxygen saturations at 87/88% on room air. EMS also reports blood sugars in the low 50s prior to arrival. He had 2 ampoules of oral glucose prior to arrival. He is on medication for diabetes. He lives alone. All other review of systems reviewed and negative except as stated Timing/Duration: just prior to arrival Severity: severe Prior Episodes/Possible Cause: illness exposure Associated Symptoms: cough, shortness of breath Allergies and Home Medications Allergies Coded Allergies: No Known Drug Allergies (Unverified , 11/16/12) Patient Home Medication List Home Medication List Reviewed: Yes Allopurinol (Allopurinol) 100 Mg Tablet, 100 MG PO DAILY, (Reported) Entered as Reported by: CHAUNCEY SUE on 06/15/21 0435 Apixaban (Eliquis) 2.5 Mg Tablet, 2.5 MG PO BID Prescribed by: OCHOA HUMPHREY on 06/16/21 1233 Aspirin (Aspirin EC) 81 Mg Tablet.dr, 81 MG PO DAILY, (Reported) Entered as Reported by: JAZZY TOSCANO on 10/08/17 0944 Atorvastatin Calcium (Atorvastatin Calcium) 40 Mg Tablet, 40 MG PO DAILY, (Reported) Entered as Reported by: JAZZY TOSCANO on 10/08/17 0944 Furosemide (Lasix) 80 Mg Tablet, 80 MG PO DAILY Prescribed by: SHELBY PINEDA on 10/13/17 0835 Gabapentin (Gabapentin) 300 Mg Capsule, 300 MG PO HS, (Reported) Entered as Reported by: BELKIS BELLA on 06/20/15 1241 Glimepiride (Glimepiride) 1 Mg Tablet, 1 MG PO DAILY Prescribed by: OCHOA HUMPHREY on 06/16/21 1157 Metoprolol Succinate (Metoprolol Succinate) 25 Mg Tab.er.24h, 12.5 MG PO DAILY, (Reported) Entered as Reported by: CHAUNCEY SUE on 06/15/21 0430 Potassium Chloride (K-Tab ER) 20 Meq Tablet.er, 20 MEQ PO DAILY Prescribed by: SHELBY PINEDA on 10/14/17 1031 Spironolactone (Spironolactone) 25 Mg Tablet, 25 MG PO BID, (Reported) Entered as Reported by: CHAUNCEY SUE on 06/15/21 0431 Trazodone HCl (Trazodone HCl) 50 Mg Tablet, 50 MG PO HS, (Reported) Entered as Reported by: CHAUNCEY SUE on 06/15/21 0433 Discontinued Medications Allopurinol (Allopurinol) 100 Mg Tablet, 100 MG PO BID Discontinued Reason: No Longer Taking Prescribed by: NIR MICHELE on 10/14/17 1201 Glimepiride (Glimepiride) 2 Mg Tablet, 2 MG PO DAILY, (Reported) Discontinued Reason: Prescription changed Entered as Reported by: BELKIS BELLA on 06/20/15 1241 Losartan Potassium (Losartan Potassium) 100 Mg Tablet, 100 MG PO DAILY Discontinued Reason: No Longer Taking Prescribed by: SHELBY PINEDA on 10/13/17 0835 Metolazone (Metolazone) 5 Mg Tablet, 5 MG PO DAILY Discontinued Reason: No Longer Taking Prescribed by: SHELBY PINEDA on 10/13/17 0835 Spironolactone (Spironolactone) 25 Mg Tablet, 25 MG PO DAILY Discontinued Reason: Duplicate Order Prescribed by: SHELBY PINEDA on 10/13/17 0835 Warfarin Sodium (Warfarin Sodium) 5 Mg Tablet, 10 MG PO HS, (Reported) Discontinued Reason: Provider Ok'd Entered as Reported by: BELKIS BELLA on 06/20/15 1241 Review of Systems Review of Systems Constitutional: see HPI, malaise, weakness EENTM: other (head injury) Respiratory: cough, dyspnea on exertion, short of breath Cardiovascular: no symptoms reported Gastrointestinal: no symptoms reported Genitourinary: no symptoms reported Musculoskeletal: joint pain (left shoulder) Skin: other (abrasions left head) Psychiatric/Neurological: Other (syncope) Hematologic/Lymphatic: Easy Bleeding (ELIQUIS) All Other Systems Reviewed Negative Unless Noted: Yes Past Idfjtyv-Ytpmig-[place] Hx Immunizations Up To Date Tetanus Booster (TDap): Unknown First/Initial COVID19 Vaccinat: 2020 Second COVID19 Vaccination Donte: 2020 Third COVID19 Vaccination Date: MAY 2021 Seasonal Allergies Seasonal Allergies: No Past Medical History Surgeries: Yes Abdominal, Cardiac, CABG, Orthopedic Respiratory: No Cardiac: Yes (CABG, CHF) Atrial Fibrillation, Chronic Edema/Swelling, Coronary Artery Disease, Heart Attack, High Cholesterol, Hypertension, Irregular Heartbeat Neurological: No Reproductive Disorders: No Genitourinary: Yes ("kidney issues") Gastrointestinal: Yes Polyps Musculoskeletal: Yes (USE CANE) Arthritis, Chronic Back Pain Endocrine: Yes Diabetes, Non-Insulin dep HEENT: Yes Hearing Impairment: Hard of Hearing Cancer: No Psychosocial: No Integumentary: No Blood Disorders: No (TAKES COUMADIN) Family Medical History Patient reports no known family medical history. No Pertinent Family Hx Physical Exam Vital Signs - First Documented 06/18/21 13:45 Pulse 73 Resp 16 B/P (MAP) 161/79 (106) Pulse Ox 88 O2 Delivery Room Air Capillary Refill : Less Than 3 Seconds Height: 6'2.50" Weight: 205lbs. 9.6oz. 93.832593ur; 23.00 BMI Method:Estimated General Appearance: WD/WN, no apparent distress Eyes: Bilateral Eye Normal Inspection, Bilateral Eye PERRL, Bilateral Eye EOMI, Bilateral Eye Other (left eye, ecchymoses/abrasions lateral) HEENT: PERRL/EOMI, pharynx normal Neck: non-tender, full range of motion, supple, normal inspection Respiratory: chest non-tender, no respiratory distress, crackles (st bases bilaterally), other (tachypnea (30's)) Cardiovascular: regular rate, rhythm Gastrointestinal: normal bowel sounds, non tender, soft Extremities: normal range of motion, non-tender, normal inspection, no pedal edema, no calf tenderness, normal capillary refill, other (superficial tiny abrasions left dorsal forearm) Neurologic/Psychiatric: no motor/sensory deficits, alert, normal mood/affect, oriented x 3, other (HARD OF HEARING) Skin: normal color, warm/dry, other (abrasion (large) left trmporal scalp/forehead) Focused Exam Lactate Level 06/18/21 13:50: Lactic Acid Level 2.00 Lactic Acid Level Laboratory Tests Test 06/18/21 13:50 Lactic Acid Level 2.00 MMOL/L (0.50-2.00) Progress/Results/Core Measures Suspected Sepsis SIRS Temperature: Pulse: 73 Respiratory Rate: 16 Laboratory Tests 06/18/21 13:50: White Blood Count 9.1 Blood Pressure 161 /79 Mean: 106 06/18/21 13:50: Lactic Acid Level 2.00 Laboratory Tests 06/18/21 13:50: Creatinine 2.20H, INR Comment 1.4, Platelet Count 183, Total Bilirubin 0.9 Results/Orders Lab Results Laboratory Tests Test 06/18/21 13:50 06/18/21 14:50 Range/Units White Blood Count 9.1 4.3-11.0 10^3/uL Red Blood Count 5.05 4.30-5.52 10^6/uL Hemoglobin 14.8 13.3-17.7 g/dL Hematocrit 46 40-54 % Mean Corpuscular Volume 92 80-99 fL Mean Corpuscular Hemoglobin 29 25-34 pg Mean Corpuscular Hemoglobin Concent 32 32-36 g/dL Red Cell Distribution Width 15.1 H 10.0-14.5 % Platelet Count 183 130-400 10^3/uL Mean Platelet Volume 10.9 9.0-12.2 fL Immature Granulocyte % (Auto) 1 % Neutrophils (%) (Auto) 88 H 42-75 % Lymphocytes (%) (Auto) 4 L 12-44 % Monocytes (%) (Auto) 7 0-12 % Eosinophils (%) (Auto) 0 0-10 % Basophils (%) (Auto) 0 0-10 % Neutrophils # (Auto) 8.0 H 1.8-7.8 10^3/uL Lymphocytes # (Auto) 0.4 L 1.0-4.0 10^3/uL Monocytes # (Auto) 0.6 0.0-1.0 10^3/uL Eosinophils # (Auto) 0.0 0.0-0.3 10^3/uL Basophils # (Auto) 0.0 0.0-0.1 10^3/uL Immature Granulocyte # (Auto) 0.1 0.0-0.1 10^3/uL Neutrophils % (Manual) 90 % Lymphocytes % (Manual) 5 % Monocytes % (Manual) 5 % Eosinophils % (Manual) 0 % Basophils % (Manual) 0 % Band Neutrophils 0 % Anisocytosis MODERATE Elliptocytes SLIGHT Prothrombin Time 17.2 H 12.2-14.7 SEC INR Comment 1.4 0.8-1.4 Activated Partial Thromboplast Time 43 H 24-35 SEC D-Dimer 0.60 H 0.00-0.49 UG/ML Sodium Level 134 L 135-145 MMOL/L Potassium Level 4.7 3.6-5.0 MMOL/L Chloride Level 99 98-107 MMOL/L Carbon Dioxide Level 28 21-32 MMOL/L Anion Gap 7 5-14 MMOL/L Blood Urea Nitrogen 39 H 7-18 MG/DL Creatinine 2.20 H 0.60-1.30 MG/DL Estimat Glomerular Filtration Rate 29 BUN/Creatinine Ratio 18 Glucose Level 77 70-105 MG/DL Glucometer 75 133 H 70-110 MG/DL Lactic Acid Level 2.00 0.50-2.00 MMOL/L Calcium Level 8.4 L 8.5-10.1 MG/DL Corrected Calcium 8.9 8.5-10.1 MG/DL Total Bilirubin 0.9 0.1-1.0 MG/DL Aspartate Amino Transf (AST/SGOT) 43 H 5-34 U/L Alanine Aminotransferase (ALT/SGPT) 20 0-55 U/L Alkaline Phosphatase 73 40-136 U/L C-Reactive Protein High Sensitivity 9.00 H 0.00-0.50 MG/DL Total Protein 6.6 6.4-8.2 GM/DL Albumin 3.4 3.2-4.5 GM/DL Procalcitonin 0.40 H <0.10 NG/ML My Orders Orders - MEENAKSHI CRAWFORD MD Cbc With Automated Diff (06/18/21 14:04) Comprehensive Metabolic Panel (06/18/21 14:04) Blood Culture (06/18/21 14:04) Sputum Culture (06/18/21 14:04) Urinalysis (06/18/21 14:04) Urine Culture (06/18/21 14:04) Protime With Inr (06/18/21 14:04) Partial Thromboplastin Time (06/18/21 14:04) Chest 1 View, Ap/Pa Only (06/18/21 14:04) Ed Iv/Invasive Line Start (06/18/21 14:04) Ed Iv/Invasive Line Start (06/18/21 14:04) Vital Signs Adult Sepsis Patie Q15M (06/18/21 14:04) O2 (06/18/21 14:04) Remove Rings In Anticipation O (06/18/21 14:04) Lactic Acid Analyzer (06/18/21 14:04) Ekg Tracing (06/18/21 14:04) Procalcitonin (Pct) (06/18/21 14:04) Fibrin Degradation Products (06/18/21 14:04) Hs C Reactive Protein (06/18/21 14:04) Dexamethasone Injection (Decadron Inje (06/19/21 09:00) Ct Head/Cervical Spine Wo (06/18/21 14:08) Manual Differential (06/18/21 13:50) Dexamethasone Injection (Decadron Inje (06/18/21 14:45) Vital Signs/I&O 06/18/21 13:45 Pulse 73 Resp 16 B/P (MAP) 161/79 (106) Pulse Ox 88 O2 Delivery Room Air Capillary Refill : Less Than 3 Seconds Blood Pressure Mean: 106 Point of Care Testing Finger Stick Blood Glucose: 75 Critical Care Note Critical Care Start Time: 13:50 Stop Time: 15:51 Total Time (minutes) 40 minutes critical care time in the evaluation and management of this 81-year-old gentleman with Covid pneumonia. Time includes initial evaluation and management of hypoxia with supplemental oxygen at 5 L, fluids, monitoring of glucose, review of the medical record, reevaluation of patient, discussion with admitting provider. Departure Communication (Admissions) Time/Spoke to Admitting Phy: 15:[address] Navarrete Impression Primary Impression: Pneumonia due to COVID-19 virus Additional Impression: Hypoglycemia Disposition: ADMITTED INPATIENT Condition: Stable Admissions Decision to Admit Reason: Admit from ER (General) Decision to Admit/Date: Jun 18, 2021 Time/Decision to Admit Time: 15:32 Departure-Patient Inst. Referrals: ELMER STEEL DO (PCP/Family) Primary Care Physician MEENAKSHI CRAWFORD MD Jun 18, 2021 14:08
[2021-06-18 14:12] LABS: BASOPHILS % (AUTO) 0 % (0-10); EOSINOPHILS % (AUTO) 0 % (0-10); HEMATOCRIT 46 % (40-54); HEMOGLOBIN 14.8 g/dL (13.3-17.7); LYMPHOCYTES # (AUTO) 0.4 10^3/uL (1.0-4.0); LYMPHOCYTES % (AUTO) 4 % (12-44); MEAN CORPUSCULAR HEMOGLOBIN 29 pg (25-34); MEAN CORPUSCULAR HGB CONC 32 g/dL (32-36); MEAN CORPUSCULAR VOLUME 92 fL (80-99); MEAN PLATELET VOLUME 10.9 fL (9.0-12.2); MONOCYTES # (AUTO) 0.6 10^3/uL (0.0-1.0); MONOCYTES % (AUTO) 7 % (0-12); NEUTROPHILS % (AUTO) 88 % (42-75); PLATELET COUNT 183 10^3/uL (130-400); WHITE BLOOD COUNT 9.1 10^3/uL (4.3-11.0)
[2021-06-18 14:18] LABS: ALBUMIN 3.4 GM/DL (3.2-4.5); POTASSIUM 4.7 MMOL/L (3.6-5.0)
[2021-06-18 14:19] LABS: CALCIUM 8.4 MG/DL (8.5-10.1)
[2021-06-18 14:20] LABS: FIBRIN DEGRADATION PRODUCTS 0.6 UG/ML (0.00-0.49); INR 1.4 (0.8-1.4); PROTHROMBIN TIME PATIENT 17.2 SEC (12.2-14.7); TOTAL PROTEIN 6.6 GM/DL (6.4-8.2)
[2021-06-18 14:22] LABS: BILIRUBIN,TOTAL 0.9 MG/DL (0.1-1.0)
[2021-06-18 14:24] LABS: CREATININE SERUM 2.2 MG/DL (0.60-1.30)
[2021-06-18 14:38] LABS: ANISOCYTOSIS MODERATE; BAND NEUTROPHILS 0 %; BASOPHILS % (MANUAL) 0 %; ELLIPT/OVALOCYTES SLIGHT; EOSINOPHILS % (MANUAL) 0 %; LYMPHOCYTES % (MANUAL) 5 %; MONOCYTES % (MANUAL) 5 %; NEUTROPHILS % (MANUAL) 90 %
--- NOTE | 2021-06-18 14:52 | Diagnostic Imaging Report ---
EXAMINATION: Chest 1 view. HISTORY: SOB hypoxia syncope. COMPARISON: 06/14/2021. FINDINGS: Stable enlargement of the cardiac silhouette with prominence of the pulmonary vasculature. Increasing patchy interstitial and airspace opacities within both lungs. No pleural effusion or pneumothorax. Surgical changes from median sternotomy and CABG. The osseous structures are intact. IMPRESSION: Increasing patchy interstitial and airspace opacities throughout both lungs. Dictated by: Dictated on workstation # [id number]
--- NOTE | 2021-06-18 15:01 | Diagnostic Imaging Report ---
PROCEDURE: CT head and CT cervical spine without contrast. TECHNIQUE: Multiple contiguous axial images were obtained through the brain and cervical spine without the use of intravenous contrast. Sagittal and coronal reformations through the cervical spine were then performed. Auto Exposure Controls were utilized during the CT exam to meet ALARA standards for radiation dose reduction. INDICATION: Hypoglycemia. Fall. Trauma to the head. Anticoagulated patient. COVID positive patient. Pain. COMPARISON: 12/10/2012. FINDINGS: CT HEAD: The ventricles and cortical sulci are diffusely prominent, compatible with age-related volume loss. There are confluent areas of abnormal, low attenuation in the periventricular white matter. This is consistent with chronic small vessel ischemic changes. There is no midline shift or mass-effect. No acute intra-axial hemorrhage is seen. There are no abnormal areas of increased or decreased density to suggest acute hemorrhage or edema. No extra-axial masses or collections are present. The bony calvarium is intact. The visualized paranasal sinuses are unremarkable. The mastoid air cells are clear. CT CERVICAL SPINE: Evaluation of the static alignment shows reversal of normal lordotic curvature of the cervical spine. This may be related to patient positioning, as well as underlying spasm. There is no significant zain- or retro-listhesis. There is no evidence of jumped facets. Vertebral body heights are maintained. There is no acute fracture. No bony fragments are seen within the spinal canal. There are moderate multilevel degenerative changes consisting of intervertebral disc height loss, as well as prominent anterior and posterior disc osteophyte complex formations and mild multilevel facet arthropathy. Pre- and para-vertebral soft tissue structures are unremarkable. There is carotid calcified atherosclerosis. Included portions of the lung apices show no additional acute abnormalities. IMPRESSION: 1. No acute intracranial abnormality. No CT evidence of mass, acute infarct or intracranial hemorrhage. 2. Chronic small vessel ischemic changes in the deep white matter. 3. No acute fracture or dislocation of the cervical spine. 4. Moderate multilevel degenerative changes. Dictated by: Dictated on workstation # [id number]
--- NOTE | 2021-06-18 16:05 | History & Physical-Hospitalist ---
History of Present Illness HPI/Chief Complaint Chief complaint: Acute hypoxic respiratory failure History of present illness: This is a 81-year-old white male who presented to the ER with shortness of breath. He was found to be COVID-19 +8 days ago. Currently he is requiring 4 L of oxygen. He wanted to go home but reluctantly will stay. He suffered a fall and has some abrasions on the left side. He hit his head and he has an abrasion on his forehead. Patient will require COVID-19 protocol and admission to the hospital. Source: patient, family Exam Limitations: no limitations Date Seen 06/18/21 Time Seen by a Provider: 16:00 Attending Physician Kenn Horn DO Referring Physician Date of Admission Home Medications & Allergies Home Medications Reviewed patient Home Medication Reconciliation performed by pharmacy medication reconciliations transportation engineering technician and/or nursing. Patients Allergies have been reviewed. Allergies Allergies Coded Allergies No Known Drug Allergies (Unverified11/16/12) Past Lkjazih-Ikgimz-Anapnt Hx Patient Social History Marrital Status: single Employed/Student: retired Smoking Status: Former Smoker Immunizations Up To Date Date of Influenza Vaccine: Mar 21, 2021 First/Initial COVID19 Vaccinat: 2020 Second COVID19 Vaccination Donte: 2020 Tetanus Booster (TDap): Unknown Hepatitis A: No Hepatitis B: No Date of Pneumonia Vaccine: May 11, 2015 Seasonal Allergies Seasonal Allergies: No Current Status Primary Language: Mauritian Preferred Spoken Language: Mauritian Past Medical History Surgeries: Abdominal, Cardiac, CABG, Orthopedic Atrial Fibrillation, Chronic Edema/Swelling, Coronary Artery Disease, Heart Attack, High Cholesterol, Hypertension, Irregular Heartbeat Polyps Arthritis, Chronic Back Pain Diabetes, Non-Insulin dep Hearing Impairment: Hard of Hearing Blood Disorders: No (TAKES COUMADIN) Family Medical History Patient reports no known family medical history. No Pertinent Family Hx Review of Systems Constitutional: see HPI EENTM: no symptoms reported Respiratory: dyspnea on exertion, short of breath Cardiovascular: no symptoms reported Gastrointestinal: no symptoms reported Genitourinary: no symptoms reported Musculoskeletal: no symptoms reported Skin: no symptoms reported Psychiatric/Neurological: No Symptoms Reported All Other Systems Reviewed Negative Unless Noted: Yes Physical Exam Physical Exam Vital Signs Vital Signs - First Documented 06/18/21 06/18/21 06/18/21 13:45 18:01 19:01 Temp 36.4 Pulse 73 Resp 16 B/P (MAP) 161/79 (106) Pulse Ox 88 O2 Delivery Room Air O2 Flow Rate 4.00 FiO2 21 Capillary Refill : Less Than 3 Seconds Height, Weight, BMI Height: 6'2.50" Weight: 205lbs. 9.6oz. 93.519636wy; 23.00 BMI Method:Estimated General Appearance: No Apparent Distress, Chronically ill Eyes: Right Eye Normal Inspection, Right Eye PERRL HEENT: PERRL/EOMI, Normal ENT Inspection, Pharynx Normal, Moist Mucous Membranes Neck: Full Range of Motion, Normal Inspection, Non Tender Respiratory: Chest Non Tender, No Accessory Muscle Use, No Respiratory Distress, Crackles, Decreased Breath Sounds Cardiovascular: Regular Rate, Rhythm, No Edema, No Gallop, No JVD, No Murmur, Normal Peripheral Pulses Gastrointestinal: Normal Bowel Sounds, No Organomegaly, No Pulsatile Mass, Non Tender, Soft Back: Normal Inspection, No CVA Tenderness, No Vertebral Tenderness Extremity: Normal Capillary Refill, Normal Inspection, Normal Range of Motion, Non Tender, No Calf Tenderness, No Pedal Edema Neurologic/Psychiatric: Alert, Oriented x3, No Motor/Sensory Deficits, Normal Mood/Affect Skin: Normal Color, Warm/Dry Lymphatic: No Adenopathy Results Results/Procedures Labs Laboratory Tests 06/18/21 13:50 Patient resulted labs reviewed. Assessment/Plan Admission Diagnosis Assessment: Acute hypoxic respiratory failure COVID-19 pneumonia diagnosed 8 days ago Fall with abrasions of the left side Presbycusis Advanced age Severe debility Hypertension Hyperlipidemia CAD Atrial fibrillation Plan: COVID-19 protocol O2 Supportive care Admission Status: Inpatient Order (span 2 midnights) Reason for Inpatient Admission: COVID-19 pneumonia Diagnosis/Problems Diagnosis/Problems (1) Pneumonia due to COVID-19 virus Status: Acute (2) T2DM (type 2 diabetes mellitus) Status: Acute (3) Acute kidney injury Status: Acute (4) Atrial fibrillation Status: Acute ARCENIO FUENTES DO Jun 18, 2021 16:05
[2021-06-18] MEDS ORDERED: ACETAMINOPHEN 325 MG TABLET PO PRN (17:30)
[2021-06-18] MEDS ORDERED: NALOXONE 0.4 MG/ML 1 ML (NARCAN) VIAL IV PRN (17:30)
[2021-06-18] MEDS ORDERED: DOCUSATE SODIUM 100 MG (COLACE) CAP PO PRN (17:30)
[2021-06-18] MEDS ORDERED: HYDROcodone/APAP 5 MG/325 MG (LORTAB) TAB PO PRN (17:30)
[2021-06-18] MEDS ORDERED: diphenhydrAMINE 25 MG TAB (BENADRYL) PO PRN ×2 (17:30)
[2021-06-18] MEDS ORDERED: ONDANSETRON 4 MG (ZOFRAN) ORAL DISSOLVE TAB PO PRN (17:30)
[2021-06-18] MEDS ORDERED: BISACODYL 10 MG SUPP (DULCOLAX) PR PRN (17:30)
[2021-06-18] MEDS ORDERED: diphenhydrAMINE 50 MG/ML INJ (BENADRYL) IVP PRN (17:30)
[2021-06-18] MEDS ORDERED: guaiFENesin/CODEINE (ROBITUSSIN AC) 10ML UDC PO PRN (17:30)
[2021-06-18] MEDS ORDERED: polyethylene glycoL POWDER 17 GM (MIRALAX) PACK PO PRN (17:30)
[2021-06-18] MEDS ORDERED: ONDANSETRON 4 MG/2 ML (SDV) Z0FRAN IV PRN (17:30)
[2021-06-18] MEDS ORDERED: LOPERAMIDE 2 MG (IMODIUM) TABLET PO PRN (17:30)
[2021-06-18] MEDS ORDERED: CALCIUM CARBONATE 500 MG (TUMS) TAB.CHEW PO PRN ×2 (17:30)
[2021-06-18] MEDS ORDERED: MILK OF MAGNESIA 400 MG/5 ML 30 ML UDC PO PRN (17:30)
[2021-06-18] MEDS ORDERED: LACTULOSE SYRUP 10GM/15ML (ENULOSE) 30ML UDC PO PRN (17:30)
[2021-06-18] MEDS ORDERED: MELATONIN 3 MG TABLET PO PRN (17:30)
[2021-06-18] MEDS ORDERED: ANTACID SUSP 30 ML UDC (MYLANTA) PO PRN (17:30)
[2021-06-18] MEDS ORDERED: ENOXAPARIN 40 MG/0.4 ML (LOVENOX) SYR SC SCH (18:00)
[2021-06-18 18:01] VITALS: BP 175/77
[2021-06-18 19:01] VITALS: BP 161/79
[2021-06-18] MEDS ORDERED: RT-ALBUTEROL HFA 8.5 GM INHALER IH PRN (19:30)
[2021-06-18 20:00] VITALS: BP 161/72
[2021-06-18] MEDS ORDERED: traZODone 50 MG (DESYREL) TAB ONE (21:04)
[2021-06-18] MEDS: traZODone 50 MG (DESYREL) TAB PO SCH (21:37)
[2021-06-18] MEDS: inSUlin ASPART (NovoLOG) 1 UNIT/0.01 ML (CHARGE PER UNIT) SC SCH (21:37)
[2021-06-18] MEDS: SENNA W/DOCUSATE (SENOKOT S) TABLET PO SCH (21:37)
[2021-06-18] MEDS: DOCUSATE SODIUM 100 MG (COLACE) CAP PO SCH (21:37)
[2021-06-18] MEDS: polyethylene glycoL POWDER 17 GM (MIRALAX) PACK PO SCH (21:37)
[2021-06-18] MEDS: SENNOSIDES 8.6 MG (SENOKOT) TAB PO SCH (21:37)
[2021-06-18] MEDS: RT-ALBUTEROL HFA 8.5 GM INHALER IH SCH (22:00)
[2021-06-18 23:25] VITALS: BP 150/68
[2021-06-19] MEDS: RT-ALBUTEROL HFA 8.5 GM INHALER IH SCH ×4 (02:42→21:45)
[2021-06-19 04:55] VITALS: BP 151/72
[2021-06-19 05:10] VITALS: BP 151/72
--- NOTE | 2021-06-19 05:41 | Diagnostic Imaging Report ---
Clinical indication: Patient is Covid positive. EXAM: Portable chest x-ray upright view. COMPARISON: Chest x-ray dated 06/18/2021. FINDINGS: There are moderate amount of diffuse bilateral lung infiltrates involving both midlung child and both lung bases. There is slight improved aeration of left midlung field and worsening of right lung base. There is no pleural effusion or pneumothorax. Cardiomegaly is seen. Pulmonary vasculature is within normal limits. Postop change to the chest consistent with CABG is seen. The remainder of this exam shows no significant interval change compared to the prior study of comparison. IMPRESSION: Bilateral lung infiltrates again seen which has slightly improved in left midlung field and worsened in right lung base. Dictated by: Dictated on workstation # [id number]
[2021-06-19] MEDS: inSUlin ASPART (NovoLOG) 1 UNIT/0.01 ML (CHARGE PER UNIT) SC SCH ×4 (06:23→21:49)
[2021-06-19 06:27] LABS: BASOPHILS % (AUTO) 0 % (0-10); EOSINOPHILS % (AUTO) 0 % (0-10); HEMATOCRIT 43 % (40-54); HEMOGLOBIN 13.6 g/dL (13.3-17.7); LYMPHOCYTES # (AUTO) 0.4 10^3/uL (1.0-4.0); LYMPHOCYTES % (AUTO) 6 % (12-44); MEAN CORPUSCULAR HEMOGLOBIN 29 pg (25-34); MEAN CORPUSCULAR HGB CONC 32 g/dL (32-36); MEAN CORPUSCULAR VOLUME 91 fL (80-99); MEAN PLATELET VOLUME 11.3 fL (9.0-12.2); MONOCYTES # (AUTO) 0.4 10^3/uL (0.0-1.0); MONOCYTES % (AUTO) 6 % (0-12); NEUTROPHILS # (AUTO) 5.6 10^3/uL (1.8-7.8); NEUTROPHILS % (AUTO) 88 % (42-75); PLATELET COUNT 167 10^3/uL (130-400); WHITE BLOOD COUNT 6.3 10^3/uL (4.3-11.0)
[2021-06-19 06:46] LABS: ALBUMIN 2.9 GM/DL (3.2-4.5)
[2021-06-19 06:47] LABS: POTASSIUM 5.5 MMOL/L (3.6-5.0)
[2021-06-19 06:48] LABS: CALCIUM 8.1 MG/DL (8.5-10.1)
[2021-06-19 06:49] LABS: TOTAL PROTEIN 5.8 GM/DL (6.4-8.2)
[2021-06-19 06:51] LABS: BILIRUBIN,TOTAL 0.8 MG/DL (0.1-1.0)
[2021-06-19 06:53] LABS: CREATININE SERUM 2.58 MG/DL (0.60-1.30)
[2021-06-19 07:52] VITALS: BP 148/65
[2021-06-19] MEDS: SENNA W/DOCUSATE (SENOKOT S) TABLET PO SCH ×3 (09:06→21:49)
[2021-06-19] MEDS: polyethylene glycoL POWDER 17 GM (MIRALAX) PACK PO SCH ×3 (09:06→21:49)
[2021-06-19] MEDS: DOCUSATE SODIUM 100 MG (COLACE) CAP PO SCH ×3 (09:06→21:49)
[2021-06-19] MEDS: SENNOSIDES 8.6 MG (SENOKOT) TAB PO SCH ×3 (09:06→21:49)
[2021-06-19] MEDS: cefTRIAXone 1 GM PRE-MIX 50 ML IV SCH (09:07)
[2021-06-19] MEDS: AZITHROMYCIN INJECTION 500 MG in NS (IVPB) 250 ML IV SCH (09:08)
[2021-06-19 11:38] VITALS: BP 150/84
--- NOTE | 2021-06-19 12:03 | Progress Note - Hospitalist ---
Subjective HPI/CC On Admission Date Seen by Provider: Jun 19, 2021 Time Seen by Provider: 11:00 Chief complaint: Acute hypoxic respiratory failure History of present illness: This is a 81-year-old white male who presented to the ER with shortness of breath. He was found to be COVID-19 +8 days ago. Currently he is requiring 4 L of oxygen. He wanted to go home but reluctantly will stay. He suffered a fall and has some abrasions on the left side. He hit his head and he has an abrasion on his forehead. Patient will require COVID-19 protocol and admission to the hospital. Subjective/Events-last exam Pt doing a lot better On four liters of oxygen Updated daughter in depth 20 minute conversation Home meds will be restarted He wants to go back on his Coumadin Review of Systems General: Fatigue, Malaise Pulmonary: Dyspnea Focused Exam Lactate Level 06/18/21 13:50: Lactic Acid Level 2.00 Objective Exam Vital Signs Vital Signs Date Time Temp Pulse Resp B/P (MAP) Pulse Ox O2 Delivery O2 Flow Rate FiO2 06/20/21 03:07 90 Nasal Cannula 4.00 06/20/21 01:00 78 06/19/21 20:00 36.1 20 180/74 (109) 06/18/21 19:01 21 Capillary Refill : Less Than 3 Seconds General Appearance: No Apparent Distress, WD/WN, Chronically ill, Thin Respiratory: Lungs Clear, Normal Breath Sounds Cardiovascular: Regular Rate, Rhythm Neurologic/Psychiatric: Alert, Oriented x3, No Motor/Sensory Deficits, Normal Mood/Affect Results/Procedures Lab Laboratory Tests 06/19/21 06:14 Patient resulted labs reviewed. Assessment/Plan Assessment and Plan Assess & Plan/Chief Complaint Assessment: Acute hypoxic respiratory failure COVID-19 pneumonia diagnosed 8 days ago Fall with abrasions of the left side Presbycusis Advanced age Severe debility Hypertension Hyperlipidemia CAD Atrial fibrillation Chronic kidney disease Gout Plan: COVID-19 protocol O2 Supportive care 06/19/2021: Continue COVID-19 Maintain oxygen Restart Coumadin Restart other home meds Diagnosis/Problems Diagnosis/Problems (1) Pneumonia due to COVID-19 virus Status: Acute (2) T2DM (type 2 diabetes mellitus) Status: Acute (3) Acute kidney injury Status: Acute (4) Atrial fibrillation Status: Acute ARCENIO FUENTES DO Jun 19, 2021 12:03
[2021-06-19] MEDS ORDERED: FURO80TA3 PO (16:06)
[2021-06-19] MEDS ORDERED: APIX2.5T PO (16:06)
[2021-06-19] MEDS ORDERED: MTP25TSR PO (16:06)
[2021-06-19] MEDS ORDERED: FERR324T22 PO (16:06)
[2021-06-19] MEDS ORDERED: GLIM1TAB4 PO (16:06)
[2021-06-19] MEDS ORDERED: POTA-179 PO (16:06)
[2021-06-19] MEDS: ENOXAPARIN 30 MG/0.3 ML (LOVENOX) SYR SC SCH (17:21)
[2021-06-19] MEDS: warFARin 7.5 MG (COUMADIN) TAB PO SCH (17:21)
[2021-06-19 20:00] VITALS: BP 180/74
[2021-06-19] MEDS: traZODone 50 MG (DESYREL) TAB PO SCH (21:49)
[2021-06-19] MEDS ORDERED: GABA300S2 PO (22:16)
[2021-06-19] MEDS: GABAPENTIN 300 MG (NEURONTIN) CAP PO SCH (22:43)
[2021-06-20] MEDS: RT-ALBUTEROL HFA 8.5 GM INHALER IH SCH ×4 (03:07→21:23)
[2021-06-20 05:42] LABS: BASOPHILS % (AUTO) 0 % (0-10); EOSINOPHILS % (AUTO) 0 % (0-10); HEMATOCRIT 44 % (40-54); HEMOGLOBIN 14.3 g/dL (13.3-17.7); LYMPHOCYTES # (AUTO) 0.5 10^3/uL (1.0-4.0); LYMPHOCYTES % (AUTO) 3 % (12-44); MEAN CORPUSCULAR HEMOGLOBIN 29 pg (25-34); MEAN CORPUSCULAR HGB CONC 33 g/dL (32-36); MEAN CORPUSCULAR VOLUME 89 fL (80-99); MEAN PLATELET VOLUME 11.1 fL (9.0-12.2); MONOCYTES # (AUTO) 0.8 10^3/uL (0.0-1.0); MONOCYTES % (AUTO) 5 % (0-12); NEUTROPHILS # (AUTO) 15.6 10^3/uL (1.8-7.8); NEUTROPHILS % (AUTO) 92 % (42-75); PLATELET COUNT 216 10^3/uL (130-400)
[2021-06-20 05:55] LABS: ALBUMIN 3.1 GM/DL (3.2-4.5); POTASSIUM 5.3 MMOL/L (3.6-5.0)
[2021-06-20 05:56] LABS: CALCIUM 8.5 MG/DL (8.5-10.1)
[2021-06-20 05:58] LABS: TOTAL PROTEIN 6.2 GM/DL (6.4-8.2)
[2021-06-20 05:59] LABS: BILIRUBIN,TOTAL 0.6 MG/DL (0.1-1.0)
[2021-06-20 06:01] LABS: CREATININE SERUM 2.46 MG/DL (0.60-1.30)
[2021-06-20 06:22] LABS: INR 1.2 (0.8-1.4); PROTHROMBIN TIME PATIENT 15.4 SEC (12.2-14.7)
[2021-06-20 06:25] LABS: BAND NEUTROPHILS 3 %; ELLIPT/OVALOCYTES SLIGHT; LYMPHOCYTES % (MANUAL) 3 %; MONOCYTES % (MANUAL) 3 %; NEUTROPHILS % (MANUAL) 91 %
[2021-06-20 06:26] LABS: BURR CELLS MODERATE
[2021-06-20] MEDS: inSUlin ASPART (NovoLOG) 1 UNIT/0.01 ML (CHARGE PER UNIT) SC SCH ×4 (06:35→21:05)
[2021-06-20 07:59] VITALS: BP 154/70
[2021-06-20] MEDS: ALLOPURINOL 100 MG (ZYLOPRIM) TAB PO SCH ×2 (09:17→21:14)
[2021-06-20] MEDS: ASPIRIN E.C. 81 MG (ECOTRIN) TAB PO SCH (09:17)
[2021-06-20] MEDS: FUROSEMIDE 40 MG (LASIX) TAB PO SCH (09:18)
[2021-06-20] MEDS: DOCUSATE SODIUM 100 MG (COLACE) CAP PO SCH ×2 (09:18→19:32)
[2021-06-20] MEDS: cefTRIAXone 1 GM PRE-MIX 50 ML IV SCH (09:18)
[2021-06-20] MEDS: SENNA W/DOCUSATE (SENOKOT S) TABLET PO SCH ×2 (09:19→19:32)
[2021-06-20] MEDS: SENNOSIDES 8.6 MG (SENOKOT) TAB PO SCH ×2 (09:19→19:33)
[2021-06-20] MEDS: polyethylene glycoL POWDER 17 GM (MIRALAX) PACK PO SCH ×2 (09:19→19:32)
[2021-06-20] MEDS ORDERED: NS IV 500 ML 500 ML ONE (09:25)
[2021-06-20] MEDS: FERROUS SULF 325 MG (IRON) TAB PO SCH (09:28)
[2021-06-20] MEDS: GLIMEPIRIDE 1 MG (AMARYL) TAB PO SCH (09:28)
[2021-06-20] MEDS: AZITHROMYCIN INJECTION 500 MG in NS (IVPB) 250 ML IV SCH (09:37)
[2021-06-20] MEDS: ENOXAPARIN 30 MG/0.3 ML (LOVENOX) SYR SC SCH (17:35)
[2021-06-20] MEDS: warFARin 7.5 MG (COUMADIN) TAB PO SCH (17:35)
[2021-06-20 19:27] VITALS: BP 175/79
[2021-06-20] MEDS ORDERED: inSUlin (REGULAR) HUMAN 1 UNIT/0.01 ML (CHARGE PER UNIT) SC PRN (21:00)
[2021-06-20] MEDS ORDERED: inSUlin (REGULAR) HUMAN 1 UNIT/0.01 ML (CHARGE PER UNIT) SC ONE (21:00)
[2021-06-20] MEDS: traZODone 50 MG (DESYREL) TAB PO SCH (21:14)
[2021-06-20] MEDS: GABAPENTIN 300 MG (NEURONTIN) CAP PO SCH (21:14)
[2021-06-21] MEDS: RT-ALBUTEROL HFA 8.5 GM INHALER IH SCH ×4 (02:52→22:07)
--- NOTE | 2021-06-21 05:58 | Progress Note - Hospitalist ---
Subjective HPI/CC On Admission Date Seen by Provider: Jun 21, 2021 Time Seen by Provider: 10:30 Chief complaint: Acute hypoxic respiratory failure History of present illness: This is a 81-year-old white male who presented to the ER with shortness of breath. He was found to be COVID-19 +8 days ago. Currently he is requiring 4 L of oxygen. He wanted to go home but reluctantly will stay. He suffered a fall and has some abrasions on the left side. He hit his head and he has an abrasion on his forehead. Patient will require COVID-19 protocol and admission to the hospital. Subjective/Events-last exam Patient improved Oxygen 5 L Blood sugars improved with insulin Checked meds labs Feels better Review of Systems General: Fatigue, Malaise Focused Exam Lactate Level Objective Exam Vital Signs Vital Signs Date Time Temp Pulse Resp B/P (MAP) Pulse Ox O2 Delivery O2 Flow Rate FiO2 06/21/21 15:21 35.9 56 90 40 06/21/21 14:54 Nasal Cannula 5.00 06/21/21 08:42 20 154/74 (100) Capillary Refill : Less Than 3 Seconds General Appearance: No Apparent Distress, WD/WN, Chronically ill Respiratory: Lungs Clear, Normal Breath Sounds Cardiovascular: Regular Rate, Rhythm Neurologic/Psychiatric: Alert, Oriented x3 Results/Procedures Lab Laboratory Tests 06/21/21 06:05 Patient resulted labs reviewed. Assessment/Plan Assessment and Plan Assess & Plan/Chief Complaint Assessment: Acute hypoxic respiratory failure COVID-19 pneumonia diagnosed 8 days ago Fall with abrasions of the left side Presbycusis Advanced age Severe debility Hypertension Hyperlipidemia CAD Atrial fibrillation Chronic kidney disease Gout Plan: COVID-19 protocol O2 Supportive care 06/19/2021: Continue COVID-19 Maintain oxygen Restart Coumadin Restart other home meds 06/21/2021: Supportive care Insulin Diagnosis/Problems Diagnosis/Problems (1) Pneumonia due to COVID-19 virus Status: Acute (2) T2DM (type 2 diabetes mellitus) Status: Acute (3) Acute kidney injury Status: Acute (4) Atrial fibrillation Status: Acute ARCENIO FUENTES DO Jun 21, 2021 05:58
[2021-06-21] MEDS: inSUlin ASPART (NovoLOG) 1 UNIT/0.01 ML (CHARGE PER UNIT) SC SCH ×4 (06:33→21:03)
[2021-06-21] MEDS: FERROUS SULF 325 MG (IRON) TAB PO SCH (06:33)
[2021-06-21 06:43] LABS: BASOPHILS % (AUTO) 0 % (0-10); EOSINOPHILS % (AUTO) 0 % (0-10); HEMATOCRIT 40 % (40-54); HEMOGLOBIN 12.9 g/dL (13.3-17.7); LYMPHOCYTES # (AUTO) 0.4 10^3/uL (1.0-4.0); LYMPHOCYTES % (AUTO) 3 % (12-44); MEAN CORPUSCULAR HEMOGLOBIN 29 pg (25-34); MEAN CORPUSCULAR HGB CONC 33 g/dL (32-36); MEAN CORPUSCULAR VOLUME 90 fL (80-99); MEAN PLATELET VOLUME 11.3 fL (9.0-12.2); MONOCYTES # (AUTO) 0.7 10^3/uL (0.0-1.0); MONOCYTES % (AUTO) 5 % (0-12); NEUTROPHILS # (AUTO) 13.1 10^3/uL (1.8-7.8); NEUTROPHILS % (AUTO) 92 % (42-75); PLATELET COUNT 223 10^3/uL (130-400); WHITE BLOOD COUNT 14.2 10^3/uL (4.3-11.0)
[2021-06-21 07:00] LABS: ALBUMIN 2.7 GM/DL (3.2-4.5)
[2021-06-21 07:03] LABS: TOTAL PROTEIN 5.2 GM/DL (6.4-8.2)
[2021-06-21 07:05] LABS: BILIRUBIN,TOTAL 0.5 MG/DL (0.1-1.0)
[2021-06-21 07:07] LABS: CREATININE SERUM 2.22 MG/DL (0.60-1.30)
[2021-06-21 08:42] VITALS: BP 154/74
[2021-06-21] MEDS: ALLOPURINOL 100 MG (ZYLOPRIM) TAB PO SCH ×2 (08:43→21:02)
[2021-06-21] MEDS: FUROSEMIDE 40 MG (LASIX) TAB PO SCH (08:43)
[2021-06-21] MEDS: ASPIRIN E.C. 81 MG (ECOTRIN) TAB PO SCH (08:43)
[2021-06-21] MEDS: DOCUSATE SODIUM 100 MG (COLACE) CAP PO SCH ×2 (08:44→20:48)
[2021-06-21] MEDS: cefTRIAXone 1 GM PRE-MIX 50 ML IV SCH (08:44)
[2021-06-21] MEDS: GLIMEPIRIDE 1 MG (AMARYL) TAB PO SCH (08:44)
[2021-06-21] MEDS: AZITHROMYCIN INJECTION 500 MG in NS (IVPB) 250 ML IV SCH (08:44)
[2021-06-21] MEDS: polyethylene glycoL POWDER 17 GM (MIRALAX) PACK PO SCH ×2 (08:45→20:48)
[2021-06-21] MEDS: SENNOSIDES 8.6 MG (SENOKOT) TAB PO SCH ×2 (08:45→20:49)
[2021-06-21] MEDS: SENNA W/DOCUSATE (SENOKOT S) TABLET PO SCH ×2 (08:45→20:48)
[2021-06-21 08:50] LABS: INR 1.7 (0.8-1.4); PROTHROMBIN TIME PATIENT 20.1 SEC (12.2-14.7)
--- NOTE | 2021-06-21 10:35 | Diagnostic Imaging Report ---
Portable erect AP chest at 9:54 AM INDICATION: Respiratory distress, COVID positive. The cardiomegaly, the sternotomy wires and the surgical clips noted on the prior exam of 06/19/2021 are again evident and no different. The diffuse alveolar/interstitial pulmonary infiltrates seen previously are also again visualized. The density in the right midlung has increased somewhat since the prior study. The overall appearance of the chest has not changed significantly otherwise. IMPRESSION: The appearance of the chest has worsened somewhat since the prior exam as there does seem to be greater involvement of the right mid lung by pneumonia/atelectasis. Dictated by: Dictated on workstation # [id number]
[2021-06-21 15:21] VITALS: BP 154/74
[2021-06-21] MEDS: warFARin 7.5 MG (COUMADIN) TAB PO SCH (17:32)
[2021-06-21] MEDS: ENOXAPARIN 30 MG/0.3 ML (LOVENOX) SYR SC SCH (18:05)
[2021-06-21 20:27] VITALS: BP 175/85
[2021-06-21] MEDS: traZODone 50 MG (DESYREL) TAB PO SCH (21:02)
[2021-06-21] MEDS: GABAPENTIN 300 MG (NEURONTIN) CAP PO SCH (21:02)
[2021-06-21 23:10] VITALS: BP 155/68
[2021-06-22] MEDS: RT-ALBUTEROL HFA 8.5 GM INHALER IH SCH ×4 (02:32→21:00)
[2021-06-22 05:57] LABS: BASOPHILS % (AUTO) 0 % (0-10); EOSINOPHILS % (AUTO) 0 % (0-10); HEMATOCRIT 39 % (40-54); HEMOGLOBIN 12.3 g/dL (13.3-17.7); LYMPHOCYTES # (AUTO) 0.5 10^3/uL (1.0-4.0); LYMPHOCYTES % (AUTO) 4 % (12-44); MEAN CORPUSCULAR HEMOGLOBIN 28 pg (25-34); MEAN CORPUSCULAR HGB CONC 32 g/dL (32-36); MEAN CORPUSCULAR VOLUME 90 fL (80-99); MEAN PLATELET VOLUME 11.2 fL (9.0-12.2); MONOCYTES # (AUTO) 0.8 10^3/uL (0.0-1.0); MONOCYTES % (AUTO) 6 % (0-12); NEUTROPHILS # (AUTO) 11.6 10^3/uL (1.8-7.8); NEUTROPHILS % (AUTO) 88 % (42-75); PLATELET COUNT 207 10^3/uL (130-400); WHITE BLOOD COUNT 13.1 10^3/uL (4.3-11.0)
[2021-06-22 06:09] LABS: ALBUMIN 2.6 GM/DL (3.2-4.5); POTASSIUM 5.1 MMOL/L (3.6-5.0)
[2021-06-22 06:11] LABS: TOTAL PROTEIN 5.2 GM/DL (6.4-8.2)
[2021-06-22 06:13] LABS: BILIRUBIN,TOTAL 0.4 MG/DL (0.1-1.0)
[2021-06-22 06:15] LABS: CREATININE SERUM 1.89 MG/DL (0.60-1.30)
[2021-06-22] MEDS: inSUlin ASPART (NovoLOG) 1 UNIT/0.01 ML (CHARGE PER UNIT) SC SCH ×4 (06:15→21:00)
[2021-06-22] MEDS: FERROUS SULF 325 MG (IRON) TAB PO SCH (06:23)
[2021-06-22 07:01] LABS: INR 2.2 (0.8-1.4); PROTHROMBIN TIME PATIENT 24.6 SEC (12.2-14.7)
--- NOTE | 2021-06-22 07:21 | Progress Note - Hospitalist ---
Subjective HPI/CC On Admission Date Seen by Provider: Jun 22, 2021 Time Seen by Provider: 11:45 Chief complaint: Acute hypoxic respiratory failure History of present illness: This is a 81-year-old white male who presented to the ER with shortness of breath. He was found to be COVID-19 +8 days ago. Currently he is requiring 4 L of oxygen. He wanted to go home but reluctantly will stay. He suffered a fall and has some abrasions on the left side. He hit his head and he has an abrasion on his forehead. Patient will require COVID-19 protocol and admission to the hospital. Subjective/Events-last exam Patient improved Maintain on oxygen INR good so DC Lovenox bridge Checked meds and labs Review of Systems General: Fatigue, Malaise Pulmonary: Dyspnea, Cough Objective Exam Vital Signs Vital Signs Date Time Temp Pulse Resp B/P (MAP) Pulse Ox O2 Delivery O2 Flow Rate FiO2 06/23/21 02:11 Nasal Cannula 4.00 06/23/21 01:00 53 06/22/21 21:00 90 06/22/21 20:00 35.9 20 172/77 (108) 06/21/21 15:21 40 Capillary Refill : Less Than 3 Seconds General Appearance: No Apparent Distress, WD/WN, Chronically ill Respiratory: Lungs Clear, Normal Breath Sounds, Decreased Breath Sounds Cardiovascular: Irregularly Irregular, Tachycardia Neurologic/Psychiatric: Alert, Oriented x3, No Motor/Sensory Deficits, Normal Mood/Affect Results/Procedures Lab Laboratory Tests 06/22/21 05:45 Patient resulted labs reviewed. Assessment/Plan Assessment and Plan Assess & Plan/Chief Complaint Assessment: Acute hypoxic respiratory failure COVID-19 pneumonia diagnosed 8 days ago Fall with abrasions of the left side Presbycusis Advanced age Severe debility Hypertension Hyperlipidemia CAD Atrial fibrillation Chronic kidney disease Gout Plan: COVID-19 protocol O2 Supportive care 06/19/2021: Continue COVID-19 Maintain oxygen Restart Coumadin Restart other home meds 06/21/2021: Supportive care Insulin 06/22/2021: Out of isolation Supportive care Diagnosis/Problems Diagnosis/Problems (1) Pneumonia due to COVID-19 virus Status: Acute (2) T2DM (type 2 diabetes mellitus) Status: Acute (3) Acute kidney injury Status: Acute (4) Atrial fibrillation Status: Acute ARCENIO FUENTES DO Jun 22, 2021 07:20
[2021-06-22 07:55] VITALS: BP 161/74
[2021-06-22] MEDS: GLIMEPIRIDE 1 MG (AMARYL) TAB PO SCH (08:28)
[2021-06-22] MEDS: FUROSEMIDE 40 MG (LASIX) TAB PO SCH (08:28)
[2021-06-22] MEDS: ALLOPURINOL 100 MG (ZYLOPRIM) TAB PO SCH ×2 (08:28→20:57)
[2021-06-22] MEDS: DOCUSATE SODIUM 100 MG (COLACE) CAP PO SCH ×2 (08:28→20:57)
[2021-06-22] MEDS: ASPIRIN E.C. 81 MG (ECOTRIN) TAB PO SCH (08:28)
[2021-06-22] MEDS: SENNA W/DOCUSATE (SENOKOT S) TABLET PO SCH ×2 (08:28→20:57)
[2021-06-22] MEDS: polyethylene glycoL POWDER 17 GM (MIRALAX) PACK PO SCH ×2 (08:29→20:57)
[2021-06-22] MEDS: SENNOSIDES 8.6 MG (SENOKOT) TAB PO SCH ×2 (08:29→20:58)
[2021-06-22] MEDS: AZITHROMYCIN INJECTION 500 MG in NS (IVPB) 250 ML IV SCH (08:33)
[2021-06-22] MEDS: cefTRIAXone 1 GM PRE-MIX 50 ML IV SCH (08:33)
[2021-06-22 16:00] VITALS: BP 166/70
[2021-06-22] MEDS ORDERED: warFARin 3 MG (COUMADIN) TAB PO SCH (18:00)
[2021-06-22 20:00] VITALS: BP 172/77
[2021-06-22] MEDS: traZODone 50 MG (DESYREL) TAB PO SCH (20:57)
[2021-06-22] MEDS: GABAPENTIN 300 MG (NEURONTIN) CAP PO SCH (20:57)
[2021-06-23] MEDS: RT-ALBUTEROL HFA 8.5 GM INHALER IH SCH ×4 (02:11→21:56)
[2021-06-23] MEDS: inSUlin ASPART (NovoLOG) 1 UNIT/0.01 ML (CHARGE PER UNIT) SC SCH ×4 (05:27→21:03)
[2021-06-23] MEDS: FERROUS SULF 325 MG (IRON) TAB PO SCH (05:44)
[2021-06-23 06:19] LABS: BASOPHILS % (AUTO) 0 % (0-10); EOSINOPHILS % (AUTO) 0 % (0-10); HEMATOCRIT 39 % (40-54); HEMOGLOBIN 12.5 g/dL (13.3-17.7); LYMPHOCYTES # (AUTO) 0.7 10^3/uL (1.0-4.0); LYMPHOCYTES % (AUTO) 5 % (12-44); MEAN CORPUSCULAR HEMOGLOBIN 29 pg (25-34); MEAN CORPUSCULAR HGB CONC 32 g/dL (32-36); MEAN CORPUSCULAR VOLUME 90 fL (80-99); MEAN PLATELET VOLUME 11.5 fL (9.0-12.2); MONOCYTES % (AUTO) 8 % (0-12); NEUTROPHILS # (AUTO) 11.4 10^3/uL (1.8-7.8); NEUTROPHILS % (AUTO) 86 % (42-75); PLATELET COUNT 204 10^3/uL (130-400); WHITE BLOOD COUNT 13.3 10^3/uL (4.3-11.0)
[2021-06-23 06:47] LABS: ALBUMIN 2.6 GM/DL (3.2-4.5); BILIRUBIN,TOTAL 0.4 MG/DL (0.1-1.0); CALCIUM 8.2 MG/DL (8.5-10.1); CREATININE SERUM 1.74 MG/DL (0.60-1.30); POTASSIUM 5.4 MMOL/L (3.6-5.0)
[2021-06-23 06:52] LABS: INR 3.1 (0.8-1.4); PROTHROMBIN TIME PATIENT 32.1 SEC (12.2-14.7)
[2021-06-23 07:44] VITALS: BP 156/69
[2021-06-23] MEDS: ALLOPURINOL 100 MG (ZYLOPRIM) TAB PO SCH ×2 (08:32→21:03)
[2021-06-23] MEDS: GLIMEPIRIDE 1 MG (AMARYL) TAB PO SCH (08:32)
[2021-06-23] MEDS: FUROSEMIDE 40 MG (LASIX) TAB PO SCH (08:32)
[2021-06-23] MEDS: DOCUSATE SODIUM 100 MG (COLACE) CAP PO SCH ×2 (08:33→21:03)
[2021-06-23] MEDS: ASPIRIN E.C. 81 MG (ECOTRIN) TAB PO SCH (08:33)
[2021-06-23] MEDS: cefTRIAXone 1 GM PRE-MIX 50 ML IV SCH (08:33)
[2021-06-23] MEDS: AZITHROMYCIN INJECTION 500 MG in NS (IVPB) 250 ML IV SCH (08:34)
[2021-06-23] MEDS: SENNOSIDES 8.6 MG (SENOKOT) TAB PO SCH ×2 (08:42→21:04)
[2021-06-23] MEDS: polyethylene glycoL POWDER 17 GM (MIRALAX) PACK PO SCH ×2 (08:42→21:03)
[2021-06-23] MEDS: SENNA W/DOCUSATE (SENOKOT S) TABLET PO SCH ×2 (08:42→21:03)
--- NOTE | 2021-06-23 11:23 | Progress Note ---
[facility] 06/23/21 1123: Subjective Date Seen by a Provider: Jun 23, 2021 Time Seen by a Provider: 09:51 Subjective/Events-last exam Patient continues to improve. WBC continues to trend downward (13.3) and Creatnine continues to trend downward (1.74) +BM last night Patient voices he is ready to go home. Will need close follow-up with INR, currently at 3.1 Review of Systems General: No Chills, No Other (fevers) Pulmonary: No Dyspnea, No Cough; Other (Requiring O2) Cardiovascular: No: Chest Pain, Palpitations Gastrointestinal: No: Nausea, Vomiting Objective Exam Last Set of Vital Signs Vital Signs Date Time Temp Pulse Resp B/P (MAP) Pulse Ox O2 Delivery O2 Flow Rate FiO2 06/23/21 08:00 Nasal Cannula 4.00 06/23/21 07:58 89 06/23/21 07:44 36.1 54 18 156/69 (98) 06/21/21 15:21 40 Capillary Refill : Less Than 3 Seconds I&O Intake and Output 06/22/21 23:59 Intake Total 1790 ml Output Total 900 ml Balance 890 ml Intake Oral 1790 ml Output Urine Total 900 ml # Voids 5 General: Alert, Oriented X3, No Acute Distress HEENT: PERRLA, Other (Abrasions on left confucianist, scabbed over. No acute trauma) Neck: Supple, No JVD Lungs: Other (Crackles in the Right anterior lung base. No respiratory distress or increase muscle use. Requiring 4L of O2) Heart: Normal S1, Normal S2, No Murmurs, Other (Irregularly, irregular) Abdomen: Normal Bowel Sounds, Soft, No Tenderness Extremities: Normal Pulses (radial pulses bilaterally), Other (No calf tenderness) Skin: Other (Abrasions on left confucianist and ecchymosis throughout upper extremities bilaterally) Neuro: Normal Gait, Normal Speech Psych/Mental Status: Mental Status NL, Mood NL Results Lab Laboratory Tests 06/22/21 16:01: Glucometer 169H 06/22/21 20:29: Glucometer 279H 06/23/21 05:20: White Blood Count 13.3H, Red Blood Count 4.34, Hemoglobin 12.5L, Hematocrit 39L, Mean Corpuscular Volume 90, Mean Corpuscular Hemoglobin 29, Mean Corpuscular Hemoglobin Concent 32, Red Cell Distribution Width 14.5, Platelet Count 204, Mean Platelet Volume 11.5, Immature Granulocyte % (Auto) 1, Neutrophils (%) (Auto) 86H, Lymphocytes (%) (Auto) 5L, Monocytes (%) (Auto) 8, Eosinophils (%) (Auto) 0, Basophils (%) (Auto) 0, Neutrophils # (Auto) 11.4H, Lymphocytes # (Auto) 0.7L, Monocytes # (Auto) 1.0, Eosinophils # (Auto) 0.0, Basophils # (Auto) 0.0, Immature Granulocyte # (Auto) 0.2H, Prothrombin Time 32.1H, INR Comment 3.1H, Sodium Level 140, Potassium Level 5.4H, Chloride Level 111H, Carbon Dioxide Level 21, Anion Gap 8, Blood Urea Nitrogen 61H, Creatinine 1.74H, Estimat Glomerular Filtration Rate 38, BUN/Creatinine Ratio 35, Glucose Level 80, Calcium Level 8.2L, Corrected Calcium 9.3, Total Bilirubin 0.4, Aspartate Amino Transf (AST/SGOT) 21, Alanine Aminotransferase (ALT/SGPT) 17, Alkaline Phosphatase 69, Total Protein 5.0L, Albumin 2.6L 06/23/21 05:21: Glucometer 80 06/23/21 08:52: Glucometer 103 Microbiology 06/18/21 Blood Culture - Preliminary, Resulted No growth Assessment/Plan Assessment/Plan Assess & Plan/Chief Complaint Acute hypoxic respiratory failure COVID-19 pneumonia diagnosed 9 days ago Fall with abrasions of the left side Presbycusis Advanced age Severe debility Hypertension Hyperlipidemia CAD Atrial fibrillation Chronic kidney disease Gout Plan: COVID-19 protocol O2 Supportive care 06/19/2021: Continue COVID-19 Maintain oxygen Restart Coumadin Restart other home meds 06/21/2021: Supportive care Insulin 06/22/2021: Out of isolation Supportive care 06/23/2021 Consult PT/OT Check labs in AM tomorrow (06/24) Continue to wean O2 Likely to send home tomorrow pending status Will need close follow- up with PCP to monitor Coumadin and INR levels JOELLEN FUENTES DO 06/24/21 0538: Subjective Subjective/Events-last exam Pt doing a lot better O2 at 4 liters Bowels moved last night Crackles in lungs are improving Creatine 1.74 Adamant on not going home on insulin, so we will try to do a low dose Hypoglycemic agent in order to accommodate the Hyperglycemia and have close follow-up with Dr. Luis for PT,INR Daughter still concerned about his falls, but he is adamant he is going home will offer HH and be supportive and we will evaluate discharge tomorrow. Review of Systems General: Fatigue, Malaise Pulmonary: Dyspnea Objective Exam General: Alert, Oriented X3, Cooperative, No Acute Distress Lungs: Clear to Auscultation, Normal Air Movement, Other (Crackles in the Right anterior lung base. No respiratory distress or increase muscle use. Requiring 4L of O2) Heart: Regular Rate Neuro: Normal Gait, Normal Speech Psych/Mental Status: Mental Status NL Assessment/Plan Assessment/Plan Assess & Plan/Chief Complaint Supportive care Wean O2 Supervisory-Addendum Brief Verification & Attestation Participated in pt care: history, MDM, physical Personally performed: exam, history, MDM, supervision of care Care discussed with: Medical Student Procedures: n/a Results interpretation: Verified all documentation Verification and Attestation of Medical Student E/M Service A medical student performed and documented this service in my presence. I reviewed and verified all information documented by the medical student and made modifications to such information, when appropriate. I personally performed the physical exam and medical decision making. Joellen Fuentes, Jun 24, 2021,05:37 [facility] Jun 23, 2021 11:23 JOELLEN FUENTES DO Jun 24, 2021 05:38
--- NOTE | 2021-06-23 13:41 | Physical Therapy Evaluation ---
PT Evaluation-General Medical Diagnosis Admission Date Jun 18, 2021 at 16:51 Medical Diagnosis: pneumonia due to Covid Onset Date: Jun 18, 2021 Therapy Diagnosis Therapy Diagnosis: debility/weakness Height/Weight Height (Feet): 6 Height (Inches): 2.50 Weight (Pounds): 205 Weight (Ounces): 9.6 Precautions Precautions/Isolations: Fall Prevention, Standard Precautions Referral Physician: Rosalba Reason for Referral: Evaluation/Treatment Medical History Pertinent Medical History: CABG, CAD, DM, Heart Failure, HTN, [place] Current History EMS secondary to decreased blood sugar and (+) covid Reviewed History: Yes Social History Home: Apartment Current Living Status: Alone Entry Into Home: Level Entry Prior Prior Level of Function SCALE: Activities may be completed with or without assistive devices. 2-Xvdpjcxtsr-fcqufgd completes the activity by him/herself with no assistance from a helper. 5-Set-up or Clean-up Assistance-helper sets up or cleans up; patient completes activity. Grubbs assists only prior to or following the activity. 4-Supervision or Touching Assistance-helper provides verbal cues and/or touching/steadying and/or contact guard assistance as patient completes activity. Assistance may be provided throughout the activity or intermittently. 3-Partial/Moderate Assistance-helper does LESS THAN HALF the effort. Grubbs lifts, holds or supports trunk or limbs, but provides less than half the effort. 2-Substantial/Maximal Assistance-helper does MORE THAN HALF the effort. Grubbs lifts or holds trunk or limbs and provides more than half the effort. 6-Hwfiyglmd-rhuwbs does ALL the effort. Patient does none of the effort to complete the activity. Or, the assistance of 2 or more helpers is required for the patient to complete the activity. If activity was not attempted, code reason: 7-Patient Refused. 9-Not Applicable-not attempted and the patient did not perform the activity bef ore the current illness, exacerbation or injury. 10-Not Attempted due to Environmental Limitations-(lack of equipment, weather r estraints, etc.). 88-Not Attempted due to Medical Conditions or Safety Concerns. Bed Mobility: 6 Transfers (B,C,W/C): 6 Gait: 6 Indoor Mobility (Ambulation): Independent Prior Device Use: cane PT Evaluation-Current Subjective Patient agrees to PT. Objective Patient Orientation: Normal For Age Attachments: Oxygen (6L NC) ROM/Strength ROM Lower Extremities bilateral LE WFL Strength Lower Extremities 4/5 grossly bilateral LE Integumentary/Posture Integumentary refer to nursing notes Bowel Incontinence: No Bladder Incontinence: No Posture WFL Neuromuscular (Tone, Coordination, Reflexes) grossly intact Sensory Vision: Wears Glasses Hearing: Hearing Aid/Aides Transfers Lying to Sitting/Side of Bed(Q: 6 Sit to Stand (QC): 4 Chair/Yxr-aj-Msefy Xfer(QC): 4 Gait Mode of Locomotion: Walk Anticipated Mode of Locomotion: Walk Walk 10 feet (QC): 4 Walk 50 ft with 2 Turns(QC): 4 Walk 150 ft (QC): 4 Distance: 200' Gait Assistive Device: Cane Single Point Comments/Gait Description steady gait sequence Balance Sitting Static: Normal Sitting Dynamic: Normal Standing Static: Good Standing Dynamic: Good Assessment/Needs 81 y.o. male, will be seen by skilled PT to address functional strength and mobility to improve current LOF to safely return to home at maximum LOF. Rehab Potential: Fair PT Group Home Goals Group Home Goals PT Group Home Goals Time Frame: Jul 05, 2021 Roll Left & Right (QC): 6 Sit to Lying (QC): 6 Lying-Sitting on Side/Bed(QC): 6 Sit to Stand (QC): 6 Chair/Fas-zz-Lvuis Xfer(QC): 6 Toilet Transfer (QC): 6 Walk 10 feet (QC): 6 Walk 50ft with 2 Turns (QC): 6 Walk 150 ft (QC): 6 PT Plan Problem List Problem List: Activity Tolerance, Safety Treatment/Plan Treatment Plan: Continue Plan of Care Treatment Plan: Education, Functional Activity Bibi, Functional Strength, Gait, Safety, Therapeutic Exercise, Transfers Treatment Duration: Jul 05, 2021 Frequency: 6 times per week Estimated Hrs Per Day: .25 hour per day Patient and/or Family Agrees t: Yes Time/GCodes Time In: 1247 Time Out: 1307 Total Billed Treatment Time: 20 Total Billed Treatment 1 visit EVModC 20 min ANJANA DUGGAN PT Jun 23, 2021 13:40
--- NOTE | 2021-06-23 14:10 | Occupational Therapy Eval ---
OT Evaluation-General/PLF Medical Diagnosis Admission Date Jun 18, 2021 at 16:51 Medical Diagnosis: pneumonia due to Covid Onset Date: Jun 18, 2021 Therapy Diagnosis Therapy Diagnosis: impaired endurance, O2 dependence Height/Weight Height (Feet): 6 Height (Inches): 2.50 Weight (Pounds): 205 Weight (Ounces): 9.6 Precautions Precautions/Isolations: Fall Prevention, Standard Precautions Referral Physician: Rosalba Referral Reason: Evaluation/Treatment Medical History Pertinent Medical History: CABG, CAD, DM, Heart Failure, HTN, NC Current History Presents to ER due to SOB. Found to be Covid +. Reports fall out of chair. Reviewed History: Yes Social History Home: Apartment Current Living Status: Alone Entry Into Home: Level Entry Pt lives alone in mold bunch trimmer apartment. Reports indep with adls. Family assists with laundry and grocery shopping. He verbalizes eating simple microwavable meals. Pt utilized a cane prior to admission. ADL-Prior Level of Function SCALE: Activities may be completed with or without assistive devices. 8-Pbgqoacwkb-uoxqrmw completes the activity by him/herself with no assistance from a helper. 5-Set-up or Clean-up Assistance-helper sets up or cleans up; patient completes activity. [place] assists only prior to or following the activity. 4-Supervision or Touching Assistance-helper provides verbal cues and/or touching/steadying and/or contact guard assistance as patient completes activity. Assistance may be provided throughout the activity or intermittently. 3-Partial/Moderate Assistance-helper does LESS THAN HALF the effort. [place] lifts, holds or supports trunk or limbs, but provides less than half the effort. 2-Substantial/Maximal Assistance-helper does MORE THAN HALF the effort. [place] lifts or holds trunk or limbs and provides more than half the effort. 5-Mtzqyemiu-gsidkc does ALL the effort. Patient does none of the effort to complete the activity. Or, the assistance of 2 or more helpers is required for the patient to complete the activity. If activity was not attempted, code reason: 7-Patient Refused. 9-Not Applicable-not attempted and the patient did not perform the activity before the current illness, exacerbation or injury. 10-Not Attempted due to Environmental Limitations-(lack of equipment, weather restraints, etc.). 88-Not Attempted due to Medical Conditions or Safety Concerns. Self Care: Independent Functional Cognition: Independent DME/Equipment: Grab Bars, Tub/Shower Drive Self: Yes OT Current Status Subjective Denies pain, agreeable to treatment. [place] Appearance Returned to sitting in recliner, all needs within reach. Mental Status/Objective Patient Orientation: Person, Place, Situation Attachments: IV, Oxygen Current Glasses/Contacts: Yes Hearing Aids: Yes Hand Dominance: Right Upper Extremity ROM WNL Upper Extremity Strength 4/5 grossly ADL-Treatment Eating (QC): 6 Lower Body Dressing (QC): 4 On/Off Footwear (QC): 5 Toileting Hygiene (QC): 4 Pt sitting in chair, 4L O2 NC. Able to don/doff francheska socks with use of cross over method. Sit<>stand: SBA. Pt ambulated to/from bathroom with CGA and cane. No LOB; mild unsteadiness with prolong activity. Stood to urinate in toilet, close supervision for safety. Reduced endurance notable with activity. Education OT Patient Education: Energy conservation, Modified ADL techniques, Purpose of tx/functional activities, Safety issues Teaching Recipient: Patient Teaching Methods: Discussion Response to Teaching: Verbalize Understanding, Reinforcement Needed OT Route Sales Specialist Goals Penitentiary Goals Time Frame: Jun 30, 2021 Toileting Hygiene (QC): 6 Shower/Bathe Self (QC): 4 Lower Body Dressing (QC): 5 On/Off Footwear (QC): 6 1=Demonstrate adherence to instructed precautions during ADL tasks. 2=Patient will verbalize/demonstrate understanding of assistive devices/modifications for ADL. 3=Patient will improve strength/tolerance for activity to enable patient to perform ADL's. OT Education/Plan Problem List/Assessment Assessment: Decreased Activ Tolerance, Impaired I ADL's, Impaired Self-Care Skills Discharge Recommendations Plan/Recommendations: Continue POC Therapy Discharge Recommendati: Homemaker Support, Home & Family Target Placement Home with continued family support pending progress Treatment Plan/Plan of Care Treatment,Training & Education: Yes Patient would benefit from OT for education, treatment and training to promote independence in ADL's, mobility, safety and/or upper extremity function for ADL's. Plan of Care: ADL Retraining, Functional Mobility, UE Funct Exercise/Act Treatment Duration: Jun 30, 2021 Frequency: 3 times per week Estimated Hrs Per Day: .25 hour per day Rehab Potential: Fair 3-5x/week Time/GCodes Start Time: 13:32 Stop Time: 13:43 Total Time Billed (hr/min): 11 Billed Treatment Time 1 visit Karolina Casanova OT Jun 23, 2021 14:10
[2021-06-23 19:02] VITALS: BP 172/68
[2021-06-23] MEDS: GABAPENTIN 300 MG (NEURONTIN) CAP PO SCH (21:02)
[2021-06-23] MEDS: traZODone 50 MG (DESYREL) TAB PO SCH (21:03)
[2021-06-24] MEDS: RT-ALBUTEROL HFA 8.5 GM INHALER IH SCH ×4 (02:56→21:46)
[2021-06-24] MEDS: inSUlin ASPART (NovoLOG) 1 UNIT/0.01 ML (CHARGE PER UNIT) SC SCH ×4 (05:43→20:07)
[2021-06-24] MEDS: FERROUS SULF 325 MG (IRON) TAB PO SCH (05:43)
[2021-06-24 05:49] LABS: BASOPHILS % (AUTO) 0 % (0-10); EOSINOPHILS # (AUTO) 0.1 10^3/uL (0.0-0.3); EOSINOPHILS % (AUTO) 1 % (0-10); HEMATOCRIT 41 % (40-54); HEMOGLOBIN 12.5 g/dL (13.3-17.7); LYMPHOCYTES # (AUTO) 0.7 10^3/uL (1.0-4.0); LYMPHOCYTES % (AUTO) 6 % (12-44); MEAN CORPUSCULAR HEMOGLOBIN 28 pg (25-34); MEAN CORPUSCULAR HGB CONC 31 g/dL (32-36); MEAN CORPUSCULAR VOLUME 93 fL (80-99); MEAN PLATELET VOLUME 11.7 fL (9.0-12.2); MONOCYTES # (AUTO) 0.9 10^3/uL (0.0-1.0); MONOCYTES % (AUTO) 7 % (0-12); NEUTROPHILS # (AUTO) 11.1 10^3/uL (1.8-7.8); NEUTROPHILS % (AUTO) 85 % (42-75); PLATELET COUNT 192 10^3/uL (130-400); WHITE BLOOD COUNT 13.1 10^3/uL (4.3-11.0)
[2021-06-24 05:56] LABS: ALBUMIN 2.5 GM/DL (3.2-4.5); POTASSIUM 5.3 MMOL/L (3.6-5.0)
[2021-06-24 05:57] LABS: CALCIUM 7.9 MG/DL (8.5-10.1)
[2021-06-24 06:00] LABS: BILIRUBIN,TOTAL 0.5 MG/DL (0.1-1.0)
[2021-06-24 06:02] LABS: CREATININE SERUM 1.7 MG/DL (0.60-1.30)
[2021-06-24 07:02] LABS: PROTHROMBIN TIME PATIENT 33.8 SEC (12.2-14.7)
[2021-06-24 07:03] LABS: INR 3.3 (0.8-1.4)
[2021-06-24 08:14] VITALS: BP 193/83
[2021-06-24] MEDS: ALLOPURINOL 100 MG (ZYLOPRIM) TAB PO SCH ×2 (08:40→20:16)
[2021-06-24] MEDS: ASPIRIN E.C. 81 MG (ECOTRIN) TAB PO SCH (08:40)
[2021-06-24] MEDS: DOCUSATE SODIUM 100 MG (COLACE) CAP PO SCH ×2 (08:41→19:25)
[2021-06-24] MEDS: polyethylene glycoL POWDER 17 GM (MIRALAX) PACK PO SCH ×2 (08:41→19:25)
[2021-06-24] MEDS: SENNA W/DOCUSATE (SENOKOT S) TABLET PO SCH ×2 (08:41→19:25)
[2021-06-24] MEDS: GLIMEPIRIDE 1 MG (AMARYL) TAB PO SCH (08:41)
[2021-06-24] MEDS: FUROSEMIDE 40 MG (LASIX) TAB PO SCH (08:41)
[2021-06-24] MEDS: SENNOSIDES 8.6 MG (SENOKOT) TAB PO SCH ×2 (08:41→19:26)
--- NOTE | 2021-06-24 10:28 | Physical Therapy Progress Note ---
Therapy Progress Note Patient on Hold per RN due to increase O2 demand. PT will continue to monitor patient status. ANJANA DUGGAN PT Jun 24, 2021 10:28
[2021-06-24 10:45] LABS: ABG BASE EXCESS -1.8 MMOL/L (-2.5-2.5); ABG OXYGEN SATURATION 86 % (94-100); ABG PCO2 42 MMHG (35-45); ABG PH 7.35 (7.37-7.43); ABG PO2 50 MMHG (79-93); ABG TCO2 24.4 MMOL/L (21.0-31.0); ALLENS TEST POSITIVE
[2021-06-24 10:46] LABS: INSPIRED O2 15 L; PATIENT TEMP 36.2; VENTILATOR NO
--- NOTE | 2021-06-24 10:58 | Diagnostic Imaging Report ---
INDICATION: Covid pneumonia Portable chest 10:39 AM There are severe diffuse alveolar infiltrates in both lungs. There are postoperative changes from CABG surgery and mitral clipping. IMPRESSION: Severe diffuse pulmonary infiltrates. No change compared to 06/21/2021. Dictated by: Dictated on workstation # [id number]
--- NOTE | 2021-06-24 11:02 | Progress Note ---
[facility] 06/24/21 1102: Subjective Date Seen by a Provider: Jun 24, 2021 Time Seen by a Provider: 08:15 Subjective/Events-last exam Patient requiring increased O2 over the night Currently at 15L saturating at 86% Denies Fevers, Chills, Nausea, Vomiting WBC at 13.1 and Creatinine at 1.7 Review of Systems General: No Chills, No Other (fevers) Pulmonary: No Cough; Other (Requiring more O2) Cardiovascular: No: Chest Pain, Palpitations Gastrointestinal: No: Nausea, Vomiting, Abdominal Pain Focused Exam Lactate Level 06/24/21 10:00: Lactic Acid Level 1.41 Lactic Acid Level Laboratory Tests Test 06/24/21 10:00 Lactic Acid Level 1.41 MMOL/L (0.50-2.00) Objective Exam Last Set of Vital Signs Vital Signs Date Time Temp Pulse Resp B/P (MAP) Pulse Ox O2 Delivery O2 Flow Rate FiO2 06/24/21 09:32 86 High Flow N/C 15.00 06/24/21 08:14 36.1 61 20 193/83 (119) 06/21/21 15:21 40 Capillary Refill : Less Than 3 Seconds I&O Intake and Output 06/23/21 23:59 Intake Total 1460 ml Output Total 700 ml Balance 760 ml Intake Oral 1460 ml Output Urine Total 700 ml # Voids 6 General: Alert, Oriented X3, No Acute Distress HEENT: PERRLA, Other (Abrasions on the Left side of hindu) Neck: Supple, No JVD Lungs: Clear to Auscultation, Normal Air Movement, Other (15 L of O2) Heart: Regular Rate, Normal S1, Normal S2, No Murmurs Abdomen: Normal Bowel Sounds, Soft, No Tenderness Extremities: No Clubbing, No Cyanosis Skin: No Rashes, Other (Abrasions on left side of head) Neuro: Normal Gait, Normal Speech Results Lab Laboratory Tests 06/23/21 11:26: Glucometer 210H 06/23/21 15:43: Glucometer 215H 06/23/21 19:57: Glucometer 292H 06/24/21 05:13: Glucometer 89 06/24/21 05:14: White Blood Count 13.1H, Red Blood Count 4.40, Hemoglobin 12.5L, Hematocrit 41, Mean Corpuscular Volume 93, Mean Corpuscular Hemoglobin 28, Mean Corpuscular Hemoglobin Concent 31L, Red Cell Distribution Width 14.7H, Platelet Count 192, Mean Platelet Volume 11.7, Immature Granulocyte % (Auto) 2, Neutrophils (%) (Auto) 85H, Lymphocytes (%) (Auto) 6L, Monocytes (%) (Auto) 7, Eosinophils (%) (Auto) 1, Basophils (%) (Auto) 0, Neutrophils # (Auto) 11.1H, Lymphocytes # (Auto) 0.7L, Monocytes # (Auto) 0.9, Eosinophils # (Auto) 0.1, Basophils # (Auto) 0.0, Immature Granulocyte # (Auto) 0.2H, Prothrombin Time 33.8H, INR Comment 3.3H, Sodium Level 141, Potassium Level 5.3H, Chloride Level 110H, Carbon Dioxide Level 24, Anion Gap 7, Blood Urea Nitrogen 56H, Creatinine 1.70H, Estimat Glomerular Filtration Rate 39, BUN/Creatinine Ratio 33, Glucose Level 100, Calcium Level 7.9L, Corrected Calcium 9.1, Total Bilirubin 0.5, Aspartate Amino Transf (AST/SGOT) 18, Alanine Aminotransferase (ALT/SGPT) 16, Alkaline Phosphatase 69, B-Type Natriuretic Peptide 319.4H, Total Protein 5.0L, Albumin 2.5L, Procalcitonin 0.19H 06/24/21 10:00: Lactic Acid Level 1.41 06/24/21 10:42: Blood Gas Puncture Site RIGHT BRACHIAL, Blood Gas Patient Temperature 36.2, Arterial Blood pH 7.35L, Arterial Blood Partial Pressure CO2 42, Arterial Blood Partial Pressure O2 50L, Arterial Blood HCO3 23, Arterial Blood Total CO2 24.4, Arterial Blood Oxygen Saturation 86L, Arterial Blood Base Excess -1.8, Alex Test POSITIVE, Blood Gas Ventilator Setting NO, Blood Gas Inspired Oxygen 15 L 06/24/21 10:48: Glucometer 196H Microbiology 06/18/21 Blood Culture - Final, Complete No growth Assessment/Plan Assessment/Plan Assess & Plan/Chief Complaint Acute hypoxic respiratory failure COVID-19 pneumonia diagnosed 9 days ago Fall with abrasions of the left side Presbycusis Advanced age Severe debility Hypertension Hyperlipidemia CAD Atrial fibrillation Chronic kidney disease Gout Plan: Cardiology consult Echo BNP level ABG Chest X-ray Plan was to discharge patient today, but due to change in respiratory status,, he will need to stay in-patient Will need to continue to monitor respiratory status 06/19/2021: Continue COVID-19 Maintain oxygen Restart Coumadin Restart other home meds 06/21/2021: Supportive care Insulin 06/22/2021: Out of isolation Supportive care 06/23/2021 Consult PT/OT Check labs in AM tomorrow (06/24) Continue to wean O2 Likely to send home tomorrow pending status Will need close follow- up with PCP to monitor Coumadin and INR levels JOELLEN FUENTES DO 06/25/21 0553: Subjective Subjective/Events-last exam Pt was intending to go home but is now on 15 L of oxygen Performing a septic workup along with cardiac workup Consulted Dr. Rowe Checking chest x-ray Overall pt doesn't understand why he can't go home Pt appears to be very debilitated and unsure if it is even safe for pt to go home. But pt is adamant and doesn't seem to grasp the severity of his illness. Review of Systems General: Fatigue, Malaise Pulmonary: Dyspnea Objective Exam General: Alert, Oriented X3, Other (declined) Lungs: Clear to Auscultation, Normal Air Movement Heart: Regular Rate Psych/Mental Status: Mental Status NL Assessment/Plan Assessment/Plan Assess & Plan/Chief Complaint Cardiology consult Lasix Septic w/u Supervisory-Addendum Brief Verification & Attestation Participated in pt care: history, MDM, physical Personally performed: exam, history, MDM, supervision of care Care discussed with: Medical Student Procedures: n/a Results interpretation: Verified all documentation Verification and Attestation of Medical Student E/M Service A medical student performed and documented this service in my presence. I reviewed and verified all information documented by the medical student and made modifications to such information, when appropriate. I personally performed the physical exam and medical decision making. Joellen Fuentes, Jun 25, 2021,05:52 ZAHEER REYNOLDS MED STUD Jun 24, 2021 11:02 JOELLEN FUENTES DO Jun 25, 2021 05:53
[2021-06-24 11:30] VITALS: BP 180/78
[2021-06-24] MEDS ORDERED: FUROSEMIDE 40 MG/4 ML INJ (LASIX) IVP ONE (12:30)
[2021-06-24] MEDS ORDERED: meTOprolol TARTRATE 50 MG (LOPRESSOR) TAB PO ONE (12:30)
--- NOTE | 2021-06-24 12:53 | Occ Therapy Progress Note ---
Therapy Progress Note Patient on Hold per RN due to increase O2 demand, 89% O2 sat on 15L of O2. OT to monitor pt's status. HEMA ESCAMILLA Jun 24, 2021 12:53
--- NOTE | 2021-06-24 14:39 | Consultation-Cardiology ---
HPI-Cardiology Cardiology Consultation: Date of Consultation 06/24/2021 Date of Admission 06/18/2021 Attending Physician Joellen Navarrete DO Admitting Physician Kenn Luis DO Consulting Physician FINN GOMEZ JR, MD HPI: Time Seen by a Provider: 18:18 Chief Complaint: Reason for consultation: Heart failure. I had the pleasure of seeing Tito in the medical/surgical unit at [facility] in [place], [place] today. He normally follows with one of my partners, Dr. Daniel. He had presented to the hospital due to the low blood sugars. However, during his evaluation, he was found to have pulmonary infiltrates. He has been placed on oral diuretic but the infiltrates have continued to worsen. He had a chest x-ray today that showed even worse pulmonary infiltrates and a cardiology consultation was requested. He tells me he is not short of breath. He denies chest discomfort, paroxysmal nocturnal dyspnea, orthopnea, palpitations, lightheadedness, syncope, or ankle edema. Certain portions of this document may have been dictated utilizing voice recognition technology. Inherent to this technology, typographical and grammatical errors may exist. As much as I am diligent to identify and correct these mistakes, some errors may remain in the document. Review of Systems-Cardiology Review of Systems Other comments Review of 10 organ systems is as per the history of present illness, otherwise negative. All Other Systems Reviewed Negative Unless Noted: Yes ICG-Jhetrz-Zhwiqs Hx Patient Social History Marrital Status: single Employed/Student: retired Smoking Status: Former Smoker 2nd Hand Smoke Exposure: No Alcohol Use?: No Immunizations Up To Date Tetanus Booster (TDap): Unknown Date of Pneumonia Vaccine: May 11, 2015 Date of Influenza Vaccine: Mar 21, 2021 Past Medical History PMH As described under Assessment. Family Medical History Family Medical History: The patient does not know of any family history of premature coronary artery disease in first-degree relatives. Allergies and Home Medications Allergies Coded Allergies: No Known Drug Allergies (Unverified , 11/16/12) Patient Home Medication List Home Medication List Reviewed: Yes Allopurinol (Allopurinol) 100 Mg Tablet, 100 MG PO BID, (Reported) Entered as Reported by: CHAUNCEY SUE on 06/15/21 1325 Last Action: Continued Apixaban (Eliquis) 2.5 Mg Tablet, 2.5 MG PO BID, (Reported) Entered as Reported by: AGA QUINONEZ on 06/19/211605 Last Action: Held Aspirin (Aspirin EC) 81 Mg Tablet.dr, 81 MG PO DAILY, (Reported) Entered as Reported by: JAZZY TOSCANO on 10/08/17943 Last Action: Continued Atorvastatin Calcium (Atorvastatin Calcium) 40 Mg Tablet, 40 MG PO DAILY, (Reported) Entered as Reported by: JAZZY TOSCANO on 10/08/17943 Last Action: Continued Ferrous Gluconate (Ferrous Gluconate) 324 Mg Tablet, 324 MG PO DAILY, (Reported) Entered as Reported by: AGA QUINONEZ on 06/19/211605 Last Action: Converted Furosemide (Furosemide) 80 Mg Tablet, 80 MG PO DAILY, (Reported) Entered as Reported by: AGA QUINONEZ on 06/19/211605 Last Action: Converted Gabapentin (Gabapentin) 300 Mg/6 Ml Solution, 300 MG PO HS, (Reported) Entered as Reported by: JUDY MOODY on 06/19/212215 Last Action: Held Glimepiride (Glimepiride) 1 Mg Tablet, 1 MG PO DAILY, (Reported) Entered as Reported by: AGA QUINONEZ on 06/19/211605 Last Action: Continued Metoprolol Succinate (Metoprolol Succinate) 25 Mg Tab.er.24h, 12.5 MG PO DAILY, (Reported) Entered as Reported by: AGA QUINONEZ on 06/19/211605 Last Action: Continued Potassium Chloride (Potassium Chloride) 20 Meq Tab.er.prt, 20 MEQ PO DAILY, (Reported) Entered as Reported by: AGA QUINONEZ on 06/19/211605 Last Action: Held Spironolactone (Spironolactone) 25 Mg Tablet, 25 MG PO DAILY, (Reported) Entered as Reported by: CHAUNCEY SUE on 06/15/21430 Last Action: Held Trazodone HCl (Trazodone HCl) 50 Mg Tablet, 50 MG PO HS, (Reported) Entered as Reported by: CHAUNCEY SUE on 06/15/21432 Last Action: Continued Discontinued Medications Apixaban (Eliquis) 2.5 Mg Tablet, 2.5 MG PO BID Discontinued Reason: No Longer Taking Prescribed by: OCHOA HUMPHREY on 06/16/21 1233 Last Action: Discontinued Furosemide (Lasix) 80 Mg Tablet, 80 MG PO DAILY Discontinued Reason: Duplicate Order Prescribed by: SHELBY PINEDA on 10/13/17 0835 Last Action: Discontinued Gabapentin (Gabapentin) 300 Mg Capsule, 300 MG PO HS, (Reported) Discontinued Reason: No Longer Taking Entered as Reported by: BELKIS BELLA on 06/20/15 1241 Last Action: Discontinued Glimepiride (Glimepiride) 1 Mg Tablet, 1 MG PO DAILY Discontinued Reason: Duplicate Order Prescribed by: OCHOA HUMPHREY on 06/16/21 1157 Last Action: Discontinued Metoprolol Succinate (Metoprolol Succinate) 25 Mg Tab.er.24h, 12.5 MG PO DAILY, (Reported) Discontinued Reason: New Order Entered as Reported by: CHAUNCEY SUE on 06/15/21 0430 Last Action: Discontinued Potassium Chloride (K-Tab ER) 20 Meq Tablet.er, 20 MEQ PO DAILY Discontinued Reason: Duplicate Order Prescribed by: SHELBY PINEDA on 10/14/17 1031 Last Action: Discontinued Exam Vital Signs Vital Signs Date Time Temp Pulse Resp B/P (MAP) Pulse Ox O2 Delivery O2 Flow Rate FiO2 06/24/21 16:17 36.2 67 96 06/24/21 16:13 20 164/74 (104) Nasal Cannula 15.00 06/21/21 15:21 40 Physical Exam General: Alert. No acute distress. Well nourished and appears stated age. Eye: Extraocular movements are intact. Conjunctivae are clear. There are no xanthelasma. HENT: Normocephalic. Atraumatic. Carotid pulsations 2/2 without bruits. Neck: Jugular venous pressure does not appear elevated. No thyromegaly appreciated. Respiratory: Lungs are clear to auscultation. Respirations are non-labored. Breath sounds are equal. Symmetrical chest wall expansion. Cardiovascular: Normal rate. Irregular rhythm. 2/6 systolic ejection murmur. No gallop. Point of maximal impulse is not appear displaced. Good pulses equal in all extremities. No edema. Gastrointestinal: Soft. Normal bowel sounds. Skin: Skin turgor is normal. There is no pallor. Diffuse areas of ecchymoses on his arms. Musculoskeletal: No kyphosis or scoliosis appreciated. Neurologic: Alert and oriented to person, place, time. Cranial nerves 3-12 appear grossly intact. The patient has good motor tone strength in the upper and lower extremities bilaterally. Psychiatric: Cooperative. Appropriate mood & affect. Labs Laboratory Tests Test 06/23/21 19:57 06/24/21 05:13 06/24/21 05:14 06/24/21 10:00 Range/Units Glucometer 292 H 89 70-110 MG/DL White Blood Count 13.1 H 4.3-11.0 10^3/uL Red Blood Count 4.40 4.30-5.52 10^6/uL Hemoglobin 12.5 L 13.3-17.7 g/dL Hematocrit 41 40-54 % Mean Corpuscular Volume 93 80-99 fL Mean Corpuscular Hemoglobin 28 25-34 pg Mean Corpuscular Hemoglobin Concent 31 L 32-36 g/dL Red Cell Distribution Width 14.7 H 10.0-14.5 % Platelet Count 192 130-400 10^3/uL Mean Platelet Volume 11.7 9.0-12.2 fL Immature Granulocyte % (Auto) 2 % Neutrophils (%) (Auto) 85 H 42-75 % Lymphocytes (%) (Auto) 6 L 12-44 % Monocytes (%) (Auto) 7 0-12 % Eosinophils (%) (Auto) 1 0-10 % Basophils (%) (Auto) 0 0-10 % Neutrophils # (Auto) 11.1 H 1.8-7.8 10^3/uL Lymphocytes # (Auto) 0.7 L 1.0-4.0 10^3/uL Monocytes # (Auto) 0.9 0.0-1.0 10^3/uL Eosinophils # (Auto) 0.1 0.0-0.3 10^3/uL Basophils # (Auto) 0.0 0.0-0.1 10^3/uL Immature Granulocyte # (Auto) 0.2 H 0.0-0.1 10^3/uL Prothrombin Time 33.8 H 12.2-14.7 SEC INR Comment 3.3 H 0.8-1.4 Sodium Level 141 135-145 MMOL/L Potassium Level 5.3 H 3.6-5.0 MMOL/L Chloride Level 110 H 98-107 MMOL/L Carbon Dioxide Level 24 21-32 MMOL/L Anion Gap 7 5-14 MMOL/L Blood Urea Nitrogen 56 H 7-18 MG/DL Creatinine 1.70 H 0.60-1.30 MG/DL Estimat Glomerular Filtration Rate 39 BUN/Creatinine Ratio 33 Glucose Level 100 70-105 MG/DL Calcium Level 7.9 L 8.5-10.1 MG/DL Corrected Calcium 9.1 8.5-10.1 MG/DL Total Bilirubin 0.5 0.1-1.0 MG/DL Aspartate Amino Transf (AST/SGOT) 18 5-34 U/L Alanine Aminotransferase (ALT/SGPT) 16 0-55 U/L Alkaline Phosphatase 69 40-136 U/L B-Type Natriuretic Peptide 319.4 H <100.0 PG/ML Total Protein 5.0 L 6.4-8.2 GM/DL Albumin 2.5 L 3.2-4.5 GM/DL Procalcitonin 0.19 H <0.10 NG/ML Lactic Acid Level 1.41 0.50-2.00 MMOL/L Test 06/24/21 10:42 06/24/21 10:48 06/24/21 15:37 Range/Units Blood Gas Puncture Site RIGHT BRACHIAL Blood Gas Patient Temperature 36.2 Arterial Blood pH 7.35 L 7.37-7.43 Arterial Blood Partial Pressure CO2 42 35-45 MMHG Arterial Blood Partial Pressure O2 50 L 79-93 MMHG Arterial Blood HCO3 23 23-27 MMOL/L Arterial Blood Total CO2 24.4 21.0-31.0 MMOL/L Arterial Blood Oxygen Saturation 86 L 94-100 % Arterial Blood Base Excess -1.8 -2.5-2.5 MMOL/L Alex Test POSITIVE Blood Gas Ventilator Setting NO Blood Gas Inspired Oxygen 15 L Glucometer 196 H 197 H 70-110 MG/DL Radiology ECHOCARDIOGRAM (06/24/2021): 1. Left ventricle: The cavity size is normal. There is moderate concentric hypertrophy. Systolic function is normal. The estimated ejection fraction is 55- 60%. There were no regional wall motion abnormalities identified. The left ventricular diastolic function is indeterminate. 2. Right ventricle: The right ventricle is moderately dilated measuring 3.9 cm midcavity. Systolic function is moderately reduced. TAPSE 1.3 cm. 3. Left atrium: The left atrium is severely dilated with a volume index of 63 mL/m. 4. Right atrium: The right atrium is severely dilated with an area of 39 cm. 5. Mitral valve: Prior procedures include surgical repair. Probable Mitraclip is seen. There is mild regurgitation. 6. Aortic valve: There is mild aortic valve sclerosis. There is mild aortic regurgitation with a pressure half-time of 696 ms. 7. Tricuspid valve: There is moderate regurgitation. 8. Aortic root: The aortic root is dilated at 4.2 cm. 9. Inferior vena cava: The vessel is dilated. The respirophasic diameter changes are in the normal range (greater than or equal to 50%). These findings are consistent with mildly elevated right atrial pressure (8 mmHg). 10. Pulmonary arteries: Estimated pulmonary artery systolic pressure is 75 mmHg assuming a right atrial pressure of 8 mmHg. 11. Compared to the previous report from 06/03/2021, there is no significant change. ECG Impression ECG Comment Electrocardiogram from 06/18/2021 showed atrial fibrillation with a ventricular rate is 73 bpm with possible old inferior and anterior myocardial infarctions and nonspecific ST-T wave changes. Diagnosis/Problems Diagnosis/Problems (1) Acute on chronic heart failure with preserved ejection fraction (HFpEF) Assessment & Plan: As worsening bilateral pulmonary infiltrates noted on his chest x-ray but he tells me he is not short of breath. His BNP level is marginally elevated. I would question whether or not there is some other etiology of the pulmonary infiltrates as opposed to heart failure. I will obt ain a follow-up chest x-ray for tomorrow. (2) Mitral regurgitation Assessment & Plan: He appears to have had a previous MitraClip procedure. His echocardiogram from today only showed mild mitral regurgitation. This should not be contributing to his symptoms. (3) Coronary artery disease without angina pectoris Assessment & Plan: He has not been having any angina. He is on beta-itzel and statin medication. He is also on aspirin and warfarin. We may want to consider stopping aspirin to help reduce the risk of hemorrhagic side effects from dual pathway inhibition. (4) Permanent atrial fibrillation Assessment & Plan: He appears to have permanent atrial fibrillation. At one point, he appears to have been taking apixaban for stroke prophylaxis but now he is on warfarin. He is on metoprolol for rate control. (5) Thoracic aortic aneurysm without rupture Assessment & Plan: This was noted on today's echocardiogram. This will need to be followed longitudinally. (6) Pulmonary hypertension Assessment & Plan: He has severe pulmonary hypertension. I suspect this is related to chronic heart failure and his valvular heart disease. He may benefit from home oxygen if he is not already using this. (7) Stage 3 chronic kidney disease Assessment & Plan: We will need to watch his renal function closely with diuretics. FINN GOMEZ JR, MD Jun 24, 2021 14:39
[2021-06-24 16:13] VITALS: BP 164/74
[2021-06-24 16:17] VITALS: BP 164/74
[2021-06-24] MEDS: NITROGLYCERIN 2% OINT 1 GM UNIT DOSE PACKET TOP SCH ×2 (17:52→18:17)
[2021-06-24] MEDS: warFARin 3 MG (COUMADIN) TAB PO SCH (17:53)
[2021-06-24 19:31] VITALS: BP 153/63
[2021-06-24] MEDS: traZODone 50 MG (DESYREL) TAB PO SCH (20:16)
[2021-06-24] MEDS: GABAPENTIN 300 MG (NEURONTIN) CAP PO SCH (20:16)
[2021-06-24 23:50] VITALS: BP 160/72
[2021-06-25] MEDS: NITROGLYCERIN 2% OINT 1 GM UNIT DOSE PACKET TOP SCH ×6 (00:24→22:08)
[2021-06-25] MEDS: RT-ALBUTEROL HFA 8.5 GM INHALER IH SCH ×4 (03:02→21:48)
[2021-06-25 03:35] VITALS: BP 177/74
[2021-06-25] MEDS: inSUlin ASPART (NovoLOG) 1 UNIT/0.01 ML (CHARGE PER UNIT) SC SCH ×4 (05:23→22:03)
[2021-06-25] MEDS: FERROUS SULF 325 MG (IRON) TAB PO SCH (05:53)
[2021-06-25 06:26] LABS: BASOPHILS % (AUTO) 0 % (0-10); EOSINOPHILS # (AUTO) 0.3 10^3/uL (0.0-0.3); EOSINOPHILS % (AUTO) 2 % (0-10); HEMATOCRIT 41 % (40-54); LYMPHOCYTES # (AUTO) 0.8 10^3/uL (1.0-4.0); LYMPHOCYTES % (AUTO) 5 % (12-44); MEAN CORPUSCULAR HEMOGLOBIN 29 pg (25-34); MEAN CORPUSCULAR HGB CONC 32 g/dL (32-36); MEAN CORPUSCULAR VOLUME 90 fL (80-99); MEAN PLATELET VOLUME 11.7 fL (9.0-12.2); MONOCYTES # (AUTO) 0.9 10^3/uL (0.0-1.0); MONOCYTES % (AUTO) 6 % (0-12); NEUTROPHILS # (AUTO) 13.2 10^3/uL (1.8-7.8); NEUTROPHILS % (AUTO) 85 % (42-75); PLATELET COUNT 176 10^3/uL (130-400); WHITE BLOOD COUNT 15.6 10^3/uL (4.3-11.0)
[2021-06-25 06:49] LABS: ALBUMIN 2.6 GM/DL (3.2-4.5); INR 2.4 (0.8-1.4); PROTHROMBIN TIME PATIENT 26.7 SEC (12.2-14.7)
[2021-06-25 06:50] LABS: POTASSIUM 4.7 MMOL/L (3.6-5.0)
[2021-06-25 06:51] LABS: CALCIUM 8.1 MG/DL (8.5-10.1)
[2021-06-25 06:52] LABS: TOTAL PROTEIN 5.3 GM/DL (6.4-8.2)
[2021-06-25 06:54] LABS: BILIRUBIN,TOTAL 0.8 MG/DL (0.1-1.0)
[2021-06-25 06:56] LABS: CREATININE SERUM 1.62 MG/DL (0.60-1.30)
[2021-06-25] MEDS ORDERED: FUROSEMIDE 40 MG/4 ML INJ (LASIX) IVP NR (07:00)
[2021-06-25 08:00] VITALS: BP 151/66
[2021-06-25] MEDS: FUROSEMIDE 40 MG (LASIX) TAB PO SCH (08:10)
[2021-06-25] MEDS: ALLOPURINOL 100 MG (ZYLOPRIM) TAB PO SCH ×2 (08:34→22:03)
[2021-06-25] MEDS: ASPIRIN E.C. 81 MG (ECOTRIN) TAB PO SCH (08:34)
--- NOTE | 2021-06-25 08:34 | Physical Therapy Progress Note ---
Therapy Progress Note Patient on Hold per RN due to increase O2 demand. PT will continue to monitor patient status. THERESA BRICENO PT Jun 25, 2021 08:34
--- NOTE | 2021-06-25 08:42 | Progress Note ---
[facility] 06/25/21 0842: Subjective Date Seen by a Provider: Jun 25, 2021 Time Seen by a Provider: 08:09 Subjective/Events-last exam Patient was up ambulating in room this morning. During encounter was at 10L of O2 Patient reports feeling okay. CXR revealed severe diffuse pulmonary infiltrates INR 2.4, WBC at 15.6 (taking steroids), Creatinine at 1.62 Will need to continue to improve lungs and wean O2 Patient refused Nitrobid this AM Review of Systems General: No Chills, No Other (fevers) Pulmonary: Dyspnea; No Cough; Other (Requiring O2) Cardiovascular: No: Chest Pain, Palpitations Gastrointestinal: No: Nausea, Vomiting Focused Exam Lactate Level 06/24/21 10:00: Lactic Acid Level 1.41 Objective Exam Last Set of Vital Signs Vital Signs Date Time Temp Pulse Resp B/P (MAP) Pulse Ox O2 Delivery O2 Flow Rate FiO2 06/25/21 08:28 High Flow N/C 15.00 06/25/21 08:19 88 06/25/21 07:00 61 06/25/21 03:35 36.3 20 177/74 (108) 06/21/21 15:21 40 Capillary Refill : Less Than 3 Seconds I&O Intake and Output 06/25/21 00:00 Intake Total 840 ml Balance 840 ml Intake Oral 840 ml # Voids 13 # Bowel Movements 3 General: Alert, Oriented X3, No Acute Distress HEENT: PERRLA, Other (Abrasions to left restorationism) Neck: Supple, No JVD Lungs: Clear to Auscultation, Normal Air Movement, Other (Requirng 10 L of O2) Heart: Other (Irregulary Irregular) Abdomen: Normal Bowel Sounds, Soft Extremities: No Clubbing, No Cyanosis, No Edema Skin: No Rashes, Other (Ecchymosis on upper extremities and face) Neuro: Normal Gait, Normal Speech Psych/Mental Status: Mental Status NL Results Lab Laboratory Tests 06/24/21 10:00: Lactic Acid Level 1.41 06/24/21 10:42: Blood Gas Puncture Site RIGHT BRACHIAL, Blood Gas Patient Temperature 36.2, Arterial Blood pH 7.35L, Arterial Blood Partial Pressure CO2 42, Arterial Blood Partial Pressure O2 50L, Arterial Blood HCO3 23, Arterial Blood Total CO2 24.4, Arterial Blood Oxygen Saturation 86L, Arterial Blood Base Excess -1.8, Alex Test POSITIVE, Blood Gas Ventilator Setting NO, Blood Gas Inspired Oxygen 15 L 06/24/21 10:48: Glucometer 196H 06/24/21 15:37: Glucometer 197H 06/24/21 20:01: Glucometer 168H 06/25/21 05:12: Glucometer 79 06/25/21 06:15: White Blood Count 15.6H, Red Blood Count 4.52, Hemoglobin 13.0L, Hematocrit 41, Mean Corpuscular Volume 90, Mean Corpuscular Hemoglobin 29, Mean Corpuscular Hemoglobin Concent 32, Red Cell Distribution Width 14.8H, Platelet Count 176, Mean Platelet Volume 11.7, Immature Granulocyte % (Auto) 2, Neutrophils (%) (Auto) 85H, Lymphocytes (%) (Auto) 5L, Monocytes (%) (Auto) 6, Eosinophils (%) (Auto) 2, Basophils (%) (Auto) 0, Neutrophils # (Auto) 13.2H, Lymphocytes # (Auto) 0.8L, Monocytes # (Auto) 0.9, Eosinophils # (Auto) 0.3, Basophils # (Auto) 0.0, Immature Granulocyte # (Auto) 0.3H, Prothrombin Time 26.7H, INR Comment 2.4H, Sodium Level 140, Potassium Level 4.7, Chloride Level 107, Carbon Dioxide Level 25, Anion Gap 8, Blood Urea Nitrogen 52H, Creatinine 1.62H, Estimat Glomerular Filtration Rate 41, BUN/Creatinine Ratio 32, Glucose Level 69L, Calcium Level 8.1L, Corrected Calcium 9.2, Total Bilirubin 0.8, Aspartate Amino Transf (AST/SGOT) 19, Alanine Aminotransferase (ALT/SGPT) 13, Alkaline Phosphatase 65, Total Protein 5.3L, Albumin 2.6L Microbiology 06/18/21 Blood Culture - Final, Complete No growth Assessment/Plan Assessment/Plan Assess & Plan/Chief Complaint Acute hypoxic respiratory failure COVID-19 pneumonia diagnosed 9 days ago Fall with abrasions of the left side Presbycusis Advanced age Severe debility Hypertension Hyperlipidemia CAD Atrial fibrillation Chronic kidney disease Gout Thoracic Aortic Aneurysm diagnosed on Echo Plan: Continue to monitor Respiratory status Appreciate Cardiology Continue medications, will be difficult to control BP if patient continues to refuse BP medications Continue to wean O2 Continue Bowel Regimen as needed Continue warfarin and follow with INR Continue blood sugar management with insulin. Follow AM labs Recommend Follow up care for thoracic aneurysm 06/19/2021: Continue COVID-19 Maintain oxygen Restart Coumadin Restart other home meds 06/21/2021: Supportive care Insulin 06/22/2021: Out of isolation Supportive care 06/23/2021 Consult PT/OT Check labs in AM tomorrow (06/24) Continue to wean O2 Likely to send home tomorrow pending status Will need close follow- up with PCP to monitor Coumadin and INR levels 06/24/2021 Cardiology consult Echo BNP level ABG Chest X-ray Plan was to discharge patient today, but due to change in respiratory status,, he will need to stay in-patient Will need to continue to monitor respiratory status JOELLEN FUENTES DO 06/26/21 0525: Subjective Subjective/Events-last exam Pt is doing okay INR at 2.4 Thoracic aortic aneurysm noted on imaging White count at 15.6 Decadron maintained Creatinine 1.6 ABG 7.35/42/50 Tried Vapotherm but that was too much oxygen Chest x-ray showed infiltrates were worse Dr. Rowe recommended to stop Aspirin Declined a lot of medication we ordered Pulmonary hypertension at 77 is severe Review of Systems General: Fatigue, Malaise Pulmonary: Dyspnea Objective Exam General: Alert, Oriented X3, Cooperative, No Acute Distress Lungs: Clear to Auscultation, Normal Air Movement Neuro: Normal Gait, Normal Speech, Strength at 5/5 X4 Ext, Normal Tone Psych/Mental Status: Mental Status NL, Mood NL Assessment/Plan Assessment/Plan Assess & Plan/Chief Complaint Oxygen supplement Monitor INR Supportive care Refuses some meds and treatments Supervisory-Addendum Brief Verification & Attestation Participated in pt care: history, MDM, physical Personally performed: exam, history, MDM, supervision of care Care discussed with: Medical Student Procedures: n/a Results interpretation: Verified all documentation Verification and Attestation of Medical Student E/M Service A medical student performed and documented this service in my presence. I reviewed and verified all information documented by the medical student and made modifications to such information, when appropriate. I personally performed the physical exam and medical decision making. Joellen Fuentes, Jun 26, 2021,05:24 [facility] Jun 25, 2021 08:42 JOELLEN FUENTES DO Jun 26, 2021 05:25
[2021-06-25] MEDS: DOCUSATE SODIUM 100 MG (COLACE) CAP PO SCH ×2 (08:54→19:50)
[2021-06-25] MEDS: SENNOSIDES 8.6 MG (SENOKOT) TAB PO SCH ×2 (08:54→19:51)
[2021-06-25] MEDS: SENNA W/DOCUSATE (SENOKOT S) TABLET PO SCH ×2 (08:54→19:51)
[2021-06-25] MEDS: polyethylene glycoL POWDER 17 GM (MIRALAX) PACK PO SCH ×2 (08:54→19:50)
[2021-06-25] MEDS: GLIMEPIRIDE 1 MG (AMARYL) TAB PO SCH (09:05)
--- NOTE | 2021-06-25 09:36 | Diagnostic Imaging Report ---
INDICATION: Follow-up COVID, pneumonia EXAMINATION: Chest 06/25/2021 COMPARISON: 06/24/2021 FINDINGS: There are diffuse bilateral consolidations similar to previous imaging. The heart is enlarged. Pulmonary vasculature is congested. There is no pneumothorax. There are no effusions. Sternotomy wires and mediastinal clips noted. IMPRESSION: 1. Stable chest with persistent diffuse bilateral infiltrates. Dictated by: Dictated on workstation # [id number]
--- NOTE | 2021-06-25 10:24 | Occ Therapy Progress Note ---
Therapy Progress Note Patient on Hold per RN due to increase O2 demand, Vapotherm at 30/100 and desats with movement. OT to monitor pt's status. HEMA ESCAMILLA Jun 25, 2021 10:24
[2021-06-25] MEDS: ALPRAZolam 0.25 MG (XANAX) TAB PO PRN (10:37)
--- NOTE | 2021-06-25 10:47 | Cardiology Progress Note ---
Progress Note-Cardiology Events since last exam Date Seen by Provider: Jun 25, 2021 Time Seen by Provider: 10:46 Events since last exam I am following him due to heart failure among other cardiac conditions. This morning his oxygen saturation declined and respiratory put him on Vapotherm. Now he feels as though the Vapotherm is making him more short of breath. He denies chest discomfort, palpitations, syncope, or ankle edema. He is very anxious and wants the Vapotherm changed back over to nasal cannula oxygen. Certain portions of this document may have been dictated utilizing voice recognition technology. Inherent to this technology, typographical and grammatical errors may exist. As much as I am diligent to identify and correct these mistakes, some errors may remain in the document. Vitals Last set of Vitals Signs Vital Signs 06/25/21 06/25/21 06/25/21 09:51 12:44 13:00 Temp 36.2 Pulse 73 Resp 20 B/P (MAP) 152/67 (95) Pulse Ox 93 O2 Delivery High Flow N/C O2 Flow Rate 15.00 FiO2 100 Labs Labs Laboratory Tests 06/25/21 06:15 Exam Vital Signs Vital Signs Date Time Temp Pulse Resp B/P (MAP) Pulse Ox O2 Delivery O2 Flow Rate FiO2 06/25/21 13:00 73 06/25/21 12:44 36.2 20 152/67 (95) 93 High Flow N/C 15.00 06/25/21 09:51 100 Physical Exam General: Alert. Moderate respiratory distress. Eye: No xanthelasma. HENT: Normocephalic. Neck: Jugular venous pressure does not appear elevated. Respiratory: Lungs have diffusely decreased breath sounds with some scattered wheezes. Respirations are non-labored. Breath sounds are equal. Symmetrical chest wall expansion. Cardiovascular: Normal rate. Irregular rhythm. Distant S1/S2. 2/6 systolic ejection murmur. No gallop. No edema. Gastrointestinal: Soft. Normal bowel sounds. Skin: Warm. Dry. Neurologic: Alert and oriented to person, place, time. Cranial nerves 3-11 grossly intact. Psychiatric: He appears anxious related to the Vapotherm. Labs Laboratory Tests Test 06/24/21 15:37 06/24/21 20:01 06/25/21 05:12 06/25/21 06:15 Range/Units Glucometer 197 H 168 H 79 70-110 MG/DL White Blood Count 15.6 H 4.3-11.0 10^3/uL Red Blood Count 4.52 4.30-5.52 10^6/uL Hemoglobin 13.0 L 13.3-17.7 g/dL Hematocrit 41 40-54 % Mean Corpuscular Volume 90 80-99 fL Mean Corpuscular Hemoglobin 29 25-34 pg Mean Corpuscular Hemoglobin Concent 32 32-36 g/dL Red Cell Distribution Width 14.8 H 10.0-14.5 % Platelet Count 176 130-400 10^3/uL Mean Platelet Volume 11.7 9.0-12.2 fL Immature Granulocyte % (Auto) 2 % Neutrophils (%) (Auto) 85 H 42-75 % Lymphocytes (%) (Auto) 5 L 12-44 % Monocytes (%) (Auto) 6 0-12 % Eosinophils (%) (Auto) 2 0-10 % Basophils (%) (Auto) 0 0-10 % Neutrophils # (Auto) 13.2 H 1.8-7.8 10^3/uL Lymphocytes # (Auto) 0.8 L 1.0-4.0 10^3/uL Monocytes # (Auto) 0.9 0.0-1.0 10^3/uL Eosinophils # (Auto) 0.3 0.0-0.3 10^3/uL Basophils # (Auto) 0.0 0.0-0.1 10^3/uL Immature Granulocyte # (Auto) 0.3 H 0.0-0.1 10^3/uL Prothrombin Time 26.7 H 12.2-14.7 SEC INR Comment 2.4 H 0.8-1.4 Sodium Level 140 135-145 MMOL/L Potassium Level 4.7 3.6-5.0 MMOL/L Chloride Level 107 98-107 MMOL/L Carbon Dioxide Level 25 21-32 MMOL/L Anion Gap 8 5-14 MMOL/L Blood Urea Nitrogen 52 H 7-18 MG/DL Creatinine 1.62 H 0.60-1.30 MG/DL Estimat Glomerular Filtration Rate 41 BUN/Creatinine Ratio 32 Glucose Level 69 L 70-105 MG/DL Calcium Level 8.1 L 8.5-10.1 MG/DL Corrected Calcium 9.2 8.5-10.1 MG/DL Total Bilirubin 0.8 0.1-1.0 MG/DL Aspartate Amino Transf (AST/SGOT) 19 5-34 U/L Alanine Aminotransferase (ALT/SGPT) 13 0-55 U/L Alkaline Phosphatase 65 40-136 U/L Total Protein 5.3 L 6.4-8.2 GM/DL Albumin 2.6 L 3.2-4.5 GM/DL Test 06/25/21 11:13 Range/Units Glucometer 137 H 70-110 MG/DL Diagnosis/Problems Diagnosis/Problems (1) Acute on chronic heart failure with preserved ejection fraction (HFpEF) Assessment & Plan: He has worsening bilateral pulmonary infiltrates noted on his chest x-ray but he told me he was not short of breath but clearly, became very short of breath this morning. His BNP level is marginally elevated. I would question whether or not there is also some other etiology of the pulmonary infiltrates as opposed to heart failure. I gave him 1 dose of intravenous Lasix this morning. I have ordered a chest x-ray for tomorrow. (2) Permanent atrial fibrillation Assessment & Plan: He appears to have permanent atrial fibrillation. At one point, he appears to have been taking apixaban for stroke prophylaxis but now he is on warfarin. He is on metoprolol for rate control. (3) Coronary artery disease without angina pectoris Assessment & Plan: He has not been having any angina. He is on warfarin, beta- itzel and statin medication. He was also on aspirin which I have stopped. I stopped aspirin to help reduce the risk of hemorrhagic side effects from dual pathway inhibition. (4) Mitral regurgitation Assessment & Plan: He appears to have had a previous MitraClip procedure. His echocardiogram from this admission only showed mild mitral regurgitation. This should not be contributing to his symptoms. (5) Thoracic aortic aneurysm without rupture Assessment & Plan: This was noted on his echocardiogram from this admission. This will need to be followed longitudinally. (6) Pulmonary hypertension Assessment & Plan: He has severe pulmonary hypertension. I suspect this is related to chronic heart failure and his valvular heart disease. He may benefit from home oxygen if he is not already using this. (7) Stage 3 chronic kidney disease Assessment & Plan: We will need to watch his renal function closely with diuretics. FINN GOMEZ JR, MD Jun 25, 2021 10:47
[2021-06-25 12:44] VITALS: BP 152/67
[2021-06-25 15:24] VITALS: BP 185/80
[2021-06-25] MEDS: warFARin 3 MG (COUMADIN) TAB PO SCH (18:13)
[2021-06-25 19:25] VITALS: BP 167/73
[2021-06-25] MEDS: traZODone 50 MG (DESYREL) TAB PO SCH (22:03)
[2021-06-25] MEDS: GABAPENTIN 300 MG (NEURONTIN) CAP PO SCH (22:03)
[2021-06-25 23:55] VITALS: BP 161/72
[2021-06-26 04:35] VITALS: BP 126/59
[2021-06-26] MEDS: NITROGLYCERIN 2% OINT 1 GM UNIT DOSE PACKET TOP SCH ×2 (04:37→11:50)
[2021-06-26] MEDS: RT-ALBUTEROL HFA 8.5 GM INHALER IH SCH ×3 (05:33→22:02)
[2021-06-26] MEDS: inSUlin ASPART (NovoLOG) 1 UNIT/0.01 ML (CHARGE PER UNIT) SC SCH ×4 (06:20→23:28)
[2021-06-26] MEDS: FERROUS SULF 325 MG (IRON) TAB PO SCH (06:20)
[2021-06-26 07:01] LABS: BASOPHILS % (AUTO) 0 % (0-10); EOSINOPHILS # (AUTO) 0.2 10^3/uL (0.0-0.3); EOSINOPHILS % (AUTO) 1 % (0-10); HEMATOCRIT 43 % (40-54); HEMOGLOBIN 13.5 g/dL (13.3-17.7); LYMPHOCYTES # (AUTO) 0.7 10^3/uL (1.0-4.0); LYMPHOCYTES % (AUTO) 4 % (12-44); MEAN CORPUSCULAR HEMOGLOBIN 29 pg (25-34); MEAN CORPUSCULAR HGB CONC 32 g/dL (32-36); MEAN CORPUSCULAR VOLUME 91 fL (80-99); MEAN PLATELET VOLUME 12.2 fL (9.0-12.2); MONOCYTES # (AUTO) 0.9 10^3/uL (0.0-1.0); MONOCYTES % (AUTO) 6 % (0-12); NEUTROPHILS # (AUTO) 13.7 10^3/uL (1.8-7.8); NEUTROPHILS % (AUTO) 86 % (42-75); PLATELET COUNT 189 10^3/uL (130-400)
[2021-06-26 07:19] LABS: ALBUMIN 2.7 GM/DL (3.2-4.5); POTASSIUM 4.6 MMOL/L (3.6-5.0)
[2021-06-26 07:20] LABS: CALCIUM 8.1 MG/DL (8.5-10.1)
[2021-06-26 07:21] LABS: TOTAL PROTEIN 5.8 GM/DL (6.4-8.2)
[2021-06-26 07:22] LABS: PROTHROMBIN TIME PATIENT 23.3 SEC (12.2-14.7)
[2021-06-26 07:23] LABS: BILIRUBIN,TOTAL 0.9 MG/DL (0.1-1.0)
[2021-06-26 07:25] LABS: CREATININE SERUM 1.78 MG/DL (0.60-1.30)
[2021-06-26 07:39] LABS: BAND NEUTROPHILS 0 %; BASOPHILS % (MANUAL) 0 %; EOSINOPHILS % (MANUAL) 1 %; LYMPHOCYTES % (MANUAL) 5 %; MONOCYTES % (MANUAL) 7 %; NEUTROPHILS % (MANUAL) 87 %
[2021-06-26 07:40] LABS: ACANTHOCYTES MODERATE; ANISOCYTOSIS MODERATE; ELLIPT/OVALOCYTES MODERATE; POIKILOCYTOSIS MODERATE
[2021-06-26 07:47] VITALS: BP 163/68
--- NOTE | 2021-06-26 08:49 | Diagnostic Imaging Report ---
EXAMINATION: Chest 2 view HISTORY: Shortness of breath COMPARISON: 10/13/2017 FINDINGS: Heart size and pulmonary vasculature are normal. Surgical changes of median sternotomy and CABG. Patchy interstitial and airspace opacities throughout both lungs. No pleural effusion or pneumothorax. The osseous structures are intact. IMPRESSION: 1. Patchy interstitial and airspace opacities throughout both lungs concerning for a multifocal pneumonia or pulmonary edema. Dictated by: Dictated on workstation # [id number]
[2021-06-26] MEDS: FUROSEMIDE 40 MG (LASIX) TAB PO SCH (09:00)
[2021-06-26] MEDS: SENNOSIDES 8.6 MG (SENOKOT) TAB PO SCH ×2 (09:01→20:41)
[2021-06-26] MEDS: GLIMEPIRIDE 1 MG (AMARYL) TAB PO SCH (09:01)
[2021-06-26] MEDS: ALLOPURINOL 100 MG (ZYLOPRIM) TAB PO SCH ×2 (09:01→23:28)
[2021-06-26] MEDS: polyethylene glycoL POWDER 17 GM (MIRALAX) PACK PO SCH ×2 (09:01→20:41)
[2021-06-26] MEDS: DOCUSATE SODIUM 100 MG (COLACE) CAP PO SCH ×2 (09:01→20:41)
[2021-06-26] MEDS: SENNA W/DOCUSATE (SENOKOT S) TABLET PO SCH ×2 (09:02→20:41)
--- NOTE | 2021-06-26 11:29 | Occupational Ther Daily Note ---
OT Current Status-Daily Note Subjective Pt alert, lying in bed. No c/o pain. Mental Status/Objective Patient Orientation: Person, Place, Time, Situation Attachments: IV, Oxygen (HiFlow 15L) ADL-Treatment Per nrsg and pt, pt is up ad jessie in room and completes all ADLs independently. Discussed with pt about OT needs for ADLs and B UE strengthening. Pt verbalized all that he is able to complete all his own ADLs (bathing, dressing, toileting, eating and oral care), nrsg notes confirm this. KERR educated pt on OT's role and pt states that he does not need OT. KERR asked pt if he would like B UE exercises to complete in room, pt stated that he already knows exercises from participating in cardiac rehab in the hospital and does not need any more exercises. KERR asked pt if there is he wants OT to continue to work with him or discontinue OT services. Pt stated multiple times that he does not want to see OT again and does not need OT services. KERR reported this to nrsg and OTR/L. OT services to be discontinued per pt's request and pt's ability to complete ADLs independently, using cane for mobility. Pt in bed with call light/phone in reach at end of session. Therapy Code Descriptions/Definitions Functional [place] Measure: 0=Not Assessed/NA 4=Minimal Assistance 1=Total Assistance 5=Supervision or Setup 2=Maximal Assistance 6=Modified [place] 3=Moderate Assistance 7=Complete IndependenceSCALE: Activities may be completed with or without assistive devices. 8-Pocddgwnen-xdrmvlj completes the activity by him/herself with no assistance from a helper. 5-Set-up or Clean-up Assistance-helper sets up or cleans up; patient completes activity. [place] assists only prior to or following the activity. 4-Supervision or Touching Assistance-helper provides verbal cues and/or touching/steadying and/or contact guard assistance as patient completes activity. Assistance may be provided throughout the activity or intermittently. 3-Partial/Moderate Assistance-helper does LESS THAN HALF the effort. [place] lifts, holds or supports trunk or limbs, but provides less than half the effort. 2-Substantial/Maximal Assistance-helper does MORE THAN HALF the effort. [place] lifts or holds trunk or limbs and provides more than half the effort. 4-Zgyvletwh-ycdlxa does ALL the effort. Patient does none of the effort to c omplete the activity. Or, the assistance of 2 or more helpers is required for the patient to complete the activity. If activity was not attempted, code reason: 7-Patient Refused. 9-Not Applicable-not attempted and the patient did not perform the activity before the current illness, exacerbation or injury. 10-Not Attempted due to Environmental Limitations-(lack of equipment, weather restraints, etc.). 88-Not Attempted due to Medical Conditions or Safety Concerns. OT Half-Way Goals Half-Way Goals Time Frame: Jun 30, 2021 Toileting Hygiene (QC): 6 Shower/Bathe Self (QC): 4 Lower Body Dressing (QC): 5 On/Off Footwear (QC): 6 1=Demonstrate adherence to instructed precautions during ADL tasks. 2=Patient will verbalize/demonstrate understanding of assistive devices/modifications for ADL. 3=Patient will improve strength/tolerance for activity to enable patient to perform ADL's. OT Education/Plan Discharge Recommendations Plan/Recommendations: Discontinue OT Treatment Plan/Plan of Care Patient would benefit from OT for education, treatment and training to promote independence in ADL's, mobility, safety and/or upper extremity function for ADL's. Plan of Care: ADL Retraining, Functional Mobility, UE Funct Exercise/Act Treatment Duration: Jun 30, 2021 Frequency: 3 times per week Estimated Hrs Per Day: .25 hour per day Rehab Potential: Fair Time/GCodes Start Time: 10:38 Stop Time: 10:48 Total Time Billed (hr/min): 10 Billed Treatment Time 1 visit-FA 1 (10 min) HEMA ESCAMILLA Jun 26, 2021 11:29
[2021-06-26 11:41] VITALS: BP 169/70
--- NOTE | 2021-06-26 11:52 | Physical Therapy Progress Note ---
Therapy Progress Note Patient visited with this PT and requests that we not return. He states he is able to get around on his own and knows all the exercises. Patient is adamant to not participate with therapy. PT will dismiss patient from services at this time. ANJANA DUGGAN PT Jun 26, 2021 11:52
--- NOTE | 2021-06-26 12:26 | Cardiology Progress Note ---
Progress Note-Cardiology Events since last exam Date Seen by Provider: Jun 26, 2021 Time Seen by Provider: 12:20 Events since last exam I am following him due to heart failure. He initially presented to the [facility] [place] [facility] ency room with low blood sugars and denied shortness of breath. He feels as though he is getting stronger. He denies chest discomfort, palpitations, syncope, or ankle edema. Certain portions of this document may have been dictated utilizing voice recognition technology. Inherent to this technology, typographical and grammatical errors may exist. As much as I am diligent to identify and correct these mistakes, some errors may remain in the document. Vitals Last set of Vitals Signs Vital Signs 06/25/21 06/26/21 09:51 11:41 Temp 36.0 Pulse 70 Resp 20 B/P (MAP) 169/70 (103) Pulse Ox 90 O2 Delivery High Flow N/C O2 Flow Rate 15.00 FiO2 100 Labs Labs Laboratory Tests 06/26/21 06:40 Exam Vital Signs Vital Signs Date Time Temp Pulse Resp B/P (MAP) Pulse Ox O2 Delivery O2 Flow Rate FiO2 06/26/21 11:41 36.0 70 20 169/70 (103) 90 High Flow N/C 15.00 06/25/21 09:51 100 Physical Exam General: Alert. No acute distress. He is back on nasal cannula oxygen. Eye: No xanthelasma. HENT: Normocephalic. Neck: Jugular venous pressure does not appear elevated. Respiratory: Lungs are clear to auscultation but with diffusely decreased breath sounds. Respirations are non-labored. Breath sounds are equal. Symmetrical chest wall expansion. Cardiovascular: Normal rate. Irregular rhythm. 2/6 systolic ejection murmur. No gallop. No edema. Gastrointestinal: Soft. Normal bowel sounds. Skin: Warm. Dry. Diffuse ecchymoses on both upper extremities. Neurologic: Alert and oriented to person, place, time. Cranial nerves 3-11 grossly intact. Psychiatric: Cooperative. Appropriate mood & affect. Labs Laboratory Tests Test 06/25/21 15:25 06/25/21 21:34 06/26/21 05:54 06/26/21 05:56 Range/Units Glucometer 282 H 336 H 47 *L 44 *L 70-110 MG/DL Test 06/26/21 06:39 06/26/21 06:40 06/26/21 10:48 Range/Units Glucometer 85 274 H 70-110 MG/DL White Blood Count 16.0 H 4.3-11.0 10^3/uL Red Blood Count 4.67 4.30-5.52 10^6/uL Hemoglobin 13.5 13.3-17.7 g/dL Hematocrit 43 40-54 % Mean Corpuscular Volume 91 80-99 fL Mean Corpuscular Hemoglobin 29 25-34 pg Mean Corpuscular Hemoglobin Concent 32 32-36 g/dL Red Cell Distribution Width 14.7 H 10.0-14.5 % Platelet Count 189 130-400 10^3/uL Mean Platelet Volume 12.2 9.0-12.2 fL Immature Granulocyte % (Auto) 3 % Neutrophils (%) (Auto) 86 H 42-75 % Lymphocytes (%) (Auto) 4 L 12-44 % Monocytes (%) (Auto) 6 0-12 % Eosinophils (%) (Auto) 1 0-10 % Basophils (%) (Auto) 0 0-10 % Neutrophils # (Auto) 13.7 H 1.8-7.8 10^3/uL Lymphocytes # (Auto) 0.7 L 1.0-4.0 10^3/uL Monocytes # (Auto) 0.9 0.0-1.0 10^3/uL Eosinophils # (Auto) 0.2 0.0-0.3 10^3/uL Basophils # (Auto) 0.0 0.0-0.1 10^3/uL Immature Granulocyte # (Auto) 0.4 H 0.0-0.1 10^3/uL Neutrophils % (Manual) 87 % Lymphocytes % (Manual) 5 % Monocytes % (Manual) 7 % Eosinophils % (Manual) 1 % Basophils % (Manual) 0 % Band Neutrophils 0 % Poikilocytosis MODERATE Anisocytosis MODERATE Elliptocytes MODERATE Acanthocytes MODERATE Prothrombin Time 23.3 H 12.2-14.7 SEC INR Comment 2.0 H 0.8-1.4 Sodium Level 141 135-145 MMOL/L Potassium Level 4.6 3.6-5.0 MMOL/L Chloride Level 105 98-107 MMOL/L Carbon Dioxide Level 26 21-32 MMOL/L Anion Gap 10 5-14 MMOL/L Blood Urea Nitrogen 55 H 7-18 MG/DL Creatinine 1.78 H 0.60-1.30 MG/DL Estimat Glomerular Filtration Rate 37 BUN/Creatinine Ratio 31 Glucose Level 89 70-105 MG/DL Calcium Level 8.1 L 8.5-10.1 MG/DL Corrected Calcium 9.1 8.5-10.1 MG/DL Total Bilirubin 0.9 0.1-1.0 MG/DL Aspartate Amino Transf (AST/SGOT) 15 5-34 U/L Alanine Aminotransferase (ALT/SGPT) 13 0-55 U/L Alkaline Phosphatase 70 40-136 U/L Total Protein 5.8 L 6.4-8.2 GM/DL Albumin 2.7 L 3.2-4.5 GM/DL Diagnosis/Problems Diagnosis/Problems (1) Acute on chronic heart failure with preserved ejection fraction (HFpEF) Assessment & Plan: He has worsening bilateral pulmonary infiltrates noted on his chest x-ray but he told me he was not short of breath but clearly, became very short of breath on 06/25 when he was placed on Vapotherm. His BNP level is marginally elevated. I would question whether or not there is also some other etiology of the pulmonary infiltrates as opposed to heart failure. His chest x- ray is about the same today. (2) Permanent atrial fibrillation Assessment & Plan: He appears to have permanent atrial fibrillation. At one point, he appears to have been taking apixaban for stroke prophylaxis but now he is on warfarin. He is on metoprolol for rate control. (3) Coronary artery disease without angina pectoris Assessment & Plan: He has not been having any angina. He is on warfarin, beta- itzel and statin medication. He was also on aspirin which I have stopped. I stopped aspirin to help reduce the risk of hemorrhagic side effects from dual pathway inhibition. (4) Mitral regurgitation Assessment & Plan: He appears to have had a previous MitraClip procedure. His echocardiogram from this admission only showed mild mitral regurgitation. This should not be contributing to his symptoms. (5) Thoracic aortic aneurysm without rupture Assessment & Plan: This was noted on his echocardiogram from this admission. This will need to be followed longitudinally. (6) Pulmonary hypertension Assessment & Plan: He has severe pulmonary hypertension. I suspect this is related to chronic heart failure and his valvular heart disease. He may benefit from home oxygen if he is not already using this. (7) Stage 3 chronic kidney disease Assessment & Plan: We will need to watch his renal function closely with diuretics. FINN GOMEZ JR, MD Jun 26, 2021 12:26
--- NOTE | 2021-06-26 13:53 | Progress Note ---
POLLY QUINONEZ 06/26/21 1353: Subjective Date Seen by a Provider: Jun 26, 2021 Time Seen by a Provider: 11:00 Subjective/Events-last exam Patient was sitting up at the edge of his bed this morning, just having finished breakfast. He appeared to be in better spirits today but was concerned with the new high-flow nasal cannula. He states that it falls off while sleeping and prefers the other nasal cannula. Counseled patient that due to the oxygen supplementation he is requiring, the high-flow nasal cannula is required, however as he improves will be able to transition back to the other. Patient states that his blood sugar was low this morning. During encounter was using 15L of O2. Denies chest pain, shortness of breath, or chest tightness. States that overall he is feeling well. CXR: patchy interstitial and airspace opacities throughout both lungs concerning for a multifocal pneumonia or pulmonary edema INR 2.0, WBC at 16.0 (taking steroids), Creatinine at 1.78 Will need to continue to improve lungs and wean O2 Patient refused Nitrobid this AM Review of Systems HEENT: No Head Aches Pulmonary: No Dyspnea Cardiovascular: No: Chest Pain Gastrointestinal: No: Abdominal Pain Focused Exam Lactate Level 06/24/21 10:00: Lactic Acid Level 1.41 Objective Exam Last Set of Vital Signs Vital Signs Date Time Temp Pulse Resp B/P (MAP) Pulse Ox O2 Delivery O2 Flow Rate FiO2 06/26/21 12:19 63 06/26/21 11:41 36.0 20 169/70 (103) 90 High Flow N/C 15.00 06/25/21 09:51 100 Capillary Refill : Less Than 3 Seconds I&O Intake and Output 06/26/21 00:00 Intake Total 2660 ml Balance 2660 ml Intake Oral 2660 ml # Voids 13 # Bowel Movements 3 General: Alert, No Acute Distress HEENT: Other (ecchymosis of forehead) Neck: Supple Lungs: Clear to Auscultation, Normal Air Movement Heart: Regular Rate Skin: Other (ecchymosis and healing abrasions on his head and arms due to previous fall) Neuro: Normal Speech Psych/Mental Status: Mental Status NL, Mood NL Results Lab Laboratory Tests 06/25/21 15:25: Glucometer 282H 06/25/21 21:34: Glucometer 336H 06/26/21 05:54: Glucometer 47*L 06/26/21 05:56: Glucometer 44*L 06/26/21 06:39: Glucometer 85 06/26/21 06:40: White Blood Count 16.0H, Red Blood Count 4.67, Hemoglobin 13.5, Hematocrit 43, Mean Corpuscular Volume 91, Mean Corpuscular Hemoglobin 29, Mean Corpuscular Hemoglobin Concent 32, Red Cell Distribution Width 14.7H, Platelet Count 189, Mean Platelet Volume 12.2, Immature Granulocyte % (Auto) 3, Neutrophils (%) (Auto) 86H, Lymphocytes (%) (Auto) 4L, Monocytes (%) (Auto) 6, Eosinophils (%) (Auto) 1, Basophils (%) (Auto) 0, Neutrophils # (Auto) 13.7H, Lymphocytes # (Auto) 0.7L, Monocytes # (Auto) 0.9, Eosinophils # (Auto) 0.2, Basophils # (Auto) 0.0, Immature Granulocyte # (Auto) 0.4H, Neutrophils % (Manual) 87, Lymphocytes % (Manual) 5, Monocytes % (Manual) 7, Eosinophils % (Manual) 1, Basophils % (Manual) 0, Band Neutrophils 0, Poikilocytosis MODERATE, Anisocytosis MODERATE, Elliptocytes MODERATE, Acanthocytes MODERATE, Prothrombin Time 23.3H, INR Comment 2.0H, Sodium Level 141, Potassium Level 4.6, Chloride Level 105, Carbon Dioxide Level 26, Anion Gap 10, Blood Urea Nitrogen 55H, Creatinine 1.78H, Estimat Glomerular Filtration Rate 37, BUN/Creatinine Ratio 31, Glucose Level 89, Calcium Level 8.1L, Corrected Calcium 9.1, Total Bilirubin 0.9, Aspartate Amino Transf (AST/SGOT) 15, Alanine Aminotransferase (ALT/SGPT) 13, Alkaline Phosphatase 70, Total Protein 5.8L, Albumin 2.7L 06/26/21 10:48: Glucometer 274H Microbiology 06/18/21 Blood Culture - Final, Complete No growth Assessment/Plan Assessment/Plan Assess & Plan/Chief Complaint Assessment: Acute hypoxic respiratory failure COVID-19 pneumonia diagnosed 9 days ago Fall with abrasions of the left side Presbycusis Advanced age Severe debility Hypertension Hyperlipidemia CAD Atrial fibrillation Chronic kidney disease Gout Thoracic Aortic Aneurysm diagnosed on Echo Plan: Continue to monitor Respiratory status Appreciate Cardiology Continue medications, will be difficult to control BP if patient continues to refuse BP medications Continue to wean O2 Continue Bowel Regimen as needed Continue warfarin, increase from 3mg to 5mg, and follow with INR Monitor blood sugar, discontinue levemir. Follow AM labs Recommend Follow up care for thoracic aneurysm JOELLEN FUENTES DO 06/27/21 0551: Subjective Subjective/Events-last exam Pt doing about the same Low sugar will require stop of Levemir INR 2.0 will increase Coumadin from 3 to 5 mg daily Requiring High-Flow O2 Updated patient on plan for slow recovery Review of Systems General: Fatigue Pulmonary: Dyspnea Objective Exam General: Alert, Oriented X3, Cooperative, No Acute Distress Lungs: Clear to Auscultation, Normal Air Movement Psych/Mental Status: Mental Status NL, Mood NL Assessment/Plan Assessment/Plan Assess & Plan/Chief Complaint Slow recovery Hi Ben O2 Supervisory-Addendum Brief Verification & Attestation Participated in pt care: history, MDM, physical Personally performed: exam, history, MDM, supervision of care Care discussed with: Medical Student Procedures: n/a Results interpretation: Verified all documentation Verification and Attestation of Medical Student E/M Service A medical student performed and documented this service in my presence. I reviewed and verified all information documented by the medical student and made modifications to such information, when appropriate. I personally performed the physical exam and medical decision making. Joellen Fuentes, Jun 27, 2021,05:50 POLLY QUINONEZ Jun 26, 2021 13:53 JOELLEN FUENTES DO Jun 27, 2021 05:51
[2021-06-26 15:34] VITALS: BP 152/72
[2021-06-26] MEDS: warFARin 3 MG (COUMADIN) TAB PO SCH (17:21)
[2021-06-26 20:00] VITALS: BP 179/75
[2021-06-26] MEDS: GABAPENTIN 300 MG (NEURONTIN) CAP PO SCH (23:28)
[2021-06-26] MEDS: traZODone 50 MG (DESYREL) TAB PO SCH (23:28)
[2021-06-27] VITALS (7 sets, daily range): BP systolic 128–169; BP diastolic 57–74
[2021-06-27] MEDS: RT-ALBUTEROL HFA 8.5 GM INHALER IH SCH ×4 (03:46→21:14)
[2021-06-27 06:15] LABS: BASOPHILS % (AUTO) 0 % (0-10); EOSINOPHILS # (AUTO) 0.2 10^3/uL (0.0-0.3); EOSINOPHILS % (AUTO) 1 % (0-10); HEMATOCRIT 38 % (40-54); HEMOGLOBIN 12.2 g/dL (13.3-17.7); LYMPHOCYTES # (AUTO) 0.6 10^3/uL (1.0-4.0); LYMPHOCYTES % (AUTO) 3 % (12-44); MEAN CORPUSCULAR HEMOGLOBIN 29 pg (25-34); MEAN CORPUSCULAR HGB CONC 32 g/dL (32-36); MEAN CORPUSCULAR VOLUME 91 fL (80-99); MEAN PLATELET VOLUME 12.4 fL (9.0-12.2); MONOCYTES % (AUTO) 6 % (0-12); NEUTROPHILS # (AUTO) 14.8 10^3/uL (1.8-7.8); NEUTROPHILS % (AUTO) 88 % (42-75); PLATELET COUNT 185 10^3/uL (130-400); WHITE BLOOD COUNT 16.8 10^3/uL (4.3-11.0)
[2021-06-27 06:30] LABS: INR 2.1 (0.8-1.4); PROTHROMBIN TIME PATIENT 23.9 SEC (12.2-14.7)
[2021-06-27 06:34] LABS: ALBUMIN 2.4 GM/DL (3.2-4.5); POTASSIUM 5.2 MMOL/L (3.6-5.0)
[2021-06-27 06:35] LABS: CALCIUM 7.7 MG/DL (8.5-10.1)
[2021-06-27 06:36] LABS: TOTAL PROTEIN 5.1 GM/DL (6.4-8.2)
[2021-06-27 06:38] LABS: BILIRUBIN,TOTAL 0.6 MG/DL (0.1-1.0)
[2021-06-27 06:40] LABS: CREATININE SERUM 1.67 MG/DL (0.60-1.30)
[2021-06-27] MEDS: inSUlin ASPART (NovoLOG) 1 UNIT/0.01 ML (CHARGE PER UNIT) SC SCH ×4 (06:41→21:38)
[2021-06-27] MEDS: FERROUS SULF 325 MG (IRON) TAB PO SCH (06:46)
--- NOTE | 2021-06-27 08:55 | Diagnostic Imaging Report ---
EXAMINATION: Portable erect AP chest at 8:46 AM. INDICATION: Pneumonia. FINDINGS: The cardiomegaly and the diffuse alveolar/interstitial pulmonary infiltrates involving both lungs seen on the prior exam of 06/25/2021 are again evident and not significantly changed. There is still no sign of a pleural effusion. The mediastinum is not widened. The osseous structures are intact. Sternotomy wires and surgical clips are again noted. IMPRESSION: Stable chest. There has been no significant change since the prior exam. Dictated by: Dictated on workstation # [id number]
[2021-06-27 09:10] LABS: ABG BASE EXCESS -0.3 MMOL/L (-2.5-2.5); ABG OXYGEN SATURATION 91 % (94-100); ABG PCO2 44 MMHG (35-45); ABG PH 7.36 (7.37-7.43); ABG PO2 57 MMHG (79-93); ALLENS TEST YES-POS; INSPIRED O2 100%; VENTILATOR NO
[2021-06-27 09:11] LABS: PATIENT TEMP 36
[2021-06-27] MEDS: GLIMEPIRIDE 1 MG (AMARYL) TAB PO SCH (09:23)
[2021-06-27] MEDS: FUROSEMIDE 40 MG (LASIX) TAB PO SCH (09:23)
[2021-06-27] MEDS: ALLOPURINOL 100 MG (ZYLOPRIM) TAB PO SCH ×2 (09:23→21:01)
[2021-06-27] MEDS: polyethylene glycoL POWDER 17 GM (MIRALAX) PACK PO SCH ×2 (09:25→20:22)
[2021-06-27] MEDS: DOCUSATE SODIUM 100 MG (COLACE) CAP PO SCH ×2 (09:25→21:02)
[2021-06-27] MEDS: SENNOSIDES 8.6 MG (SENOKOT) TAB PO SCH ×2 (09:26→21:02)
[2021-06-27] MEDS: SENNA W/DOCUSATE (SENOKOT S) TABLET PO SCH ×2 (09:26→21:02)
--- NOTE | 2021-06-27 10:19 | Cardiology Progress Note ---
Progress Note-Cardiology Events since last exam Date Seen by Provider: Jun 27, 2021 Time Seen by Provider: 10:18 Events since last exam I am following him due to heart failure. He continues to require high flow o xygen via mask or Vapotherm. He does not tolerate the Vapotherm because this makes him feel more short of breath. On the other hand, he feels better. He denies chest discomfort, palpitations, syncope, or ankle edema. Certain portions of this document may have been dictated utilizing voice recogn ition technology. Inherent to this technology, typographical and grammatical errors may exist. As much as I am diligent to identify and correct these mistakes, some errors may remain in the document. Vitals Last set of Vitals Signs Vital Signs 06/27/21 06/27/21 06/27/21 04:10 07:49 09:00 Temp 36.0 Pulse 64 Resp 22 B/P (MAP) 135/65 (88) Pulse Ox 91 O2 Delivery Vapotherm O2 Flow Rate 30.00 FiO2 100 Labs Labs Laboratory Tests 06/27/21 05:40 Exam Vital Signs Vital Signs Date Time Temp Pulse Resp B/P (MAP) Pulse Ox O2 Delivery O2 Flow Rate FiO2 06/27/21 09:00 Vapotherm 30.00 100 06/27/21 07:49 36.0 64 22 135/65 (88) 06/27/21 04:10 91 Physical Exam General: Alert. No acute distress. He was on oxygen by facial mask when I saw him. Eye: No xanthelasma. HENT: Normocephalic. Neck: Jugular venous pressure does not appear elevated. Respiratory: Lungs are clear to auscultation but with diffusely decreased breath sounds. Respirations are non-labored. Breath sounds are equal. Symmetrical chest wall expansion. Cardiovascular: Normal rate. Irregular rhythm. 2/6 systolic ejection murmur. No gallop. No edema. Gastrointestinal: Soft. Normal bowel sounds. Skin: Warm. Dry. Diffuse ecchymoses on both upper extremities. Neurologic: Alert and oriented to person, place, time. Cranial nerves 3-11 gr ossly intact. Psychiatric: Cooperative. Appropriate mood & affect. Labs Laboratory Tests Test 06/26/21 15:33 06/26/21 21:20 06/27/21 05:40 06/27/21 08:55 Range/Units Glucometer 278 H 272 H 70-110 MG/DL White Blood Count 16.8 H 4.3-11.0 10^3/uL Red Blood Count 4.19 L 4.30-5.52 10^6/uL Hemoglobin 12.2 L 13.3-17.7 g/dL Hematocrit 38 L 40-54 % Mean Corpuscular Volume 91 80-99 fL Mean Corpuscular Hemoglobin 29 25-34 pg Mean Corpuscular Hemoglobin Concent 32 32-36 g/dL Red Cell Distribution Width 14.8 H 10.0-14.5 % Platelet Count 185 130-400 10^3/uL Mean Platelet Volume 12.4 H 9.0-12.2 fL Immature Granulocyte % (Auto) 2 % Neutrophils (%) (Auto) 88 H 42-75 % Lymphocytes (%) (Auto) 3 L 12-44 % Monocytes (%) (Auto) 6 0-12 % Eosinophils (%) (Auto) 1 0-10 % Basophils (%) (Auto) 0 0-10 % Neutrophils # (Auto) 14.8 H 1.8-7.8 10^3/uL Lymphocytes # (Auto) 0.6 L 1.0-4.0 10^3/uL Monocytes # (Auto) 1.0 0.0-1.0 10^3/uL Eosinophils # (Auto) 0.2 0.0-0.3 10^3/uL Basophils # (Auto) 0.0 0.0-0.1 10^3/uL Immature Granulocyte # (Auto) 0.3 H 0.0-0.1 10^3/uL Prothrombin Time 23.9 H 12.2-14.7 SEC INR Comment 2.1 H 0.8-1.4 Sodium Level 139 135-145 MMOL/L Potassium Level 5.2 H 3.6-5.0 MMOL/L Chloride Level 106 98-107 MMOL/L Carbon Dioxide Level 25 21-32 MMOL/L Anion Gap 8 5-14 MMOL/L Blood Urea Nitrogen 59 H 7-18 MG/DL Creatinine 1.67 H 0.60-1.30 MG/DL Estimat Glomerular Filtration Rate 40 BUN/Creatinine Ratio 35 Glucose Level 139 H 70-105 MG/DL Calcium Level 7.7 L 8.5-10.1 MG/DL Corrected Calcium 9.0 8.5-10.1 MG/DL Total Bilirubin 0.6 0.1-1.0 MG/DL Aspartate Amino Transf (AST/SGOT) 11 5-34 U/L Alanine Aminotransferase (ALT/SGPT) 10 0-55 U/L Alkaline Phosphatase 61 40-136 U/L Total Protein 5.1 L 6.4-8.2 GM/DL Albumin 2.4 L 3.2-4.5 GM/DL Blood Gas Puncture Site RR Blood Gas Patient Temperature 36 Arterial Blood pH 7.36 L 7.37-7.43 Arterial Blood Partial Pressure CO2 44 35-45 MMHG Arterial Blood Partial Pressure O2 57 L 79-93 MMHG Arterial Blood HCO3 25 23-27 MMOL/L Arterial Blood Total CO2 26.0 21.0-31.0 MMOL/L Arterial Blood Oxygen Saturation 91 L 94-100 % Arterial Blood Base Excess -0.3 -2.5-2.5 MMOL/L Alex Test YES-POS Blood Gas Ventilator Setting NO Blood Gas Inspired Oxygen 100% Test 06/27/21 11:22 Range/Units Glucometer 226 H 70-110 MG/DL Diagnosis/Problems Diagnosis/Problems (1) Acute on chronic heart failure with preserved ejection fraction (HFpEF) Assessment & Plan: He has worsening bilateral pulmonary infiltrates noted on his chest x-ray but he told me he was not short of breath but clearly, became ve ry short of breath on 06/25 when he was placed on Vapotherm. His BNP level is marginally elevated. I would question whether or not there is also some other etiology of the pulmonary infiltrates as opposed to heart failure. His chest x- ray has not really changed over the past several days. I will change his oral diuretic over to intravenous. We will need to watch his renal function closely. (2) Permanent atrial fibrillation Assessment & Plan: He appears to have permanent atrial fibrillation. At one point, he appears to have been taking apixaban for stroke prophylaxis but now he is on warfarin. He is on metoprolol for rate control. (3) Coronary artery disease without angina pectoris Assessment & Plan: He has not been having any angina. He is on warfarin, beta- itzel and statin medication. He was also on aspirin which I have stopped. I stopped aspirin to help reduce the risk of hemorrhagic side effects from dual pathway inhibition. (4) Pulmonary hypertension Assessment & Plan: He has severe pulmonary hypertension. I suspect this is related to chronic heart failure and his valvular heart disease as well as possibly some underlying pulmonary disease. He may benefit from home oxygen if he is not already using this. (5) Mitral regurgitation Assessment & Plan: He appears to have had a previous MitraClip procedure. His echocardiogram from this admission only showed mild mitral regurgitation. This should not be contributing to his symptoms. (6) Thoracic aortic aneurysm without rupture Assessment & Plan: This was noted on his echocardiogram from this admission. This is in a mild range. This will need to be followed longitudinally. (7) Stage 3 chronic kidney disease Assessment & Plan: We will need to watch his renal function closely with diuretics. FINN GOMEZ JR, MD Jun 27, 2021 10:19
[2021-06-27] MEDS: ALPRAZolam 0.25 MG (XANAX) TAB PO PRN (10:33)
[2021-06-27] MEDS: CEFEPIME INJECTION 1,000 MG in NS (IVPB) 50 ML IV SCH ×2 (11:25→17:49)
[2021-06-27] MEDS ORDERED: FUROSEMIDE 40 MG/4 ML INJ (LASIX) IVP ONE (11:45)
[2021-06-27] MEDS: DOXYCYCLINE INJECTION 100 MG in NS (IVPB) 100 ML IV SCH ×2 (12:10→21:01)
--- NOTE | 2021-06-27 13:26 | Progress Note ---
POLLY QUINONEZ 06/27/21 1326: Subjective Date Seen by a Provider: Jun 27, 2021 Time Seen by a Provider: 11:00 Subjective/Events-last exam Patient is sitting up at the side of his bed. He is alert and disgruntled. He denies shortness of breath and states he is breathing well. He is upset by the n umber of health care providers coming in and out of his room and the number of devices necessary to maintain his oxygen saturation. At the time his SpO2 was 91% with 15L high flow nasal cannula. Later in the morning the patient was switched to vapotherm. His daughter came later in the morning; she appears to have a good understanding of the patient's condition and is a good support person for the patient. INR: 2.1 AB.36/44/57 Blood glucose: 139 Lactic acid: 0.94 K: 5.2, possibly due to blood draw or leukocytosis His blood pressure has been running elevated, it was 149/67 this morning. CXR: yesterday the patient's CXR read concern for multifocal pneumonia or pulmonary edema. Today the CXR read stable chest with no significant changes since yesterday. WBC: 16.8. Has been trending up since 06/24/2021. Patient is currently on decadron, however due to steady increase in WBC and yesterday's CXR results, there is concern for secondary bacterial pneumonia. Review of Systems HEENT: No Head Aches Pulmonary: No Dyspnea, No Cough Cardiovascular: No: Chest Pain Gastrointestinal: No: Abdominal Pain Focused Exam Lactate Level 06/27/21 11:25: Lactic Acid Level 0.94 Lactic Acid Level Laboratory Tests Test 06/27/21 11:25 Lactic Acid Level 0.94 MMOL/L (0.50-2.00) Objective Exam Last Set of Vital Signs Vital Signs Date Time Temp Pulse Resp B/P (MAP) Pulse Ox O2 Delivery O2 Flow Rate FiO2 06/27/21 13:00 60 06/27/21 12:36 36.6 24 128/66 (86) 90 Non Rebreather 15.00 06/27/21 09:00 100 Capillary Refill : Less Than 3 Seconds I&O Intake and Output 06/27/21 00:00 Intake Total 1900 ml Balance 1900 ml Intake Oral 1900 ml # Voids 14 General: Alert, No Acute Distress HEENT: Atraumatic Lungs: Other (decreased air movement throughout, mild coarse breath sounds throughout) Heart: Regular Rate, Normal S1, Normal S2 Abdomen: Normal Bowel Sounds Skin: Other (ecchymosis and abrasions on his head and arms from previous fall) Neuro: Normal Speech Psych/Mental Status: Mental Status NL Results Lab Laboratory Tests 06/26/21 15:33: Glucometer 278H 06/26/21 21:20: Glucometer 272H 06/27/21 05:40: White Blood Count 16.8H, Red Blood Count 4.19L, Hemoglobin 12.2L, Hematocrit 38L , Mean Corpuscular Volume 91, Mean Corpuscular Hemoglobin 29, Mean Corpuscular Hemoglobin Concent 32, Red Cell Distribution Width 14.8H, Platelet Count 185, Mean Platelet Volume 12.4H, Immature Granulocyte % (Auto) 2, Neutrophils (%) (Auto) 88H, Lymphocytes (%) (Auto) 3L, Monocytes (%) (Auto) 6, Eosinophils (%) (Auto) 1, Basophils (%) (Auto) 0, Neutrophils # (Auto) 14.8H, Lymphocytes # (Auto) 0.6L, Monocytes # (Auto) 1.0, Eosinophils # (Auto) 0.2, Basophils # (Auto) 0.0, Immature Granulocyte # (Auto) 0.3H, Prothrombin Time 23.9H, INR Comment 2.1H, Sodium Level 139, Potassium Level 5.2H, Chloride Level 106, Carbon Dioxide Level 25, Anion Gap 8, Blood Urea Nitrogen 59H, Creatinine 1.67H, Estimat Glomerular Filtration Rate 40, BUN/Creatinine Ratio 35, Glucose Level 139H, Calcium Level 7.7L, Corrected Calcium 9.0, Total Bilirubin 0.6, Aspartate Amino Transf (AST/SGOT) 11, Alanine Aminotransferase (ALT/SGPT) 10, Alkaline Phosphatase 61, Total Protein 5.1L, Albumin 2.4L, Procalcitonin 0.27H 06/27/21 08:55: Blood Gas Puncture Site RR, Blood Gas Patient Temperature 36, Arterial Blood pH 7.36L, Arterial Blood Partial Pressure CO2 44, Arterial Blood Partial Pressure O2 57L, Arterial Blood HCO3 25, Arterial Blood Total CO2 26.0, Arterial Blood Oxygen Saturation 91L, Arterial Blood Base Excess -0.3, Alex Test YES-POS, Blood Gas Ventilator Setting NO, Blood Gas Inspired Oxygen 100% 06/27/21 11:22: Glucometer 226H 06/27/21 11:25: Lactic Acid Level 0.94 Microbiology 06/18/21 Blood Culture - Final, Complete No growth Assessment/Plan Assessment/Plan Assess & Plan/Chief Complaint Assessment: Acute hypoxic respiratory failure COVID-19 pneumonia diagnosed 9 days ago Fall with abrasions of the left side Presbycusis Advanced age Severe debility Hypertension Hyperlipidemia CAD Atrial fibrillation Chronic kidney disease Gout Thoracic Aortic Aneurysm diagnosed on Echo Possible secondary bacterial pneumonia Hyperkalemia, possible due to lab draw or leukocytosis Plan: Continue vapotherm, monitor patient's respiratory status Appreciate Cardiology Continue medications Continue to wean O2 Continue Bowel Regimen as needed Continue warfarin at 5mg and monitor INR Monitor blood sugar, consider resuming insulin detemir if blood sugar continues to be elevated Follow AM labs, monitor K level Recommend Follow up care for thoracic aneurysm Begin cefepime HCl 1000mg/ NaCl 50ml @ 100mls/hour Q8HR IV Begin doxycycline hyclate 100mg/NaCl 100ml @ 100mls/hr Q12HR IV JOELLEN FUENTES DO 06/28/21 0806: Subjective Subjective/Events-last exam Pt requiring Vapotherm with a face mask Xanax is being used to help with anxiety Elevated White Count due to steroids but it could be a Bacterial Pneumonia starting so we will start Cefepime after blood cultures are done Wants to be a due not intubate and do not resuscitate pending Overall, talked in depth with his daughter and explained the plan and everyone is in agreement with Vapotherm and trying to be supportive Review of Systems General: Malaise Pulmonary: Dyspnea Objective Exam General: Alert, Oriented X3, Cooperative Lungs: Clear to Auscultation, Normal Air Movement Heart: Regular Rate Psych/Mental Status: Mental Status NL Assessment/Plan Assessment/Plan Assess & Plan/Chief Complaint Vapotherm BiPAP DNI Supervisory-Addendum Brief Verification & Attestation Participated in pt care: history, MDM, physical Personally performed: exam, history, MDM, supervision of care Care discussed with: Medical Student Procedures: n/a Results interpretation: Verified all documentation Verification and Attestation of Medical Student E/M Service A medical student performed and documented this service in my presence. I reviewed and verified all information documented by the medical student and made modifications to such information, when appropriate. I personally performed the physical exam and medical decision making. Joellen Fuentes, Jun 28, 2021,08:05 POLLY QUINONEZ Jun 27, 2021 13:26 JOELLEN FUENTES DO Jun 28, 2021 08:06
[2021-06-27] MEDS: warFARin 3 MG (COUMADIN) TAB PO SCH (17:49)
[2021-06-27] MEDS: traZODone 50 MG (DESYREL) TAB PO SCH (21:01)
[2021-06-27] MEDS: GABAPENTIN 300 MG (NEURONTIN) CAP PO SCH (21:01)
[2021-06-28] MEDS: RT-ALBUTEROL HFA 8.5 GM INHALER IH SCH ×3 (02:38→13:36)
[2021-06-28] MEDS: CEFEPIME INJECTION 1,000 MG in NS (IVPB) 50 ML IV SCH ×3 (03:47→18:24)
[2021-06-28 03:52] VITALS: BP 165/71
[2021-06-28] MEDS: inSUlin ASPART (NovoLOG) 1 UNIT/0.01 ML (CHARGE PER UNIT) SC SCH ×4 (06:15→22:38)
[2021-06-28 06:42] LABS: BASOPHILS % (AUTO) 0 % (0-10); EOSINOPHILS # (AUTO) 0.2 10^3/uL (0.0-0.3); EOSINOPHILS % (AUTO) 1 % (0-10); HEMATOCRIT 42 % (40-54); LYMPHOCYTES # (AUTO) 0.6 10^3/uL (1.0-4.0); LYMPHOCYTES % (AUTO) 3 % (12-44); MEAN CORPUSCULAR HEMOGLOBIN 29 pg (25-34); MEAN CORPUSCULAR HGB CONC 31 g/dL (32-36); MEAN CORPUSCULAR VOLUME 93 fL (80-99); MEAN PLATELET VOLUME 12.4 fL (9.0-12.2); MONOCYTES # (AUTO) 0.9 10^3/uL (0.0-1.0); MONOCYTES % (AUTO) 5 % (0-12); NEUTROPHILS # (AUTO) 17.9 10^3/uL (1.8-7.8); NEUTROPHILS % (AUTO) 90 % (42-75); PLATELET COUNT 156 10^3/uL (130-400); WHITE BLOOD COUNT 19.9 10^3/uL (4.3-11.0)
[2021-06-28 06:48] LABS: ALBUMIN 2.7 GM/DL (3.2-4.5); POTASSIUM 5.3 MMOL/L (3.6-5.0)
[2021-06-28 06:50] LABS: TOTAL PROTEIN 5.8 GM/DL (6.4-8.2)
[2021-06-28 06:52] LABS: BILIRUBIN,TOTAL 0.7 MG/DL (0.1-1.0)
[2021-06-28 06:54] LABS: CREATININE SERUM 1.99 MG/DL (0.60-1.30)
[2021-06-28 08:00] VITALS: BP 150/62
--- NOTE | 2021-06-28 08:07 | Diagnostic Imaging Report ---
INDICATION: COVID pneumonia. TECHNIQUE: Single view chest 8:04 AM. CORRELATION STUDY: 06/27/2021 FINDINGS: Poststernotomy and coronary bypass changes. Heart size obscured but appears to be enlarged. Independence screws over the central heart likely owing to prior mitral valve surgery. Mediastinum is prominent but stable. Extensive scattered dense pulmonary infiltrate-like opacities are again demonstrated overall appears increased in severity of consolidation. IMPRESSION: 1. Extensive bilateral pulmonary infiltrates are again demonstrated overall appears slightly worsened with increased severity of consolidation from prior. Favors multilobe pneumonia. Report was faxed to [facility] by tripp at 8:07AM. Dictated by: Dictated on workstation # [id number]
[2021-06-28 08:48] LABS: ABG BASE EXCESS 1.3 MMOL/L (-2.5-2.5); ABG OXYGEN SATURATION 89 % (94-100); ABG PCO2 40 MMHG (35-45); ABG PH 7.42 (7.37-7.43); ABG PO2 53 MMHG (79-93)
[2021-06-28 08:49] LABS: ALLENS TEST YES-POS; INSPIRED O2 100%; PATIENT TEMP 35.8; VENTILATOR NO
[2021-06-28] MEDS: SENNOSIDES 8.6 MG (SENOKOT) TAB PO SCH ×2 (08:49→22:26)
[2021-06-28] MEDS: GLIMEPIRIDE 1 MG (AMARYL) TAB PO SCH (08:49)
[2021-06-28] MEDS: FERROUS SULF 325 MG (IRON) TAB PO SCH (08:49)
[2021-06-28] MEDS: DOCUSATE SODIUM 100 MG (COLACE) CAP PO SCH ×2 (08:50→22:26)
[2021-06-28] MEDS: polyethylene glycoL POWDER 17 GM (MIRALAX) PACK PO SCH ×2 (08:50→22:26)
[2021-06-28] MEDS: ALLOPURINOL 100 MG (ZYLOPRIM) TAB PO SCH ×2 (08:52→22:39)
[2021-06-28] MEDS: SENNA W/DOCUSATE (SENOKOT S) TABLET PO SCH ×2 (08:52→22:26)
[2021-06-28] MEDS ORDERED: FUROSEMIDE 40 MG/4 ML INJ (LASIX) IVP SCH (09:00)
--- NOTE | 2021-06-28 09:40 | Progress Note ---
Subjective Date Seen by a Provider: Jun 28, 2021 Time Seen by a Provider: 12:30 Subjective/Events-last exam Patient having more and more issues Requiring BiPAP now Xanax helping Patient declining overall Updated daughter outside of room when patient was sleeping she is well aware that he will likely not improve and DO NOT RESUSCITATE and prevent chest compressions and cardiac arrest CODE BLUE processes would be reasonable. Her brother is not coming to terms with this very well yet. Spoke with daughter on the phone again after they became upset with DNR bracelet. Unsure about how much recovery potential patient has. DO NOT INTUBATE but continuing on with cardiac arrest meds with be futility. Checked meds and labs Review of Systems General: Fatigue Pulmonary: Dyspnea Focused Exam Lactate Level 06/27/21 11:25: Lactic Acid Level 0.94 Objective Exam Last Set of Vital Signs Vital Signs Date Time Temp Pulse Resp B/P (MAP) Pulse Ox O2 Delivery O2 Flow Rate FiO2 06/28/21 09:02 74 33 86 100.00 06/28/21 03:52 36.4 165/71 (102) Vapotherm 06/28/21 02:38 100 Capillary Refill : Less Than 3 Seconds I&O Intake and Output 06/27/21 23:59 Intake Total 1560 ml Output Total 900 ml Balance 660 ml Intake Oral 1410 ml IV Total 150 ml Output Urine Total 900 ml # Voids 5 General: Other (Sleeping on BiPAP) Lungs: Other Heart: Regular Rate Results Lab Laboratory Tests 06/27/21 11:22: Glucometer 226H 06/27/21 11:25: Lactic Acid Level 0.94 06/27/21 15:39: Glucometer 279H 06/27/21 21:18: Glucometer 270H 06/28/21 06:14: White Blood Count 19.9H, Red Blood Count 4.49, Hemoglobin 13.0L, Hematocrit 42, Mean Corpuscular Volume 93, Mean Corpuscular Hemoglobin 29, Mean Corpuscular Hemoglobin Concent 31L, Red Cell Distribution Width 15.0H, Platelet Count 156, Mean Platelet Volume 12.4H, Immature Granulocyte % (Auto) 1, Neutrophils (%) (Auto) 90H, Lymphocytes (%) (Auto) 3L, Monocytes (%) (Auto) 5, Eosinophils (%) (Auto) 1, Basophils (%) (Auto) 0, Neutrophils # (Auto) 17.9H, Lymphocytes # (Auto) 0.6L, Monocytes # (Auto) 0.9, Eosinophils # (Auto) 0.2, Basophils # (Auto) 0.0, Immature Granulocyte # (Auto) 0.3H, Sodium Level 139, Potassium Level 5.3H, Chloride Level 105, Carbon Dioxide Level 26, Anion Gap 8, Blood Urea Nitrogen 68H, Creatinine 1.99H, Estimat Glomerular Filtration Rate 33, BUN/Creatinine Ratio 34, Glucose Level 120H, Calcium Level 8.0L, Corrected Calcium 9.0, Total Bilirubin 0.7, Aspartate Amino Transf (AST/SGOT) 17, Alanine Aminotransferase (ALT/SGPT) 12, Alkaline Phosphatase 77, Total Protein 5.8L, Albumin 2.7L 06/28/21 06:21: Glucometer 119H 06/28/21 08:35: Blood Gas Puncture Site RT RAD, Blood Gas Patient Temperature 35.8, Arterial Blood pH 7.42, Arterial Blood Partial Pressure CO2 40, Arterial Blood Partial Pressure O2 53L, Arterial Blood HCO3 26, Arterial Blood Total CO2 27.0, Arterial Blood Oxygen Saturation 89L, Arterial Blood Base Excess 1.3, Alex Test YES-POS, Blood Gas Ventilator Setting NO, Blood Gas Inspired Oxygen 100% Microbiology 06/18/21 Blood Culture - Final, Complete No growth Assessment/Plan Assessment/Plan Assess & Plan/Chief Complaint Assessment: Acute hypoxic respiratory failure failed Vapotherm now on BiPAP and DO NOT INTUBATE patient COVID-19 pneumonia out of isolation Severe pulmonary hypertension of 75 on echo Fall with abrasions of the left side Presbycusis Advanced age Severe debility Hypertension Hyperlipidemia CAD Atrial fibrillation Chronic kidney disease Gout Thoracic Aortic Aneurysm diagnosed on Echo Plan: Highly recommend DNR Prognosis poor BiPAP Diagnosis/Problems Diagnosis/Problems (1) Pneumonia due to COVID-19 virus Status: Acute (2) T2DM (type 2 diabetes mellitus) Status: Acute (3) Acute kidney injury Status: Acute (4) Atrial fibrillation Status: Acute ARCENIO FUENTES DO Jun 28, 2021 09:40
[2021-06-28] MEDS: DOXYCYCLINE INJECTION 100 MG in NS (IVPB) 100 ML IV SCH ×2 (09:41→22:39)
[2021-06-28 12:00] VITALS: BP 157/72
[2021-06-28] MEDS: ALPRAZolam 0.25 MG (XANAX) TAB PO PRN ×2 (12:47→21:09)
[2021-06-28 15:34] VITALS: BP 157/72
[2021-06-28 15:45] VITALS: BP 153/63
[2021-06-28] MEDS ORDERED: RT-ALBUTEROL/IPRATROPIUM 3 ML (DUONEB) VIAL INH PRN (15:45)
[2021-06-28] MEDS: warFARin 3 MG (COUMADIN) TAB PO SCH (17:23)
[2021-06-28] MEDS: RT-ALBUTEROL/IPRATROPIUM 3 ML (DUONEB) VIAL INH SCH ×2 (18:44→22:17)
[2021-06-28 19:42] VITALS: BP 134/62
[2021-06-28] MEDS: GABAPENTIN 300 MG (NEURONTIN) CAP PO SCH (22:40)
[2021-06-28] MEDS: traZODone 50 MG (DESYREL) TAB PO SCH (22:40)
[2021-06-29 00:49] VITALS: BP 138/66
[2021-06-29] MEDS: RT-ALBUTEROL/IPRATROPIUM 3 ML (DUONEB) VIAL INH SCH ×6 (02:32→21:55)
[2021-06-29 04:15] VITALS: BP 147/64
[2021-06-29] MEDS: CEFEPIME INJECTION 1,000 MG in NS (IVPB) 50 ML IV SCH ×3 (04:48→19:02)
[2021-06-29 05:46] LABS: BASOPHILS % (AUTO) 0 % (0-10); EOSINOPHILS % (AUTO) 0 % (0-10); HEMATOCRIT 39 % (40-54); HEMOGLOBIN 11.8 g/dL (13.3-17.7); LYMPHOCYTES # (AUTO) 0.3 10^3/uL (1.0-4.0); LYMPHOCYTES % (AUTO) 2 % (12-44); MEAN CORPUSCULAR HEMOGLOBIN 28 pg (25-34); MEAN CORPUSCULAR HGB CONC 30 g/dL (32-36); MEAN CORPUSCULAR VOLUME 93 fL (80-99); MEAN PLATELET VOLUME 12.5 fL (9.0-12.2); MONOCYTES # (AUTO) 0.6 10^3/uL (0.0-1.0); MONOCYTES % (AUTO) 4 % (0-12); NEUTROPHILS # (AUTO) 13.5 10^3/uL (1.8-7.8); NEUTROPHILS % (AUTO) 92 % (42-75); PLATELET COUNT 130 10^3/uL (130-400); WHITE BLOOD COUNT 14.6 10^3/uL (4.3-11.0)
[2021-06-29 05:56] LABS: ALBUMIN 2.5 GM/DL (3.2-4.5)
[2021-06-29 05:57] LABS: POTASSIUM 5.6 MMOL/L (3.6-5.0)
[2021-06-29 05:58] LABS: CALCIUM 7.8 MG/DL (8.5-10.1)
[2021-06-29 05:59] LABS: TOTAL PROTEIN 5.5 GM/DL (6.4-8.2)
[2021-06-29 06:01] LABS: BILIRUBIN,TOTAL 0.4 MG/DL (0.1-1.0)
[2021-06-29 06:03] LABS: CREATININE SERUM 2.67 MG/DL (0.60-1.30)
[2021-06-29 06:28] LABS: INR 2.2 (0.8-1.4)
[2021-06-29] MEDS: FERROUS SULF 325 MG (IRON) TAB PO SCH (06:29)
[2021-06-29] MEDS: inSUlin ASPART (NovoLOG) 1 UNIT/0.01 ML (CHARGE PER UNIT) SC SCH ×4 (06:35→20:26)
--- NOTE | 2021-06-29 07:11 | Diagnostic Imaging Report ---
Indication: Respiratory failure Portable chest 6:45 AM Comparison with the previous day There are bilateral perihilar infiltrates. There are no effusions or pneumothoraces. 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 IMPRESSION: Severe diffuse perihilar alveolar infiltrates. No appreciable change from the previous day. Dictated by: Dictated on workstation # [id number]
[2021-06-29 07:36] LABS: ABG BASE EXCESS -0.8 MMOL/L (-2.5-2.5); ABG OXYGEN SATURATION 95 % (94-100); ABG PCO2 45 MMHG (35-45); ABG PH 7.35 (7.37-7.43); ABG PO2 71 MMHG (79-93); ABG TCO2 25.7 MMOL/L (21.0-31.0); ALLENS TEST YES-POS; INSPIRED O2 100%; VENTILATOR NO
[2021-06-29 08:00] VITALS: BP 162/70
[2021-06-29] MEDS: GLIMEPIRIDE 1 MG (AMARYL) TAB PO SCH (08:11)
[2021-06-29] MEDS: ALLOPURINOL 100 MG (ZYLOPRIM) TAB PO SCH ×2 (08:12→20:11)
[2021-06-29] MEDS: SENNOSIDES 8.6 MG (SENOKOT) TAB PO SCH ×2 (08:13→20:13)
[2021-06-29] MEDS: SENNA W/DOCUSATE (SENOKOT S) TABLET PO SCH ×2 (08:13→20:13)
[2021-06-29] MEDS: polyethylene glycoL POWDER 17 GM (MIRALAX) PACK PO SCH ×2 (08:14→20:13)
[2021-06-29] MEDS: DOCUSATE SODIUM 100 MG (COLACE) CAP PO SCH ×2 (08:14→20:12)
[2021-06-29] MEDS: DOXYCYCLINE INJECTION 100 MG in NS (IVPB) 100 ML IV SCH ×2 (08:14→20:11)
--- NOTE | 2021-06-29 08:24 | Progress Note ---
Subjective Date Seen by a Provider: Jun 29, 2021 Time Seen by a Provider: 13:30 Subjective/Events-last exam Patient BiPAP dependent Updated family at bedside DNR agreed upon Patient appears to be fatigued Creatinine is elevated INR is 2.2 Chest x-ray worse Overall poor prognosis Review of Systems Pulmonary: Dyspnea, Cough Focused Exam Lactate Level 06/27/21 11:25: Lactic Acid Level 0.94 Objective Exam Last Set of Vital Signs Vital Signs Date Time Temp Pulse Resp B/P (MAP) Pulse Ox O2 Delivery O2 Flow Rate FiO2 06/29/21 07:05 42 29 92 100.00 06/29/21 04:15 35.9 147/64 (91) NIV Bilevel 06/28/21 18:44 100 Capillary Refill : Less Than 3 Seconds I&O Intake and Output 06/29/21 00:00 Intake Total 1510 ml Output Total 1250 ml Balance 260 ml Intake Oral 1510 ml Output Urine Total 1250 ml # Voids 2 General: Alert, Oriented X3, Cooperative, No Acute Distress Lungs: Clear to Auscultation, Normal Air Movement Heart: Regular Rate Psych/Mental Status: Mental Status NL Results Lab Laboratory Tests 06/28/21 08:35: Blood Gas Puncture Site RT RAD, Blood Gas Patient Temperature 35.8, Arterial Blood pH 7.42, Arterial Blood Partial Pressure CO2 40, Arterial Blood Partial Pressure O2 53L, Arterial Blood HCO3 26, Arterial Blood Total CO2 27.0, Arterial Blood Oxygen Saturation 89L, Arterial Blood Base Excess 1.3, Alex Test YES-POS, Blood Gas Ventilator Setting NO, Blood Gas Inspired Oxygen 100% 06/28/21 12:22: Glucometer 180H 06/28/21 15:49: Glucometer 368H 06/28/21 21:44: Glucometer 390H 06/29/21 05:06: White Blood Count 14.6H, Red Blood Count 4.18L, Hemoglobin 11.8L, Hematocrit 39L , Mean Corpuscular Volume 93, Mean Corpuscular Hemoglobin 28, Mean Corpuscular Hemoglobin Concent 30L, Red Cell Distribution Width 14.8H, Platelet Count 130, Mean Platelet Volume 12.5H, Immature Granulocyte % (Auto) 1, Neutrophils (%) (Auto) 92H, Lymphocytes (%) (Auto) 2L, Monocytes (%) (Auto) 4, Eosinophils (%) (Auto) 0, Basophils (%) (Auto) 0, Neutrophils # (Auto) 13.5H, Lymphocytes # (Auto) 0.3L, Monocytes # (Auto) 0.6, Eosinophils # (Auto) 0.0, Basophils # (Auto) 0.0, Immature Granulocyte # (Auto) 0.2H, Prothrombin Time 25.0H, INR Comment 2.2H, Sodium Level 136, Potassium Level 5.6H, Chloride Level 103, Carbon Dioxide Level 24, Anion Gap 9, Blood Urea Nitrogen 82H, Creatinine 2.67#H, Estimat Glomerular Filtration Rate 23, BUN/Creatinine Ratio 31, Glucose Level 260H, Calcium Level 7.8L, Corrected Calcium 9.0, Total Bilirubin 0.4, Aspartate Amino Transf (AST/SGOT) 10, Alanine Aminotransferase (ALT/SGPT) 11, Alkaline Phosphatase 71, Total Protein 5.5L, Albumin 2.5L, Procalcitonin 0.60H 06/29/21 06:06: Glucometer 225H 06/29/21 07:30: Blood Gas Puncture Site RT RAD, Blood Gas Patient Temperature 36.0, Arterial Blood pH 7.35L, Arterial Blood Partial Pressure CO2 45, Arterial Blood Partial Pressure O2 71L, Arterial Blood HCO3 24, Arterial Blood Total CO2 25.7, Arterial Blood Oxygen Saturation 95, Arterial Blood Base Excess -0.8, Alex Test YES-POS, Blood Gas Ventilator Setting NO, Blood Gas Inspired Oxygen 100% Microbiology 06/27/21 Blood Culture - Preliminary, Resulted Gram Positive Bacillus 1 Assessment/Plan Assessment/Plan Assess & Plan/Chief Complaint Assessment: Acute hypoxic respiratory failure failed Vapotherm now on BiPAP and DO NOT INTUBATE patient COVID-19 pneumonia out of isolation Severe pulmonary hypertension of 75 on echo Fall with abrasions of the left side Presbycusis Advanced age Severe debility Hypertension Hyperlipidemia CAD Atrial fibrillation Chronic kidney disease Gout Thoracic Aortic Aneurysm diagnosed on Echo Plan: Highly recommend DNR Prognosis poor BiPAP 06/29/21: Monitor patient closely DNR Diagnosis/Problems Diagnosis/Problems (1) Pneumonia due to COVID-19 virus Status: Acute (2) T2DM (type 2 diabetes mellitus) Status: Acute (3) Acute kidney injury Status: Acute (4) Atrial fibrillation Status: Acute ARCENIO FUENTES DO Jun 29, 2021 08:24
[2021-06-29] MEDS: ALPRAZolam 0.25 MG (XANAX) TAB PO PRN ×3 (08:25→23:46)
--- NOTE | 2021-06-29 10:53 | Cardiology Progress Note ---
Subjective Date Seen by Provider: Jun 29, 2021 Time Seen by Provider: 10:51 Subjective/Events-last exam Patient is laying down in bed, not responsive. On BiPAP I visited with his son-in-law. Review of Systems General: Other (Unable to provide review of system) Focused Exam Lactate Level 06/27/21 11:25: Lactic Acid Level 0.94 Objective-Cardiology Exam Last Set of Vital Signs Vital Signs 06/28/21 06/29/21 06/29/21 18:44 08:00 09:32 Temp 36.5 Pulse 82 Resp 29 B/P (MAP) 162/70 (100) Pulse Ox 91 O2 Delivery NIV Bilevel O2 Flow Rate 100.00 FiO2 100 I&O Intake and Output 06/29/21 00:00 Intake Total 1510 ml Output Total 1250 ml Balance 260 ml Intake Oral 1510 ml Output Urine Total 1250 ml # Voids 2 General: Other (Sleeping on BiPAP) HEENT: Atraumatic Neck: Supple Lungs: Other Heart: Regular Rate Abdomen: Normal Bowel Sounds Extremities: No Clubbing, No Cyanosis, No Edema Skin: Other (ecchymosis and abrasions on his head and arms from previous fall) Neuro: Normal Speech Psych/Mental Status: Mental Status NL Results Lab Laboratory Tests 06/29/21 05:06 A/P-Cardiology Admission Diagnosis Acute respiratory failure COVID-19 pneumonia Coronary artery disease Atrial fibrillation Assessment/Plan Acute respiratory failure, maintained on BiPAP COVID-19 pneumonia, not responding to treatment, currently off isolation. Maintained on BiPAP Congestive heart failure, acute on chronic left ventricular diastolic dysfunction. Currently on BiPAP. Permanent atrial fibrillation, monitor heart rate Coronary artery disease, clinically stable. Continue to monitor Thoracic aortic aneurysm, continue to monitor SARAH COLEY MD Jun 29, 2021 10:53
[2021-06-29 15:57] VITALS: BP 168/70
[2021-06-29] MEDS: warFARin 3 MG (COUMADIN) TAB PO SCH (17:55)
[2021-06-29 19:19] VITALS: BP 151/69
[2021-06-29] MEDS: traZODone 50 MG (DESYREL) TAB PO SCH (20:11)
[2021-06-29] MEDS: GABAPENTIN 300 MG (NEURONTIN) CAP PO SCH (20:11)
[2021-06-29 23:44] VITALS: BP 129/76
[2021-06-30] MEDS: RT-ALBUTEROL/IPRATROPIUM 3 ML (DUONEB) VIAL INH SCH ×3 (02:28→11:04)
[2021-06-30] MEDS: CEFEPIME INJECTION 1,000 MG in NS (IVPB) 50 ML IV SCH ×2 (02:51→12:19)
[2021-06-30 04:00] VITALS: BP 120/96
[2021-06-30] MEDS ORDERED: LORazepam INJ 2 MG/ML (ATIVAN) VIAL IVP PRN (05:00)
[2021-06-30] MEDS ORDERED: morphine INJ 10 MG/ML 1ML (SYR OR VIAL) IVP PRN (05:00)
[2021-06-30] MEDS: inSUlin ASPART (NovoLOG) 1 UNIT/0.01 ML (CHARGE PER UNIT) SC SCH ×2 (05:49→12:19)
[2021-06-30] MEDS: FERROUS SULF 325 MG (IRON) TAB PO SCH (05:49)
[2021-06-30 06:50] LABS: MEAN CORPUSCULAR VOLUME 92 fL (80-99)
[2021-06-30 06:52] LABS: BASOPHILS # (AUTO) 0.1 10^3/uL (0.0-0.1); BASOPHILS % (AUTO) 0 % (0-10); EOSINOPHILS # (AUTO) 0.2 10^3/uL (0.0-0.3); EOSINOPHILS % (AUTO) 1 % (0-10); HEMATOCRIT 42 % (40-54); LYMPHOCYTES # (AUTO) 0.3 10^3/uL (1.0-4.0); LYMPHOCYTES % (AUTO) 1 % (12-44); MEAN CORPUSCULAR HEMOGLOBIN 29 pg (25-34); MEAN CORPUSCULAR HGB CONC 31 g/dL (32-36); MEAN PLATELET VOLUME 13.4 fL (9.0-12.2); MONOCYTES # (AUTO) 0.8 10^3/uL (0.0-1.0); MONOCYTES % (AUTO) 3 % (0-12); NEUTROPHILS # (AUTO) 22.7 10^3/uL (1.8-7.8); NEUTROPHILS % (AUTO) 93 % (42-75); PLATELET COUNT 119 10^3/uL (130-400); WHITE BLOOD COUNT 24.4 10^3/uL (4.3-11.0)
[2021-06-30 06:54] LABS: INR 3.1 (0.8-1.4); PROTHROMBIN TIME PATIENT 32.4 SEC (12.2-14.7)
[2021-06-30 06:57] LABS: ALBUMIN 2.7 GM/DL (3.2-4.5); POTASSIUM 5.9 MMOL/L (3.6-5.0)
[2021-06-30 06:59] LABS: CALCIUM 8.2 MG/DL (8.5-10.1)
[2021-06-30 07:00] LABS: TOTAL PROTEIN 6.2 GM/DL (6.4-8.2)
[2021-06-30 07:02] LABS: BILIRUBIN,TOTAL 0.7 MG/DL (0.1-1.0)
[2021-06-30 07:03] LABS: CREATININE SERUM 2.48 MG/DL (0.60-1.30)
[2021-06-30 07:44] LABS: BAND NEUTROPHILS 2 %; LYMPHOCYTES % (MANUAL) 1 %; MONOCYTES % (MANUAL) 2 %; NEUTROPHILS % (MANUAL) 95 %
[2021-06-30 07:46] LABS: ANISOCYTOSIS MODERATE; ELLIPT/OVALOCYTES SLIGHT; MICROCYTOSIS SLIGHT; POIKILOCYTOSIS MODERATE; TOXIC GRANULATION/VACUOLAZATIO 1+
[2021-06-30 07:47] LABS: ACANTHOCYTES MODERATE; BURR CELLS MODERATE; CRENATED RBC SLIGHT
[2021-06-30 08:00] VITALS: BP 137/64
[2021-06-30] MEDS: ALPRAZolam 0.25 MG (XANAX) TAB PO PRN (08:44)
[2021-06-30] MEDS: SENNOSIDES 8.6 MG (SENOKOT) TAB PO SCH (08:45)
[2021-06-30] MEDS: polyethylene glycoL POWDER 17 GM (MIRALAX) PACK PO SCH (08:45)
[2021-06-30] MEDS: ALLOPURINOL 100 MG (ZYLOPRIM) TAB PO SCH (08:45)
[2021-06-30] MEDS: DOXYCYCLINE INJECTION 100 MG in NS (IVPB) 100 ML IV SCH (08:45)
[2021-06-30] MEDS: DOCUSATE SODIUM 100 MG (COLACE) CAP PO SCH (08:45)
[2021-06-30] MEDS: SENNA W/DOCUSATE (SENOKOT S) TABLET PO SCH (08:46)
[2021-06-30] MEDS: GLIMEPIRIDE 1 MG (AMARYL) TAB PO SCH (08:46)
[2021-06-30] MEDS ORDERED: LORazepam 0.5 MG (ATIVAN) TABLET PO PRN (11:00)
[2021-06-30] MEDS ORDERED: morphine (ROXINOL) 10 MG/0.5 ML oral conc 0.5 ML PO PRN (11:00)
[2021-06-30 12:00] VITALS: BP 137/64
[2021-06-30 12:40] VITALS: BP 137/64
[2021-06-30 13:01] VITALS: BP 137/64
--- NOTE | 2021-06-30 13:54 | Progress Note - Hospitalist ---
ZAHEER REYNOLDS [employer] [facility] 06/30/21 1354: Subjective HPI/CC On Admission Date Seen by Provider: Jun 30, 2021 Time Seen by Provider: 08:30 Chief complaint: Acute hypoxic respiratory failure History of present illness: This is a 81-year-old white male who presented to the ER with shortness of breath. He was found to be COVID-19 +8 days ago. Currently he is requiring 4 L of oxygen. He wanted to go home but reluctantly will stay. He suffered a fall and has some abrasions on the left side. He hit his head and he has an abrasion on his forehead. Patient will require COVID-19 protocol and admission to the hospital. Subjective/Events-last exam Patient was very tired appearing and did not sleep well last night due to oxygen saturation Patient looks very ill Family at bedside. WBC at 24.4, yesterday 14 Will begin comfort care today Objective Exam Vital Signs Vital Signs Date Time Temp Pulse Resp B/P (MAP) Pulse Ox O2 Delivery O2 Flow Rate FiO2 06/30/21 13:01 36.7 80 33 137/64 (88) 93 NIV Bilevel 40.00 40.00 06/28/21 18:44 100 Capillary Refill : Less Than 3 Seconds General Appearance: Chronically ill, Mild Distress HEENT: PERRL/EOMI, Normal ENT Inspection (no gross deformities) Neck: Non Tender, Supple Respiratory: Chest Non Tender, Decreased Breath Sounds, Other (Currently on Max bipap) Cardiovascular: Regular Rate, Rhythm, Normal Peripheral Pulses (radial pulses bilaterally) Gastrointestinal: Non Tender, Soft Extremity: Non Tender, No Calf Tenderness Neurologic/Psychiatric: Alert, Depressed Affect, Other (tired) Results/Procedures Lab Laboratory Tests 06/30/21 05:32 Patient resulted labs reviewed. Assessment/Plan Assessment and Plan Assess & Plan/Chief Complaint Assessment: Acute hypoxic respiratory failure failed Vapotherm now on BiPAP and DO NOT INTUBATE patient COVID-19 pneumonia out of isolation Severe pulmonary hypertension of 75 on echo Fall with abrasions of the left side Presbycusis Advanced age Severe debility Hypertension Hyperlipidemia CAD Atrial fibrillation Chronic kidney disease Gout Thoracic Aortic Aneurysm diagnosed on Echo Plan: Initiate comfort measures once family approves continue to communicate with family ARCENIO FUENTES DO 06/30/212111: ZAHEER REYNOLDS [employer] Jun 30, 2021 13:54 ARCENIO FUENTES DO Jun 30, 2021 21:12
--- NOTE | 2021-06-30 21:12 | Discharge Summary ---
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 Fall with abrasions of the left side Presbycusis Advanced age Severe debility Hypertension Hyperlipidemia CAD Atrial fibrillation Chronic kidney disease Gout Thoracic Aortic Aneurysm diagnosed on Echo Discharge Summary Discharge Physical Examination Allergies: Coded Allergies: No Known Drug Allergies (Unverified , 11/16/12) Vitals & I&Os Vital Signs Date Time Temp Pulse Resp B/P (MAP) Pulse Ox O2 Delivery O2 Flow Rate FiO2 06/30/21 13:01 36.7 80 33 137/64 (88) 93 NIV Bilevel 40.00 40.00 06/28/21 18:44 100 Hospital Course Was the Problem List Reviewed?: Yes Pt now crossed the threshold of declined status Respiratory fatigue and confusion noted Family at the bedside Willing to cell changer to comfort care Will take him off BiPAP and start Morphine and Ativan Creatinine 2.48 Palliative care nurse consulted Lengthy hospital course after dx with MARYANAID-19 and placed on protocol. Patient continued to decline and required bipap dependence after failed Vapotherm. Family conversations occurred and after multiple attempts he was made DNI and then DNR and then placed on comfort care and patient passed quickly after DC biPAP. Labs (last 24 hrs) Laboratory Tests 06/18/21 13:50: White Blood Count 9.1, Red Blood Count 5.05, Hemoglobin 14.8, Hematocrit 46, Mean Corpuscular Volume 92, Mean Corpuscular Hemoglobin 29, Mean Corpuscular Hemoglobin Concent 32, Red Cell Distribution Width 15.1H, Platelet Count 183, Mean Platelet Volume 10.9, Immature Granulocyte % (Auto) 1, Neutrophils (%) (Auto) 88H, Lymphocytes (%) (Auto) 4L, Monocytes (%) (Auto) 7, Eosinophils (%) (Auto) 0, Basophils (%) (Auto) 0, Neutrophils # (Auto) 8.0H, Lymphocytes # (Auto) 0.4L, Monocytes # (Auto) 0.6, Eosinophils # (Auto) 0.0, Basophils # (Auto) 0.0, Immature Granulocyte # (Auto) 0.1, Neutrophils % (Manual) 90, Lymphocytes % (Manual) 5, Monocytes % (Manual) 5, Eosinophils % (Manual) 0, Basophils % (Manual) 0, Band Neutrophils 0, Anisocytosis MODERATE, Elliptocytes SLIGHT, Prothrombin Time 17.2H, INR Comment 1.4, Activated Partial Thromboplast Time 43H, D-Dimer 0.60H, Sodium Level 134L, Potassium Level 4.7, Chloride Level 99, Carbon Dioxide Level 28, Anion Gap 7, Blood Urea Nitrogen 39H, Creatinine 2.20H, Estimat Glomerular Filtration Rate 29, BUN/Creatinine Ratio 18, Glucose Level 77, Glucometer 75, Lactic Acid Level 2.00, Calcium Level 8.4L, Corrected Calcium 8.9, Total Bilirubin 0.9, Aspartate Amino Transf (AST/SGOT) 43H, Alanine Aminotransferase (ALT/SGPT) 20, Alkaline Phosphatase 73, C-Reactive Protein High Sensitivity 9.00H, Total Protein 6.6, Albumin 3.4, Procalcitonin 0.40H 06/18/21 14:50: Glucometer 133H 06/18/21 20:21: Glucometer 283H 06/19/21 05:16: Glucometer 344H 06/19/21 06:14: White Blood Count 6.3, Red Blood Count 4.69, Hemoglobin 13.6, Hematocrit 43, Mean Corpuscular Volume 91, Mean Corpuscular Hemoglobin 29, Mean Corpuscular Hemoglobin Concent 32, Red Cell Distribution Width 14.8H, Platelet Count 167, Mean Platelet Volume 11.3, Immature Granulocyte % (Auto) 1, Neutrophils (%) (Auto) 88H, Lymphocytes (%) (Auto) 6L, Monocytes (%) (Auto) 6, Eosinophils (%) (Auto) 0, Basophils (%) (Auto) 0, Neutrophils # (Auto) 5.6, Lymphocytes # (Auto) 0.4L, Monocytes # (Auto) 0.4, Eosinophils # (Auto) 0.0, Basophils # (Auto) 0.0, Immature Granulocyte # (Auto) 0.0, Sodium Level 129L, Potassium Level 5.5H, Chloride Level 99, Carbon Dioxide Level 18L, Anion Gap 12, Blood Urea Nitrogen 52H, Creatinine 2.58H, Estimat Glomerular Filtration Rate 24, BUN/Creatinine Ratio 20, Glucose Level 387H, Calcium Level 8.1L, Corrected Calcium 9.0, Total Bilirubin 0.8, Aspartate Amino Transf (AST/SGOT) 35H, Alanine Aminotransferase (ALT/SGPT) 16, Alkaline Phosphatase 65, Total Protein 5.8L, Albumin 2.9L 06/19/21 11:33: Glucometer 330H 06/19/21 15:38: Glucometer 348H 06/19/21 20:29: Glucometer 371H 06/20/21 05:25: White Blood Count 17.0H, Red Blood Count 4.92, Hemoglobin 14.3, Hematocrit 44, Mean Corpuscular Volume 89, Mean Corpuscular Hemoglobin 29, Mean Corpuscular Hemoglobin Concent 33, Red Cell Distribution Width 14.6H, Platelet Count 216, Mean Platelet Volume 11.1, Immature Granulocyte % (Auto) 0, Neutrophils (%) (Auto) 92H, Lymphocytes (%) (Auto) 3L, Monocytes (%) (Auto) 5, Eosinophils (%) (Auto) 0, Basophils (%) (Auto) 0, Neutrophils # (Auto) 15.6H, Lymphocytes # (Auto) 0.5L, Monocytes # (Auto) 0.8, Eosinophils # (Auto) 0.0, Basophils # (Auto) 0.0, Immature Granulocyte # (Auto) 0.1, Neutrophils % (Manual) 91, Lymphocytes % (Manual) 3, Monocytes % (Manual) 3, Band Neutrophils 3, Jbphh Cells MODERATE, Elliptocytes SLIGHT, Prothrombin Time 15.4H, INR Comment 1.2, Sodium L evel 131L, Potassium Level 5.3H, Chloride Level 102, Carbon Dioxide Level 18L, Anion Gap 11, Blood Urea Nitrogen 58H, Creatinine 2.46H, Estimat Glomerular Filtration Rate 26, BUN/Creatinine Ratio 24, Glucose Level 351H, Calcium Level 8.5, Corrected Calcium 9.2, Total Bilirubin 0.6, Aspartate Amino Transf (AST/SGOT) 31, Alanine Aminotransferase (ALT/SGPT) 19, Alkaline Phosphatase 70, Total Protein 6.2L, Albumin 3.1L 06/20/21 10:31: Glucometer 280H 06/20/21 15:43: Glucometer 388H 06/20/21 20:28: Glucometer 515*H 06/20/21 23:53: Glucometer 379H 06/21/21 05:46: Glucometer 201H 06/21/21 06:05: White Blood Count 14.2H, Red Blood Count 4.40, Hemoglobin 12.9L, Hematocrit 40, Mean Corpuscular Volume 90, Mean Corpuscular Hemoglobin 29, Mean Corpuscular Hemoglobin Concent 33, Red Cell Distribution Width 14.7H, Platelet Count 223, Mean Platelet Volume 11.3, Immature Granulocyte % (Auto) 1, Neutrophils (%) (Auto) 92H, Lymphocytes (%) (Auto) 3L, Monocytes (%) (Auto) 5, Eosinophils (%) (Auto) 0, Basophils (%) (Auto) 0, Neutrophils # (Auto) 13.1H, Lymphocytes # (Auto) 0.4L, Monocytes # (Auto) 0.7, Eosinophils # (Auto) 0.0, Basophils # (Auto) 0.0, Immature Granulocyte # (Auto) 0.1, Prothrombin Time 20.1H, INR Comment 1.7H, Sodium Level 136, Potassium Level 5.0, Chloride Level 108H, Carbon Dioxide Level 19L, Anion Gap 9, Blood Urea Nitrogen 65H, Creatinine 2.22H, Estimat Glomerular Filtration Rate 29, BUN/Creatinine Ratio 29, Glucose Level 234H, Calcium Level 8.0L, Corrected Calcium 9.0, Total Bilirubin 0.5, Aspartate Amino Transf (AST/SGOT) 20, Alanine Aminotransferase (ALT/SGPT) 15, Alkaline Phosphatase 70, Total Protein 5.2L, Albumin 2.7L 06/21/21 11:19: Glucometer 195H 06/21/21 16:36: Glucometer 264H 06/21/21 20:30: Glucometer 222H 06/22/21 05:45: White Blood Count 13.1H, Red Blood Count 4.33, Hemoglobin 12.3L, Hematocrit 39L, Mean Corpuscular Volume 90, Mean Corpuscular Hemoglobin 28, Mean Corpuscular Hemoglobin Concent 32, Red Cell Distribution Width 14.6H, Platelet Count 207, Mean Platelet Volume 11.2, Immature Granulocyte % (Auto) 1, Neutrophils (%) (Auto) 88H, Lymphocytes (%) (Auto) 4L, Monocytes (%) (Auto) 6, Eosinophils (%) (Auto) 0, Basophils (%) (Auto) 0, Neutrophils # (Auto) 11.6H, Lymphocytes # (Auto) 0.5L, Monocytes # (Auto) 0.8, Eosinophils # (Auto) 0.0, Basophils # (Auto) 0.0, Immature Granulocyte # (Auto) 0.2H, Prothrombin Time 24.6H, INR Comment 2.2H, Sodium Level 140, Potassium Level 5.1H, Chloride Level 110H, Carbon Dioxide Level 20L, Anion Gap 10, Blood Urea Nitrogen 65H, Creatinine 1.89H, Estimat Glomerular Filtration Rate 35, BUN/Creatinine Ratio 34, Glucose Level 123H, Calcium Level 8.0L, Corrected Calcium 9.1, Total Bilirubin 0.4, Aspartate Amino Transf (AST/SGOT) 20, Alanine Aminotransferase (ALT/SGPT) 16, Alkaline Phosphatase 64, Total Protein 5.2L, Albumin 2.6L 06/22/21 11:10: Glucometer 176H 06/22/21 16:01: Glucometer 169H 06/22/21 20:29: Glucometer 279H 06/23/21 05:20: White Blood Count 13.3H, Red Blood Count 4.34, Hemoglobin 12.5L, Hematocrit 39L, Mean Corpuscular Volume 90, Mean Corpuscular Hemoglobin 29, Mean Corpuscular Hemoglobin Concent 32, Red Cell Distribution Width 14.5, Platelet Count 204, Mean Platelet Volume 11.5, Immature Granulocyte % (Auto) 1, Neutrophils (%) (Auto) 86H, Lymphocytes (%) (Auto) 5L, Monocytes (%) (Auto) 8, Eosinophils (%) (Auto) 0, Basophils (%) (Auto) 0, Neutrophils # (Auto) 11.4H, Lymphocytes # (Auto) 0.7L, Monocytes # (Auto) 1.0, Eosinophils # (Auto) 0.0, Basophils # (A uto) 0.0, Immature Granulocyte # (Auto) 0.2H, Prothrombin Time 32.1H, INR C omment 3.1H, Sodium Level 140, Potassium Level 5.4H, Chloride Level 111H, Carbon Dioxide Level 21, Anion Gap 8, Blood Urea Nitrogen 61H, Creatinine 1.74H, Estimat Glomerular Filtration Rate 38, BUN/Creatinine Ratio 35, Glucose Level 80, Calcium Level 8.2L, Corrected Calcium 9.3, Total Bilirubin 0.4, Aspartate Amino Transf (AST/SGOT) 21, Alanine Aminotransferase (ALT/SGPT) 17, Alkaline Phosphatase 69, Total Protein 5.0L, Albumin 2.6L 06/23/21 05:21: Glucometer 80 06/23/21 08:52: Glucometer 103 06/23/21 11:26: Glucometer 210H 06/23/21 15:43: Glucometer 215H 06/23/21 19:57: Glucometer 292H 06/24/21 05:13: Glucometer 89 06/24/21 05:14: White Blood Count 13.1H, Red Blood Count 4.40, Hemoglobin 12.5L, Hematocrit 41, Mean Corpuscular Volume 93, Mean Corpuscular Hemoglobin 28, Mean Corpuscular Hemoglobin Concent 31L, Red Cell Distribution Width 14.7H, Platelet Count 192, Mean Platelet Volume 11.7, Immature Granulocyte % (Auto) 2, Neutrophils (%) (Auto) 85H, Lymphocytes (%) (Auto) 6L, Monocytes (%) (Auto) 7, Eosinophils (%) (Auto) 1, Basophils (%) (Auto) 0, Neutrophils # (Auto) 11.1H, Lymphocytes # (Auto) 0.7L, Monocytes # (Auto) 0.9, Eosinophils # (Auto) 0.1, Basophils # (Auto) 0.0, Immature Granulocyte # (Auto) 0.2H, Prothrombin Time 33.8H, INR Comment 3.3H, Sodium Level 141, Potassium Level 5.3H, Chloride Level 110H, Carbon Dioxide Level 24, Anion Gap 7, Blood Urea Nitrogen 56H, Creatinine 1.70H, Estimat Glomerular Filtration Rate 39, BUN/Creatinine Ratio 33, Glucose Level 100, Calcium Level 7.9L, Corrected Calcium 9.1, Total Bilirubin 0.5, Aspartate Amino Transf (AST/SGOT) 18, Alanine Aminotransferase (ALT/SGPT) 16, Alkaline Phosphatase 69, B-Type Natriuretic Peptide 319.4H, Total Protein 5.0L, Albumin 2.5L, Procalcitonin 0.19H 06/24/21 10:00: Lactic Acid Level 1.41 06/24/21 10:42: Blood Gas Puncture Site RIGHT BRACHIAL, Blood Gas Patient Temperature 36.2, Arterial Blood pH 7.35L, Arterial Blood Partial Pressure CO2 42, Arterial Blood Partial Pressure O2 50L, Arterial Blood HCO3 23, Arterial Blood Total CO2 24.4, Arterial Blood Oxygen Saturation 86L, Arterial Blood Base Excess -1.8, Alex Test POSITIVE, Blood Gas Ventilator Setting NO, Blood Gas Inspired Oxygen 15 L 06/24/21 10:48: Glucometer 196H 06/24/21 15:37: Glucometer 197H 06/24/21 20:01: Glucometer 168H 06/25/21 05:12: Glucometer 79 06/25/21 06:15: White Blood Count 15.6H, Red Blood Count 4.52, Hemoglobin 13.0L, Hematocrit 41, Mean Corpuscular Volume 90, Mean Corpuscular Hemoglobin 29, Mean Corpuscular Hemoglobin Concent 32, Red Cell Distribution Width 14.8H, Platelet Count 176, Mean Platelet Volume 11.7, Immature Granulocyte % (Auto) 2, Neutrophils (%) (Auto) 85H, Lymphocytes (%) (Auto) 5L, Monocytes (%) (Auto) 6, Eosinophils (%) (Auto) 2, Basophils (%) (Auto) 0, Neutrophils # (Auto) 13.2H, Lymphocytes # (Auto) 0.8L, Monocytes # (Auto) 0.9, Eosinophils # (Auto) 0.3, Basophils # (Auto) 0.0, Immature Granulocyte # (Auto) 0.3H, Prothrombin Time 26.7H, INR Comment 2.4H, Sodium Level 140, Potassium Level 4.7, Chloride Level 107, Carbon Dioxide Level 25, Anion Gap 8, Blood Urea Nitrogen 52H, Creatinine 1.62H, Estimat Glomerular Filtration Rate 41, BUN/Creatinine Ratio 32, Glucose Level 69L, Calcium Level 8.1L, Corrected Calcium 9.2, Total Bilirubin 0.8, Aspartate Amino Transf (AST/SGOT) 19, Alanine Aminotransferase (ALT/SGPT) 13, Alkaline Phosphatase 65, Total Protein 5.3L, Albumin 2.6L 06/25/21 11:13: Glucometer 137H 06/25/21 15:25: Glucometer 282H 06/25/21 21:34: Glucometer 336H 06/26/21 05:54: Glucometer 47*L 06/26/21 05:56: Glucometer 44*L 06/26/21 06:39: Glucometer 85 06/26/21 06:40: White Blood Count 16.0H, Red Blood Count 4.67, Hemoglobin 13.5, Hematocrit 43, Mean Corpuscular Volume 91, Mean Corpuscular Hemoglobin 29, Mean Corpuscular Hemoglobin Concent 32, Red Cell Distribution Width 14.7H, Platelet Count 189, Mean Platelet Volume 12.2, Immature Granulocyte % (Auto) 3, Neutrophils (%) (Auto) 86H, Lymphocytes (%) (Auto) 4L, Monocytes (%) (Auto) 6, Eosinophils (%) (Auto) 1, Basophils (%) (Auto) 0, Neutrophils # (Auto) 13.7H, Lymphocytes # (Auto) 0.7L, Monocytes # (Auto) 0.9, Eosinophils # (Auto) 0.2, Basophils # (Auto) 0.0, Immature Granulocyte # (Auto) 0.4H, Neutrophils % (Manual) 87, Lymphocytes % (Manual) 5, Monocytes % (Manual) 7, Eosinophils % (Manual) 1, Basophils % (Manual) 0, Band Neutrophils 0, Poikilocytosis MODERATE, Anisocytosis MODERATE, Elliptocytes MODERATE, Acanthocytes MODERATE, Prothrombin Time 23.3H, INR Comment 2.0H, Sodium Level 141, Potassium Level 4.6, Chloride Level 105, Carbon Dioxide Level 26, Anion Gap 10, Blood Urea Nitrogen 55H, Creatinine 1.78H, Estimat Glomerular Filtration Rate 37, BUN/Creatinine Ratio 31, Glucose Level 89, Calcium Level 8.1L, Corrected Calcium 9.1, Total Bilirubin 0.9, Aspartate Amino Transf (AST/SGOT) 15, Alanine Aminotransferase (ALT/SGPT) 13, Alkaline Phosphatase 70, Total Protein 5.8L, Albumin 2.7L 06/26/21 10:48: Glucometer 274H 06/26/21 15:33: Glucometer 278H 06/26/21 21:20: Glucometer 272H 06/27/21 05:40: White Blood Count 16.8H, Red Blood Count 4.19L, Hemoglobin 12.2L, Hematocrit 38L , Mean Corpuscular Volume 91, Mean Corpuscular Hemoglobin 29, Mean Corpuscular Hemoglobin Concent 32, Red Cell Distribution Width 14.8H, Platelet Count 185, Mean Platelet Volume 12.4H, Immature Granulocyte % (Auto) 2, Neutrophils (%) (Auto) 88H, Lymphocytes (%) (Auto) 3L, Monocytes (%) (Auto) 6, Eosinophils (%) (Auto) 1, Basophils (%) (Auto) 0, Neutrophils # (Auto) 14.8H, Lymphocytes # (Auto) 0.6L, Monocytes # (Auto) 1.0, Eosinophils # (Auto) 0.2, Basophils # (Auto) 0.0, Immature Granulocyte # (Auto) 0.3H, Prothrombin Time 23.9H, INR Comment 2.1H, Sodium Level 139, Potassium Level 5.2H, Chloride Level 106, Carbon Dioxide Level 25, Anion Gap 8, Blood Urea Nitrogen 59H, Creatinine 1.67H, Estimat Glomerular Filtration Rate 40, BUN/Creatinine Ratio 35, Glucose Level 139H, Calcium Level 7.7L, Corrected Calcium 9.0, Total Bilirubin 0.6, Aspartate Amino Transf (AST/SGOT) 11, Alanine Aminotransferase (ALT/SGPT) 10, Alkaline Phosphatase 61, Total Protein 5.1L, Albumin 2.4L, Procalcitonin 0.27H 06/27/21 08:55: Blood Gas Puncture Site RR, Blood Gas Patient Temperature 36, Arterial Blood pH 7.36L, Arterial Blood Partial Pressure CO2 44, Arterial Blood Partial Pressure O2 57L, Arterial Blood HCO3 25, Arterial Blood Total CO2 26.0, Arterial Blood Oxygen Saturation 91L, Arterial Blood Base Excess -0.3, Alex Test YES-POS, Blood Gas Ventilator Setting NO, Blood Gas Inspired Oxygen 100% 06/27/21 11:22: Glucometer 226H 06/27/21 11:25: Lactic Acid Level 0.94 06/27/21 15:39: Glucometer 279H 06/27/21 21:18: Glucometer 270H 06/28/21 06:14: White Blood Count 19.9H, Red Blood Count 4.49, Hemoglobin 13.0L, Hematocrit 42, Mean Corpuscular Volume 93, Mean Corpuscular Hemoglobin 29, Mean Corpuscular Hemoglobin Concent 31L, Red Cell Distribution Width 15.0H, Platelet Count 156, Mean Platelet Volume 12.4H, Immature Granulocyte % (Auto) 1, Neutrophils (%) (Auto) 90H, Lymphocytes (%) (Auto) 3L, Monocytes (%) (Auto) 5, Eosinophils (%) (Auto) 1, Basophils (%) (Auto) 0, Neutrophils # (Auto) 17.9H, Lymphocytes # (Auto) 0.6L, Monocytes # (Auto) 0.9, Eosinophils # (Auto) 0.2, Basophils # (Auto) 0.0, Immature Granulocyte # (Auto) 0.3H, Sodium Level 139, Potassium Level 5.3H, Chloride Level 105, Carbon Dioxide Level 26, Anion Gap 8, Blood Urea Nitrogen 68H, Creatinine 1.99H, Estimat Glomerular Filtration Rate 33, BUN/Creatinine Ratio 34, Glucose Level 120H, Calcium Level 8.0L, Corrected Calc ium 9.0, Total Bilirubin 0.7, Aspartate Amino Transf (AST/SGOT) 17, Alanine Aminotransferase (ALT/SGPT) 12, Alkaline Phosphatase 77, Total Protein 5.8L, Albumin 2.7L 06/28/21 06:21: Glucometer 119H 06/28/21 08:35: Blood Gas Puncture Site RT RAD, Blood Gas Patient Temperature 35.8, Arterial Blood pH 7.42, Arterial Blood Partial Pressure CO2 40, Arterial Blood Partial Pressure O2 53L, Arterial Blood HCO3 26, Arterial Blood Total CO2 27.0, Arterial Blood Oxygen Saturation 89L, Arterial Blood Base Excess 1.3, Alex Test YES-POS, Blood Gas Ventilator Setting NO, Blood Gas Inspired Oxygen 100% 06/28/21 12:22: Glucometer 180H 06/28/21 15:49: Glucometer 368H 06/28/21 21:44: Glucometer 390H 06/29/21 05:06: White Blood Count 14.6H, Red Blood Count 4.18L, Hemoglobin 11.8L, Hematocrit 39L , Mean Corpuscular Volume 93, Mean Corpuscular Hemoglobin 28, Mean Corpuscular Hemoglobin Concent 30L, Red Cell Distribution Width 14.8H, Platelet Count 130, Mean Platelet Volume 12.5H, Immature Granulocyte % (Auto) 1, Neutrophils (%) (Auto) 92H, Lymphocytes (%) (Auto) 2L, Monocytes (%) (Auto) 4, Eosinophils (%) (Auto) 0, Basophils (%) (Auto) 0, Neutrophils # (Auto) 13.5H, Lymphocytes # (Auto) 0.3L, Monocytes # (Auto) 0.6, Eosinophils # (Auto) 0.0, Basophils # (Auto) 0.0, Immature Granulocyte # (Auto) 0.2H, Prothrombin Time 25.0H, INR Comment 2.2H, Sodium Level 136, Potassium Level 5.6H, Chloride Level 103, Carbon Dioxide Level 24, Anion Gap 9, Blood Urea Nitrogen 82H, Creatinine 2.67#H, Estim at Glomerular Filtration Rate 23, BUN/Creatinine Ratio 31, Glucose Level 260H, Calcium Level 7.8L, Corrected Calcium 9.0, Total Bilirubin 0.4, Aspartate Amino Transf (AST/SGOT) 10, Alanine Aminotransferase (ALT/SGPT) 11, Alkaline Phosphatase 71, Total Protein 5.5L, Albumin 2.5L, Procalcitonin 0.60H 06/29/21 06:06: Glucometer 225H 06/29/21 07:30: Blood Gas Puncture Site RT RAD, Blood Gas Patient Temperature 36.0, Arterial Blood pH 7.35L, Arterial Blood Partial Pressure CO2 45, Arterial Blood Partial Pressure O2 71L, Arterial Blood HCO3 24, Arterial Blood Total CO2 25.7, Arterial Blood Oxygen Saturation 95, Arterial Blood Base Excess -0.8, Alex Test YES-POS, Blood Gas Ventilator Setting NO, Blood Gas Inspired Oxygen 100% 06/29/21 16:00: Glucometer 263H 06/29/21 20:16: Glucometer 229H 06/30/21 05:02: Glucometer 54*L 06/30/21 05:28: Glucometer 71 06/30/21 05:32: White Blood Count 24.4H, Red Blood Count 4.50, Hemoglobin 13.0L, Hematocrit 42, Mean Corpuscular Volume 92, Mean Corpuscular Hemoglobin 29, Mean Corpuscular Hemoglobin Concent 31L, Red Cell Distribution Width 14.9H, Platelet Count 119L, Mean Platelet Volume 13.4H, Immature Granulocyte % (Auto) 1, Neutrophils (%) (Auto) 93H, Lymphocytes (%) (Auto) 1L, Monocytes (%) (Auto) 3, Eosinophils (%) (Auto) 1, Basophils (%) (Auto) 0, Neutrophils # (Auto) 22.7H, Lymphocytes # (Auto) 0.3L, Monocytes # (Auto) 0.8, Eosinophils # (Auto) 0.2, Basophils # (Auto) 0.1, Immature Granulocyte # (Auto) 0.3H, Neutrophils % (Manual) 95, Lymphocytes % (Manual) 1, Monocytes % (Manual) 2, Band Neutrophils 2, Toxic Granulation 1+, Percent Immature Platelet Fraction 9.6H, Poikilocytosis MODERATE, Anisocytosis MODERATE, Microcytosis SLIGHT, Zachariah Cells MODERATE, Crenated Cell SLIGHT, Elliptocytes SLIGHT, Acanthocytes MODERATE, Prothrombin Time 32.4H, INR Comment 3.1H, Sodium Level 137, Potassium Level 5.9H, Chloride Level 104, Carbon Dioxide Level 24, Anion Gap 9, Blood Urea Nitrogen 86H, Creatinine 2.48H, Estimat Glomerular Filtration Rate 25, BUN/Creatinine Ratio 35, Glucose Level 73, Calcium Level 8.2L, Corrected Calcium 9.2, Total Bilirubin 0.7, Aspartate Amino Transf (AST/SGOT) 17, Alanine Aminotransferase (ALT/SGPT) 12, Alkaline Phosphatase 79, Total Protein 6.2L, Albumin 2.7L 06/30/21 06:06: Glucometer 85 Microbiology 06/27/21 Blood Culture - Preliminary, Resulted Bacillus sp not B. anthracis Pending Labs Microbiology Date/Time Source Procedure Growth Status 06/27/21 11:25 Peripheral :Lab Indicates After Collectio Blood Culture - Preliminary Bacillus sp not B. anthracis Resulted 06/27/21 11:15 Peripheral :Lab Indicates After Collectio Blood Culture - Preliminary No growth Resulted 06/18/21 14:50 Peripheral Rt Hand Blood Culture - Final No growth Complete 06/18/21 13:50 Peripheral Left Forearm Blood Culture - Final No growth Complete Laboratory Tests 06/18/21 13:50: White Blood Count 9.1, Red Blood Count 5.05, Hemoglobin 14.8, Hematocrit 46, Mean Corpuscular Volume 92, Mean Corpuscular Hemoglobin 29, Mean Corpuscular Hemoglobin Concent 32, Red Cell Distribution Width 15.1, Platelet Count 183, Mean Platelet Volume 10.9, Immature Granulocyte % (Auto) 1, Neutrophils (%) ( Auto) 88, Lymphocytes (%) (Auto) 4, Monocytes (%) (Auto) 7, Eosinophils (%) (Auto) 0, Basophils (%) (Auto) 0, Neutrophils # (Auto) 8.0, Lymphocytes # (Auto) 0.4, Monocytes # (Auto) 0.6, Eosinophils # (Auto) 0.0, Basophils # (Auto) 0.0, Immature Granulocyte # (Auto) 0.1, Neutrophils % (Manual) 90, Lymphocytes % (Manual) 5, Monocytes % (Manual) 5, Eosinophils % (Manual) 0, Basophils % (Manual) 0, Band Neutrophils 0, Anisocytosis MODERATE, Elliptocytes SLIGHT, Prothrombin Time 17.2, INR Comment 1.4, Activated Partial Thromboplast Time 43, D-Dimer 0.60, Sodium Level 134, Potassium Level 4.7, Chloride Level 99, Carbon Dioxide Level 28, Anion Gap 7, Blood Urea Nitrogen 39, Creatinine 2.20, Estimat Glomerular Filtration Rate 29, BUN/Creatinine Ratio 18, Glucose Level 77, Glucometer 75, Lactic Acid Level 2.00, Calcium Level 8.4, Corrected Calcium 8.9, Total Bilirubin 0.9, Aspartate Amino Transf (AST/SGOT) 43, Alanine Aminotransferase (ALT/SGPT) 20, Alkaline Phosphatase 73, C-Reactive Protein High Sensitivity 9.00, Total Protein 6.6, Albumin 3.4, Procalcitonin 0.40 06/18/21 14:50: Glucometer 133 06/18/21 20:21: Glucometer 283 06/19/21 05:16: Glucometer 344 06/19/21 06:14: White Blood Count 6.3, Red Blood Count 4.69, Hemoglobin 13.6, Hematocrit 43, Mean Corpuscular Volume 91, Mean Corpuscular Hemoglobin 29, Mean Corpuscular Hemoglobin Concent 32, Red Cell Distribution Width 14.8, Platelet Count 167, Mean Platelet Volume 11.3, Immature Granulocyte % (Auto) 1, Neutrophils (%) (Auto) 88, Lymphocytes (%) (Auto) 6, Monocytes (%) (Auto) 6, Eosinophils (%) (Auto) 0, Basophils (%) (Auto) 0, Neutrophils # (Auto) 5.6, Lymphocytes # (Auto) 0.4, Monocytes # (Auto) 0.4, Eosinophils # (Auto) 0.0, Basophils # (Auto) 0.0, Immature Granulocyte # (Auto) 0.0, Sodium Level 129, Potassium Level 5.5, Chloride Level 99, Carbon Dioxide Level 18, Anion Gap 12, Blood Urea Nitrogen 52, Creatinine 2.58, Estimat Glomerular Filtration Rate 24, BUN/Creatinine Ratio 20, Glucose Level 387, Calcium Level 8.1, Corrected Calcium 9.0, Total Bilirubin 0.8, Aspartate Amino Transf (AST/SGOT) 35, Alanine Aminotransferase (ALT/SGPT) 16, Alkaline Phosphatase 65, Total Protein 5.8, Albumin 2.9 06/19/21 11:33: Glucometer 330 06/19/21 15:38: Glucometer 348 06/19/21 20:29: Glucometer 371 06/20/21 05:25: White Blood Count 17.0, Red Blood Count 4.92, Hemoglobin 14.3, Hematocrit 44, Mean Corpuscular Volume 89, Mean Corpuscular Hemoglobin 29, Mean Corpuscular Hemoglobin Concent 33, Red Cell Distribution Width 14.6, Platelet Count 216, Mean Platelet Volume 11.1, Immature Granulocyte % (Auto) 0, Neutrophils (%) (Auto) 92, Lymphocytes (%) (Auto) 3, Monocytes (%) (Auto) 5, Eosinophils (%) (Auto) 0, Basophils (%) (Auto) 0, Neutrophils # (Auto) 15.6, Lymphocytes # (Auto) 0.5, Monocytes # (Auto) 0.8, Eosinophils # (Auto) 0.0, Basophils # (Auto) 0.0, Immature Granulocyte # (Auto) 0.1, Neutrophils % (Manual) 91, Lymphocytes % (Manual) 3, Monocytes % (Manual) 3, Band Neutrophils 3, Zachariah Cells MODERATE, Elliptocytes SLIGHT, Prothrombin Time 15.4, INR Comment 1.2, Sodium Level 131, Potassium Level 5.3, Chloride Level 102, Carbon Dioxide Level 18, Anion Gap 11, Blood Urea Nitrogen 58, Creatinine 2.46, Estimat Glomerular Filtration Rate 26, BUN/Creatinine Ratio 24, Glucose Level 351, Calcium Level 8.5, Corrected Calcium 9.2, Total Bilirubin 0.6, Aspartate Amino Transf (AST/SGOT) 31, Alanine Aminotransferase (ALT/SGPT) 19, Alkaline Phosphatase 70, Total Protein 6.2, Albumin 3.1 06/20/21 10:31: Glucometer 280 06/20/21 15:43: Glucometer 388 06/20/21 20:28: Glucometer 515 06/20/21 23:53: Glucometer 379 06/21/21 05:46: Glucometer 201 06/21/21 06:05: White Blood Count 14.2, Red Blood Count 4.40, Hemoglobin 12.9, Hematocrit 40, Mean Corpuscular Volume 90, Mean Corpuscular Hemoglobin 29, Mean Corpuscular Hemoglobin Concent 33, Red Cell Distribution Width 14.7, Platelet Count 223, Mean Platelet Volume 11.3, Immature Granulocyte % (Auto) 1, Neutrophils (%) (Auto) 92, Lymphocytes (%) (Auto) 3, Monocytes (%) (Auto) 5, Eosinophils (%) (Auto) 0, Basophils (%) (Auto) 0, Neutrophils # (Auto) 13.1, Lymphocytes # (Auto) 0.4, Monocytes # (Auto) 0.7, Eosinophils # (Auto) 0.0, Basophils # (Auto) 0.0, Immature Granulocyte # (Auto) 0.1, Prothrombin Time 20.1, INR Comment 1.7, Sodium Level 136, Potassium Level 5.0, Chloride Level 108, Carbon Dioxide Level 19, Anion Gap 9, Blood Urea Nitrogen 65, Creatinine 2.22, Estimat Glomerular Filtration Rate 29, BUN/Creatinine Ratio 29, Glucose Level 234, Calcium Level 8.0, Corrected Calcium 9.0, Total Bilirubin 0.5, Aspartate Amino Transf (AST/ SGOT) 20, Alanine Aminotransferase (ALT/SGPT) 15, Alkaline Phosphatase 70, Total Protein 5.2, Albumin 2.7 06/21/21 11:19: Glucometer 195 06/21/21 16:36: Glucometer 264 06/21/21 20:30: Glucometer 222 06/22/21 05:45: White Blood Count 13.1, Red Blood Count 4.33, Hemoglobin 12.3, Hematocrit 39, Mean Corpuscular Volume 90, Mean Corpuscular Hemoglobin 28, Mean Corpuscular Hemoglobin Concent 32, Red Cell Distribution Width 14.6, Platelet Count 207, Mean Platelet Volume 11.2, Immature Granulocyte % (Auto) 1, Neutrophils (%) (Auto) 88, Lymphocytes (%) (Auto) 4, Monocytes (%) (Auto) 6, Eosinophils (%) (Auto) 0, Basophils (%) (Auto) 0, Neutrophils # (Auto) 11.6, Lymphocytes # (Auto) 0.5, Monocytes # (Auto) 0.8, Eosinophils # (Auto) 0.0, Basophils # (Auto) 0.0, Immature Granulocyte # (Auto) 0.2, Prothrombin Time 24.6, INR Comment 2.2, Sodium Level 140, Potassium Level 5.1, Chloride Level 110, Carbon Dioxide Level 20, Anion Gap 10, Blood Urea Nitrogen 65, Creatinine 1.89, Estimat Glomerular Filtration Rate 35, BUN/Creatinine Ratio 34, Glucose Level 123, Calcium Level 8.0, Corrected Calcium 9.1, Total Bilirubin 0.4, Aspartate Amino Transf (AST/SGOT) 20, Alanine Aminotransferase (ALT/SGPT) 16, Alkaline Phosphatase 64, Total Protein 5.2, Albumin 2.6 06/22/21 11:10: Glucometer 176 06/22/21 16:01: Glucometer 169 06/22/21 20:29: Glucometer 279 06/23/21 05:20: White Blood Count 13.3, Red Blood Count 4.34, Hemoglobin 12.5, Hematocrit 39, Mean Corpuscular Volume 90, Mean Corpuscular Hemoglobin 29, Mean Corpuscular Hemoglobin Concent 32, Red Cell Distribution Width 14.5, Platelet Count 204, Mean Platelet Volume 11.5, Immature Granulocyte % (Auto) 1, Neutrophils (%) (Auto) 86, Lymphocytes (%) (Auto) 5, Monocytes (%) (Auto) 8, Eosinophils (%) (Auto) 0, Basophils (%) (Auto) 0, Neutrophils # (Auto) 11.4, Lymphocytes # (Auto) 0.7, Monocytes # (Auto) 1.0, Eosinophils # (Auto) 0.0, Basophils # (Auto) 0.0, Immature Granulocyte # (Auto) 0.2, Prothrombin Time 32.1, INR Comment 3.1, Sodium Level 140, Potassium Level 5.4, Chloride Level 111, Carbon Dioxide Level 21, Anion Gap 8, Blood Urea Nitrogen 61, Creatinine 1.74, Estimat Glomerular Filtration Rate 38, BUN/Creatinine Ratio 35, Glucose Level 80, Calcium Level 8.2, Corrected Calcium 9.3, Total Bilirubin 0.4, Aspartate Amino Transf (AST/SGOT) 21, Alanine Aminotransferase (ALT/SGPT) 17, Alkaline Phosphatase 69, Total Protein 5.0, Albumin 2.6 06/23/21 05:21: Glucometer 80 06/23/21 08:52: Glucometer 103 06/23/21 11:26: Glucometer 210 06/23/21 15:43: Glucometer 215 06/23/21 19:57: Glucometer 292 06/24/21 05:13: Glucometer 89 06/24/21 05:14: White Blood Count 13.1, Red Blood Count 4.40, Hemoglobin 12.5, Hematocrit 41, Mean Corpuscular Volume 93, Mean Corpuscular Hemoglobin 28, Mean Corpuscular Hemoglobin Concent 31, Red Cell Distribution Width 14.7, Platelet Count 192, Mean Platelet Volume 11.7, Immature Granulocyte % (Auto) 2, Neutrophils (%) (A uto) 85, Lymphocytes (%) (Auto) 6, Monocytes (%) (Auto) 7, Eosinophils (%) (Auto) 1, Basophils (%) (Auto) 0, Neutrophils # (Auto) 11.1, Lymphocytes # (Auto) 0.7, Monocytes # (Auto) 0.9, Eosinophils # (Auto) 0.1, Basophils # (Auto) 0.0, Immature Granulocyte # (Auto) 0.2, Prothrombin Time 33.8, INR Comment 3.3, Sodium Level 141, Potassium Level 5.3, Chloride Level 110, Carbon Dioxide Level 24, Anion Gap 7, Blood Urea Nitrogen 56, Creatinine 1.70, Estimat Glomerular Filtration Rate 39, BUN/Creatinine Ratio 33, Glucose Level 100, Calcium Level 7.9, Corrected Calcium 9.1, Total Bilirubin 0.5, Aspartate Amino Transf (AST/SGOT) 18, Alanine Aminotransferase (ALT/SGPT) 16, Alkaline Phosphatase 69, B-Type Natriuretic Peptide 319.4, Total Protein 5.0, Albumin 2.5, Procalcitonin 0.19 06/24/21 10:00: Lactic Acid Level 1.41 06/24/21 10:42: Blood Gas Puncture Site RIGHT BRACHIAL, Blood Gas Patient Temperature 36.2, Arterial Blood pH 7.35, Arterial Blood Partial Pressure CO2 42, Arterial Blood Partial Pressure O2 50, Arterial Blood HCO3 23, Arterial Blood Total CO2 24.4, Arterial Blood Oxygen Saturation 86, Arterial Blood Base Excess -1.8, Alex Test POSITIVE, Blood Gas Ventilator Setting NO, Blood Gas Inspired Oxygen 15 L 06/24/21 10:48: Glucometer 196 06/24/21 15:37: Glucometer 197 06/24/21 20:01: Glucometer 168 06/25/21 05:12: Glucometer 79 06/25/21 06:15: White Blood Count 15.6, Red Blood Count 4.52, Hemoglobin 13.0, Hematocrit 41, Mean Corpuscular Volume 90, Mean Corpuscular Hemoglobin 29, Mean Corpuscular Hemoglobin Concent 32, Red Cell Distribution Width 14.8, Platelet Count 176, Mean Platelet Volume 11.7, Immature Granulocyte % (Auto) 2, Neutrophils (%) (Auto) 85, Lymphocytes (%) (Auto) 5, Monocytes (%) (Auto) 6, Eosinophils (%) (Auto) 2, Basophils (%) (Auto) 0, Neutrophils # (Auto) 13.2, Lymphocytes # (Auto) 0.8, Monocytes # (Auto) 0.9, Eosinophils # (Auto) 0.3, Basophils # (Auto) 0.0, Immature Granulocyte # (Auto) 0.3, Prothrombin Time 26.7, INR Comment 2.4, Sodium Level 140, Potassium Level 4.7, Chloride Level 107, Carbon Dioxide Level 25, Anion Gap 8, Blood Urea Nitrogen 52, Creatinine 1.62, Estimat Glomerular Filtration Rate 41, BUN/Creatinine Ratio 32, Glucose Level 69, Calcium Level 8.1, Corrected Calcium 9.2, Total Bilirubin 0.8, Aspartate Amino Transf (AST /SGOT) 19, Alanine Aminotransferase (ALT/SGPT) 13, Alkaline Phosphatase 65, Total Protein 5.3, Albumin 2.6 06/25/21 11:13: Glucometer 137 06/25/21 15:25: Glucometer 282 06/25/21 21:34: Glucometer 336 06/26/21 05:54: Glucometer 47 06/26/21 05:56: Glucometer 44 06/26/21 06:39: Glucometer 85 06/26/21 06:40: White Blood Count 16.0, Red Blood Count 4.67, Hemoglobin 13.5, Hematocrit 43, Mean Corpuscular Volume 91, Mean Corpuscular Hemoglobin 29, Mean Corpuscular Hemoglobin Concent 32, Red Cell Distribution Width 14.7, Platelet Count 189, Mean Platelet Volume 12.2, Immature Granulocyte % (Auto) 3, Neutrophils (%) (Auto) 86, Lymphocytes (%) (Auto) 4, Monocytes (%) (Auto) 6, Eosinophils (%) (Auto) 1, Basophils (%) (Auto) 0, Neutrophils # (Auto) 13.7, Lymphocytes # (Auto) 0.7, Monocytes # (Auto) 0.9, Eosinophils # (Auto) 0.2, Basophils # (Auto) 0.0, Immature Granulocyte # (Auto) 0.4, Neutrophils % (Manual) 87, Lymphocytes % (Manual) 5, Monocytes % (Manual) 7, Eosinophils % (Manual) 1, Basophils % (Manual) 0, Band Neutrophils 0, Poikilocytosis MODERATE, Anisocytosis MODERATE, Elliptocytes MODERATE, Acanthocytes MODERATE, Prothrombin Time 23.3, INR Comment 2.0, Sodium Level 141, Potassium Level 4.6, Chloride Level 105, Carbon Dioxide Level 26, Anion Gap 10, Blood Urea Nitrogen 55, Creatinine 1.78, Estimat Glomerular Filtration Rate 37, BUN/Creatinine Ratio 31, Glucose Level 89, Calcium Level 8.1, Corrected Calcium 9.1, Total Bilirubin 0.9, Aspartate Amino Transf (AST/SGOT) 15, Alanine Aminotransferase (ALT/SGPT) 13, Alkaline Phosphatase 70, Total Protein 5.8, Albumin 2.7 06/26/21 10:48: Glucometer 274 06/26/21 15:33: Glucometer 278 06/26/21 21:20: Glucometer 272 06/27/21 05:40: White Blood Count 16.8, Red Blood Count 4.19, Hemoglobin 12.2, Hematocrit 38, Mean Corpuscular Volume 91, Mean Corpuscular Hemoglobin 29, Mean Corpuscular Hemoglobin Concent 32, Red Cell Distribution Width 14.8, Platelet Count 185, Mean Platelet Volume 12.4, Immature Granulocyte % (Auto) 2, Neutrophils (%) (Auto) 88, Lymphocytes (%) (Auto) 3, Monocytes (%) (Auto) 6, Eosinophils (%) (Auto) 1, Basophils (%) (Auto) 0, Neutrophils # (Auto) 14.8, Lymphocytes # (Auto) 0.6, Monocytes # (Auto) 1.0, Eosinophils # (Auto) 0.2, Basophils # (Auto) 0.0, Immature Granulocyte # (Auto) 0.3, Prothrombin Time 23.9, INR Comment 2.1, Sodium Level 139, Potassium Level 5.2, Chloride Level 106, Carbon Dioxide Level 25, Anion Gap 8, Blood Urea Nitrogen 59, Creatinine 1.67, Estimat Glomerular Filtration Rate 40, BUN/Creatinine Ratio 35, Glucose Level 139, Calcium Level 7.7, Corrected Calcium 9.0, Total Bilirubin 0.6, Aspartate Amino Transf (AST/SGOT) 11, Alanine Aminotransferase (ALT/SGPT) 10, Alkaline Phosphatase 61, Total Protein 5.1, Albumin 2.4, Procalcitonin 0.27 06/27/21 08:55: Blood Gas Puncture Site RR, Blood Gas Patient Temperature 36, Arterial Blood pH 7.36, Arterial Blood Partial Pressure CO2 44, Arterial Blood Partial Pressure O2 57, Arterial Blood HCO3 25, Arterial Blood Total CO2 26.0, Arterial Blood Oxygen Saturation 91, Arterial Blood Base Excess -0.3, Alex Test YES-POS, Blood Gas Ventilator Setting NO, Blood Gas Inspired Oxygen 100% 06/27/21 11:22: Glucometer 226 06/27/21 11:25: Lactic Acid Level 0.94 06/27/21 15:39: Glucometer 279 06/27/21 21:18: Glucometer 270 06/28/21 06:14: White Blood Count 19.9, Red Blood Count 4.49, Hemoglobin 13.0, Hematocrit 42, Mean Corpuscular Volume 93, Mean Corpuscular Hemoglobin 29, Mean Corpuscular Hemoglobin Concent 31, Red Cell Distribution Width 15.0, Platelet Count 156, Mean Platelet Volume 12.4, Immature Granulocyte % (Auto) 1, Neutrophils (%) (Auto) 90, Lymphocytes (%) (Auto) 3, Monocytes (%) (Auto) 5, Eosinophils (%) (Auto) 1, Basophils (%) (Auto) 0, Neutrophils # (Auto) 17.9, Lymphocytes # (Auto) 0.6, Monocytes # (Auto) 0.9, Eosinophils # (Auto) 0.2, Basophils # (Auto) 0.0, Immature Granulocyte # (Auto) 0.3, Sodium Level 139, Potassium Level 5.3, Chloride Level 105, Carbon Dioxide Level 26, Anion Gap 8, Blood Urea Nitrogen 68, Creatinine 1.99, Estimat Glomerular Filtration Rate 33, BUN/Creatinine Ratio 34, Glucose Level 120, Calcium Level 8.0, Corrected Calcium 9.0, Total Bilirubin 0.7, Aspartate Amino Transf (AST/SGOT) 17, Alanine Aminotransferase (ALT/SGPT) 12, Alkaline Phosphatase 77, Total Protein 5.8, Albumin 2.7 06/28/21 06:21: Glucometer 119 06/28/21 08:35: Blood Gas Puncture Site RT RAD, Blood Gas Patient Temperature 35.8, Arterial Blood pH 7.42, Arterial Blood Partial Pressure CO2 40, Arterial Blood Partial Pressure O2 53, Arterial Blood HCO3 26, Arterial Blood Total CO2 27.0, Arterial Blood Oxygen Saturation 89, Arterial Blood Base Excess 1.3, Alex Test YES-POS, Blood Gas Ventilator Setting NO, Blood Gas Inspired Oxygen 100% 06/28/21 12:22: Glucometer 180 06/28/21 15:49: Glucometer 368 06/28/21 21:44: Glucometer 390 06/29/21 05:06: White Blood Count 14.6, Red Blood Count 4.18, Hemoglobin 11.8, Hematocrit 39, Mean Corpuscular Volume 93, Mean Corpuscular Hemoglobin 28, Mean Corpuscular Hemoglobin Concent 30, Red Cell Distribution Width 14.8, Platelet Count 130, Tanisha n Platelet Volume 12.5, Immature Granulocyte % (Auto) 1, Neutrophils (%) (Auto) 92, Lymphocytes (%) (Auto) 2, Monocytes (%) (Auto) 4, Eosinophils (%) (Auto) 0, Basophils (%) (Auto) 0, Neutrophils # (Auto) 13.5, Lymphocytes # (Auto) 0.3, Monocytes # (Auto) 0.6, Eosinophils # (Auto) 0.0, Basophils # (Auto) 0.0, Immature Granulocyte # (Auto) 0.2, Prothrombin Time 25.0, INR Comment 2.2, Sodium Level 136, Potassium Level 5.6, Chloride Level 103, Carbon Dioxide Level 24, Anion Gap 9, Blood Urea Nitrogen 82, Creatinine 2.67, Estimat Glomerular Filtration Rate 23, BUN/Creatinine Ratio 31, Glucose Level 260, Calcium Level 7.8, Corrected Calcium 9.0, Total Bilirubin 0.4, Aspartate Amino Transf (AST/SGOT) 10, Alanine Aminotransferase (ALT/SGPT) 11, Alkaline Phosphatase 71, Total Protein 5.5, Albumin 2.5, Procalcitonin 0.60 06/29/21 06:06: Glucometer 225 06/29/21 07:30: Blood Gas Puncture Site RT RAD, Blood Gas Patient Temperature 36.0, Arterial Blood pH 7.35, Arterial Blood Partial Pressure CO2 45, Arterial Blood Partial Pressure O2 71, Arterial Blood HCO3 24, Arterial Blood Total CO2 25.7, Arterial Blood Oxygen Saturation 95, Arterial Blood Base Excess -0.8, Alex Test YES-POS, Blood Gas Ventilator Setting NO, Blood Gas Inspired Oxygen 100% 06/29/21 16:00: Glucometer 263 06/29/21 20:16: Glucometer 229 06/30/21 05:02: Glucometer 54 06/30/21 05:28: Glucometer 71 06/30/21 05:32: White Blood Count 24.4, Red Blood Count 4.50, Hemoglobin 13.0, Hematocrit 42, Mean Corpuscular Volume 92, Mean Corpuscular Hemoglobin 29, Mean Corpuscular Hemoglobin Concent 31, Red Cell Distribution Width 14.9, Platelet Count 119, Mean Platelet Volume 13.4, Immature Granulocyte % (Auto) 1, Neutrophils (%) (Auto) 93, Lymphocytes (%) (Auto) 1, Monocytes (%) (Auto) 3, Eosinophils (%) (Auto) 1, Basophils (%) (Auto) 0, Neutrophils # (Auto) 22.7, Lymphocytes # (Auto) 0.3, Monocytes # (Auto) 0.8, Eosinophils # (Auto) 0.2, Basophils # (Auto) 0.1, Immature Granulocyte # (Auto) 0.3, Neutrophils % (Manual) 95, Lymphocytes % (Manual) 1, Monocytes % (Manual) 2, Band Neutrophils 2, Toxic Granulation 1+, Percent Immature Platelet Fraction 9.6, Poikilocytosis MODERATE, Anisocytosis MODERATE, Microcytosis SLIGHT, Jbphh Cells MODERATE, Crenated Cell SLIGHT, Elliptocytes SLIGHT, Acanthocytes MODERATE, Prothrombin Time 32.4, INR Comment 3.1, Sodium Level 137, Potassium Level 5.9, Chloride Level 104, Carbon Dioxide Level 24, Anion Gap 9, Blood Urea Nitrogen 86, Creatinine 2.48, Estimat Glomerular Filtration Rate 25, BUN/Creatinine Ratio 35, Glucose Level 73, Calci um Level 8.2, Corrected Calcium 9.2, Total Bilirubin 0.7, Aspartate Amino Transf (AST/SGOT) 17, Alanine Aminotransferase (ALT/SGPT) 12, Alkaline Phosphatase 79, Total Protein 6.2, Albumin 2.7 06/30/21 06:06: Glucometer 85 Discharge Home Medications: Active Scripts Active Reported Gabapentin 300 Mg/6 Ml Solution 300 Mg PO HS Ferrous Gluconate 324 Mg Tablet 324 Mg PO DAILY Furosemide 80 Mg Tablet 80 Mg PO DAILY Potassium Chloride 20 Meq Tab.er.prt 20 Meq PO DAILY Metoprolol Succinate 25 Mg Tab.er.24h 12.5 Mg PO DAILY TAKES OF A 25MG TAB Eliquis (Apixaban) 2.5 Mg Tablet 2.5 Mg PO BID Glimepiride 1 Mg Tablet 1 Mg PO DAILY Allopurinol 100 Mg Tablet 100 Mg PO BID Trazodone HCl 50 Mg Tablet 50 Mg PO HS Spironolactone 25 Mg Tablet 25 Mg PO DAILY Atorvastatin Calcium 40 Mg Tablet 40 Mg PO DAILY Aspirin EC (Aspirin) 81 Mg Tablet.dr 81 Mg PO DAILY Instructions to patient/family Please see electronic discharge instructions given to patient. Diagnosis/Problems Diagnosis/Problems (1) Pneumonia due to COVID-19 virus Status: Acute (2) T2DM (type 2 diabetes mellitus) Status: Acute (3) Acute kidney injury Status: Acute (4) Atrial fibrillation Status: Acute ARCENIO FUENTES DO Jun 30, 2021 21:12
== END 2021-06-30 14:25 | disposition expired | DRG 177 ==
LOC: EDUNIT# 13:45 → ER 13:46 → 4TH 16:51 → ER 17:00 → 4TH 06-20 14:21
PROVIDERS: ADMIT Internal Medicine; ATTEND Internal Medicine
PROC: 5A09457 Assistance with Respiratory Ventilation, 24-96 Consecutive Hours, Continuous Positive Airway Pressure (ICD-10-PCS; principal; 2021-06-28)
DX: U07.1 COVID-19 (principal); J96.01 Acute respiratory failure with hypoxia; J12.82 Pneumonia due to coronavirus disease 2019; I50.33 Acute on chronic diastolic (congestive) heart failure; N17.9 Acute kidney failure, unspecified; I13.0 Hypertensive heart and chronic kidney disease with heart failure and stage 1 through stage 4 chronic kidney disease, or unspecified chronic kidney disease; I48.21 Permanent atrial fibrillation; Z66 Do not resuscitate; Z51.5 Encounter for palliative care; I27.20 Pulmonary hypertension, unspecified; W18.30XA Fall on same level, unspecified, initial encounter; H91.10 Presbycusis, unspecified ear; R53.81 Other malaise; E78.5 Hyperlipidemia, unspecified; I25.10 Atherosclerotic heart disease of native coronary artery without angina pectoris; M10.9 Gout, unspecified; I71.2 Thoracic aortic aneurysm, without rupture; E11.22 Type 2 diabetes mellitus with diabetic chronic kidney disease; E87.5 Hyperkalemia; M19.90 Unspecified osteoarthritis, unspecified site; G89.29 Other chronic pain; M54.9 Dorsalgia, unspecified; E11.649 Type 2 diabetes mellitus with hypoglycemia without coma; T14.8XXA Other injury of unspecified body region, initial encounter; N18.30 Chronic kidney disease, stage 3 unspecified; I34.0 Nonrheumatic mitral (valve) insufficiency; Z87.891 Personal history of nicotine dependence; Z73.0 Burn-out; Z79.82 Long term (current) use of aspirin; Z79.01 Long term (current) use of anticoagulants; Z79.899 Other long term (current) drug therapy; I25.2 Old myocardial infarction
CPT/HCPCS: 36410; 36415; 36600; 70450; 71045; 71046; 72125; 76937; 80053; 82805; 82947; 83605; 83880; 84145; 85007; 85025; 85027; 85379; 85610; 85730; 86141; 87040; 87077; 93005; 93306; 94640; 94660; 94664; 94760; 94761; 96374